=== PATIENT | male | born 1960 | race African-American/Black ===

== ENCOUNTER 2016-11-11 20:26 | Inpatient (IN) | payer BC, MEDICARE, OTHER ==
[~2016-11-11] VITALS: Ht 170.2 cm; Wt 82.2 kg
--- OUTSIDE RECORDS SUMMARY | 2016-11-11 20:32 | XMS REPORT ---
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
[2016-11-11 20:57] LABS: BASOPHILS # (AUTO) 0.1 10^3/uL (0.0-0.1); BASOPHILS % (AUTO) 0 % (0-10); EOSINOPHILS # (AUTO) 0.1 10^3/uL (0.0-0.3); EOSINOPHILS % (AUTO) 0 % (0-10); LYMPHOCYTES % (AUTO) 5 % (12-44); MEAN CORPUSCULAR HEMOGLOBIN 30 PG (25-34); MEAN CORPUSCULAR HGB CONC 32 G/DL (32-36); MEAN CORPUSCULAR VOLUME 93 FL (80-99); MEAN PLATELET VOLUME 11.6 FL (7.4-10.4); MONOCYTES % (AUTO) 10 % (0-12); NEUTROPHILS # (AUTO) 17.1 X 10^3 (1.8-7.8); NEUTROPHILS % (AUTO) 85 % (42-75); PLATELET COUNT 60 10^3/uL (130-400); RED BLOOD COUNT 4.93 10^6/uL (4.35-5.85); RED CELL DISTRIBUTION WIDTH 14.9 % (10.0-14.5); WHITE BLOOD COUNT 20.1 10^3/uL (4.3-11.0)
[2016-11-11 20:59] LABS: BILIRUBIN,URINE NEGATIVE (NEGATIVE); KETONES,URINE NEGATIVE (NEGATIVE); NITRITE,URINE NEGATIVE (NEGATIVE); PH,URINE 7 (5-9); PROTEIN,URINE 4+ (NEGATIVE); UROBILINOGEN,URINE NORMAL (NORMAL)
[2016-11-11 21:06] LABS: INR 1.2 (0.8-1.4)
[2016-11-11 21:08] LABS: ALANINE AMINOTRANSFERASE 6 U/L (0-55); ALBUMIN 3.1 G/DL (3.2-4.5); ANION GAP 13 MMOL/L (5-14); ASPARTATE AMINO TRANSFERASE 16 U/L (5-34); BILIRUBIN,TOTAL 0.6 MG/DL (0.1-1.0); BLOOD UREA NITROGEN 25 MG/DL (7-18); BUN/CREATININE RATIO 11; CARBON DIOXIDE 24 MMOL/L (21-32); CHLORIDE 107 MMOL/L (98-107); GFR ESTIMATED 36; GLUCOSE 119 MG/DL (70-105); POTASSIUM 3.8 MMOL/L (3.6-5.0); SODIUM 144 MMOL/L (135-145); TOTAL PROTEIN 5.8 G/DL (6.4-8.2)
[2016-11-11 21:10] LABS: LEUKOCYTE ESTERASE ,URINE 3+ (NEGATIVE); SQUAMOUS EPITHELIAL CELL,UR RARE /HPF; WBC,URINE TNTC /HPF
[2016-11-11 21:14] LABS: TROPONIN I < 0.30 NG/ML (<0.30)
[2016-11-11 21:27] LABS: BAND NEUTROPHILS 7 %; LYMPHOCYTES % (MANUAL) 1 %; NEUTROPHILS % (MANUAL) 78 %; REACTIVE LYMPHOCYTES 4 %
[2016-11-11] MEDS ORDERED: NS IV 1000 ML 2,500 ML IV PRN (21:30)
[2016-11-11] MEDS ORDERED: PIPERACILLIN SODIUM/TAZOBACTAM 4.5 GM in NORMAL SALINE (BAXTER MINI) 100 ML IV ONE (21:30)
[2016-11-11] MEDS ORDERED: PIPERACILLIN/TAZO 4.5 GM VIAL (ZOSYN) IV ONE (21:40)
[2016-11-11] MEDS ORDERED: SODIUM CHLORIDE (ADD-VANTAGE) 0 ML IV ONE (21:42)
[2016-11-11] MEDS ORDERED: CEFEPIME HCL 2 GM (MAXIPIME) VIAL ONE (21:47)
[2016-11-11] MEDS ORDERED: NORMAL SALINE (BAXTER MINI) 50 ML IV ONE (21:48)
--- NOTE | 2016-11-11 21:49 | Diagnostic Imaging Report ---
INDICATION: Unresponsive. EXAMINATION: Portal semierect AP chest at 9:31 p.m. COMPARISON: There are no prior studies available for comparison. FINDINGS: The heart size is mildly enlarged and the central pulmonary vascularity is prominent. There may be an element of mild pulmonary congestion present. There is no confluent pneumonia identified and there is no significant pleural effusion. The mediastinum is not widened. The osseous structures are intact. There do appear to be bilateral pedicle screws overlying the lower cervical spine. These are only partially visualized. IMPRESSION: 1. The prominence of the heart and the central pulmonary vascularity suggests that there may be an element of mild pulmonary congestion present. Clinical followup is recommended. 2. There is no acute cardiopulmonary abnormality identified otherwise. Dictated by: Dictated on workstation # [id number]
[2016-11-11] MEDS ORDERED: CEFEPIME INJECTION 2,000 MG in NORMAL SALINE (BAXTER MINI) 50 ML IV ONE (22:00)
[2016-11-11] MEDS ORDERED: ROCURONIUM 50 MG/5 ML (ZEMURON) VIAL IV ONE (23:00)
[2016-11-11 23:25] VITALS: BP 89/55
[2016-11-11] MEDS ORDERED: SODIUM CHLORIDE (ADD-VANTAGE) 250 ML ONE (23:46)
[2016-11-11] MEDS ORDERED: VANCOMYCIN 1 GM ADD-VANTAGE VIAL IV ONE (23:46)
[2016-11-12] VITALS (33 sets, daily range): BP systolic 73–195; BP diastolic 45–89
[2016-11-12] MEDS ORDERED: LACTATED RINGERS 1,000 ML IV ONE (00:31)
[2016-11-12 00:58] LABS: ABG BASE EXCESS -2.1 MMOL/L (-2.5-2.5); ABG HCO3 25 MMOL/L (23-27); ABG OXYGEN SATURATION 98 % (94-100); ABG PCO2 52 MMHG (35-45); ABG PO2 112 MMHG (79-93); ABG TCO2 26.7 MMOL/L (21.0-31.0)
[2016-11-12 01:01] LABS: ALLENS TEST YES-POS; PATIENT TEMP 97.7
[2016-11-12] MEDS ORDERED: PROPOFOL DRIP (ICU) 100 ML IV ONE (01:47)
[2016-11-12] MEDS ORDERED: LACTATED RINGERS 1,000 ML IV SCH ×4 (02:00→06:45)
[2016-11-12] MEDS ORDERED: VANCOMYCIN 1 GM/NS 250 ML IVPB IV SCH ×2 (02:00)
[2016-11-12] MEDS: NOREPINEPHRINE 4 MG in D5W 250 ML IV SCH ×2 (02:00→15:20)
[2016-11-12] MEDS: NS IV 1000 ML 1,000 ML IV SCH ×8 (02:00→21:07)
--- NOTE | 2016-11-12 02:21 | Anesthesia-Procedure Note ---
Procedure Start/Stop Time Date of Procedure: Nov 12, 2016 Start Time: 01:50 Stop Time: 02:15 Procedures/Interventions RSI: No 100% pre-Ox, [id number]: Yes Intubation Method: orotracheal Videoscope used: Yes (glidescope 3) Medications: Propofol (80mg), Rocuronium (30mg) Mask Ventilation: positive Positive End Tide CO2: Yes Breath Sounds after Intubation: bilateral-equal ETT Securred @ (cm): 22 Intubated with ease: Yes Intubation Complications: no complications Post Intubation Xray-done: Yes Arterial Line Catheter: 20G ( x 1 attempt) Type: Radial Location: Right Procedure: prepped, draped in sterile fashion, good wave-form was obtained, patient tolerated procedure well, no immediate complications, post procedure area cleaned, post procedure dressing applied (secured with silk tape) LAI SANDERS CRNA Nov 12, 2016 02:21
[2016-11-12 03:09] LABS: BASOPHILS % (AUTO) 0 % (0-10); EOSINOPHILS # (AUTO) 0.1 10^3/uL (0.0-0.3); EOSINOPHILS % (AUTO) 0 % (0-10); LYMPHOCYTES # (AUTO) 1.6 X 10^3 (1.0-4.0); LYMPHOCYTES % (AUTO) 7 % (12-44); MEAN CORPUSCULAR HEMOGLOBIN 30 PG (25-34); MEAN CORPUSCULAR HGB CONC 32 G/DL (32-36); MEAN CORPUSCULAR VOLUME 95 FL (80-99); MEAN PLATELET VOLUME 12.1 FL (7.4-10.4); MONOCYTES # (AUTO) 1.7 X 10^3 (0.0-1.0); MONOCYTES % (AUTO) 8 % (0-12); NEUTROPHILS # (AUTO) 18.5 X 10^3 (1.8-7.8); NEUTROPHILS % (AUTO) 85 % (42-75); PLATELET COUNT 42 10^3/uL (130-400); RED BLOOD COUNT 4.35 10^6/uL (4.35-5.85); RED CELL DISTRIBUTION WIDTH 14.9 % (10.0-14.5); WHITE BLOOD COUNT 21.8 10^3/uL (4.3-11.0)
[2016-11-12 03:23] LABS: INR 1.3 (0.8-1.4); PROTHROMBIN TIME PATIENT 15.7 SEC (12.2-14.7)
[2016-11-12 03:31] LABS: ALBUMIN 2.7 G/DL (3.2-4.5); BILIRUBIN,TOTAL 0.5 MG/DL (0.1-1.0); CALCIUM 8.2 MG/DL (8.5-10.1); CREATININE SERUM 1.6 MG/DL (0.60-1.30); POTASSIUM 4.2 MMOL/L (3.6-5.0)
[2016-11-12 04:29] LABS: ABG BASE EXCESS -1.7 MMOL/L (-2.5-2.5); ABG HCO3 24 MMOL/L (23-27); ABG OXYGEN SATURATION 99 % (94-100); ABG PCO2 40 MMHG (35-45); ABG PH 7.38 (7.37-7.43); ABG PO2 118 MMHG (79-93); ABG TCO2 24.8 MMOL/L (21.0-31.0)
[2016-11-12 04:31] LABS: ALLENS TEST YES-POS
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
[2016-11-12] MEDS ORDERED: NS IV 500 ML 500 ML ONE (06:34)
[2016-11-12] MEDS ORDERED: NS IV 500 ML 500 ML IV SCH (06:45)
[2016-11-12] MEDS: LEVOFLOXACIN 750 MG/150 ML IV 150 ML IV SCH (06:53)
[2016-11-12 07:19] LABS: BASOPHILS % (AUTO) 0 % (0-10); EOSINOPHILS # (AUTO) 0.1 10^3/uL (0.0-0.3); EOSINOPHILS % (AUTO) 1 % (0-10); LYMPHOCYTES # (AUTO) 2.1 X 10^3 (1.0-4.0); LYMPHOCYTES % (AUTO) 10 % (12-44); MEAN CORPUSCULAR HEMOGLOBIN 31 PG (25-34); MEAN CORPUSCULAR HGB CONC 33 G/DL (32-36); MEAN CORPUSCULAR VOLUME 94 FL (80-99); MEAN PLATELET VOLUME 11.9 FL (7.4-10.4); MONOCYTES # (AUTO) 1.5 X 10^3 (0.0-1.0); MONOCYTES % (AUTO) 7 % (0-12); NEUTROPHILS # (AUTO) 16.7 X 10^3 (1.8-7.8); NEUTROPHILS % (AUTO) 82 % (42-75); RED BLOOD COUNT 4.17 10^6/uL (4.35-5.85); RETICULOCYTE % 1.45 % (0.50-2.40); WHITE BLOOD COUNT 20.3 10^3/uL (4.3-11.0)
[2016-11-12 07:27] LABS: PATH WILL NEED TO REVIEW SMEAR PATH TO REVIEW; PLATELET COUNT 31 10^3/uL (130-400)
[2016-11-12 07:34] LABS: INR 1.4 (0.8-1.4); PROTHROMBIN TIME PATIENT 16.9 SEC (12.2-14.7)
--- NOTE | 2016-11-12 07:44 | Diagnostic Imaging Report ---
INDICATION: Respiratory failure. FINDINGS: The ET tube tip projects at the level of the undersurface of the medial clavicular heads, 7 cm above the joel. Patchy infiltrate in the right lower lobe partially obscuring the medial right hemidiaphragm. This could be atelectasis or pneumonia. IMPRESSION: ET tube tip near the thoracic inlet 7 cm above the joel. Right medial basilar infiltrate, atelectasis versus pneumonia. Not mentioned above, a gastric catheter is in the stomach in good position. Dictated by: Dictated on workstation # [id number]
[2016-11-12] MEDS ORDERED: VANCOMYCIN INJECTION 1,500 MG in NS IV 500 ML 500 ML IV SCH (08:00)
[2016-11-12 08:29] LABS: ANISOCYTOSIS SLIGHT; BAND NEUTROPHILS 33 %; BASOPHILS % (MANUAL) 0 %; EOSINOPHILS % (MANUAL) 0 %; LYMPHOCYTES % (MANUAL) 14 %; METAMYELOCYTES % 2 %; MYELOCYTES % 2 %; NEUTROPHILS % (MANUAL) 44 %
[2016-11-12] MEDS ORDERED: RT-ALBUTEROL/IPRATROPIUM 3 ML (DUONEB) VIAL INH SCH (11:00)
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
[2016-11-12] MEDS: CEFEPIME 2 GM/NS 50 ML IVPB IV SCH ×4 (13:29→23:10)
[2016-11-12] MEDS: RT-ALBUTEROL/IPRATROPIUM 3 ML (DUONEB) VIAL INH SCH ×3 (14:30→22:42)
[2016-11-12 14:58] LABS: BASOPHILS % (AUTO) 0 % (0-10); EOSINOPHILS # (AUTO) 0.3 10^3/uL (0.0-0.3); EOSINOPHILS % (AUTO) 2 % (0-10); LYMPHOCYTES % (AUTO) 11 % (12-44); MEAN CORPUSCULAR HEMOGLOBIN 30 PG (25-34); MEAN CORPUSCULAR HGB CONC 32 G/DL (32-36); MEAN CORPUSCULAR VOLUME 94 FL (80-99); MEAN PLATELET VOLUME 10.5 FL (7.4-10.4); MONOCYTES # (AUTO) 0.8 X 10^3 (0.0-1.0); MONOCYTES % (AUTO) 5 % (0-12); NEUTROPHILS # (AUTO) 14.6 X 10^3 (1.8-7.8); NEUTROPHILS % (AUTO) 83 % (42-75); PLATELET COUNT 43 10^3/uL (130-400); RED CELL DISTRIBUTION WIDTH 14.9 % (10.0-14.5); WHITE BLOOD COUNT 17.7 10^3/uL (4.3-11.0)
[2016-11-12] MEDS: fentaNYL INJECTION 100 MCG/2 ML AMP IVP PRN ×3 (14:58→23:50)
[2016-11-12] MEDS ORDERED: RT-ALBUTEROL/IPRATROPIUM 3 ML (DUONEB) VIAL INH PRN (15:00)
[2016-11-12 15:14] LABS: ANION GAP 6 MMOL/L (5-14); BLOOD UREA NITROGEN 20 MG/DL (7-18); BUN/CREATININE RATIO 20; CALCIUM 7.6 MG/DL (8.5-10.1); CARBON DIOXIDE 20 MMOL/L (21-32); CHLORIDE 118 MMOL/L (98-107); CREATININE SERUM 0.99 MG/DL (0.60-1.30); GFR ESTIMATED > 60; GLUCOSE 72 MG/DL (70-105); POTASSIUM 3.1 MMOL/L (3.6-5.0); SODIUM 144 MMOL/L (135-145)
[2016-11-12] MEDS ORDERED: POTASSIUM CL 10MEQ/50ML IVPB 50 ML IV SCH (15:30)
[2016-11-12] MEDS ORDERED: ACETAMINOPHEN 325 MG TABLET/CAPLET (TYLENOL) ONE (15:36)
[2016-11-12] MEDS ORDERED: ACETAMINOPHEN 325 MG TABLET/CAPLET (TYLENOL) PO PRN (15:45)
[2016-11-12] MEDS: POTASSIUM CL 10MEQ/50ML IVPB 50 ML IV SCH ×6 (16:02→22:19)
[2016-11-12] MEDS ORDERED: ACETAMINOPHEN 500 MG TAB (TYLENOL) PO PRN (18:15)
--- NOTE | 2016-11-12 20:01 | Diagnostic Imaging Report ---
INDICATION: Swelling COMPARISON: None FINDINGS: Grayscale as well as duplex Doppler evaluation of the deep venous system of both upper extremities is performed. The left and right internal jugular veins, subclavian veins, axillary veins and brachial veins appear patent. There is normal compressibility. No visible thrombus is demonstrated. The cephalic and basilic veins appear patent as well. IMPRESSION: There is no evidence of deep venous thrombosis within either upper extremity. Dictated by: Dictated on workstation # [id number]
--- NOTE | 2016-11-12 20:11 | Diagnostic Imaging Report ---
INDICATION: Swelling COMPARISON: None FINDINGS: Grayscale and duplex Doppler ultrasound of the deep venous system of both lower extremities was performed utilizing compression and augmentation. There is extensive but nonocclusive thrombus seen within the right common femoral vein extending into the proximal and mid superficial femoral vein. Distal superficial femoral vein and popliteal vein on the right appear patent and compressible. The left common femoral, superficial femoral and popliteal veins appear patent and compressible without visible thrombus on the left. The left superficial femoral vein was not visualized well on the longitudinal view but did show normal compression. IMPRESSION: There is extensive but nonocclusive thrombus in the right common femoral vein and proximal to mid superficial femoral vein. Report given to patient's nurse (Brandi) at 8:11 a.m. 11/12/2016/anil Dictated by: Dictated on workstation # [id number]
[2016-11-12] MEDS ORDERED: FAMOTIDINE 20MG/2ML IV (PEPCID) IVP SCH ×2 (21:00)
[2016-11-12] MEDS ORDERED: LINEZOLID IVPB 300 ML IV SCH (21:00)
[2016-11-12] MEDS ORDERED: FONDAPARINUX 2.5 MG (ARIXTRA) SYR NON-FORMULARY SQ SCH (22:24)
[2016-11-13] VITALS (28 sets, daily range): BP systolic 117–196; BP diastolic 66–101
[2016-11-13] MEDS ORDERED: BIVALIRUDIN IV ONE (00:01)
[2016-11-13] MEDS ORDERED: NS (IVPB) 50 ML ONE (00:17)
[2016-11-13 00:41] LABS: INR 1.3 (0.8-1.4); PROTHROMBIN TIME PATIENT 16.3 SEC (12.2-14.7)
[2016-11-13] MEDS: BIVALIRUDIN IV SCH ×2 (00:50→18:46)
[2016-11-13] MEDS: NS IV SCH ×2 (00:50→18:46)
[2016-11-13] MEDS: RT-ALBUTEROL/IPRATROPIUM 3 ML (DUONEB) VIAL INH SCH ×6 (01:58→23:00)
[2016-11-13] MEDS: fentaNYL INJECTION 100 MCG/2 ML AMP IVP PRN ×2 (03:23→21:22)
[2016-11-13] MEDS: NOREPINEPHRINE 4 MG in D5W 250 ML IV SCH (03:50)
[2016-11-13 04:14] LABS: ABG BASE EXCESS -2.9 MMOL/L (-2.5-2.5); ABG HCO3 22 MMOL/L (23-27); ABG OXYGEN SATURATION 96 % (94-100); ABG PCO2 39 MMHG (35-45); ABG PH 7.37 (7.37-7.43); ABG PO2 87 MMHG (79-93); ABG TCO2 22.8 MMOL/L (21.0-31.0)
[2016-11-13 04:18] LABS: ALLENS TEST ART LINE; BASOPHILS % (AUTO) 0 % (0-10); EOSINOPHILS # (AUTO) 0.3 10^3/uL (0.0-0.3); EOSINOPHILS % (AUTO) 2 % (0-10); LYMPHOCYTES # (AUTO) 1.5 X 10^3 (1.0-4.0); LYMPHOCYTES % (AUTO) 10 % (12-44); MEAN CORPUSCULAR HEMOGLOBIN 30 PG (25-34); MEAN CORPUSCULAR HGB CONC 33 G/DL (32-36); MEAN CORPUSCULAR VOLUME 93 FL (80-99); MEAN PLATELET VOLUME 11.7 FL (7.4-10.4); MONOCYTES # (AUTO) 0.9 X 10^3 (0.0-1.0); MONOCYTES % (AUTO) 6 % (0-12); NEUTROPHILS # (AUTO) 12.4 X 10^3 (1.8-7.8); NEUTROPHILS % (AUTO) 82 % (42-75); PATIENT TEMP 100.5; PLATELET COUNT 45 10^3/uL (130-400); RED BLOOD COUNT 4.11 10^6/uL (4.35-5.85); RED CELL DISTRIBUTION WIDTH 15.3 % (10.0-14.5); WHITE BLOOD COUNT 15.1 10^3/uL (4.3-11.0)
[2016-11-13 04:32] LABS: INR 1.8 (0.8-1.4); PROTHROMBIN TIME PATIENT 20.9 SEC (12.2-14.7)
[2016-11-13 04:42] LABS: ALANINE AMINOTRANSFERASE 6 U/L (0-55); ALBUMIN 2.8 G/DL (3.2-4.5); ANION GAP 10 MMOL/L (5-14); ASPARTATE AMINO TRANSFERASE 14 U/L (5-34); BILIRUBIN,TOTAL 0.6 MG/DL (0.1-1.0); BLOOD UREA NITROGEN 20 MG/DL (7-18); BUN/CREATININE RATIO 21; CALCIUM 8.3 MG/DL (8.5-10.1); CARBON DIOXIDE 19 MMOL/L (21-32); CHLORIDE 115 MMOL/L (98-107); CREATININE SERUM 0.95 MG/DL (0.60-1.30); GFR ESTIMATED > 60; GLUCOSE 87 MG/DL (70-105); SODIUM 144 MMOL/L (135-145); TOTAL PROTEIN 5.3 G/DL (6.4-8.2)
[2016-11-13] MEDS: LEVOFLOXACIN 750 MG/150 ML IV 150 ML IV SCH (05:59)
[2016-11-13] MEDS ORDERED: MAGNESIUM 1 GM/100 ML IVPB 100 ML IV SCH (06:00)
[2016-11-13] MEDS: KCL 20 MEQ TAB (K-DUR) PO SCH (06:00)
[2016-11-13] MEDS: POTASSIUM CL 10MEQ/50ML IVPB 50 ML IV SCH (06:00)
[2016-11-13 06:22] LABS: MAGNESIUM 1.5 MG/DL (1.8-2.4); PHOSPHORUS 2.7 MG/DL (2.3-4.7)
--- NOTE | 2016-11-13 06:52 | Pulmonary Progress Note ---
Subjective Subjective/Events-last exam Pt is doing better off levophed requiring minimal oxygen. Exam Exam Vital Signs Date Time Temp Pulse Resp B/P Pulse Ox O2 Delivery O2 Flow Rate FiO2 11/13/16 06:00 83 18 117/89 97 Mechanical Ventilator 21.00 11/13/16 05:59 139/83 11/13/16 05:00 74 12 139/83 96 Mechanical Ventilator 21.00 11/13/16 04:06 82 22 96 21 11/13/16 04:00 100.5 81 16 137/75 96 Mechanical Ventilator 21.00 11/13/16 03:00 97 11 132/75 96 Mechanical Ventilator 21.00 11/13/16 02:00 80 15 139/92 97 Mechanical Ventilator 21.00 11/13/16 01:59 75 19 97 21 11/13/16 01:10 75 11/13/16 01:00 119 21 143/81 97 Mechanical Ventilator 21.00 11/13/16 00:00 100.5 144 14 127/74 97 Mechanical Ventilator 21.00 11/13/16 00:00 97 Mechanical Ventilator 21.00 11/12/16 23:00 87 16 144/83 96 Mechanical Ventilator 21.00 11/12/16 22:42 86 17 97 21 11/12/16 22:00 81 12 142/89 98 Mechanical Ventilator 21.00 11/12/16 21:07 163/75 11/12/16 21:00 83 11 145/81 98 Mechanical Ventilator 21.00 11/12/16 20:00 97 Mechanical Ventilator 21.00 11/12/16 20:00 101.4 96 12 127/77 97 Mechanical Ventilator 21.00 11/12/16 19:58 94 21 97 21 11/12/16 19:00 81 11/12/16 19:00 84 14 127/80 96 Mechanical Ventilator 21.00 11/12/16 18:55 101.8 11/12/16 18:27 77 19 97 21 11/12/16 18:00 88 16 177/68 97 Mechanical Ventilator 21.00 11/12/16 17:00 79 13 195/87 98 Mechanical Ventilator 21.00 11/12/16 16:18 90 15 96 21 11/12/16 16:00 101.8 11/12/16 16:00 96 Mechanical Ventilator 21 11/12/16 16:00 100 17 172/74 97 Mechanical Ventilator 21.00 11/12/16 15:57 101.1 11/12/16 15:09 101.1 Mechanical Ventilator 21.00 11/12/16 15:00 98 19 149/66 95 Mechanical Ventilator 21.00 11/12/16 14:30 79 15 98 21 11/12/16 14:00 76 15 163/74 98 Mechanical Ventilator 21.00 11/12/16 13:00 76 11/12/16 13:00 77 14 156/72 97 Mechanical Ventilator 21.00 11/12/16 12:45 79 21 97 21 11/12/16 12:00 99.6 11/12/16 12:00 Mechanical Ventilator 21.00 11/12/16 12:00 75 15 154/75 98 Mechanical Ventilator 21.00 11/12/16 12:00 96 Mechanical Ventilator 21 11/12/16 11:07 99.6 75 23 138/70 Mechanical Ventilator 21.00 11/12/16 11:01 98 Mechanical Ventilator 21 11/12/16 11:00 98.9 75 15 131/84 95 Mechanical Ventilator 21 11/12/16 11:00 76 18 153/73 98 Mechanical Ventilator 50.00 11/12/16 10:36 98 11/12/16 10:36 75 17 98 21 11/12/16 10:00 80 22 134/67 97 Mechanical Ventilator 50.00 11/12/16 09:00 86 12 127/67 96 Mechanical Ventilator 50.00 11/12/16 08:55 97.8 80 15 120/62 95 Mechanical Ventilator 21 11/12/16 08:39 97.8 80 16 121/64 94 Mechanical Ventilator 21 11/12/16 08:24 68 15 98 30 11/12/16 08:00 97.8 Mechanical Ventilator 21.00 11/12/16 08:00 75 15 114/60 98 Mechanical Ventilator 50.00 11/12/16 08:00 96 Mechanical Ventilator 21 11/12/16 07:21 68 15 98 40 11/12/16 07:00 70 19 113/62 98 Mechanical Ventilator 50.00 11/12/16 07:00 71 I & O 11/13/16 07:00 Intake Total 2915 ml Output Total 2275 ml Balance 640 ml General Appearance: Moderate Distress HEENT: Other (ET tube in place ) Neck: Normal Inspection Supple Respiratory: Lungs Clear No Accessory Muscle Use No Respiratory Distress Cardiovascular: Regular Rate, Rhythm No Gallop No Murmur Capillary Refill: Less Than 3 Seconds Gastrointestinal: other ((+) indwelling portillo noted draining dark urine) Extremity: Normal Capillary Refill Normal Inspection Non Tender No Calf Tenderness Neurologic/Psychiatric: Other (sedated on vent) Skin: Normal Color Warm/Dry Lymphatic: No Adenopathy Results Lab Laboratory Tests 11/11/16 20:35 11/12/16 03:00 11/12/16 07:05 11/12/16 14:50 11/13/16 04:05 Assessment/Plan Assessment/Plan Acute respiratory failure requiring mechanical ventilation -Continue vent support -D/C sedation -Weaning parameters and probable extubation Severe sepsis with UTI -Continue levaquin cefepime, zyvox -Hold off on central line secondary to thrombocytopenia Hypotension- resolved -Continue IVF Metabolic lactic acidosis -IVF Thrombocytopenia with DVT r/o HIT -Continue Angiomax -Check DIC panal and peripheral smear -Check HIT abx pending -transfuse 6pk of platelets Quadriplegia Clinical Quality Measures DVT/VTE Risk/Contraindication: Risk Factor Score Per Nursin RFS Level Per Nursing on Admit: 3=High JOANNA MASSEY DO Nov 13, 2016 06:52
[2016-11-13] MEDS: MAGNESIUM 1 GM/100 ML IVPB 100 ML IV SCH ×2 (07:16→08:28)
[2016-11-13] MEDS: NS IV 1000 ML 1,000 ML IV SCH ×2 (07:16→20:09)
--- NOTE | 2016-11-13 08:35 | Diagnostic Imaging Report ---
INDICATION: Ventilated patient. COMPARISON: 11/12/2016 FINDINGS: Single frontal radiographic view of the chest was obtained and demonstrate stable cardiac silhouette and pulmonary vasculature. Lungs show asymmetric elevation of right hemidiaphragm. There are patchy opacities in both lower lung tolentino. There is no large effusion or pneumothorax. Indwelling endotracheal tube terminates with tip below the clavicular heads and above the joel. Enteric tube is coiled in the stomach. IMPRESSION: 1. Mild residual bibasilar patchy infiltrate and/or atelectasis. 2. Lines and tubes as above. Dictated by: Dictated on workstation # [id number]
[2016-11-13] MEDS: VANCOMYCIN 1500 MG/NS 500 ML IVPB IV SCH ×4 (10:23→20:10)
[2016-11-13] MEDS: CEFEPIME 2 GM/NS 50 ML IVPB IV SCH ×4 (10:23→22:17)
[2016-11-13] MEDS: PANTOPRAZOLE 40 MG/10 ML (PROTONIX) VIAL IV SCH (10:23)
--- NOTE | 2016-11-13 11:32 | Progress Note (SOAP) ---
Subjective Subjective/Events-last exam Patient Extubated this AM and satting 95% on RA. States that he is very cold. Would like to get a call light that he can use with his head given his paralysis. Good UOP with urine clear. Date seen by provider: Nov 13, 2016 Objective Exam Last Set of Vital Signs Vital Signs Date Time Temp Pulse Resp B/P Pulse Ox O2 Delivery O2 Flow Rate FiO2 11/13/16 10:49 96 Room Air 11/13/16 07:20 2.00 11/13/16 07:00 74 11/13/16 06:42 17 21 11/13/16 06:00 117/89 11/13/16 04:00 100.5 Capillary Refill : Less Than 3 Seconds I&O Intake and Output 11/13/16 00:00 Intake Total 5565 ml Output Total 2475 ml Balance 3090 ml Intake Oral 0 ml IV Total 5565 ml Output Urine Total 2475 ml General: Alert, Cooperative, No Acute Distress Lungs: Clear to Auscultation Heart: Regular Rate, No Murmurs Abdomen: Normal Bowel Sounds, Soft, No Tenderness Extremities: Other (3+ pitting edema in UE and LE equal bilaterally) Skin: No Rashes, No Breakdown Neuro: Normal Speech, Sensation Intact (facial sensation) Results/Procedures Lab Laboratory Tests 11/12/16 14:50: Anion Gap 6, BUN/Creatinine Ratio 20, Basophils # (Auto) 0.0, Basophils (%) ( Auto) 0, Blood Urea Nitrogen 20H, Calcium Level 7.6L, Carbon Dioxide Level 20L, Chloride Level 118H, Creatinine 0.99, Eosinophils # (Auto) 0.3, Eosinophils (%) (Auto) 2, Estimat Glomerular Filtration Rate > 60, Glucose Level 72, Hematocrit 38L, Hemoglobin 12.1L, Lymphocytes # (Auto) 2.0, Lymphocytes (%) (Auto) 11L, Mean Corpuscular Hemoglobin 30, Mean Corpuscular Hemoglobin Concent 32, Mean Corpuscular Volume 94, Mean Platelet Volume 10.5H, Monocytes # (Auto) 0.8, Monocytes (%) (Auto) 5, Neutrophils # (Auto) 14.6H, Neutrophils (%) (Auto) 83H, Platelet Count 43L, Potassium Level 3.1L, Red Blood Count 4.00L, Red Cell Distribution Width 14.9H, Sodium Level 144, White Blood Count 17.7H 11/13/16 00:25: Activated Partial Thromboplast Time 37H, INR Comment 1.3, Prothrombin Time 16.3H 11/13/16 04:05: Anion Gap 10, BUN/Creatinine Ratio 21, Basophils # (Auto) 0.0, Basophils (%) ( Auto) 0, Blood Urea Nitrogen 20H, Calcium Level 8.3L, Carbon Dioxide Level 19L, Chloride Level 115H, Creatinine 0.95, Eosinophils # (Auto) 0.3, Eosinophils (%) (Auto) 2, Estimat Glomerular Filtration Rate > 60, Glucose Level 87, Hematocrit 38L, Hemoglobin 12.5L, Lymphocytes # (Auto) 1.5, Lymphocytes (%) (Auto) 10L, Mean Corpuscular Hemoglobin 30, Mean Corpuscular Hemoglobin Concent 33, Mean Corpuscular Volume 93, Mean Platelet Volume 11.7H, Monocytes # (Auto) 0.9, Monocytes (%) (Auto) 6, Neutrophils # (Auto) 12.4H, Neutrophils (%) (Auto) 82H, Platelet Count 45L, Potassium Level 4.0, Red Blood Count 4.11L, Red Cell Distribution Width 15.3H, Sodium Level 144, White Blood Count 15.1H, Activated Partial Thromboplast Time 80H, INR Comment 1.8H, Prothrombin Time 20.9H, Alanine Aminotransferase (ALT/SGPT) 6, Albumin 2.8L, Alkaline Phosphatase 59, Azam Test ART LINE, Arterial Blood Base Excess -2.9L, Arterial Blood HCO3 22L, Arterial Blood Oxygen Saturation 96, Arterial Blood Partial Pressure CO2 39, Arterial Blood Partial Pressure O2 87, Arterial Blood Total CO2 22.8, Arterial Blood pH 7.37, Aspartate Amino Transf (AST/SGOT) 14, Blood Gas Inspired Oxygen 21%, Blood Gas Patient Temperature 100.5, Blood Gas Puncture Site RIGHT HÉCTOR, Blood Gas Ventilator Setting YES, Lactic Acid Level 1.9, Magnesium Level 1.5L, Phosphorus Level 2.7, Total Bilirubin 0.6, Total Protein 5.3L Microbiology 11/11/16 Blood Culture - Preliminary, Resulted Escherichia Coli 11/12/16 Gram Stain - Final, Resulted 11/12/16 Sputum Culture - Preliminary, Resulted Normal keven 11/11/16 Urine Culture - Preliminary, Resulted Escherichia Coli Enterobacter Aerogenes Enterococcus Faecalis Proteus Species Radiology Date of Exam: 11/11/16 CHEST 1 VIEW, AP/PA ONLY INDICATION: Unresponsive. EXAMINATION: Portal semierect AP chest at 9:31 p.m. COMPARISON: There are no prior studies available for comparison. FINDINGS: The heart size is mildly enlarged and the central pulmonary vascularity is prominent. There may be an element of mild pulmonary congestion present. There is no confluent pneumonia identified and there is no significant pleural effusion. The mediastinum is not widened. The osseous structures are intact. There do appear to be bilateral pedicle screws overlying the lower cervical spine. These are only partially visualized. IMPRESSION: 1. The prominence of the heart and the central pulmonary vascularity suggests that there may be an element of mild pulmonary congestion present. Clinical followup is recommended. 2. There is no acute cardiopulmonary abnormality identified otherwise. Assessment/Plan Assessment/Plan Admission Dx Severe Sepsis due to UTI Acute Respiratory Failure Acute Renal Insufficiency Thrombocytopenia Elevated INR Quadriplegia Chronic Indwelling Catheter Plan 56 yo Quadriplegic M with indwelling catheter that presents to ER for altered mental status in Severe Sepsis from presumed UTI Severe Sepsis due to Ecoli UTI - Rapid fluid replacement completed, blood pressure responded and has stabilized (A line), Elevated Lactate resolved - Decrease IVF 75 cc/hr - Blood and Urine cultures growing Ecoli, susceptibilities pending - Continue Cefepime/Vanc D2 Acute Respiratory Failure: Improving - Extubated this AM Ecoli UTI: See Above Right Common Femoral Thrombus - Started on Anticoagulation last night, given thrombocytopenia monitor closely for any signs of bleeding Acute Renal Insufficiency: Resolved, Adequate UOP Thrombocytopenia s/p 1 bag plts: Concerning for DIC, HIT-Ab pending - Monitor closely for bleeding Elevated INR: See Above Quadriplegia Chronic Indwelling Catheter Dispo: Continue Admit to ICU DVT PPX: PO anticoagulation started last night FEN: NPO Diagnosis/Problems: Clinical Quality Measures DVT/VTE Risk/Contraindication: Risk Factor Score Per Nursin RFS Level Per Nursing on Admit: 3=High LAURIE SAVAGE MD Nov 13, 2016 11:32
[2016-11-13] MEDS ORDERED: DIPH28.33 TP (12:33)
[2016-11-13] MEDS ORDERED: MENT118G TP (12:33)
[2016-11-13] MEDS ORDERED: DIAZ10TA3 PO (12:33)
[2016-11-13] MEDS ORDERED: ASCO-262 PO (12:33)
[2016-11-13] MEDS ORDERED: DEXT15DR21 OU (12:33)
[2016-11-13] MEDS ORDERED: METH1TAB21 PO (12:33)
[2016-11-13] MEDS ORDERED: LIDOCAINE JELLY UR (12:33)
[2016-11-13] MEDS ORDERED: CALC625T8 PO (12:33)
[2016-11-13] MEDS ORDERED: QUET50TA55 PO (12:33)
[2016-11-13] MEDS ORDERED: NPPH15OP OU (12:33)
[2016-11-13] MEDS ORDERED: DANT100C PO (12:33)
[2016-11-13] MEDS ORDERED: BACL20TA PO (12:33)
[2016-11-13] MEDS ORDERED: CHOL10007 PO (12:33)
[2016-11-13] MEDS ORDERED: OMEP20CA12 PO (12:33)
[2016-11-13] MEDS ORDERED: ESCI10TA PO (12:33)
[2016-11-13] MEDS ORDERED: CALC1TAB94 PO (12:33)
[2016-11-13] MEDS ORDERED: FLDR.1T PO (12:33)
[2016-11-13] MEDS ORDERED: DOCU-143 PO (12:33)
[2016-11-13] MEDS ORDERED: MELO-170 PO (12:33)
[2016-11-13] MEDS ORDERED: ACET325T49 PO (12:33)
[2016-11-13] MEDS ORDERED: METH5TAB4 PO (12:33)
[2016-11-13] MEDS ORDERED: GABA-488 PO (12:33)
[2016-11-13] MEDS ORDERED: HYDR28CR2 TP (12:33)
[2016-11-13] MEDS ORDERED: TIZA2TAB3 PO (12:33)
[2016-11-13] MEDS ORDERED: MELA1TAB10 PO (12:33)
[2016-11-13] MEDS ORDERED: MAGN400O7 PO (12:33)
[2016-11-13] MEDS ORDERED: CATHETER FLUSH 10 ML SYR IV PRN (15:15)
[2016-11-13] MEDS ORDERED: hydrALAZINE (APESOLINE) 20 MG/ML VIAL ONE (20:53)
[2016-11-13] MEDS ORDERED: meTOprolol 5 MG/5 ML (LOPRESSOR) VIAL ONE (20:54)
[2016-11-13] MEDS ORDERED: HYDROcodone/APAP 10 MG/325 MG (LORTAB) TAB PO ONE ×2 (20:55→22:00)
[2016-11-13] MEDS ORDERED: CYCLOBENZAPRINE 10 MG (FLEXERIL) TAB ONE (20:59)
[2016-11-13] MEDS: ACETAMINOPHEN 325 MG TABLET/CAPLET (TYLENOL) PO PRN (21:14)
[2016-11-13] MEDS: CYCLOBENZAPRINE 10 MG (FLEXERIL) TAB PO SCH (21:53)
[2016-11-13] MEDS ORDERED: hydrALAZINE (APESOLINE) 20 MG/ML VIAL IV ONE (22:00)
[2016-11-13] MEDS ORDERED: meTOprolol 5 MG/5 ML (LOPRESSOR) VIAL IV ONE (22:00)
[2016-11-14] VITALS (16 sets, daily range): BP systolic 146–174; BP diastolic 69–87
[2016-11-14] MEDS: RT-ALBUTEROL/IPRATROPIUM 3 ML (DUONEB) VIAL INH SCH ×4 (02:30→19:24)
[2016-11-14 04:16] LABS: BASOPHILS % (AUTO) 0 % (0-10); EOSINOPHILS # (AUTO) 0.3 10^3/uL (0.0-0.3); EOSINOPHILS % (AUTO) 3 % (0-10); LYMPHOCYTES # (AUTO) 2.1 X 10^3 (1.0-4.0); LYMPHOCYTES % (AUTO) 16 % (12-44); MEAN CORPUSCULAR HEMOGLOBIN 31 PG (25-34); MEAN CORPUSCULAR HGB CONC 33 G/DL (32-36); MEAN CORPUSCULAR VOLUME 92 FL (80-99); MEAN PLATELET VOLUME 11.6 FL (7.4-10.4); MONOCYTES # (AUTO) 1.1 X 10^3 (0.0-1.0); MONOCYTES % (AUTO) 8 % (0-12); NEUTROPHILS # (AUTO) 9.4 X 10^3 (1.8-7.8); NEUTROPHILS % (AUTO) 73 % (42-75); PLATELET COUNT 59 10^3/uL (130-400); RED CELL DISTRIBUTION WIDTH 14.6 % (10.0-14.5); WHITE BLOOD COUNT 12.8 10^3/uL (4.3-11.0)
[2016-11-14 04:30] LABS: INR 1.3 (0.8-1.4); PROTHROMBIN TIME PATIENT 15.4 SEC (12.2-14.7)
[2016-11-14 04:40] LABS: ALANINE AMINOTRANSFERASE < 6 U/L (0-55); ALBUMIN 2.4 G/DL (3.2-4.5); ANION GAP 10 MMOL/L (5-14); ASPARTATE AMINO TRANSFERASE 15 U/L (5-34); BILIRUBIN,TOTAL 0.9 MG/DL (0.1-1.0); BLOOD UREA NITROGEN 13 MG/DL (7-18); BUN/CREATININE RATIO 18; CALCIUM 7.7 MG/DL (8.5-10.1); CARBON DIOXIDE 17 MMOL/L (21-32); CHLORIDE 115 MMOL/L (98-107); CREATININE SERUM 0.74 MG/DL (0.60-1.30); GFR ESTIMATED > 60; GLUCOSE 66 MG/DL (70-105); SODIUM 142 MMOL/L (135-145); TOTAL PROTEIN 4.9 G/DL (6.4-8.2)
[2016-11-14] MEDS: POTASSIUM CL 10MEQ/50ML IVPB 50 ML IV SCH ×6 (05:15→08:22)
[2016-11-14] MEDS: KCL 20 MEQ TAB (K-DUR) PO SCH (05:16)
[2016-11-14 06:12] LABS: MAGNESIUM 1.3 MG/DL (1.8-2.4); PHOSPHORUS 2.1 MG/DL (2.3-4.7)
[2016-11-14] MEDS ORDERED: RT-ALBUTEROL/IPRATROPIUM 3 ML (DUONEB) VIAL INH PRN (06:15)
--- NOTE | 2016-11-14 07:12 | Pulmonary Progress Note ---
Subjective Subjective/Events-last exam PT is complaining of SOB Exam Exam Vital Signs Date Time Temp Pulse Resp B/P Pulse Ox O2 Delivery O2 Flow Rate FiO2 11/14/16 06:02 95 Room Air 11/14/16 06:02 95 11/14/16 06:00 69 21 159/76 95 Room Air 11/14/16 05:00 98.3 11/14/16 05:00 62 14 155/82 95 Room Air 11/14/16 04:00 98.9 11/14/16 04:00 98 Room Air 11/14/16 04:00 77 16 153/87 95 Room Air 11/14/16 03:00 66 15 149/80 94 Room Air 11/14/16 02:32 94 Room Air 11/14/16 02:00 99.4 11/14/16 02:00 69 15 147/86 95 Room Air 11/14/16 01:00 75 18 148/72 94 Room Air 11/14/16 01:00 100.5 11/14/16 01:00 75 11/14/16 00:00 86 19 146/72 94 Room Air 11/14/16 00:00 101.8 11/14/16 00:00 98 Room Air 11/13/16 23:00 89 21 160/75 94 Room Air 11/13/16 23:00 94 Room Air 11/13/16 22:20 103.9 11/13/16 22:00 93 26 155/94 95 Room Air 11/13/16 22:00 103.8 11/13/16 22:00 103.8 11/13/16 22:00 103.8 11/13/16 21:26 164/66 11/13/16 21:22 103.6 11/13/16 21:14 103.6 11/13/16 21:13 103.6 11/13/16 21:00 102.7 87 18 196/88 95 Room Air 11/13/16 20:00 103.6 78 15 166/101 96 Room Air 11/13/16 20:00 98 Room Air 11/13/16 19:13 96 Room Air 11/13/16 19:00 73 19 180/90 95 Room Air 11/13/16 19:00 73 11/13/16 18:00 73 22 195/94 97 Room Air 11/13/16 17:00 72 23 186/87 95 Room Air 11/13/16 16:00 78 25 186/91 96 Room Air 11/13/16 16:00 98 Nasal Cannula 2.00 11/13/16 16:00 100.5 Room Air 11/13/16 15:00 80 14 182/94 95 Room Air 11/13/16 14:23 96 Room Air 11/13/16 14:00 72 20 175/85 94 Room Air 11/13/16 13:00 78 11/13/16 13:00 79 21 178/99 95 Room Air 11/13/16 12:00 99.9 Room Air 11/13/16 12:00 83 12 168/90 95 Room Air 11/13/16 12:00 98 Nasal Cannula 2.00 11/13/16 11:00 82 24 178/88 95 Room Air 11/13/16 10:49 96 Room Air 11/13/16 10:00 76 10 154/97 96 Room Air 11/13/16 09:45 Room Air 11/13/16 09:00 76 16 150/86 97 Nasal Cannula 2.00 11/13/16 08:00 98.9 Nasal Cannula 2.00 11/13/16 08:00 79 18 150/84 97 Nasal Cannula 2.00 11/13/16 08:00 98 Nasal Cannula 2.00 11/13/16 07:20 Nasal Cannula 2.00 11/13/16 07:20 98 Nasal Cannula 2.00 I & O 11/14/16 07:00 Intake Total 3610 ml Output Total 4775 ml Balance -1165 ml General Appearance: Mild Distress HEENT: Other (ET tube in place ) Neck: Normal Inspection Supple Respiratory: Lungs Clear No Accessory Muscle Use No Respiratory Distress Cardiovascular: Regular Rate, Rhythm No Gallop No Murmur Capillary Refill: Less Than 3 Seconds Gastrointestinal: other ((+) indwelling portillo noted draining dark urine) Extremity: Normal Capillary Refill Normal Inspection Non Tender No Calf Tenderness Neurologic/Psychiatric: Other (sedated on vent) Skin: Normal Color Warm/Dry Lymphatic: No Adenopathy Results Lab Laboratory Tests 11/12/16 14:50 11/13/16 04:05 11/14/16 04:10 Assessment/Plan Assessment/Plan Acute respiratory failure requiring mechanical ventilation -- much improved -pt is doing well off ventilator Severe sepsis with UTI -Continue cefepime, vanco Metabolic lactic acidosis -IVF -give 2 amps [id number] Hypokalemia -Replace and recheck 2 hrs after - EICU gave orders Thrombocytopenia with DVT r/o HIT -Continue Angiomax -Check DIC panal and peripheral smear -Check HIT abx pending Quadriplegia Clinical Quality Measures DVT/VTE Risk/Contraindication: Risk Factor Score Per Nursin RFS Level Per Nursing on Admit: 3=High JOANNA MASSEY DO Nov 14, 2016 07:12
[2016-11-14] MEDS ORDERED: SODIUM BICARB 8.4% 50 MEQ/50 ML (ABBOTT) SYR IV NR (07:24)
[2016-11-14 07:48] LABS: ABG BASE EXCESS -1.2 MMOL/L (-2.5-2.5); ABG HCO3 22 MMOL/L (23-27); ABG OXYGEN SATURATION 97 % (94-100); ABG PCO2 34 MMHG (35-45); ABG PH 7.44 (7.37-7.43); ABG PO2 86 MMHG (79-93); ABG TCO2 23.1 MMOL/L (21.0-31.0)
[2016-11-14 07:49] LABS: ALLENS TEST ART LINE
[2016-11-14] MEDS ORDERED: TROUGH ORDER-PHARMACY XX NR (08:00)
--- NOTE | 2016-11-14 08:15 | Progress Note (SOAP) ---
Subjective Subjective/Events-last exam Patient alert this AM. He is upset about not getting his face washed this AM. Otherwise he states that he is breathing fine. Denies any pain. Tolerating PO diet with assistance. Date seen by provider: Nov 14, 2016 Objective Exam Last Set of Vital Signs Vital Signs Date Time Temp Pulse Resp B/P Pulse Ox O2 Delivery O2 Flow Rate FiO2 11/14/16 07:40 100.0 11/14/16 07:00 82 11/14/16 06:02 95 Room Air 11/14/16 06:00 21 159/76 11/13/16 16:00 2.00 11/13/16 06:42 21 Capillary Refill : Less Than 3 Seconds I&O Intake and Output 11/14/16 00:00 Intake Total 3590 ml Output Total 4375 ml Balance -785 ml Intake Oral 10 ml IV Total 3580 ml Output Urine Total 4375 ml General: Alert, Oriented X3, Cooperative, No Acute Distress Neck: Supple, No JVD, No Thyromegaly Lungs: Clear to Auscultation, Normal Air Movement Heart: Regular Rate, No Murmurs Abdomen: Normal Bowel Sounds, Soft, No Tenderness, No Hepatosplenomegaly Extremities: No Clubbing, No Cyanosis, No Tenderness/Swelling, Other (3+ pitting edema bilateral upper and lower extremities, + spasms seen while in room ) Skin: No Rashes, No Breakdown Neuro: Normal Speech Psych/Mental Status: Mental Status NL, Mood NL Results/Procedures Lab Laboratory Tests 11/14/16 04:10: Alanine Aminotransferase (ALT/SGPT) < 6, Albumin 2.4L, Alkaline Phosphatase 55, Anion Gap 10, Aspartate Amino Transf (AST/SGOT) 15, BUN/Creatinine Ratio 18, Basophils # (Auto) 0.0, Basophils (%) (Auto) 0, Blood Urea Nitrogen 13, Calcium Level 7.7L, Carbon Dioxide Level 17L, Chloride Level 115H, Creatinine 0.74, Eosinophils # (Auto) 0.3, Eosinophils (%) (Auto) 3, Estimat Glomerular Filtration Rate > 60, Glucose Level 66L, Hematocrit 36L, Hemoglobin 11.9L, INR Comment 1.3, Lymphocytes # (Auto) 2.1, Lymphocytes (%) (Auto) 16, Magnesium Level 1.3L, Mean Corpuscular Hemoglobin 31, Mean Corpuscular Hemoglobin Concent 33, Mean Corpuscular Volume 92, Mean Platelet Volume 11.6H, Monocytes # (Auto) 1.1H, Monocytes (%) (Auto) 8, Neutrophils # (Auto) 9.4H, Neutrophils (%) (Auto) 73, Phosphorus Level 2.1L, Platelet Count 59L, Potassium Level 3.0L, Prothrombin Time 15.4H, Red Blood Count 3.90L, Red Cell Distribution Width 14.6H , Sodium Level 142, Total Bilirubin 0.9, Total Protein 4.9L, White Blood Count 12.8H 11/14/16 05:43: Glucometer 70 11/14/16 07:40: Azam Test ART LINE, Arterial Blood Base Excess -1.2, Arterial Blood HCO3 22L, Arterial Blood Oxygen Saturation 97, Arterial Blood Partial Pressure CO2 34L, Arterial Blood Partial Pressure O2 86, Arterial Blood Total CO2 23.1, Arterial Blood pH 7.44H, Blood Gas Inspired Oxygen ROOM AIR, Blood Gas Patient Temperature 100.0, Blood Gas Puncture Site ARTLINE, Blood Gas Ventilator Setting NO Microbiology 11/11/16 Blood Culture - Preliminary, Resulted Escherichia Coli 11/12/16 Gram Stain - Final, Resulted 11/12/16 Sputum Culture - Preliminary, Resulted Normal keven 11/11/16 Urine Culture - Final, Complete Escherichia Coli Enterobacter Aerogenes Enterococcus Faecalis Proteus Mirabilis Radiology Date of Exam: 11/11/16 CHEST 1 VIEW, AP/PA ONLY INDICATION: Unresponsive. EXAMINATION: Portal semierect AP chest at 9:31 p.m. COMPARISON: There are no prior studies available for comparison. FINDINGS: The heart size is mildly enlarged and the central pulmonary vascularity is prominent. There may be an element of mild pulmonary congestion present. There is no confluent pneumonia identified and there is no significant pleural effusion. The mediastinum is not widened. The osseous structures are intact. There do appear to be bilateral pedicle screws overlying the lower cervical spine. These are only partially visualized. IMPRESSION: 1. The prominence of the heart and the central pulmonary vascularity suggests that there may be an element of mild pulmonary congestion present. Clinical followup is recommended. 2. There is no acute cardiopulmonary abnormality identified otherwise. Assessment/Plan Assessment/Plan Admission Dx Severe Sepsis due to UTI Acute Respiratory Failure Acute Renal Insufficiency Thrombocytopenia Elevated INR Quadriplegia Chronic Indwelling Catheter Plan 56 yo Quadriplegic M with indwelling catheter that presents to ER for altered mental status in Severe Sepsis from presumed UTI Severe Sepsis due to Ecoli UTI - Rapid fluid replacement completed, blood pressure responded and has stabilized (A line), Elevated Lactate resolved - IVFs at 75cc/hr, good UOP patient starting to mobilize fluid - Blood and Urine cultures growing Ecoli, susceptibilities pending - Continue Cefepime/Vanc D3, Vanc Trough 19, no dose change Acute Respiratory Failure: Resolved Ecoli UTI: See Above Right Common Femoral Thrombus - Continue PO anticoagulation, given thrombocytopenia monitor closely for any signs of bleeding - Plan to start coumadin when plts are >150, discussed with pharmacy and Dr Harris Acute Renal Insufficiency: Resolved, Adequate UOP Thrombocytopenia s/p 1 bag plts: Concerning for DIC, HIT-Ab pending - Monitor closely for bleeding, Day 3 plts trending up Elevated INR: Resolved, now in normal range Quadriplegia Chronic Indwelling Catheter, draining clear urine Dispo: Transfer patient to Med/Surg DVT PPX: PO anticoagulation FEN: - Hypo Mag: Replaced today, repeat level in AM - Hypo K: Replaced today, repeat level in AM Diagnosis/Problems: Clinical Quality Measures DVT/VTE Risk/Contraindication: Risk Factor Score Per Nursin RFS Level Per Nursing on Admit: 3=High LAURIE SAVAGE MD Nov 14, 2016 08:14
[2016-11-14] MEDS: MAGNESIUM 1 GM/100 ML IVPB 100 ML IV SCH ×6 (08:28→19:33)
[2016-11-14] MEDS: CYCLOBENZAPRINE 10 MG (FLEXERIL) TAB PO SCH ×3 (08:56→21:01)
[2016-11-14] MEDS: PANTOPRAZOLE 40 MG/10 ML (PROTONIX) VIAL IV SCH (08:56)
--- NOTE | 2016-11-14 09:36 | Diagnostic Imaging Report ---
INDICATION: Respiratory failure, lower extremity edema.. TECHNIQUE: Single view chest 5:21 AM. CORRELATION STUDY: 11/13/2016 FINDINGS: Cardiac enlargement along with pulmonary vascular congestion and perihilar edema is present. Severity of vascular congestion appears increased from prior study. Asymmetric elevation of the right hemidiaphragm with some right basilar lung volume loss again demonstrated. Scattered patchy areas of infiltrate of the lung bases particularly along the right lung base persist. Since prior study there has been interval extubation and removal of the gastric tube. Partial visualization of cervical spinal fixation hardware. IMPRESSION: 1. Interval extubation. 2. Severity of vascular congestion appears slightly increased from prior study. 3. Areas of atelectasis or less likely infiltrate lung bases overall stable. Dictated by: Dictated on workstation # [id number]
[2016-11-14] MEDS: VANCOMYCIN INJECTION 1,250 MG in NS (IVPB) 250 ML IV SCH ×2 (10:02→23:17)
[2016-11-14] MEDS: CEFEPIME 2 GM/NS 50 ML IVPB IV SCH ×4 (12:50→22:46)
[2016-11-14] MEDS: NS IV 1000 ML 1,000 ML IV SCH ×2 (14:27→21:51)
[2016-11-14] MEDS ORDERED: POTASSIUM PHOSPHATE INJ 30 MM in NS (IVPB) 250 ML IV ONE (18:15)
[2016-11-14] MEDS ORDERED: VANCOMYCIN 750 MG ADD-VANTAGE VIAL IV ONE (22:43)
[2016-11-14] MEDS ORDERED: SODIUM CHLORIDE (ADD-VANTAGE) 250 ML ONE (22:44)
[2016-11-14] MEDS ORDERED: VANCOMYCIN 500 MG/VIAL IV ONE (22:44)
[2016-11-15] VITALS: BP 160/72
[2016-11-15] MEDS: ACETAMINOPHEN 325 MG TABLET/CAPLET (TYLENOL) PO PRN ×3 (00:17→10:10)
[2016-11-15] MEDS: NS IV SCH (03:10)
[2016-11-15] MEDS: BIVALIRUDIN IV SCH (03:10)
[2016-11-15 04:00] VITALS: BP 155/67
[2016-11-15 06:51] LABS: BASOPHILS % (AUTO) 0 % (0-10); EOSINOPHILS # (AUTO) 0.7 10^3/uL (0.0-0.3); EOSINOPHILS % (AUTO) 6 % (0-10); LYMPHOCYTES # (AUTO) 2.1 X 10^3 (1.0-4.0); LYMPHOCYTES % (AUTO) 17 % (12-44); MEAN CORPUSCULAR HEMOGLOBIN 30 PG (25-34); MEAN CORPUSCULAR HGB CONC 34 G/DL (32-36); MEAN CORPUSCULAR VOLUME 89 FL (80-99); MEAN PLATELET VOLUME 11.7 FL (7.4-10.4); MONOCYTES # (AUTO) 1.7 X 10^3 (0.0-1.0); MONOCYTES % (AUTO) 14 % (0-12); NEUTROPHILS % (AUTO) 64 % (42-75); PLATELET COUNT 66 10^3/uL (130-400); RED BLOOD COUNT 4.34 10^6/uL (4.35-5.85); RED CELL DISTRIBUTION WIDTH 14.1 % (10.0-14.5); WHITE BLOOD COUNT 12.4 10^3/uL (4.3-11.0)
[2016-11-15 07:11] LABS: INR 1.2 (0.8-1.4); PROTHROMBIN TIME PATIENT 15.2 SEC (12.2-14.7)
[2016-11-15 07:15] LABS: MAGNESIUM 1.9 MG/DL (1.8-2.4); PHOSPHORUS 3.1 MG/DL (2.3-4.7)
[2016-11-15] MEDS: RT-ALBUTEROL/IPRATROPIUM 3 ML (DUONEB) VIAL INH SCH ×3 (07:44→20:01)
[2016-11-15] MEDS ORDERED: TROUGH ORDER-PHARMACY XX NR (08:00)
[2016-11-15 08:10] VITALS: BP 187/86
[2016-11-15] MEDS: VANCOMYCIN INJECTION 1,250 MG in NS (IVPB) 250 ML IV SCH ×3 (10:03→22:13)
[2016-11-15] MEDS: PANTOPRAZOLE 40 MG/10 ML (PROTONIX) VIAL IV SCH (10:03)
--- NOTE | 2016-11-15 10:03 | Diagnostic Imaging Report ---
INDICATION: Dyspnea. TECHNIQUE: Single view chest at 4:29 a.m. CORRELATION STUDY: 11/14/2016. FINDINGS: Heart size remains enlarged. Vasculature is overall relatively stable to perhaps minimally improved. Unchanged elevation of the right diaphragm with some atelectasis at the right lung base. Patchy infiltrate at the lung bases, particularly on the right not excluded. IMPRESSION: 1. Stable cardiac enlargement with severity of pulmonary vascular congestion appearing improved. 2. Bibasilar areas of infiltrate versus atelectasis, right greater than left, persisting. Dictated by: Dictated on workstation # [id number]
[2016-11-15] MEDS: CEFEPIME 2 GM/NS 50 ML IVPB IV SCH ×4 (10:04→21:24)
[2016-11-15] MEDS: CYCLOBENZAPRINE 10 MG (FLEXERIL) TAB PO SCH ×2 (10:04→14:58)
[2016-11-15] MEDS: NS IV 1000 ML 1,000 ML IV SCH ×2 (10:27→11:28)
[2016-11-15] MEDS: RIVAROXABAN 15 MG TABLET (XARELTO) PO SCH ×2 (10:32→17:33)
[2016-11-15 12:40] VITALS: BP 176/98
[2016-11-15 16:00] VITALS: BP 195/91
[2016-11-15] MEDS ORDERED: DEXTRAN OU PRN (16:15)
[2016-11-15] MEDS ORDERED: NON-FORMULARY MEDICATION 1 EA EA (Tizanidine HCl 2 MG) PO PRN (16:15)
[2016-11-15] MEDS ORDERED: [UNRECOGNIZED DRUG - OTHER] OU PRN (16:15)
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
[2016-11-15] MEDS ORDERED: ARTIFICAL TEARS 0.4 ML UNIT DOSE (REFRESH PLUS) OU PRN (16:30)
[2016-11-15] MEDS ORDERED: NON-FORMULARY MEDICATION 1 EA EA (Baclofen 20 MG) PO SCH (17:00)
[2016-11-15] MEDS: BACLOFEN 10 MG (LIORESAL) TAB PO SCH ×3 (17:32→21:30)
[2016-11-15] MEDS: HYDROCHLOROTHIAZIDE 12.5 MG (HCTZ) CAP PO SCH (17:32)
[2016-11-15 19:50] VITALS: BP 155/79
[2016-11-15] MEDS ORDERED: NON-FORMULARY MEDICATION 1 EA EA (Diazepam 10 MG) PO SCH (21:00)
[2016-11-15] MEDS: MELATONIN 3 MG TABLET PO SCH ×2 (21:18→21:30)
[2016-11-15] MEDS: DIAZEPAM 5 MG (VALIUM) TABLET PO SCH ×2 (21:18→21:30)
[2016-11-15] MEDS: QUEtiapine 25 MG (SEROquel) TAB IMMEDIATE RELEASE PO SCH ×2 (21:18→21:30)
[2016-11-15] MEDS: DOCUSATE SODIUM 100 MG (COLACE) CAP PO SCH ×2 (21:18→21:30)
[2016-11-15] MEDS: DANTROLENE 100 MG PO SCH ×2 (21:19→21:30)
[2016-11-15] MEDS: GABAPENTIN 300 MG (NEURONTIN) CAP PO SCH ×2 (21:19→21:30)
[2016-11-15] MEDS: CAL. POLYCARBOPHIL 625 MG (FIBERCON) TAB PO SCH ×2 (21:25→21:30)
[2016-11-16] VITALS (7 sets, daily range): BP systolic 128–195; BP diastolic 71–95
[2016-11-16 06:41] LABS: BASOPHILS % (AUTO) 0 % (0-10); EOSINOPHILS # (AUTO) 0.8 10^3/uL (0.0-0.3); EOSINOPHILS % (AUTO) 9 % (0-10); LYMPHOCYTES # (AUTO) 1.7 X 10^3 (1.0-4.0); LYMPHOCYTES % (AUTO) 18 % (12-44); MEAN CORPUSCULAR HEMOGLOBIN 30 PG (25-34); MEAN CORPUSCULAR HGB CONC 33 G/DL (32-36); MEAN CORPUSCULAR VOLUME 89 FL (80-99); MEAN PLATELET VOLUME 11.5 FL (7.4-10.4); MONOCYTES # (AUTO) 1.7 X 10^3 (0.0-1.0); MONOCYTES % (AUTO) 18 % (0-12); NEUTROPHILS # (AUTO) 5.3 X 10^3 (1.8-7.8); NEUTROPHILS % (AUTO) 55 % (42-75); PLATELET COUNT 104 10^3/uL (130-400); RED BLOOD COUNT 4.57 10^6/uL (4.35-5.85); RED CELL DISTRIBUTION WIDTH 13.8 % (10.0-14.5); WHITE BLOOD COUNT 9.5 10^3/uL (4.3-11.0)
[2016-11-16 06:46] LABS: PROTHROMBIN TIME PATIENT 22.8 SEC (12.2-14.7)
[2016-11-16] MEDS: RIVAROXABAN 15 MG TABLET (XARELTO) PO SCH ×2 (06:51→15:10)
[2016-11-16] MEDS: ACETAMINOPHEN 325 MG TABLET/CAPLET (TYLENOL) PO PRN (06:52)
[2016-11-16] MEDS ORDERED: KCL 10 MEQ TAB (MICRO K) PO SCH (07:00)
[2016-11-16] MEDS ORDERED: PANTOPRAZOLE 40 MG (PROTONIX) TAB PO SCH (07:00)
[2016-11-16 07:06] LABS: ANION GAP 12 MMOL/L (5-14); BLOOD UREA NITROGEN 9 MG/DL (7-18); BUN/CREATININE RATIO 12; CALCIUM 9.1 MG/DL (8.5-10.1); CARBON DIOXIDE 23 MMOL/L (21-32); CHLORIDE 102 MMOL/L (98-107); CREATININE SERUM 0.78 MG/DL (0.60-1.30); GFR ESTIMATED > 60; GLUCOSE 83 MG/DL (70-105); POTASSIUM 3.3 MMOL/L (3.6-5.0); SODIUM 137 MMOL/L (135-145)
[2016-11-16] MEDS: RT-ALBUTEROL/IPRATROPIUM 3 ML (DUONEB) VIAL INH SCH ×2 (08:16→14:08)
[2016-11-16] MEDS ORDERED: NON-FORMULARY MEDICATION 1 EA EA (Quetiapine Fumarate 50 MG) PO SCH (09:00)
[2016-11-16] MEDS ORDERED: NON-FORMULARY MEDICATION 1 EA EA (Escitalopram Oxalate (Lexapro) 10 MG) PO SCH (09:00)
[2016-11-16] MEDS ORDERED: OMEPRAZOLE 20 MG (PriLOSEC) CAP NON-FORMULARY PO SCH (09:00)
[2016-11-16] MEDS: DOCUSATE SODIUM 100 MG (COLACE) CAP PO SCH (09:06)
[2016-11-16] MEDS: GABAPENTIN 300 MG (NEURONTIN) CAP PO SCH ×2 (09:06→15:10)
[2016-11-16] MEDS: BACLOFEN 10 MG (LIORESAL) TAB PO SCH ×2 (09:06→15:06)
[2016-11-16] MEDS: HYDROCHLOROTHIAZIDE 12.5 MG (HCTZ) CAP PO SCH (09:06)
[2016-11-16] MEDS: VANCOMYCIN INJECTION 1,250 MG in NS (IVPB) 250 ML IV SCH (09:07)
[2016-11-16] MEDS: DANTROLENE 100 MG PO SCH ×2 (09:12→15:10)
[2016-11-16] MEDS ORDERED: KCL 20 MEQ TAB (K-DUR) PO NR (09:13)
[2016-11-16] MEDS: CAL. POLYCARBOPHIL 625 MG (FIBERCON) TAB PO SCH (09:18)
[2016-11-16] MEDS: CEFEPIME 2 GM/NS 50 ML IVPB IV SCH ×2 (09:21)
[2016-11-16] MEDS ORDERED: HYDR12.5 PO (11:17)
[2016-11-16] MEDS ORDERED: CEFD300C3 PO (11:17)
[2016-11-16] MEDS ORDERED: RIVA15TA PO (11:17)
[2016-11-16] MEDS ORDERED: POTA20TA8 PO (11:17)
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
[2016-11-17] MEDS ORDERED: KCL 10 MEQ TAB (MICRO K) PO SCH (07:00)
[2016-11-17] MEDS ORDERED: HYDROCHLOROTHIAZIDE 12.5 MG (HCTZ) CAP PO SCH (09:00)
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
[2016-11-21] MEDS ORDERED: DIAZ10TA3 PO (11:30)
[2016-11-21] MEDS ORDERED: QUET50TA55 PO (11:30)
[2016-11-21] MEDS ORDERED: BACL20TA PO (11:30)
== END 2016-11-16 16:00 | DRG 698 ==
LOC: ER 20:29 → ICU 22:23 → 4TH 11-14 11:55
PROVIDERS: ADMIT Family Medicine; ATTEND Family Medicine
PROC: 5A1945Z Respiratory Ventilation, 24-96 Consecutive Hours (ICD-10-PCS; principal; 2016-11-12)
DX: T83.518A Infection and inflammatory reaction due to other urinary catheter, initial encounter (principal); A41.51 Sepsis due to Escherichia coli [E. coli]; R65.20 Severe sepsis without septic shock; N39.0 Urinary tract infection, site not specified; J96.00 Acute respiratory failure, unspecified whether with hypoxia or hypercapnia; G82.50 Quadriplegia, unspecified; I82.411 Acute embolism and thrombosis of right femoral vein; D69.6 Thrombocytopenia, unspecified; N28.9 Disorder of kidney and ureter, unspecified; E87.6 Hypokalemia; I10 Essential (primary) hypertension; R79.1 Abnormal coagulation profile; S14.109S Unspecified injury at unspecified level of cervical spinal cord, sequela; Z93.6 Other artificial openings of urinary tract status
CPT/HCPCS: 36415; 71010; 80048; 80053; 80202; 81000; 82805; 82962; 83605; 83735; 84100; 84132; 84484; 85007; 85025; 85027; 85045; 85379; 85384; 85610; 85730; 86022; 86850; 86900; 86901; 87040; 87070; 87077; 87081; 87088; 87186; 87205; 93970; 94002; 94003; 94640; 94664; 94760; 94799; 96361; 96365; 96374

== ENCOUNTER 2016-11-19 10:19 | Inpatient (IN) | payer BC ==
[~2016-11-19] VITALS: Ht 182.9 cm; Wt 85.9 kg
[2016-11-19] VITALS (10 sets, daily range): BP systolic 73–208; BP diastolic 56–96
[~2016-11-19 10:19] MED LIST: ACET325T49 PO; ASCO-262 PO; BACL20TA PO; CALC1TAB94 PO; CALC625T8 PO; CEFD300C3 PO; CHOL10007 PO; DANT100C PO; DEXT15DR21 OU; DIAZ10TA3 PO; DIPH28.33 TP; DOCU-143 PO; ESCI10TA PO; FLDR.1T PO; GABA-488 PO; HYDR12.5 PO; HYDR28CR2 TP; LIDOCAINE JELLY UR; MAGN400O7 PO; MELA1TAB10 PO; MELO-170 PO; MENT118G TP; METH1TAB21 PO; METH5TAB4 PO; NPPH15OP OU; OMEP20CA12 PO; POTA20TA8 PO; QUET50TA55 PO; RIVA15TA PO; TIZA2TAB3 PO
[2016-11-19] MEDS: NS IV 1000 ML 2,500 ML IV PRN ×2 (10:42→11:28)
[2016-11-19] MEDS: NS IV 1000 ML 1,000 ML ONE ×2 (10:42→11:24)
[2016-11-19] MEDS: D5W 250 ML (IVPB) 250 ML IV ONE ×2 (10:56→11:22)
[2016-11-19] MEDS: NOREPINEPHRINE FOR DRIPS 4 MG/4 ML AMP IV ONE ×2 (10:56→11:22)
[2016-11-19] MEDS ORDERED: NOREPINEPHRINE IV SCH (11:00)
[2016-11-19] MEDS ORDERED: D5W IV SCH (11:00)
--- NOTE | 2016-11-19 11:11 | ED General ---
General Chief Complaint: Altered Mental Status Stated Complaint: UNRESPONSIVE Source of Information: Patient Exam Limitations: No Limitations History of Present Illness Time Seen by Provider: 10:45 Initial Comments Here with report of unresponsiveness and the halfway with low heart rate and low blood pressure. Patient apparently was just previously discharged from the hospital with sepsis. He was found to have a heart rate in the 40s and low blood pressure at the halfway. EMS was called and they had same findings. No report of fever currently. Patient is not responding but has good O2 saturations. Timing/Duration: 4-6 Hours Severity: Moderate Associated Systoms: No Shortness of Air Allergies and Home Medications Allergies Coded Allergies: No Known Drug Allergies (Unverified , 11/11/16) Home Medications UR DAILY PRN PRN PRN CATHETER INSERTION (Reported) ALSO USED FOR RECTAL CHECKS Acetaminophen 325 Mg Tablet 650 MG PO Q4H PRN PRN PAIN (Reported) TAKES 2 (325 MG) TABLETS / NOT TO EXCEED 6 DOSES IN 24 HOURS Ascorbate Calcium 500 Mg Tablet 500 MG PO TID (Reported) Baclofen 20 Mg Tablet 20 MG PO QID (Reported) Calcium Carbonate/Vitamin D3 1 Each Tablet 1 TAB PO BID (Reported) Calcium Polycarbophil 625 Mg Tablet 625 MG PO BID (Reported) Cefdinir 300 Mg Capsule #20 300 MG PO BID Prescribed by: LAURIE SAVAGE on 11/16/16 1117 Cholecalciferol (Vitamin D3) 1,000 Unit Capsule 1,000 UNIT PO DAILY (Reported) Dantrolene Sodium 100 Mg Capsule 100 MG PO TID (Reported) Dextran 70/Hypromellose 15 Ml Drops 2 DROPS OU Q4H PRN PRN DRY EYES (Reported) Diazepam 10 Mg Tablet 10 MG PO HS (Reported) Diphenhydramine HCl/Zinc Acet 28.3 Gm Cream..g. TP DAILY PRN PRN PRN RASH ( Reported) APPLIED TO ITCHY LESION TO TOP OF HEAD Docusate Sodium 100 Mg Capsule 100 MG PO BID (Reported) Escitalopram Oxalate 10 Mg Tablet 10 MG PO DAILY (Reported) Fludrocortisone Acetate 0.1 Mg Tab 0.2 MG PO DAILY (Reported) TAKES 2 (0.1 MG) TABLETS Gabapentin 300 Mg Capsule 600 MG PO TID (Reported) TAKES 2 (300 MG) CAPSULES Hydrochlorothiazide 12.5 Mg Capsule #30 25 MG PO DAILY@0900 Prescribed by: LAURIE SAVAGE on 11/16/16 1117 Hydrocortisone 28 Gm Cream..g. TP HOURLY PRN PRN ITCHING (Reported) APPLIES TO ITCHY LESION ON TOP OF HEAD Magnesium Hydroxide 400 Mg/5 Ml Oral.susp 30 ML PO Q8H PRN PRN CONSTIPATION ( Reported) PER BOWEL PROGRAM IF PATIENT HAD LIMITED RESULTS Melatonin/Pyridoxine 1 Each Tablet 3 MG PO HS (Reported) Meloxicam 7.5 Mg Tablet 7.5 MG PO DAILY (Reported) Menthol 118 Ml Gel..ml. TP HOURLY PRN PRN PAIN (Reported) Methylphenidate HCl 5 Mg Tablet 5 MG PO BID (Reported) Naphazoline/Pheniramine 15 Ml Soln 1 DROP OU DAILY PRN PRN PRN ITCHING (Reported ) Omeprazole 20 Mg Capsule.dr 20 MG PO DAILY (Reported) Potassium Chloride 20 Meq Tab.er.prt #30 20 MEQ PO 09 Prescribed by: LAURIE SAVAGE on 11/16/16 1117 Quetiapine Fumarate 50 Mg Tablet 50 MG PO HS (Reported) Rivaroxaban 15 Mg Tablet #60 15 MG PO BID@ Prescribed by: LAURIE SAVAGE on 11/16/16 111 Tizanidine HCl 2 Mg Tablet 2 MG PO TID PRN PRN MUSCLE SPASMS (Reported) Constitutional: see HPINo fever Respiratory: see HPINo short of breath Other Unable to complete review of systems due to altered mental status. Past Ijglhjj-Fvugpd-Ywiebw Hx Patient Social History Smoking Status: Unknown if Ever Smoked Immunizations Up To Date Date of Influenza Vaccine: Aug 13, 2016 Neurological Hx Neurological Disorders: Yes Neurological Disorders: Spinal Cord Injury Genitourinary Hx Genitourinary Disorders: Yes Genitourinary Disorders: Bladder Infection, Neurogenic Bladder Musculoskeletal Hx Musculoskeletal Disorders: Yes Family Medical History Other Unable to complete due to patient's altered mental status. Records review shows very little information other than quadriplegia and chronic indwelling catheter. Physical Exam-Suspected Sepsis Physical Exam Vital Signs Vital Sign - Last 12Hours 11/19/16 10:28 Temp 95.7 Pulse 45 Resp 14 B/P 91/62 Pulse Ox 98 O2 Delivery Room Air Capillary Refill : General Appearance: WD/WN Other (clenching face) HEENT: PERRL/EOMI Pharynx Normal Neck: Non Tender Supple Respiratory: Lungs Clear Normal Breath Sounds Cardiovascular: No Murmur Bradycardia Gastrointestinal: Non Tender Soft Extremity: Swelling (swelling of all 4 extremities) Neurologic/Psychiatric: Motor Weakness (quadriplegia 4 extremities) Other ( unresponsive with clenched face.) Skin: normal color warm/dryNo rash Lumen: triple Central Line Procedure: betadine prep sterile drapes applied Position: internal jugular (R) Anesthesia: Lidocaine Volume Anesthetic (ccs): 3 Complications: none Post Position: sutured, good blood return, position confirmed w/ CXR Progress Placed via ultrasound guidance. [address] Post x-ray shows line good position. No pneumothorax identified. Good flush and return. Date of ETT Placement: Nov 12, 2016 Time of ETT Placement: 0200 Progress/Results/Core Measures Suspected Sepsis SIRS Temperature: Pulse: Respiratory Rate: Laboratory Tests 11/19/16 10:34: White Blood Count 7.5 Blood Pressure / Mean: Laboratory Tests 11/19/16 10:34: Creatinine 1.25, INR Comment 1.4, Platelet Count 179, Total Bilirubin 0.4 Results/Orders Lab Results Laboratory Tests Test 11/19/16 10:34 11/19/16 11:55 Range/Units Activated Partial Thromboplast Time 37 H 24-35 SEC Alanine Aminotransferase (ALT/SGPT) 6 0-55 U/L Albumin 3.4 3.2-4.5 G/DL Alkaline Phosphatase 77 40-136 U/L Anion Gap 9 5-14 MMOL/L Aspartate Amino Transf (AST/SGOT) 19 5-34 U/L BUN/Creatinine Ratio 19 Band Neutrophils 10 % Basophils # (Auto) 0.0 0.0-0.1 10^3/uL Basophils % (Manual) 2 % Basophils (%) (Auto) 1 0-10 % Blood Morphology Comment NORMAL Blood Urea Nitrogen 24 H 7-18 MG/DL Calcium Level 9.1 8.5-10.1 MG/DL Carbon Dioxide Level 29 21-32 MMOL/L Chloride Level 104 98-107 MMOL/L Creatinine 1.25 0.60-1.30 MG/DL Eosinophils # (Auto) 0.5 H 0.0-0.3 10^3/uL Eosinophils % (Manual) 6 % Eosinophils (%) (Auto) 7 0-10 % Estimat Glomerular Filtration Rate > 60 Glucose Level 91 70-105 MG/DL Hematocrit 46 40-54 % Hemoglobin 14.7 13.3-17.7 G/DL INR Comment 1.4 0.8-1.4 Lactic Acid Level 1.3 0.5-2.0 MMOL/L Lymphocytes # (Auto) 2.3 1.0-4.0 X 10^3 Lymphocytes % (Manual) 35 % Lymphocytes (%) (Auto) 31 12-44 % Mean Corpuscular Hemoglobin 30 25-34 PG Mean Corpuscular Hemoglobin Concent 32 32-36 G/DL Mean Corpuscular Volume 93 80-99 FL Mean Platelet Volume 11.3 H 7.4-10.4 FL Monocytes # (Auto) 0.7 0.0-1.0 X 10^3 Monocytes % (Manual) 5 % Monocytes (%) (Auto) 9 0-12 % Myelocytes % 2 % Neutrophils # (Auto) 3.9 1.8-7.8 X 10^3 Neutrophils % (Manual) 40 % Neutrophils (%) (Auto) 53 42-75 % Platelet Count 179 130-400 10^3/uL Potassium Level 3.9 3.6-5.0 MMOL/L Prothrombin Time 16.9 H 12.2-14.7 SEC Red Blood Count 4.92 4.35-5.85 10^6/uL Red Cell Distribution Width 14.6 H 10.0-14.5 % Sodium Level 142 135-145 MMOL/L Total Bilirubin 0.4 0.1-1.0 MG/DL Total Protein 6.7 6.4-8.2 G/DL White Blood Count 7.5 4.3-11.0 10^3/uL Urine Bacteria TRACE /HPF Urine Bilirubin NEGATIVE NEGATIVE Urine Calcium Oxalate Crystals RARE H /LPF Urine Casts PRESENT /LPF Urine Clarity CLEAR Urine Color YELLOW Urine Crystals PRESENT H /LPF Urine Culture Indicated YES Urine Glucose (UA) NEGATIVE NEGATIVE Urine Hyaline Casts 0-2 H /LPF Urine Ketones NEGATIVE NEGATIVE Urine Leukocyte Esterase 1+ H NEGATIVE Urine Mucus SMALL H /LPF Urine Nitrite NEGATIVE NEGATIVE Urine Protein NEGATIVE NEGATIVE Urine RBC 2-5 H /HPF Urine RBC (Auto) 3+ H NEGATIVE Urine Specific [place] 1.010 L 1.016-1.022 Urine Squamous Epithelial Cells 0-2 /HPF Urine Urobilinogen NORMAL NORMAL MG/DL Urine WBC 5-10 H /HPF Urine pH 5 5-9 My Orders Orders-RACHEL SCHUMACHER MD Ns Iv 1000 Ml (Sodium Chloride 0.9%) (11/19/16 10:33) Norepinephrine For Drips (Levophed For D (11/19/16 10:41) D5w 250 Ml (Ivpb) (Dextrose 5% Water Iv (11/19/16 10:41) D5w 250 Ml (Ivpb) (... W/Norepinephrine (11/19/16 11:00) Cbc With Automated Diff (11/19/16 11:00) Comprehensive Metabolic Panel (11/19/16 11:00) Lactic Acid Analyzer (11/19/16 11:00) Blood Culture (11/19/16 11:00) Sputum Culture (11/19/16 11:00) Ua Culture If Indicated (11/19/16 11:00) Protime With Inr (11/19/16 11:00) Partial Thromboplastin Time (11/19/16 11:00) Chest 1 View, Ap/Pa Only (11/19/16 11:00) O2 (11/19/16 11:00) Saline Lock/Iv-Start (11/19/16 11:00) Saline Lock/Iv-Start (11/19/16 11:00) Ekg Tracing (11/19/16 11:00) Ns Iv 1000 Ml (Sodium Chloride 0.9%) (11/19/16 11:00) Vital Signs Adult Sepsis Patie Q1HR (11/19/16 11:00) Manual Differential (11/19/16 10:34) Monitor-Rhythm Ecg Trace Only (11/19/16 11:19) Piperacillin Sodium/Tazobactam (Zosyn Vi (11/19/16 12:00) Vancomycin Iv Add-[place] (Vancomycin Iv (11/19/16 12:00) Ns Iv 500 Ml (Sodium Chloride 0.9%) (11/19/16 11:47) Ct Head Wo (11/19/16 12:16) Urine Culture (11/19/16 11:55) Medications Given in ED Current Medications Medications Dose Ordered Sig/Bryant Route Start Time Stop Time Status Last Admin Dose Admin Sodium Chloride 2,500 ml @ 1,250 mls/hr PRN PRN IV 11/19/16 11:00 11/19/16 11:28 1,250 MLS/HR Vital Signs/I&O Vital Sign - Last 12Hours 11/19/16 11/19/16 10:28 10:30 Temp 95.7 Pulse 45 Resp 14 B/P 91/62 Pulse Ox 98 99 O2 Delivery Room Air Room Air Capillary Refill : Progress Note : Progress Note Seen and evaluated on arrival. IV running. Patient's blood pressure 70/40's. Fluids. Normal saline running in bolus fashion. Patient's heart rate also 140s. Patient will need central line emergently due to seriousness of condition. We will initiate Levophed therapy while initiating central line and high volume fluid therapy due to patient's bradycardia is Levophed may help with heart rate and blood pressure. Normal saline 30 mL/kg IV ordered and continuing. Central line placed by me. Labs, EKG and chest x-ray as well as blood cultures and urine studies ordered. I did discuss the case with Dr. Jim at 1143. She accepts patient for admission, inpatient status, critical condition to the ICU on Zosyn and vancomycin. These antibiotics. Due to previous culture of urine which showed multiple drug-resistant organisms and these antibiotics will cover those organisms. This was discussed with Dr. Jim who agrees. Admit this. CT head ordered due to patient's altered mental status as well. Diagnostic Imaging Diagonstic Imaging: Xray Plain Films/CT/US/NM/MRI: chest Comments [facility]. [place], [place] NAME: NANDINI ROONEY [facility] REC#: [id number] PT STATUS: REG ER : 1960 PHYSICIAN: RACHEL SCHUMACHER MD ADMIT DATE: 11/19/16/ER Draft Date of Exam:11/19/16 CHEST 1 VIEW, AP/PA ONLY CLINICAL INDICATION: Patient is unresponsive. Patient was released from hospital last week. EXAM: Portable chest x-ray, upright view. COMPARISON: Portable chest x-ray, upright view, dated 11/15/2016. FINDINGS: Stable enlarged cardiac silhouette. There is similar mild pulmonary vascular congestion. The lungs are otherwise clear. There is no pleural effusion or pneumothorax. There is interval placement of a right IJ central line with the tip overlying the mid superior vena cava region. The remainder of this exam shows no significant interval change compared to the prior study of comparison. IMPRESSION: 1. Interval placement of a right IJ central line. There is no pneumothorax. 2. Otherwise, stable cardiomegaly and mild pulmonary vascular congestion. Dictated on workstation # [id number] Dict: 11/19/16 1121 Trans: 11/19/16 1125 [id number] Interpreted by: IRENA SALDANA MD Electronically signed by: Diagonstic Imaging: CT Plain Films/CT/US/NM/MRI: head Comments [facility]. [place], [place] NAME: NANDIIN ROONEY [facility] REC#: [id number] PT STATUS: ADM IN : 1960 PHYSICIAN: RACHEL SCHUMACHER MD ADMIT DATE: 11/19/16/ICU Draft Date of Exam:11/19/16 CT HEAD WO PROCEDURE: CT head without contrast. TECHNIQUE: Multiple contiguous axial images were obtained through the brain without the use of intravenous contrast. INDICATION: Unresponsive/altered mental status. FINDINGS: Ventricles and sulci are within normal limits for size. There is mild low density within the deep white matter of both hemispheres. No hemorrhage is identified. There is no geographic low density to indicate a territorial infarct. Atherosclerotic calcifications are present within the distal internal carotid and vertebral arteries, bilaterally. Calvarium is intact. Mural thickening is noted present within posterior left ethmoid air cells and left sphenoid sinus. IMPRESSION: Mild senescent findings in the brain without CT evidence of acute intracranial abnormality. Posterior left sinus disease. Dictated on workstation # [id number] Dict: 11/19/16 1305 Trans: 11/19/16 1309 [id number] Interpreted by: GUS VILLANUEVA MD Electronically signed by: Departure Communication Time/Spoke to Admitting Phy: 11:43 Impression Impression: Primary Impression: Septic shock Additional Impression: Urinary tract infection Qualified Code: N30.00 - Acute cystitis without hematuria Disposition: ADMITTED INPATIENT Condition: Critical Decision to Admit Reason: Admit from ER (General) Decision to Admit/Date: Nov 19, 2016 Time/Decision to Admit Time: 11:43 Departure-Patient Inst. Referrals: ZAHIRA VARGHESE MD (PCP/Family) Primary Care Physician RACHEL SCHUMACHER MD Nov 19, 2016 11:11
[2016-11-19 11:12] LABS: BASOPHILS % (AUTO) 1 % (0-10); EOSINOPHILS # (AUTO) 0.5 10^3/uL (0.0-0.3); EOSINOPHILS % (AUTO) 7 % (0-10); LYMPHOCYTES # (AUTO) 2.3 X 10^3 (1.0-4.0); LYMPHOCYTES % (AUTO) 31 % (12-44); MEAN CORPUSCULAR HEMOGLOBIN 30 PG (25-34); MEAN CORPUSCULAR HGB CONC 32 G/DL (32-36); MEAN CORPUSCULAR VOLUME 93 FL (80-99); MEAN PLATELET VOLUME 11.3 FL (7.4-10.4); MONOCYTES # (AUTO) 0.7 X 10^3 (0.0-1.0); MONOCYTES % (AUTO) 9 % (0-12); NEUTROPHILS # (AUTO) 3.9 X 10^3 (1.8-7.8); NEUTROPHILS % (AUTO) 53 % (42-75); PLATELET COUNT 179 10^3/uL (130-400); RED BLOOD COUNT 4.92 10^6/uL (4.35-5.85); RED CELL DISTRIBUTION WIDTH 14.6 % (10.0-14.5); WHITE BLOOD COUNT 7.5 10^3/uL (4.3-11.0)
[2016-11-19 11:20] LABS: INR 1.4 (0.8-1.4); PROTHROMBIN TIME PATIENT 16.9 SEC (12.2-14.7)
--- NOTE | 2016-11-19 11:26 | Diagnostic Imaging Report ---
CLINICAL INDICATION: Patient is unresponsive. Patient was released from hospital last week. EXAM: Portable chest x-ray, upright view. COMPARISON: Portable chest x-ray, upright view, dated 11/15/2016. FINDINGS: Stable enlarged cardiac silhouette. There is similar mild pulmonary vascular congestion. The lungs are otherwise clear. There is no pleural effusion or pneumothorax. There is interval placement of a right IJ central line with the tip overlying the mid superior vena cava region. The remainder of this exam shows no significant interval change compared to the prior study of comparison. IMPRESSION: 1. Interval placement of a right IJ central line. There is no pneumothorax. 2. Otherwise, stable cardiomegaly and mild pulmonary vascular congestion. Dictated by: Dictated on workstation # [id number]
[2016-11-19 11:29] LABS: ALANINE AMINOTRANSFERASE 6 U/L (0-55); ALBUMIN 3.4 G/DL (3.2-4.5); ANION GAP 9 MMOL/L (5-14); ASPARTATE AMINO TRANSFERASE 19 U/L (5-34); BILIRUBIN,TOTAL 0.4 MG/DL (0.1-1.0); BLOOD UREA NITROGEN 24 MG/DL (7-18); BUN/CREATININE RATIO 19; CALCIUM 9.1 MG/DL (8.5-10.1); CARBON DIOXIDE 29 MMOL/L (21-32); CHLORIDE 104 MMOL/L (98-107); CREATININE SERUM 1.25 MG/DL (0.60-1.30); GFR ESTIMATED > 60; GLUCOSE 91 MG/DL (70-105); POTASSIUM 3.9 MMOL/L (3.6-5.0); SODIUM 142 MMOL/L (135-145); TOTAL PROTEIN 6.7 G/DL (6.4-8.2)
[2016-11-19 11:36] LABS: BAND NEUTROPHILS 10 %; BASOPHILS % (MANUAL) 2 %; EOSINOPHILS % (MANUAL) 6 %; LYMPHOCYTES % (MANUAL) 35 %; MYELOCYTES % 2 %; NEUTROPHILS % (MANUAL) 40 %
[2016-11-19] MEDS ORDERED: NS IV 500 ML 500 ML ONE ×2 (11:47→23:14)
[2016-11-19] MEDS ORDERED: PIPERACILLIN/TAZO 4.5 GM VIAL (ZOSYN) IV ONE (12:00)
[2016-11-19] MEDS ORDERED: VANCOMYCIN IV ADD-VANTAGE 1,000 MG in SODIUM CHLORIDE (ADD-VANTAGE) 250 ML IV ONE (12:00)
[2016-11-19 12:06] LABS: BILIRUBIN,URINE NEGATIVE (NEGATIVE); KETONES,URINE NEGATIVE (NEGATIVE); LEUKOCYTE ESTERASE ,URINE 1+ (NEGATIVE); NITRITE,URINE NEGATIVE (NEGATIVE); PH,URINE 5 (5-9); PROTEIN,URINE NEGATIVE (NEGATIVE); UROBILINOGEN,URINE NORMAL (NORMAL)
[2016-11-19 12:23] LABS: CALCIUM OXALATE CRYSTALS,UR RARE /LPF; HYALINE CASTS, URINE 0-2 /LPF; SQUAMOUS EPITHELIAL CELL,UR 0-2 /HPF
--- NOTE | 2016-11-19 13:09 | Diagnostic Imaging Report ---
PROCEDURE: CT head without contrast. TECHNIQUE: Multiple contiguous axial images were obtained through the brain without the use of intravenous contrast. INDICATION: Unresponsive/altered mental status. FINDINGS: Ventricles and sulci are within normal limits for size. There is mild low density within the deep white matter of both hemispheres. No hemorrhage is identified. There is no geographic low density to indicate a territorial infarct. Atherosclerotic calcifications are present within the distal internal carotid and vertebral arteries, bilaterally. Calvarium is intact. Mural thickening is noted present within posterior left ethmoid air cells and left sphenoid sinus. IMPRESSION: Mild senescent findings in the brain without CT evidence of acute intracranial abnormality. Posterior left sinus disease. Dictated by: Dictated on workstation # [id number]
[2016-11-19] MEDS ORDERED: PIPERACILLIN SODIUM/TAZOBACTAM 4.5 GM in NS (BAXTER MINI) 100 ML IV NR (14:00)
[2016-11-19] MEDS: NOREPINEPHRINE 4 MG in D5W 250 ML IV SCH (14:00)
[2016-11-19] MEDS ORDERED: VANCOMYCIN 750 MG/NS 250 ML IVPB IV NR ×2 (14:19)
[2016-11-19] MEDS ORDERED: NS IV 1000 ML 1,000 ML IV ONE (15:00)
[2016-11-19] MEDS ORDERED: DOCU283E RC (15:23)
[2016-11-19] MEDS ORDERED: HYDR12.5 PO (15:23)
[2016-11-19] MEDS ORDERED: LIDO30JE10 (15:23)
[2016-11-19] MEDS ORDERED: POTA-51 PO (15:23)
[2016-11-19] MEDS ORDERED: CALC625T8 PO (15:23)
[2016-11-19] MEDS ORDERED: CEFD300C3 PO (15:23)
[2016-11-19] MEDS ORDERED: DOCU-143 PO (15:23)
[2016-11-19] MEDS ORDERED: RIVA15TA PO (15:23)
[2016-11-19] MEDS ORDERED: [UNRECOGNIZED DRUG - OTHER] OU (15:23)
[2016-11-19] MEDS ORDERED: RT-ALBUTEROL/IPRATROPIUM 3 ML (DUONEB) VIAL INH PRN (16:15)
[2016-11-19] MEDS: NS IV 1000 ML 1,000 ML IV SCH (17:40)
[2016-11-19] MEDS: RT-ALBUTEROL/IPRATROPIUM 3 ML (DUONEB) VIAL INH SCH (19:15)
[2016-11-19] MEDS: PIPERACILLIN SODIUM/TAZOBACTAM 4.5 GM in NORMAL SALINE (BAXTER MINI) 100 ML IV SCH (20:39)
[2016-11-19 23:39] LABS: ABG BASE EXCESS -0.8 MMOL/L (-2.5-2.5); ABG HCO3 24 MMOL/L (23-27); ABG OXYGEN SATURATION 98 % (94-100); ABG PCO2 39 MMHG (35-45); ABG PH 7.41 (7.37-7.43); ABG PO2 110 MMHG (79-93)
[2016-11-19 23:41] LABS: ALLENS TEST YES-POS
[2016-11-19] MEDS ORDERED: NS IV 500 ML 500 ML IV SCH (23:45)
[2016-11-20] VITALS (24 sets, daily range): BP systolic 105–179; BP diastolic 55–111
[2016-11-20] MEDS: NS IV 1000 ML 1,000 ML IV SCH ×3 (00:26→14:36)
[2016-11-20] MEDS: VANCOMYCIN 1250 MG/NS 250 ML IVPB IV SCH ×4 (02:16→15:19)
[2016-11-20] MEDS: NOREPINEPHRINE 4 MG in D5W 250 ML IV SCH ×2 (03:20→14:40)
[2016-11-20] MEDS: PIPERACILLIN SODIUM/TAZOBACTAM 4.5 GM in NORMAL SALINE (BAXTER MINI) 100 ML IV SCH ×3 (04:20→20:50)
[2016-11-20 04:47] LABS: BASOPHILS # (AUTO) 0.1 10^3/uL (0.0-0.1); BASOPHILS % (AUTO) 1 % (0-10); EOSINOPHILS # (AUTO) 0.3 10^3/uL (0.0-0.3); EOSINOPHILS % (AUTO) 3 % (0-10); LYMPHOCYTES # (AUTO) 1.9 X 10^3 (1.0-4.0); LYMPHOCYTES % (AUTO) 18 % (12-44); MEAN CORPUSCULAR HEMOGLOBIN 30 PG (25-34); MEAN CORPUSCULAR HGB CONC 32 G/DL (32-36); MEAN CORPUSCULAR VOLUME 93 FL (80-99); MEAN PLATELET VOLUME 10.9 FL (7.4-10.4); MONOCYTES # (AUTO) 0.6 X 10^3 (0.0-1.0); MONOCYTES % (AUTO) 5 % (0-12); NEUTROPHILS % (AUTO) 74 % (42-75); PLATELET COUNT 219 10^3/uL (130-400); RED BLOOD COUNT 4.28 10^6/uL (4.35-5.85); RED CELL DISTRIBUTION WIDTH 14.3 % (10.0-14.5); WHITE BLOOD COUNT 10.9 10^3/uL (4.3-11.0)
[2016-11-20 05:02] LABS: ALANINE AMINOTRANSFERASE < 6 U/L (0-55); ALBUMIN 2.8 G/DL (3.2-4.5); ANION GAP 8 MMOL/L (5-14); ASPARTATE AMINO TRANSFERASE 18 U/L (5-34); BILIRUBIN,TOTAL 0.4 MG/DL (0.1-1.0); BLOOD UREA NITROGEN 14 MG/DL (7-18); BUN/CREATININE RATIO 15; CALCIUM 8.1 MG/DL (8.5-10.1); CARBON DIOXIDE 23 MMOL/L (21-32); CHLORIDE 115 MMOL/L (98-107); CREATININE SERUM 0.94 MG/DL (0.60-1.30); GFR ESTIMATED > 60; GLUCOSE 83 MG/DL (70-105); SODIUM 146 MMOL/L (135-145); TOTAL PROTEIN 5.6 G/DL (6.4-8.2)
[2016-11-20] MEDS: POTASSIUM CL 10MEQ/50ML IVPB 50 ML IV SCH (05:49)
[2016-11-20] MEDS: KCL 20 MEQ TAB (K-DUR) PO SCH (05:50)
[2016-11-20 06:00] LABS: MAGNESIUM 1.9 MG/DL (1.8-2.4); PHOSPHORUS 2.9 MG/DL (2.3-4.7)
[2016-11-20] MEDS: MAGNESIUM 1 GM/100 ML IVPB 100 ML IV SCH (06:00)
[2016-11-20] MEDS: RT-ALBUTEROL/IPRATROPIUM 3 ML (DUONEB) VIAL INH SCH ×4 (06:35→18:18)
--- NOTE | 2016-11-20 07:29 | Diagnostic Imaging Report ---
INDICATION: Sepsis and shock. Comparison with 11/19/2016. FINDINGS: The lungs are well-aerated. There are no infiltrates present. Right central line is unchanged. The heart is not enlarged. No evidence of pulmonary edema. No pneumothorax or pleural effusions. IMPRESSION: No evidence of infiltrates or pulmonary venous congestion on today's exam. Dictated by: Dictated on workstation # [id number]
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
[2016-11-20] MEDS ORDERED: DEXTRAN OU PRN (11:00)
[2016-11-20] MEDS ORDERED: [UNRECOGNIZED DRUG - OTHER] OU PRN (11:00)
[2016-11-20] MEDS ORDERED: ARTIFICAL TEARS 0.4 ML UNIT DOSE (REFRESH PLUS) OU PRN (11:30)
[2016-11-20] MEDS ORDERED: NON-FORMULARY MEDICATION 1 EA EA (Baclofen 20 MG) PO SCH (13:00)
[2016-11-20] MEDS ORDERED: TROUGH ORDER-PHARMACY XX NR ×2 (13:00→23:00)
[2016-11-20] MEDS: BACLOFEN 10 MG (LIORESAL) TAB PO SCH ×3 (14:35→21:00)
[2016-11-20] MEDS: CAL. POLYCARBOPHIL 625 MG (FIBERCON) TAB PO SCH (21:00)
[2016-11-21] VITALS (15 sets, daily range): BP systolic 136–182; BP diastolic 69–99
[2016-11-21] MEDS ORDERED: VANCOMYCIN 1250 MG/NS 250 ML IVPB IV SCH ×2
[2016-11-21] MEDS: NS IV 1000 ML 1,000 ML IV SCH ×3 (00:16→07:20)
[2016-11-21] MEDS: PIPERACILLIN SODIUM/TAZOBACTAM 4.5 GM in NORMAL SALINE (BAXTER MINI) 100 ML IV SCH (04:21)
[2016-11-21 04:34] LABS: BASOPHILS % (AUTO) 0 % (0-10); EOSINOPHILS # (AUTO) 0.3 10^3/uL (0.0-0.3); EOSINOPHILS % (AUTO) 2 % (0-10); LYMPHOCYTES # (AUTO) 2.3 X 10^3 (1.0-4.0); LYMPHOCYTES % (AUTO) 22 % (12-44); MEAN CORPUSCULAR HEMOGLOBIN 30 PG (25-34); MEAN CORPUSCULAR HGB CONC 33 G/DL (32-36); MEAN CORPUSCULAR VOLUME 91 FL (80-99); MEAN PLATELET VOLUME 9.8 FL (7.4-10.4); MONOCYTES # (AUTO) 0.7 X 10^3 (0.0-1.0); MONOCYTES % (AUTO) 7 % (0-12); NEUTROPHILS # (AUTO) 7.1 X 10^3 (1.8-7.8); NEUTROPHILS % (AUTO) 68 % (42-75); PLATELET COUNT 242 10^3/uL (130-400); RED BLOOD COUNT 4.12 10^6/uL (4.35-5.85); WHITE BLOOD COUNT 10.4 10^3/uL (4.3-11.0)
[2016-11-21 04:55] LABS: ANION GAP 11 MMOL/L (5-14); BLOOD UREA NITROGEN 9 MG/DL (7-18); BUN/CREATININE RATIO 10; CALCIUM 8.3 MG/DL (8.5-10.1); CARBON DIOXIDE 20 MMOL/L (21-32); CHLORIDE 110 MMOL/L (98-107); CREATININE SERUM 0.86 MG/DL (0.60-1.30); GFR ESTIMATED > 60; GLUCOSE 98 MG/DL (70-105); MAGNESIUM 1.4 MG/DL (1.8-2.4); PHOSPHORUS 2.2 MG/DL (2.3-4.7); POTASSIUM 3.5 MMOL/L (3.6-5.0); SODIUM 141 MMOL/L (135-145)
[2016-11-21] MEDS: KCL 20 MEQ TAB (K-DUR) PO SCH (05:20)
[2016-11-21] MEDS: NOREPINEPHRINE 4 MG in D5W 250 ML IV SCH (05:20)
[2016-11-21] MEDS: MAGNESIUM 1 GM/100 ML IVPB 100 ML IV SCH ×3 (05:21→06:33)
[2016-11-21] MEDS: POTASSIUM CL 10MEQ/50ML IVPB 50 ML IV SCH ×3 (05:21→06:33)
[2016-11-21] MEDS: RT-ALBUTEROL/IPRATROPIUM 3 ML (DUONEB) VIAL INH SCH ×3 (06:33→15:00)
[2016-11-21] MEDS: CAL. POLYCARBOPHIL 625 MG (FIBERCON) TAB PO SCH (08:06)
[2016-11-21] MEDS: BACLOFEN 10 MG (LIORESAL) TAB PO SCH ×2 (08:07→13:00)
--- NOTE | 2016-11-21 08:47 | Diagnostic Imaging Report ---
INDICATION: Septic shock. COMPARISON: November 20. FINDINGS: The right IJ is at the SVC. The heart size is within the upper limits of normal, similar to the prior exam. No stacy pulmonary edema or focal pneumonia. No effusion. No pneumothorax. IMPRESSION: Stable chest. Dictated by: Dictated on workstation # [id number]
[2016-11-21] MEDS ORDERED: VITAMIN D3 1,000 UNITS (CHOLECALCIFEROL) TABLET PO SCH (09:00)
[2016-11-21] MEDS ORDERED: NON-FORMULARY MEDICATION 1 EA EA (Cholecalciferol (Vitamin D3) (Vitamin D3) 2,000 UNIT) PO SCH (09:00)
--- NOTE | 2016-11-21 11:21 | Discharge Summary ---
Diagnosis/Chief Complaint Date of Admission Nov 19, 2016 at 11:50 am Date of Discharge Nov 21, 2015 Admission Diagnosis Admission Diagnosis SEVERE SEPSIS DUE TO URINARY TRACT INFECTION, HALFWAY FIGUEROA CATHETER Discharge Diagnosis SEVERE SEPSIS DUE TO RECURRENT URINARY TRACT INFECTION ADM - Patient was initially thought to have sepsis due to the hypotension and recent UTI. He was placed on appropriate fluid resuscitation. He did eventually respond to the IVF and levophed, and the levophed was weaned off. he is on appropriate antibiotics. At this time, I am less convince this is sepsis as his urine culture is no growth, and he has no white count. However, I will keep him on protocol until I am more certain of the diagnosis. DC - patient improved dramatically affter holding meds. Will DC abx today, doubt this is sepsis. No WBC, neg ur/blood cx. to finish his previous PO course as prescribed during last hospitalization. ADVERSE EFFECTS OF MEDICATION INCLUDING SEDATION, HYPOTENSION, BRADYCARDIA SPASTICITY ADM - At this time, I believe that Colby's medication regimen (which was held last week and then restarted on Saturday) has backed up on him and caused the hypotension and bradycardia. It has been about 24 hours, and we are starting to see the half lives wean off. I will speak with our pharmacist and decide which meds to restart. He is on the max dose of Baclofen. In addition, he is on Dantrolene, valium 10mg, seroquel, and zanaflex prn, and gabapentin. I am going to hold them today. He will likely need a neurology consult after hospitalization as he does have severe spasticity issues. I will look at which meds to add tomorrow morning and see how his mental status does the rest of the day. DC - have made several changes to medication regimen. Patient remains confused to me today. Did not understand he was in hospital. Stated he 'wanted to get out of here" but couldn't tell me why. Did know year is 2016. Will have Nadine or Dr Varghese follow up early next week to see how his spasticity is responding to the regimen in addition to his medication regimen and mental status. Chief Complaint/HPI Chief Complaint/HPI 56yo man presented to ER with reports by nursing staff of hypotension and unresponsive. In ER, found to have a BP of 70/40 with HR of 43. Patient remained unresponsive ni ER. Per Dr Zaidi, patient's HR and BP were unchanged after aggressive IVF administration as well as levophed. Patient was hospitalized last week for urosepsis, and it was thought that there was a recurrence from that. The morning after admission, Colby remained confused. He did recognize Brissa Byrd RN, [facility]'s transition of care nurse. However, he did not know where he was. Nursing notes commented that he was confused throughout the night as he was waking up. Discharge Summary-Simple/Stand Consultations Discharge Physical Examination Allergies: Coded Allergies: No Known Drug Allergies (Unverified , 11/11/16) Vitals & I&Os Vital Sign - Last 12Hours Date Time Temp Pulse Resp B/P Pulse Ox O2 Delivery O2 Flow Rate FiO2 11/21/16 10:13 92 Room Air 11/21/16 08:00 99.0 88 11 163/91 Intake and Output 11/21/16 00:00 Intake Total 1450 ml Output Total 2650 ml Balance -1200 ml General Appearance: Alert, Cooperative, No Acute Distress, Other (confused, oriented to self, year, not location) HEENT: Atraumatic, PERRLA Respiratory: Clear to Auscultation, Normal Air Movement Cardiovascular: Regular Rate, Normal S1, Normal S2, No Murmurs, Gallops, Rubs Abdominal: Normal Bowel Sounds, Soft, No Tenderness Extremities: No Clubbing, No Cyanosis, Other (slight edema of hands, feet) Skin: No Rashes, No Breakdown, No Significant Lesion Hospital Course See final discharge diagnosis. Labs Laboratory Tests Test 11/19/16 10:34 11/19/16 11:55 11/19/16 23:30 11/20/16 04:25 Range/Units Activated Partial Thromboplast Time 37 H 24-35 SEC Alanine Aminotransferase (ALT/SGPT) 6 < 6 0-55 U/L Albumin 3.4 2.8 L 3.2-4.5 G/DL Alkaline Phosphatase 77 57 40-136 U/L Anion Gap 9 8 5-14 MMOL/L Aspartate Amino Transf (AST/SGOT) 19 18 5-34 U/L BUN/Creatinine Ratio 19 15 Band Neutrophils 10 % Basophils # (Auto) 0.0 0.1 0.0-0.1 10^3/uL Basophils % (Manual) 2 % Basophils (%) (Auto) 1 1 0-10 % Blood Morphology Comment NORMAL Blood Urea Nitrogen 24 H 14 7-18 MG/DL Calcium Level 9.1 8.1 L 8.5-10.1 MG/DL Carbon Dioxide Level 29 23 21-32 MMOL/L Chloride Level 104 115 H 98-107 MMOL/L Creatinine 1.25 0.94 0.60-1.30 MG/DL Eosinophils # (Auto) 0.5 H 0.3 0.0-0.3 10^3/uL Eosinophils % (Manual) 6 % Eosinophils (%) (Auto) 7 3 0-10 % Estimat Glomerular Filtration Rate > 60 > 60 Glucose Level 91 83 70-105 MG/DL Hematocrit 46 40 40-54 % Hemoglobin 14.7 12.8 L 13.3-17.7 G/DL INR Comment 1.4 0.8-1.4 Lactic Acid Level 1.3 0.5-2.0 MMOL/L Lymphocytes # (Auto) 2.3 1.9 1.0-4.0 X 10^3 Lymphocytes % (Manual) 35 % Lymphocytes (%) (Auto) 31 18 12-44 % Mean Corpuscular Hemoglobin 30 30 25-34 PG Mean Corpuscular Hemoglobin Concent 32 32 32-36 G/DL Mean Corpuscular Volume 93 93 80-99 FL Mean Platelet Volume 11.3 H 10.9 H 7.4-10.4 FL Monocytes # (Auto) 0.7 0.6 0.0-1.0 X 10^3 Monocytes % (Manual) 5 % Monocytes (%) (Auto) 9 5 0-12 % Myelocytes % 2 % Neutrophils # (Auto) 3.9 8.0 H 1.8-7.8 X 10^3 Neutrophils % (Manual) 40 % Neutrophils (%) (Auto) 53 74 42-75 % Platelet Count 179 219 130-400 10^3/uL Potassium Level 3.9 4.0 3.6-5.0 MMOL/L Prothrombin Time 16.9 H 12.2-14.7 SEC Red Blood Count 4.92 4.28 L 4.35-5.85 10^6/uL Red Cell Distribution Width 14.6 H 14.3 10.0-14.5 % Sodium Level 142 146 H 135-145 MMOL/L Total Bilirubin 0.4 0.4 0.1-1.0 MG/DL Total Protein 6.7 5.6 L 6.4-8.2 G/DL White Blood Count 7.5 10.9 4.3-11.0 10^3/uL Urine Bacteria TRACE /HPF Urine Bilirubin NEGATIVE NEGATIVE Urine Calcium Oxalate Crystals RARE H /LPF Urine Casts PRESENT /LPF Urine Clarity CLEAR Urine Color YELLOW Urine Crystals PRESENT H /LPF Urine Culture Indicated YES Urine Glucose (UA) NEGATIVE NEGATIVE Urine Hyaline Casts 0-2 H /LPF Urine Ketones NEGATIVE NEGATIVE Urine Leukocyte Esterase 1+ H NEGATIVE Urine Mucus SMALL H /LPF Urine Nitrite NEGATIVE NEGATIVE Urine Protein NEGATIVE NEGATIVE Urine RBC 2-5 H /HPF Urine RBC (Auto) 3+ H NEGATIVE Urine Specific [place] 1.010 L 1.016-1.022 Urine Squamous Epithelial Cells 0-2 /HPF Urine Urobilinogen NORMAL NORMAL MG/DL Urine WBC 5-10 H /HPF Urine pH 5 5-9 Azam Test YES-POS Arterial Blood Base Excess -0.8 -2.5-2.5 MMOL/L Arterial Blood HCO3 24 23-27 MMOL/L Arterial Blood Oxygen Saturation 98 94-100 % Arterial Blood Partial Pressure CO2 39 35-45 MMHG Arterial Blood Partial Pressure O2 110 H 79-93 MMHG Arterial Blood Total CO2 25.0 21.0-31.0 MMOL/L Arterial Blood pH 7.41 7.37-7.43 Blood Gas Inspired Oxygen ROOM AIR Blood Gas Patient Temperature 98.0 Blood Gas Puncture Site RT RADIAL Blood Gas Ventilator Setting NO Magnesium Level 1.9 1.8-2.4 MG/DL Phosphorus Level 2.9 2.3-4.7 MG/DL Test 11/20/16 14:30 11/20/16 23:45 11/21/16 04:30 Range/Units Vancomycin Level Trough 24.6 H 17.4 10.0-20.0 UG/ML Anion Gap 11 5-14 MMOL/L BUN/Creatinine Ratio 10 Basophils # (Auto) 0.0 0.0-0.1 10^3/uL Basophils (%) (Auto) 0 0-10 % Blood Urea Nitrogen 9 7-18 MG/DL Calcium Level 8.3 L 8.5-10.1 MG/DL Carbon Dioxide Level 20 L 21-32 MMOL/L Chloride Level 110 H 98-107 MMOL/L Creatinine 0.86 0.60-1.30 MG/DL Eosinophils # (Auto) 0.3 0.0-0.3 10^3/uL Eosinophils (%) (Auto) 2 0-10 % Estimat Glomerular Filtration Rate > 60 Glucose Level 98 70-105 MG/DL Hematocrit 38 L 40-54 % Hemoglobin 12.5 L 13.3-17.7 G/DL Lymphocytes # (Auto) 2.3 1.0-4.0 X 10^3 Lymphocytes (%) (Auto) 22 12-44 % Magnesium Level 1.4 L 1.8-2.4 MG/DL Mean Corpuscular Hemoglobin 30 25-34 PG Mean Corpuscular Hemoglobin Concent 33 32-36 G/DL Mean Corpuscular Volume 91 80-99 FL Mean Platelet Volume 9.8 7.4-10.4 FL Monocytes # (Auto) 0.7 0.0-1.0 X 10^3 Monocytes (%) (Auto) 7 0-12 % Neutrophils # (Auto) 7.1 1.8-7.8 X 10^3 Neutrophils (%) (Auto) 68 42-75 % Phosphorus Level 2.2 L 2.3-4.7 MG/DL Platelet Count 242 130-400 10^3/uL Potassium Level 3.5 L 3.6-5.0 MMOL/L Red Blood Count 4.12 L 4.35-5.85 10^6/uL Red Cell Distribution Width 14.0 10.0-14.5 % Sodium Level 141 135-145 MMOL/L White Blood Count 10.4 4.3-11.0 10^3/uL Radiology Reviewed Date of Exam: 11/19/16 CT HEAD WO PROCEDURE: CT head without contrast. TECHNIQUE: Multiple contiguous axial images were obtained through the brain without the use of intravenous contrast. INDICATION: Unresponsive/altered mental status. FINDINGS: Ventricles and sulci are within normal limits for size. There is mild low density within the deep white matter of both hemispheres. No hemorrhage is identified. There is no geographic low density to indicate a territorial infarct. Atherosclerotic calcifications are present within the distal internal carotid and vertebral arteries, bilaterally. Calvarium is intact. Mural thickening is noted present within posterior left ethmoid air cells and left sphenoid sinus. IMPRESSION: Mild senescent findings in the brain without CT evidence of acute intracranial abnormality. Posterior left sinus disease. Discharge Instructions to patient/family Please see electonic discharge instructions given to patient. Discharge Medications Reviewed and agree with Discharge Medication list on patient's Discharge Instruction sheet Clinical Quality Measures DVT/VTE Risk/Contraindication: VTE Present on Admission: No Risk Factor Score Per Nursin RFS Level Per Nursing on Admit: 4+=Very High Risk Score Comment: SCDs Copy Copies To 1: ZAHIRA VARGHESE MD, JULIE A MD Nov 21, 2016 11:21 am
[2016-11-21] MEDS ORDERED: QUET50TA55 PO (11:30)
[2016-11-21] MEDS ORDERED: BACL20TA PO (11:30)
[2016-11-21] MEDS ORDERED: DIAZ10TA3 PO (11:30)
--- NOTE | 2016-11-21 11:34 | Discharge Inst-Skilled Nursing ---
Discharge Inst-Skilled NF Patient Instructions Patient Problems: ADVERSE EFFECTS FROM MEDICATIONS QUADRIPLEGIC STATUS SPASTICITY Goal: IMPROVED COMFORT DECREASED SPASTICITY NO MEDICATION SIDE EFFECTS Patient Instructions: DR VARGHESE WILL TITRATE MEDICATIONS AT HIS NEXT VISIT TO [facility]. PLEASE NOTE MEDICATION CHANGES AND FOLLOW SPECIFICALLY. Consult/Follow Up/Orders Follow up appt.: DR VARGHESE OR DIEUDONNE WILL SEE PATIENT NEXT WEEK Skilled NF Admit to: [facility] Certifications SNF I certify that SNF services are required to be given on an inpatient basis because of the above named patient's need for nursing home care on a continuing basis for the conditions(s) for which he/she was receiving inpatient hospital services prior to his/her transfer to the SNF. Senior Living Facility Order: Nursing Services, Project Control Officer-Evaluate & Treat, Physical Therapy-Evaluate & Treat Discharge Diet: No Restrictions Daily Activity as Tolerated: Yes Discharge Medications New, Converted or Re-Newed RX: Call to Patients Pharmacy Changed Medications: Baclofen (Baclofen) 20 Mg Tablet 20 MG PO TIDPC Days 30 TAB (Changed from: QID) Diazepam (Diazepam) 10 Mg Tablet 2 MG PO HS Days 30 TAB (Changed from: 10 MG) Quetiapine Fumarate (Quetiapine Fumarate) 50 Mg Tablet 25 MG PO HS Days 30 TAB (Changed from: 50 MG) Continued Medications: Acetaminophen (Acetaminophen) 325 Mg Tablet 650 MG PO Q4H TAKES 2 (325 MG) TABLETS / NOT TO EXCEED 6 DOSES IN 24 HOURS PRN PAIN TAB Ascorbate Calcium (Vitamin C) 500 Mg Tablet 500 MG PO TID TAB Calcium Carbonate/Vitamin D3 (Calcium 600 + Vit D 400 Tablet) 1 Each Tablet 1 TAB PO BID TAB Calcium Polycarbophil (Fiber Lax) 625 Mg Tablet 625 MG PO BID TAB Cefdinir (Cefdinir) 300 Mg Capsule 300 MG PO BID 10 DAY SUPPLY START DATE 1-7-16 Days 10 CAP Cholecalciferol (Vitamin D3) (Vitamin D3) 1,000 Unit Capsule 2000 UNIT PO DAILY TAKES 2 (1000 UNIT) CAPSULES CAP Dantrolene Sodium (Dantrolene Sodium) 100 Mg Capsule 100 MG PO TID CAP Dextran 70/Hypromellose (Artificial Tears Eye Drops) 15 Ml Drops 2 DROPS OU Q4H PRN DRY EYES DROPS Diphenhydramine HCl/Zinc Acet (Benadryl Itch Stopping Crm) 28.3 Gm Cream..g. TP EVERY HOUR APPLIED TO ITCHY LESION TO TOP OF HEAD PRN RASH TUBE Docusate Sodium (Enemeez) 283 Mg/5 Ml Enema RC DAILY EA Docusate Sodium (Colace) 100 Mg Capsule 100 MG PO BID CAP Escitalopram Oxalate (Lexapro) 10 Mg Tablet 10 MG PO DAILY TAB Fludrocortisone Acetate (Fludrocortisone Acetate) 0.1 Mg Tab 0.2 MG PO DAILY TAKES 2 (0.1 MG) TABLETS TAB Gabapentin (Gabapentin) 300 Mg Capsule 600 MG PO TID TAKES 2 (300 MG) CAPSULES CAP Hydrochlorothiazide (Hydrochlorothiazide) 12.5 Mg Capsule 12.5 MG PO DAILY CAP Hydrocortisone (Anti-Itch) 28 Gm Cream..g. TP HOURLY APPLIES TO ITCHY LESION ON TOP OF HEAD PRN ITCHING TUBE Lidocaine HCl (Lidocaine HCl) 30 Ml Jel..ml. Q15M 2% GEL PRN BLADDER CATH TUBE Magnesium Hydroxide (Milk of Magnesia) 400 Mg/5 Ml Oral.susp 30 ML PO Q8H PRN CONSTIPATION ML Meloxicam (Mobic) 7.5 Mg Tablet 7.5 MG PO DAILY TAB Menthol (Biofreeze) 118 Ml Gel..ml. TP HOURLY PRN PAIN TUBE Omeprazole (Omeprazole) 20 Mg Capsule.dr 20 MG PO DAILY CAP Potassium Chloride (Potassium Chloride) 20 Meq Tablet.er 20 MEQ PO DAILY TAB Rivaroxaban (Xarelto) 15 Mg Tablet 15 MG PO 0800,1700 TAB ([Allersol Opth Dulce]) EA 1 DROP OU DAILY PRN ITCHING Discontinued Medications: Melatonin/Pyridoxine (Melatonin 3 mg Tablet) 1 Each Tablet 6 MG PO HS TAKES 2 (3MG) TABLETS TAB Methylphenidate HCl (Ritalin) 5 Mg Tablet 5 MG PO BID TAB Tizanidine HCl (Tizanidine HCl) 2 Mg Tablet 2 MG PO TID PRN MUSCLE SPASMS TAB Altagracia Jim Nov 21, 2016 11:32 Copy Copies To 1: ZAHIRA VARGHESE MD, JULIE A MD Nov 21, 2016 11:34 am
== END 2016-11-21 15:15 | DRG 314 ==
LOC: EDUNIT# 10:19 → ER 10:21 → ICU 11:50
PROVIDERS: ADMIT Pediatrics; ATTEND Pediatrics
PROC: 02HV33Z Insertion of Infusion Device into Superior Vena Cava, Percutaneous Approach (ICD-10-PCS; principal; 2016-11-19)
DX: I95.9 Hypotension, unspecified (principal); T50.995A Adverse effect of other drugs, medicaments and biological substances, initial encounter; R00.1 Bradycardia, unspecified; N39.0 Urinary tract infection, site not specified; G82.50 Quadriplegia, unspecified; S14.109S Unspecified injury at unspecified level of cervical spinal cord, sequela
CPT/HCPCS: 36415; 36556; 70450; 71010; 80048; 80053; 80202; 81000; 82805; 83605; 83735; 84100; 85007; 85025; 85027; 85610; 85730; 87040; 87088; 93005; 93041; 94640; 96361; 96365; 96366; 96367; 96375

== ENCOUNTER 2017-02-03 19:37 | Emergency (ER) | payer BC ==
[~2017-02-03] VITALS: Ht 167.6 cm; Wt 90.7 kg
[~2017-02-03 19:37] MED LIST changes: +DOCU283E RC; +LIDO30JE10; +POTA-51 PO; +[UNRECOGNIZED DRUG - OTHER] OU
--- NOTE | 2017-02-03 19:53 | ED Syncope ---
General Chief Complaint: Neurological Problems Stated Complaint: BRIEF UNRESPONSIVE Nursing Triage Note: per halfway patients eyes rolled in the back of his head several times and he was unresponsive. Source of Information: EMS, [facility] Records Exam Limitations: No Limitations History of Present Illness Time Seen by Provider: 19:51 Initial Comments As above and below. NH apparently concerned about events because the last time he had similar symptoms he was found to be septic. Timing/Prior Episodes: Remote History Symptoms Prior to Episode: Blurred Vision Precipitating Factors: Other (states he was eating when episodes occurred) Loss of Consciousness: Brief (Seconds) Current Symptoms: Back to Normal Allergies and Home Medications Allergies Coded Allergies: No Known Drug Allergies (Unverified , 11/11/16) Home Medications Acetaminophen 325 Mg Tablet, 650 MG PO Q4H PRN for PAIN, (Reported) TAKES 2 (325 MG) TABLETS / NOT TO EXCEED 6 DOSES IN 24 HOURS Ascorbate Calcium 500 Mg Tablet, 500 MG PO TID, (Reported) Baclofen 20 Mg Tablet, 20 MG PO TIDPC for 30 Days Prescribed by: LIZA OLSON on 11/21/16 1130 Calcium Carbonate/Vitamin D3 1 Each Tablet, 1 TAB PO BID, (Reported) Calcium Polycarbophil 625 Mg Tablet, 625 MG PO BID, (Reported) Cholecalciferol (Vitamin D3) 1,000 Unit Capsule, 2,000 UNIT PO DAILY, (Reported) TAKES 2 (1000 UNIT) CAPSULES Dantrolene Sodium 100 Mg Capsule, 100 MG PO TID, (Reported) Dextran 70/Hypromellose 15 Ml Drops, 2 DROPS OU Q4H PRN for DRY EYES, (Reported) Diazepam 10 Mg Tablet, 2 MG PO HS for 30 Days Prescribed by: LIZA OLSON on 11/21/16 1130 Diphenhydramine HCl/Zinc Acet 28.3 Gm Cream..g., TP EVERY HOUR PRN for RASH, ( Reported) APPLIED TO ITCHY LESION TO TOP OF HEAD Docusate Sodium 283 Mg/5 Ml Enema, RC DAILY, (Reported) Docusate Sodium 100 Mg Capsule, 100 MG PO BID, (Reported) Escitalopram Oxalate 10 Mg Tablet, 10 MG PO DAILY, (Reported) Fludrocortisone Acetate 0.1 Mg Tab, 0.2 MG PO DAILY, (Reported) TAKES 2 (0.1 MG) TABLETS Gabapentin 300 Mg Capsule, 600 MG PO TID, (Reported) TAKES 2 (300 MG) CAPSULES Hydrochlorothiazide 12.5 Mg Capsule, 12.5 MG PO DAILY, (Reported) Hydrocortisone 28 Gm Cream..g., TP HOURLY PRN for ITCHING, (Reported) APPLIES TO ITCHY LESION ON TOP OF HEAD Lidocaine HCl 30 Ml Jel..ml., Q15M PRN for BLADDER CATH, (Reported) 2% GEL Magnesium Hydroxide 400 Mg/5 Ml Oral.susp, 30 ML PO Q8H PRN for CONSTIPATION, ( Reported) Meloxicam 7.5 Mg Tablet, 7.5 MG PO DAILY, (Reported) Menthol 118 Ml Gel..ml., TP HOURLY PRN for PAIN, (Reported) Omeprazole 20 Mg Capsule.dr, 20 MG PO DAILY, (Reported) Potassium Chloride 20 Meq Tablet.er, 20 MEQ PO DAILY, (Reported) Quetiapine Fumarate 50 Mg Tablet, 25 MG PO HS for 30 Days Prescribed by: LIZA OLSON on 11/21/16 1130 Rivaroxaban 15 Mg Tablet, 15 MG PO 0800,1700, (Reported) [Allersol Opth Dulce] EA, 1 DROP OU DAILY PRN for ITCHING, (Reported) Constitutional: see HPI Cardiovascular: see HPI, syncope All Other Systems Reviewed Negative Unless Noted: Yes (Negative excepted noted.) Past Vqdarpm-Ccneft-Zeryis Hx Patient Social History Alcohol Use: Denies Use Recreational Drug Use: No Smoking Status: Never a Smoker Recent Foreign Travel: No Contact w/Someone Who Travel: No Recent Infectious Disease Expo: No Recent Hopitalizations: No Immunizations Up To Date Date of Influenza Vaccine: Aug 13, 2016 Seasonal Allergies Seasonal Allergies: No Surgeries HX Surgeries: No Respiratory Hx Respiratory Disorders: No Cardiovascular Hx Cardiac Disorders: Yes Cardiac Disorders: Hypertension Neurological Hx Neurological Disorders: Yes Neurological Disorders: Spinal Cord Injury Genitourinary Hx Genitourinary Disorders: Yes Genitourinary Disorders: Bladder Infection, Neurogenic Bladder Gastrointestinal Hx Gastrointestinal Disorders: Yes Gastrointestinal Disorders: Gastroesophageal Reflux, Chronic Constipation Musculoskeletal Hx Musculoskeletal Disorders: Yes Musculoskeletal Disorders: Back Injury, Spasms Endocrine Hx Endocrine Disorders: No Cancer Hx Cancer: No Psychosocial Behavioral Health Disorders: Anxiety, Depression Physical Exam Vital Signs Vital Sign - Last 12Hours 02/03/17 19:42 Temp 98.8 Pulse 84 Resp 11 B/P (MAP) 217/103 Pulse Ox 95 Capillary Refill : Less Than 3 Seconds General Appearance: No Apparent Distress, WD/WN HEENT: Normal ENT Inspection ((oral mucosa is a little on the dry side)) Cardiovascular: Regular Rate, Rhythm Respiratory: No Respiratory Distress Gastrointestinal: Non Tender Neurologic/Psychiatric: Alert, Oriented x3, Normal Mood/Affect, Other (patient is a quadraplegic) Cranial Nerves: Normal Hearing, Normal Speech, PERRL Skin: Warm/Dry Date of ETT Placement: Nov 12, 2016 Time of ETT Placement: 0200 Progress/Results/Core Measures Results/Orders Lab Results Laboratory Tests Test 02/03/17 19:40 02/03/17 19:55 Range/Units Urine Color RED H Urine Clarity BLOODY H Urine pH 8 5-9 Urine Specific [place] 1.015 L 1.016-1.022 Urine Protein 4+ NEGATIVE Urine Glucose (UA) NEGATIVE NEGATIVE Urine Ketones NEGATIVE NEGATIVE Urine Nitrite POSITIVE H NEGATIVE Urine Bilirubin NEGATIVE NEGATIVE Urine Urobilinogen NORMAL NORMAL MG/DL Urine Leukocyte Esterase 3+ H NEGATIVE Urine RBC (Auto) 5+ H NEGATIVE Urine RBC TNTC H /HPF Urine WBC 25-50 H /HPF Urine Squamous Epithelial Cells 2-5 /HPF Urine Renal Epithelial Cells NONE /HPF Urine Crystals NONE /LPF Urine Bacteria MODERATE H /HPF Urine Casts NONE /LPF Urine Mucus NEGATIVE /LPF Urine Other MOD SPERM H /HPF Urine Culture Indicated YES White Blood Count 11.0 4.3-11.0 10^3/uL Red Blood Count 5.25 4.35-5.85 10^6/uL Hemoglobin 16.3 13.3-17.7 G/DL Hematocrit 49 40-54 % Mean Corpuscular Volume 93 80-99 FL Mean Corpuscular Hemoglobin 31 25-34 PG Mean Corpuscular Hemoglobin Concent 33 32-36 G/DL Red Cell Distribution Width 13.3 10.0-14.5 % Platelet Count 185 130-400 10^3/uL Mean Platelet Volume 10.3 7.4-10.4 FL Neutrophils (%) (Auto) 64 42-75 % Lymphocytes (%) (Auto) 16 12-44 % Monocytes (%) (Auto) 14 H 0-12 % Eosinophils (%) (Auto) 6 0-10 % Basophils (%) (Auto) 1 0-10 % Neutrophils # (Auto) 7.0 1.8-7.8 X 10^3 Lymphocytes # (Auto) 1.8 1.0-4.0 X 10^3 Monocytes # (Auto) 1.5 H 0.0-1.0 X 10^3 Eosinophils # (Auto) 0.6 H 0.0-0.3 10^3/uL Basophils # (Auto) 0.1 0.0-0.1 10^3/uL D-Dimer 0.46 0.00-0.49 UG/ML Sodium Level 143 135-145 MMOL/L Potassium Level 3.6 3.6-5.0 MMOL/L Chloride Level 102 98-107 MMOL/L Carbon Dioxide Level 28 21-32 MMOL/L Anion Gap 13 5-14 MMOL/L Blood Urea Nitrogen 19 H 7-18 MG/DL Creatinine 1.32 H 0.60-1.30 MG/DL Estimat Glomerular Filtration Rate > 60 BUN/Creatinine Ratio 14 Glucose Level 120 H 70-105 MG/DL Calcium Level 9.9 8.5-10.1 MG/DL Magnesium Level 2.0 1.8-2.4 MG/DL Total Bilirubin 0.4 0.1-1.0 MG/DL Aspartate Amino Transf (AST/SGOT) 18 5-34 U/L Alanine Aminotransferase (ALT/SGPT) < 6 0-55 U/L Alkaline Phosphatase 112 40-136 U/L Troponin I < 0.30 <0.30 NG/ML Total Protein 7.5 6.4-8.2 G/DL Albumin 3.9 3.2-4.5 G/DL My Orders Orders - INDRA STRONG DO Ekg Tracing (02/03/17 19:51) Cbc With Automated Diff (02/03/17 19:51) Comprehensive Metabolic Panel (02/03/17 19:51) Fibrin Degradation Products (02/03/17 19:51) Magnesium (02/03/17 19:51) Troponin I (02/03/17 19:51) Ua Culture If Indicated (02/03/17 19:51) Chest 1 View, Ap/Pa Only (02/03/17 19:51) Urine Culture (02/03/17 19:40) Ns Iv 1000 Ml (Sodium Chloride 0.9%) (02/03/17 20:30) Ns Iv 1000 Ml (Sodium Chloride 0.9%) (02/03/17 20:45) Abdomen/Kub 1view (02/03/17 20:38) Ceftriaxone Injection (Rocephin Injectio (02/03/17 20:45) Ceftriaxone Injection (Rocephin Injectio (02/03/17 20:42) Ns (Ivpb) (Sodium Chloride 0.9% Ivpb Bag (02/03/17 20:42) Medications Given in ED Current Medications Medications Dose Ordered Sig/Bryant Route Start Time Stop Time Status Last Admin Dose Admin Ceftriaxone Sodium 1000 mg/ Sodium Chloride 50 ml @ 100 mls/hr ONCE ONCE IV 02/03/17 20:45 02/03/17 21:14 DC 02/03/17 20:45 100 MLS/HR Vital Signs/I&O Vital Sign - Last 12Hours 02/03/17 02/04/17 19:42 00:05 Temp 98.8 98.8 Pulse 84 93 Resp 11 20 B/P (MAP) 217/103 Pulse Ox 95 97 Blood Pressure Mean: 141 Progress Note : Progress Note Briefly discussed the patient c/ Dr. Valenzuela and she really doesn't have any specific recommendations for the patient. Did go ahead and discuss the patient c/ Dr. Marino, who is covering hospital patients of [facility], and she really didn't having anything @ this time to recommend on the patient either. His labs are good c/ the exception of his urine. CXR and KUB were unremarkable @ this time. Have given him a liter of NS and 1g of Rocephin IV for his UTI. He has good vital signs and is afebrile and the only issue is his very labile blood pressure. Like Dr. Marino stated, she wouldn't want to reflexly treat one of his high readings when he has readings of [address] Varghese will be back in the AM, 02/04, and is familiar c/ the patient. Will have the AL contact him in the AM regarding close follow up on the patient's issues here this evening. Dr. Marino felt hospitalization was not necessary @ this time based on his findings tonight. There is a urine culture pending presently on the patient. ECG Initial ECG Impression Date: Feb 03, 2017 Initial ECG Impression Time: 20:05 Initial ECG Rate: 62 Initial ECG Rhythm: Normal Sinus Initial ECG Intervals: Normal Initial ECG Impression: Normal Departure Impression Impression: Primary Impression: Syncope Additional Impressions: Labile blood pressure UTI (urinary tract infection) Quadriplegia, post-traumatic Disposition: (senior care) Condition: Stable Departure-Patient Inst. Decision time for Depature: 22:00 Referrals: ZAHIRA VARGHESE MD (PCP/Family) Primary Care Physician Patient Instructions: Syncope (Fainting) (DC) Add. Discharge Instructions: All discharge instructions reviewed with patient and/or family. Voiced understanding. NEEDS CLOSE FOLLOW UP AND EVAL BY DR. VARGHESE IN THE AM, 02/04, REGARDING THIS EVENINGS EVENTS AND FINDINGS, INCLUDING HIS LABILE BLOOD PRESSURES AND HIS UTI. INDRA STRONG DO Feb 03, 2017 19:53
[2017-02-03 19:57] LABS: BILIRUBIN,URINE NEGATIVE (NEGATIVE); KETONES,URINE NEGATIVE (NEGATIVE); LEUKOCYTE ESTERASE ,URINE 3+ (NEGATIVE); NITRITE,URINE POSITIVE (NEGATIVE); PH,URINE 8 (5-9); PROTEIN,URINE 4+ (NEGATIVE); UROBILINOGEN,URINE NORMAL (NORMAL)
[2017-02-03 20:04] LABS: BASOPHILS # (AUTO) 0.1 10^3/uL (0.0-0.1); BASOPHILS % (AUTO) 1 % (0-10); EOSINOPHILS # (AUTO) 0.6 10^3/uL (0.0-0.3); EOSINOPHILS % (AUTO) 6 % (0-10); LYMPHOCYTES # (AUTO) 1.8 X 10^3 (1.0-4.0); LYMPHOCYTES % (AUTO) 16 % (12-44); MEAN CORPUSCULAR HEMOGLOBIN 31 PG (25-34); MEAN CORPUSCULAR HGB CONC 33 G/DL (32-36); MEAN CORPUSCULAR VOLUME 93 FL (80-99); MEAN PLATELET VOLUME 10.3 FL (7.4-10.4); MONOCYTES # (AUTO) 1.5 X 10^3 (0.0-1.0); MONOCYTES % (AUTO) 14 % (0-12); NEUTROPHILS % (AUTO) 64 % (42-75); PLATELET COUNT 185 10^3/uL (130-400); RED BLOOD COUNT 5.25 10^6/uL (4.35-5.85); RED CELL DISTRIBUTION WIDTH 13.3 % (10.0-14.5)
[2017-02-03 20:19] LABS: WBC,URINE 25-50 /HPF
[2017-02-03 20:22] LABS: ALANINE AMINOTRANSFERASE < 6 U/L (0-55); ALBUMIN 3.9 G/DL (3.2-4.5); ANION GAP 13 MMOL/L (5-14); ASPARTATE AMINO TRANSFERASE 18 U/L (5-34); BILIRUBIN,TOTAL 0.4 MG/DL (0.1-1.0); BLOOD UREA NITROGEN 19 MG/DL (7-18); BUN/CREATININE RATIO 14; CALCIUM 9.9 MG/DL (8.5-10.1); CARBON DIOXIDE 28 MMOL/L (21-32); CHLORIDE 102 MMOL/L (98-107); CREATININE SERUM 1.32 MG/DL (0.60-1.30); GFR ESTIMATED > 60; GLUCOSE 120 MG/DL (70-105); POTASSIUM 3.6 MMOL/L (3.6-5.0); SODIUM 143 MMOL/L (135-145); TOTAL PROTEIN 7.5 G/DL (6.4-8.2)
--- NOTE | 2017-02-03 20:24 | Diagnostic Imaging Report ---
INDICATION: Unresponsive. EXAMINATION: Single view of the chest. COMPARISON: 11/21/2016. FINDINGS: Low lung volumes. Patchy linear opacities in the lung bases are likely due to atelectasis. Please note posterior lower lobes are poorly evaluated by portable radiography. No pleural effusion or pneumothorax. Heart is normal in size. Normal pulmonary vasculature. IMPRESSION: No acute cardiopulmonary process by portable radiography. Dictated by: Dictated on workstation # [id number]
[2017-02-03 20:28] LABS: TROPONIN I < 0.30 NG/ML (<0.30)
[2017-02-03] MEDS ORDERED: NS IV 1000 ML 1,000 ML IV SCH ×2 (20:30→20:45)
[2017-02-03] MEDS ORDERED: cefTRIAXone 1 GM (ROCEPHIN) VIAL ONE (20:42)
[2017-02-03] MEDS ORDERED: NS (IVPB) 50 ML ONE (20:42)
[2017-02-03] MEDS ORDERED: cefTRIAXone INJECTION 1,000 MG in NS (IVPB) 50 ML IV ONE (20:45)
--- NOTE | 2017-02-03 21:21 | Diagnostic Imaging Report ---
INDICATION: Unresponsive, hematuria. COMPARISON: Chest radiograph performed concurrently. FINDINGS: Nonobstructive bowel gas pattern. No evidence of free intraperitoneal air, although evaluation is limited on supine imaging. There is a small to moderate amount of colonic stool present. Age-related degenerative changes in the hips and lower lumbar spine. IMPRESSION: 1. Nonobstructive bowel gas pattern. 2. Small to moderate volume of colonic stool. Dictated by: Dictated on workstation # [id number]
[2017-02-04 00:05] VITALS: BP 166/113
--- OUTSIDE RECORDS SUMMARY | 2017-02-19 13:48 | XMS REPORT ---
Author Author ZAHIRA VARGHESE Organization [employer] Address Unknown Phone Unavailable Care Team Providers Care Road Grader Name Role Phone ZAHIRA VARGHESE CP Unavailable Allergies No Known Allergies Problems No Known Problems Medications No Known Medications Results No Known Results Summary Purpose [employer] Submission
--- OUTSIDE RECORDS SUMMARY | 2017-02-19 13:48 | XMS REPORT ---
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
--- OUTSIDE RECORDS SUMMARY | 2017-02-19 13:48 | XMS REPORT ---
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
--- OUTSIDE RECORDS SUMMARY | 2017-02-19 13:49 | XMS REPORT ---
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 [address]-28 5 mg per tube Twice a day at 0800 and 1200 Oct 08, 2016 1 tablet Results No Known Results Summary Purpose [employer] Submission
--- OUTSIDE RECORDS SUMMARY | 2017-02-19 13:49 | XMS REPORT ---
Author Author ZAHIRA VARGHESE Organization [employer] Address Unknown Phone Unavailable Care Team Providers Care Councilman Name Role Phone ZAHIRA VARGHESE CP Unavailable Allergies No Known Allergies Problems No Known Problems Medications No Known Medications Results No Known Results Summary Purpose [employer] Submission
--- OUTSIDE RECORDS SUMMARY | 2017-02-19 13:49 | XMS REPORT ---
Author Author ZAHIRA VARGHESE Organization [employer] Address Unknown Phone Unavailable Care Team Providers Care Soft Work Wrapper Layer And Examiner Name Role Phone ZAHIRA VARGHESE CP Unavailable Allergies No Known Allergies Problems No Known Problems Medications Medication Code System Code Instructions Start Date End Date Status Dosage Valium [facility] [address]-79 5 mg per tube every 6 hours as needed 1 or 2 [place] [address]-79 5 mg per tube Twice a day at 0800 and 1200 Oct 08, 2016 1 tablet Results No Known Results Summary Purpose [employer] Submission
== END 2017-02-04 00:04 ==
LOC: EDUNIT# 19:37 → ER 19:39
DX: R55 Syncope and collapse (principal); R03.0 Elevated blood-pressure reading, without diagnosis of hypertension; N30.91 Cystitis, unspecified with hematuria; G82.50 Quadriplegia, unspecified; Z79.899 Other long term (current) drug therapy
CPT/HCPCS: 36415; 71010; 74000; 80053; 81000; 83735; 84484; 85025; 85379; 87088; 93005; 96361; 96365

== ENCOUNTER 2017-04-30 03:26 | Inpatient (IN) | payer SELFPAY ==
[2017-04-30] VITALS (22 sets, daily range): BP systolic 70–184; BP diastolic 38–90
[~2017-04-30] VITALS: Ht 177.8 cm; Wt 80.7 kg
[2017-04-30] MEDS ORDERED: LACTATED RINGERS 1,000 ML IV ONE ×2 (03:28→05:21)
[2017-04-30 03:49] LABS: BASOPHILS % (AUTO) 0 % (0-10); EOSINOPHILS # (AUTO) 0.1 10^3/uL (0.0-0.3); EOSINOPHILS % (AUTO) 1 % (0-10); LYMPHOCYTES # (AUTO) 1.3 X 10^3 (1.0-4.0); LYMPHOCYTES % (AUTO) 10 % (12-44); MEAN CORPUSCULAR HEMOGLOBIN 31 PG (25-34); MEAN CORPUSCULAR HGB CONC 33 G/DL (32-36); MEAN CORPUSCULAR VOLUME 93 FL (80-99); MEAN PLATELET VOLUME 10.6 FL (7.4-10.4); MONOCYTES # (AUTO) 1.7 X 10^3 (0.0-1.0); MONOCYTES % (AUTO) 13 % (0-12); NEUTROPHILS # (AUTO) 10.3 X 10^3 (1.8-7.8); NEUTROPHILS % (AUTO) 77 % (42-75); PLATELET COUNT 135 10^3/uL (130-400); RED BLOOD COUNT 5.73 10^6/uL (4.35-5.85); RED CELL DISTRIBUTION WIDTH 13.7 % (10.0-14.5); WHITE BLOOD COUNT 13.5 10^3/uL (4.3-11.0)
[2017-04-30 04:08] LABS: ALANINE AMINOTRANSFERASE < 6 U/L (0-55); ALBUMIN 3.9 GM/DL (3.2-4.5); AMYLASE 191 U/L (25-125); ANION GAP 13 MMOL/L (5-14); ASPARTATE AMINO TRANSFERASE 17 U/L (5-34); BILIRUBIN,TOTAL 1.2 MG/DL (0.1-1.0); BLOOD UREA NITROGEN 26 MG/DL (7-18); BUN/CREATININE RATIO 17 (0-20); CALCIUM 10.5 MG/DL (8.5-10.1); CARBON DIOXIDE 23 MMOL/L (21-32); CHLORIDE 106 MMOL/L (98-107); CREATININE SERUM 1.49 MG/DL (0.60-1.30); GFR ESTIMATED 59; GLUCOSE 142 MG/DL (70-105); HEMOLYSIS 10 (-100-29); ICTERUS 1.1 (-100-1.9); LIPASE 30 U/L (8-78); LIPEMIA 4 (-100-49); POTASSIUM 4.6 MMOL/L (3.6-5.0); SODIUM 142 MMOL/L (135-145); TOTAL PROTEIN 7.9 GM/DL (6.4-8.2)
[2017-04-30] MEDS ORDERED: ACETAMINOPHEN 500 MG TAB (TYLENOL) PO ONE (04:30)
[2017-04-30] MEDS ORDERED: cefTRIAXone INJECTION 1,000 MG in NS (IVPB) 50 ML IV ONE (04:30)
[2017-04-30] MEDS ORDERED: IBUPROFEN 800 MG (MOTRIN) TAB PO ONE (04:30)
[2017-04-30 04:41] LABS: BILIRUBIN,URINE NEGATIVE (NEGATIVE); KETONES,URINE NEGATIVE (NEGATIVE); LEUKOCYTE ESTERASE ,URINE 3+ (NEGATIVE); NITRITE,URINE NEGATIVE (NEGATIVE); PH,URINE 8 (5-9); PROTEIN,URINE 3+ (NEGATIVE); UROBILINOGEN,URINE NORMAL (NORMAL)
[2017-04-30] MEDS ORDERED: NS IV 1000 ML 1,000 ML IV ONE (04:48)
[2017-04-30 04:49] LABS: SQUAMOUS EPITHELIAL CELL,UR RARE /HPF; WBC,URINE 50-100 /HPF
--- NOTE | 2017-04-30 05:12 | ED General ---
General Chief Complaint: Fever-Adult/Adol Stated Complaint: SEPSIS;UTI;POSSIBLE PNEUMONIA;HYPOXIA; Nursing Triage Note: PT TO ED PER EMS AT 0320. [place] STATES PT HAS HAS BEEN LETHARGIC, HAD FEVER AND NO URINE OUTPUT SINCE 2199. STATE THE PT WAS NOT VERBALLY RESPONDING BUT WHEN EMS ARRIVED HE WAS ASKING "WHERE AM I GOING?" AND BECOMING MORE ALERT. Nursing Sepsis Screen: Possible Sepsis Risk Source of Information: EMS, [facility] Records, Old Records (ALL PMH IS FROM OLD RECORDS AND CARE HOME RECORD) Exam Limitations: Other (PT UNABLE TO GIVE ANY INFORMATION AT THIS TIME DUE TO ALTERED LEVEL OF CONSCIOUSNESS) History of Present Illness Time Seen by Provider: 03:25 Initial Comments PT ARRIVES VIA EMS FROM [facility]IA [facility] PT HAS QUADRIPLEGIA WITH AN INDWELLING FIGUEROA CATHETER PT HAS HAD ALTERED MENTAL STATUS, LETHARGY AND FEVER OF 100.9 --BEGAN SOMETIME THIS EVENING PT HAS NOT HAD ANY URINE IN FIGUEROA BAG SINCE 2199 THIS EVENING PT HAD O2 SAT OF 87% ON ROOM AIR AT CARE HOME PT IS NOTED TO HAVE A MILD COUGH WELL--IS UNKNOWN HOW LONG THIS HAS BEEN GOING ON NO OTHER INFORMATION IS OBTAINABLE AT THIS TIME ABOUT CURRENT CONDITION PT HAS BEEN ADMITTED X 2 SINCE 11/11/16 FOR SEPSIS/UTI, AND WAS INTUBATED FOR ACUTE RESPIRATORY FAILURE AND SEPTIC SHOCK ON FIRST ADMIT. PCP:LEO Allergies and Home Medications Allergies Coded Allergies: No Known Drug Allergies (Unverified , 11/11/16) Home Medications Acetaminophen 325 Mg Tablet, 650 MG PO Q4H PRN for PAIN, (Reported) TAKES 2 (325 MG) TABLETS / NOT TO EXCEED 6 DOSES IN 24 HOURS Ascorbate Calcium 500 Mg Tablet, 500 MG PO TID, (Reported) Baclofen 20 Mg Tablet, 20 MG PO TIDPC for 30 Days Prescribed by: LIZA OLSON on 11/21/16 1130 Calcium Carbonate/Vitamin D3 1 Each Tablet, 1 TAB PO BID, (Reported) Calcium Polycarbophil 625 Mg Tablet, 625 MG PO BID, (Reported) Cholecalciferol (Vitamin D3) 1,000 Unit Capsule, 2,000 UNIT PO DAILY, (Reported) TAKES 2 (1000 UNIT) CAPSULES Dantrolene Sodium 100 Mg Capsule, 100 MG PO TID, (Reported) Dextran 70/Hypromellose 15 Ml Drops, 2 DROPS OU Q4H PRN for DRY EYES, (Reported) Diazepam 10 Mg Tablet, 2 MG PO HS for 30 Days Prescribed by: LIZA OLSON on 11/21/16 1130 Diphenhydramine HCl/Zinc Acet 28.3 Gm Cream..g., TP EVERY HOUR PRN for RASH, ( Reported) APPLIED TO ITCHY LESION TO TOP OF HEAD Docusate Sodium 283 Mg/5 Ml Enema, RC DAILY, (Reported) Docusate Sodium 100 Mg Capsule, 100 MG PO BID, (Reported) Escitalopram Oxalate 10 Mg Tablet, 10 MG PO DAILY, (Reported) Fludrocortisone Acetate 0.1 Mg Tab, 0.2 MG PO DAILY, (Reported) TAKES 2 (0.1 MG) TABLETS Gabapentin 300 Mg Capsule, 600 MG PO TID, (Reported) TAKES 2 (300 MG) CAPSULES Hydrochlorothiazide 12.5 Mg Capsule, 12.5 MG PO DAILY, (Reported) Hydrocortisone 28 Gm Cream..g., TP HOURLY PRN for ITCHING, (Reported) APPLIES TO ITCHY LESION ON TOP OF HEAD Lidocaine HCl 30 Ml Jel..ml., Q15M PRN for BLADDER CATH, (Reported) 2% GEL Magnesium Hydroxide 400 Mg/5 Ml Oral.susp, 30 ML PO Q8H PRN for CONSTIPATION, ( Reported) Meloxicam 7.5 Mg Tablet, 7.5 MG PO DAILY, (Reported) Menthol 118 Ml Gel..ml., TP HOURLY PRN for PAIN, (Reported) Omeprazole 20 Mg Capsule.dr, 20 MG PO DAILY, (Reported) Potassium Chloride 20 Meq Tablet.er, 20 MEQ PO DAILY, (Reported) Quetiapine Fumarate 50 Mg Tablet, 25 MG PO HS for 30 Days Prescribed by: LIZA OLSON on 11/21/16 1130 Rivaroxaban 15 Mg Tablet, 15 MG PO 0800,1700, (Reported) [Allersol Opth Dulce] EA, 1 DROP OU DAILY PRN for ITCHING, (Reported) Constitutional: see HPI, fever, malaise, weakness, other (PT UNABLE TO GIVE ANY INFORMATION) Respiratory: cough Psychiatric/Neurological: See HPI Past [id number]-Qexunl Hx Patient Social History Smoking Status: Unknown if Ever Smoked Recent Foreign Travel: No Contact w/Someone Who Travel: No Recent Infectious Disease Expo: No Recent Hopitalizations: No Immunizations Up To Date Date of Influenza Vaccine: Aug 13, 2016 Seasonal Allergies Seasonal Allergies: No Surgeries HX Surgeries: No Respiratory Hx Respiratory Disorders: No Cardiovascular Hx Cardiac Disorders: Yes Cardiac Disorders: Hypertension Neurological Hx Neurological Disorders: Yes (QUADRIPLEGIA) Neurological Disorders: Paralysis, Spinal Cord Injury Genitourinary Hx Genitourinary Disorders: Yes (INDWELLING FIGUEROA CATHETER) Genitourinary Disorders: Bladder Infection, Neurogenic Bladder Gastrointestinal Hx Gastrointestinal Disorders: Yes Gastrointestinal Disorders: Gastroesophageal Reflux, Chronic Constipation Musculoskeletal Hx Musculoskeletal Disorders: Yes Musculoskeletal Disorders: Back Injury, Spasms Endocrine Hx Endocrine Disorders: No HEENT HX ENT Disorders: No Cancer Hx Cancer: No Psychosocial Hx Psychiatric Problems: Yes Behavioral Health Disorders: Anxiety, Depression Integumentary HX Skin/Integumentary Disorder: No Blood Transfusions Hx Blood Disorders: No Physical Exam Vital Signs Vital Sign - Last 12Hours 04/30/17 04/30/17 04/30/17 03:26 04:00 04:30 Temp 101.6 Pulse 112 Resp 16 B/P (MAP) 142/92 Pulse Ox 100 O2 Delivery Room Air O2 Flow Rate 2.00 Capillary Refill : Less Than 3 Seconds General Appearance: Other (PT LETHARGIC, MOANING, OCCASIONAL COUGH, NOT ANSWERING QUESTIONS. PT IS VERY WARM AND FACE IS FLUSHED. EXTREMELY MALODOROUS OF OLD URINE. ) HEENT: Other (ORAL MUCOSA SLIGHTLY DRY) Respiratory: No Accessory Muscle Use, No Respiratory Distress, Decreased Breath Sounds (IN BASES), No Rales, No Rhonci, No Wheezing Cardiovascular: Tachycardia Gastrointestinal: Soft Genital/Rectal: Other (INDWELLING FIGUEROA IN PLACE WITH LESS THAN 5 ML OF BROWN/ BLOODY URINE IN BAG AND NONE IN TUBING. ) Extremity: No Pedal Edema (TRACE TO 1+ IN ALL EXTRMITIES) Neurologic/Psychiatric: Other (LETHARGIC, MOAINING, NOT ANSWERING QUESTIONS. PT WITH QUADRIPLEGIA) Skin: Other (WARM, FLUSHED) Focused Exam Lactic Acid Level Laboratory Tests Test 04/30/17 03:35 Lactic Acid Level 1.43 MMOL/L (0.50-2.00) Date of ETT Placement: Nov 12, 2016 Time of ETT Placement: 0200 Progress/Results/Core Measures Results/Orders Lab Results Laboratory Tests Test 04/30/17 03:35 04/30/17 04:20 Range/Units White Blood Count 13.5 H 4.3-11.0 10^3/uL Red Blood Count 5.73 4.35-5.85 10^6/uL Hemoglobin 17.5 13.3-17.7 G/DL Hematocrit 54 40-54 % Mean Corpuscular Volume 93 80-99 FL Mean Corpuscular Hemoglobin 31 25-34 PG Mean Corpuscular Hemoglobin Concent 33 32-36 G/DL Red Cell Distribution Width 13.7 10.0-14.5 % Platelet Count 135 130-400 10^3/uL Mean Platelet Volume 10.6 H 7.4-10.4 FL Neutrophils (%) (Auto) 77 H 42-75 % Lymphocytes (%) (Auto) 10 L 12-44 % Monocytes (%) (Auto) 13 H 0-12 % Eosinophils (%) (Auto) 1 0-10 % Basophils (%) (Auto) 0 0-10 % Neutrophils # (Auto) 10.3 H 1.8-7.8 X 10^3 Lymphocytes # (Auto) 1.3 1.0-4.0 X 10^3 Monocytes # (Auto) 1.7 H 0.0-1.0 X 10^3 Eosinophils # (Auto) 0.1 0.0-0.3 10^3/uL Basophils # (Auto) 0.0 0.0-0.1 10^3/uL Sodium Level 142 135-145 MMOL/L Potassium Level 4.6 3.6-5.0 MMOL/L Chloride Level 106 98-107 MMOL/L Carbon Dioxide Level 23 21-32 MMOL/L Anion Gap 13 5-14 MMOL/L Blood Urea Nitrogen 26 H 7-18 MG/DL Creatinine 1.49 H 0.60-1.30 MG/DL Estimat Glomerular Filtration Rate 59 BUN/Creatinine Ratio 17 0-20 Glucose Level 142 H 70-105 MG/DL Lactic Acid Level 1.43 0.50-2.00 MMOL/L Calcium Level 10.5 H 8.5-10.1 MG/DL Magnesium Level 2.0 1.8-2.4 MG/DL Total Bilirubin 1.2 H 0.1-1.0 MG/DL Aspartate Amino Transf (AST/SGOT) 17 5-34 U/L Alanine Aminotransferase (ALT/SGPT) < 6 0-55 U/L Alkaline Phosphatase 92 40-136 U/L Total Protein 7.9 6.4-8.2 GM/DL Albumin 3.9 3.2-4.5 GM/DL Amylase Level 191 H 25-125 U/L Lipase 30 8-78 U/L Urine Color DAVID H Urine Clarity VERY CLOUDY H Urine pH 8 5-9 Urine Specific Merkel 1.010 L 1.016-1.022 Urine Protein 3+ H NEGATIVE Urine Glucose (UA) NEGATIVE NEGATIVE Urine Ketones NEGATIVE NEGATIVE Urine Nitrite NEGATIVE NEGATIVE Urine Bilirubin NEGATIVE NEGATIVE Urine Urobilinogen NORMAL NORMAL MG/DL Urine Leukocyte Esterase 3+ H NEGATIVE Urine RBC (Auto) 5+ H NEGATIVE Urine RBC >100 H /HPF Urine WBC 50-100 H /HPF Urine Squamous Epithelial Cells RARE /HPF Urine Crystals NONE /LPF Urine Bacteria LARGE H /HPF Urine Casts NONE /LPF Urine Mucus NEGATIVE /LPF Urine Culture Indicated YES My Orders Orders - ANNA FITCH DO Saline Lock/Iv-Start (04/30/17 03:28) Monitor-Rhythm Ecg Trace Only (04/30/17 03:28) Amylase (04/30/17 03:28) Cbc With Automated Diff (04/30/17 03:28) Comprehensive Metabolic Panel (04/30/17 03:28) Lactic Acid Analyzer (04/30/17 03:28) Lipase (04/30/17 03:28) Magnesium (04/30/17 03:28) Ua Culture If Indicated (04/30/17 03:28) Blood Culture (04/30/17 03:28) Chest 1 View, Ap/Pa Only (04/30/17 03:28) Saline Lock/Iv-Start (04/30/17 03:28) Lactated Ringers (Lr 1000 Ml Iv Solution (04/30/17 03:28) Ceftriaxone Injection (Rocephin Injectio (04/30/17 04:30) Acetaminophen Tablet (Tylenol Tablet) (04/30/17 04:30) Ibuprofen Tablet (Motrin Tablet) (04/30/17 04:30) Saline Lock/Iv-Start (04/30/17 04:48) Saline Lock/Iv-Start (04/30/17 04:48) Ns Iv 1000 Ml (Sodium Chloride 0.9%) (04/30/17 04:48) Urine Culture (04/30/17 04:20) Saline Lock/Iv-Start (04/30/17 05:21) Lactated Ringers (Lr 1000 Ml Iv Solution (04/30/17 05:21) D5 1/2 Ns W/Kcl 20 Meq/L (Dextrose 5%/0. (04/30/17 05:44) Medications Given in ED Current Medications Medications Dose Ordered Sig/Bryant Route Start Time Stop Time Status Last Admin Dose Admin Lactated Ringer's 1,000 ml @ 0 mls/hr Q0M ONCE IV 04/30/17 03:28 04/30/17 03:30 DC 04/30/17 03:41 999 MLS/HR Vital Signs/I&O Vital Sign - Last 12Hours 04/30/17 04/30/17 04/30/17 04/30/17 03:26 04:00 04:30 04:53 Temp 101.6 101.6 100.8 101.6 Pulse 112 100 101 Resp 16 B/P (MAP) 142/92 165/95 179/106 Pulse Ox 100 O2 Delivery Room Air Nasal Cannula O2 Flow Rate 2.00 04/30/17 04/30/17 04/30/17 04/30/17 04:53 05:00 05:30 05:30 Temp 101.6 99.8 99.6 99.6 Pulse 86 76 76 Resp 16 16 16 B/P (MAP) 88/60 105/66 Pulse Ox 100 98 98 O2 Delivery Nasal Cannula Nasal Cannula O2 Flow Rate 2.00 2.00 2.00 04/30/17 05:38 Temp 99.4 Blood Pressure Mean: 109 Progress Note : Progress Note ATTEMPTED TO IRRIGATE FIGUEROA, LESS THAN 5 ML DARK BROWN/BLOODY URINE IN FIGUEROA BAG. NO SUCCESS--UNABLE TO IRRIGATE, AND LARGE AMOUNT OF SEDIMENT NOTED AT TIP OF IRRIGATION SYRINGE FIGUEROA REMOVED AND IMMEDIATELY A LARGE AMOUNT OF EXTREMELY FOUL-SMELLING URINE RETURNED, BEFORE A NEW CATHETER COULD BE REPLACED. PT THEN HAD AN IMMEDIATE RETURN OF AN ADDITIONAL 900 ML OF EXTREMELY BLOODY URINE INTO FIGUEROA BAG PT HAD BEEN HYPERTENSIVE SINCE ARRIVAL--170'S/100'S, THEN IMMEDIATELY ON FIGUEROA PLACEMENT, PT HAD A SUDDEN/DRAMATIC DROP IN BP INTO 80'S /50'S PT DID ALSO HAVE A DECREASE IN HEART RATE INTO 80'S -90'S WELL ADDITIONAL IV SITE AND FLUIDS GIVEN--BP UP TO 106/66, HR 74 AND O2 SAT 100% AFTER 1ST LITER OF FLUIDS GIVEN. Diagnostic Imaging Comments CXR--BIBASILAR INFILTRATES/ATELECTASIS, PENDING RADIOLOGIST REVIEW Departure Communication Progress Notes 0415--SPOKE WITH DR. SAVAGE, ACCEPTS PT FOR ADMIT. Impression Impression: Primary Impression: Sepsis Additional Impressions: UTI (urinary tract infection) POSSIBLE PNEUMONIA AUTONOMIC DYSREFLEXIA VS SEPTIC SHOCK Quadriplegia Dehydration Altered mental status Hypoxia Disposition: ADMITTED INPATIENT Condition: Stable Decision to Admit Reason: Admit from ER (General) Decision to Admit/Date: Apr 30, 2017 Time/Decision to Admit Time: 04:15 Departure-Patient Inst. Referrals: ZAHIRA VARGHESE MD (PCP/Family) Primary Care Physician ANNA FITCH DO Apr 30, 2017 5:12 am
[2017-04-30] MEDS ORDERED: D5 1/2 NS W/KCL 20 MEQ/L 1,000 ML IV ONE (05:44)
[2017-04-30] MEDS: NS IV 1000 ML 1,000 ML IV SCH ×4 (05:45→23:36)
[2017-04-30] MEDS ORDERED: D5 1/2 NS W/KCL 20 MEQ/L 1,000 ML IV SCH (06:15)
[2017-04-30] MEDS ORDERED: ACETAMINOPHEN 500 MG TAB (TYLENOL) PO PRN (06:15)
[2017-04-30] MEDS ORDERED: CATHETER FLUSH 10 ML SYR IV PRN (06:15)
--- NOTE | 2017-04-30 07:13 | Diagnostic Imaging Report ---
EXAM: CHEST 1 VIEW, AP/PA ONLY INDICATION: Fever. COMPARISON: Chest radiograph 02/03/2017. FINDINGS: Low lung volumes with increased atelectasis and/or infiltrate in the lung bases. Normal heart size and pulmonary vascularity. No pleural effusion or pneumothorax. Osseous structures are unremarkable. IMPRESSION: Low lung volumes with increasing bibasilar atelectasis and/or infiltrate. Dictated by: Dictated on workstation # [id number]
[2017-04-30 09:16] LABS: BASOPHILS % (AUTO) 0 % (0-10); EOSINOPHILS # (AUTO) 0.1 10^3/uL (0.0-0.3); EOSINOPHILS % (AUTO) 1 % (0-10); LYMPHOCYTES # (AUTO) 1.9 X 10^3 (1.0-4.0); LYMPHOCYTES % (AUTO) 16 % (12-44); MEAN CORPUSCULAR HEMOGLOBIN 31 PG (25-34); MEAN CORPUSCULAR HGB CONC 32 G/DL (32-36); MEAN CORPUSCULAR VOLUME 96 FL (80-99); MEAN PLATELET VOLUME 10.7 FL (7.4-10.4); MONOCYTES # (AUTO) 1.4 X 10^3 (0.0-1.0); MONOCYTES % (AUTO) 11 % (0-12); NEUTROPHILS # (AUTO) 8.4 X 10^3 (1.8-7.8); NEUTROPHILS % (AUTO) 71 % (42-75); PLATELET COUNT 114 10^3/uL (130-400); RED BLOOD COUNT 4.55 10^6/uL (4.35-5.85); RED CELL DISTRIBUTION WIDTH 13.6 % (10.0-14.5); WHITE BLOOD COUNT 11.8 10^3/uL (4.3-11.0)
[2017-04-30] MEDS: DOXYCYCLINE 100 MG/NS 100 ML IVPB IV SCH ×4 (09:30→20:38)
[2017-04-30 09:33] LABS: ALANINE AMINOTRANSFERASE < 6 U/L (0-55); ALBUMIN 2.9 GM/DL (3.2-4.5); ANION GAP 9 MMOL/L (5-14); ASPARTATE AMINO TRANSFERASE 16 U/L (5-34); BILIRUBIN,TOTAL 0.9 MG/DL (0.1-1.0); BLOOD UREA NITROGEN 24 MG/DL (7-18); BUN/CREATININE RATIO 18 (0-20); CALCIUM 8.6 MG/DL (8.5-10.1); CARBON DIOXIDE 24 MMOL/L (21-32); CHLORIDE 110 MMOL/L (98-107); CREATININE SERUM 1.36 MG/DL (0.60-1.30); GFR ESTIMATED > 60; GLUCOSE 166 MG/DL (70-105); HEMOLYSIS 12 (-100-29); ICTERUS 0.6 (-100-1.9); LIPEMIA -3 (-100-49); POTASSIUM 4.5 MMOL/L (3.6-5.0); SODIUM 143 MMOL/L (135-145); TOTAL PROTEIN 5.7 GM/DL (6.4-8.2)
[2017-04-30] MEDS ORDERED: NS IV 1000 ML 1,000 ML IV SCH (10:30)
[2017-04-30] MEDS: CATHETER FLUSH 10 ML SYR IV SCH ×2 (14:30→22:48)
--- NOTE | 2017-04-30 16:19 | Wound Care Progress Note ---
Subjective Subjective Subjective/Events-last exam 57 year old male with quadriplegia and unstageable pressure ulcer of sacrum. Improved on Hydrofera blue dressings, Objective Exam Last Set of Vital Signs Vital Signs Date Time Temp Pulse Resp B/P (MAP) Pulse Ox O2 Delivery O2 Flow Rate FiO2 04/30/17 15:00 63 119/68 100 Nasal Cannula 2.00 04/30/17 06:30 30 04/30/17 05:38 99.4 Capillary Refill : Less Than 3 Seconds Results Lab Laboratory Tests 04/30/17 03:35: White Blood Count 13.5H, Red Blood Count 5.73, Hemoglobin 17.5, Hematocrit 54, Mean Corpuscular Volume 93, Mean Corpuscular Hemoglobin 31, Mean Corpuscular Hemoglobin Concent 33, Red Cell Distribution Width 13.7, Platelet Count 135, Mean Platelet Volume 10.6H, Neutrophils (%) (Auto) 77H, Lymphocytes (%) (Auto) 10L, Monocytes (%) (Auto) 13H, Eosinophils (%) (Auto) 1, Basophils (%) (Auto) 0 , Neutrophils # (Auto) 10.3H, Lymphocytes # (Auto) 1.3, Monocytes # (Auto) 1.7H , Eosinophils # (Auto) 0.1, Basophils # (Auto) 0.0, Sodium Level 142, Potassium Level 4.6, Chloride Level 106, Carbon Dioxide Level 23, Anion Gap 13, Blood Urea Nitrogen 26H, Creatinine 1.49H, Estimat Glomerular Filtration Rate 59, BUN/ Creatinine Ratio 17, Glucose Level 142H, Lactic Acid Level 1.43, Calcium Level 10.5H, Magnesium Level 2.0, Total Bilirubin 1.2H, Aspartate Amino Transf (AST/ SGOT) 17, Alanine Aminotransferase (ALT/SGPT) < 6, Alkaline Phosphatase 92, Total Protein 7.9, Albumin 3.9, Amylase Level 191H, Lipase 30 04/30/17 04:20: Urine Color AMBERH, Urine Clarity VERY CLOUDYH, Urine pH 8, Urine Specific Hardin 1.010L, Urine Protein 3+H, Urine Glucose (UA) NEGATIVE, Urine Ketones NEGATIVE, Urine Nitrite NEGATIVE, Urine Bilirubin NEGATIVE, Urine Urobilinogen NORMAL, Urine Leukocyte Esterase 3+H, Urine RBC (Auto) 5+H, Urine RBC >100H, Urine WBC 50-100H, Urine Squamous Epithelial Cells RARE, Urine Crystals NONE, Urine Bacteria LARGEH, Urine Casts NONE, Urine Mucus NEGATIVE, Urine Culture Indicated YES 04/30/17 09:00: White Blood Count 11.8H, Red Blood Count 4.55, Hemoglobin 14.0, Hematocrit 44, Mean Corpuscular Volume 96, Mean Corpuscular Hemoglobin 31, Mean Corpuscular Hemoglobin Concent 32, Red Cell Distribution Width 13.6, Platelet Count 114L, Mean Platelet Volume 10.7H, Neutrophils (%) (Auto) 71, Lymphocytes (%) (Auto) 16 , Monocytes (%) (Auto) 11, Eosinophils (%) (Auto) 1, Basophils (%) (Auto) 0, Neutrophils # (Auto) 8.4H, Lymphocytes # (Auto) 1.9, Monocytes # (Auto) 1.4H, Eosinophils # (Auto) 0.1, Basophils # (Auto) 0.0, Sodium Level 143, Potassium Level 4.5, Chloride Level 110H, Carbon Dioxide Level 24, Anion Gap 9, Blood Urea Nitrogen 24H, Creatinine 1.36H, Estimat Glomerular Filtration Rate > 60, BUN/Creatinine Ratio 18, Glucose Level 166H, Calcium Level 8.6, Total Bilirubin 0.9, Aspartate Amino Transf (AST/SGOT) 16, Alanine Aminotransferase (ALT/SGPT) < 6, Alkaline Phosphatase 64, Total Protein 5.7L, Albumin 2.9L Microbiology 04/30/17 Blood Culture - Preliminary, Resulted Gram Negative Marcello See Comments 04/30/17 Urine Culture - Preliminary, Resulted Gram Negative Marcello VERONA GARCIA MD Apr 30, 2017 16:19
[2017-04-30] MEDS ORDERED: BACL10TA PO (16:39)
[2017-04-30] MEDS ORDERED: MAG355OR16 PO (16:39)
[2017-04-30] MEDS ORDERED: PROT1PAC2 PO (16:39)
[2017-04-30] MEDS ORDERED: GABA600T2 PO (16:39)
[2017-04-30] MEDS ORDERED: QUET25TA73 PO (16:39)
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
[2017-05-01] VITALS (15 sets, daily range): BP systolic 137–186; BP diastolic 76–119
[2017-05-01 04:34] LABS: BASOPHILS % (AUTO) 0 % (0-10); EOSINOPHILS # (AUTO) 0.9 10^3/uL (0.0-0.3); EOSINOPHILS % (AUTO) 9 % (0-10); LYMPHOCYTES # (AUTO) 2.3 X 10^3 (1.0-4.0); LYMPHOCYTES % (AUTO) 23 % (12-44); MEAN CORPUSCULAR HEMOGLOBIN 30 PG (25-34); MEAN CORPUSCULAR HGB CONC 32 G/DL (32-36); MEAN CORPUSCULAR VOLUME 94 FL (80-99); MEAN PLATELET VOLUME 11.1 FL (7.4-10.4); MONOCYTES # (AUTO) 0.8 X 10^3 (0.0-1.0); MONOCYTES % (AUTO) 8 % (0-12); NEUTROPHILS # (AUTO) 5.8 X 10^3 (1.8-7.8); NEUTROPHILS % (AUTO) 60 % (42-75); PLATELET COUNT 109 10^3/uL (130-400); RED BLOOD COUNT 4.56 10^6/uL (4.35-5.85); RED CELL DISTRIBUTION WIDTH 13.4 % (10.0-14.5); WHITE BLOOD COUNT 9.8 10^3/uL (4.3-11.0)
[2017-05-01 04:49] LABS: ANION GAP 11 MMOL/L (5-14); BLOOD UREA NITROGEN 14 MG/DL (7-18); BUN/CREATININE RATIO 16 (0-20); CALCIUM 9.4 MG/DL (8.5-10.1); CARBON DIOXIDE 21 MMOL/L (21-32); CHLORIDE 112 MMOL/L (98-107); CREATININE SERUM 0.86 MG/DL (0.60-1.30); GFR ESTIMATED > 60; GLUCOSE 93 MG/DL (70-105); HEMOLYSIS 24 (-100-29); ICTERUS 0.8 (-100-1.9); LIPEMIA 1 (-100-49); MAGNESIUM 1.4 MG/DL (1.8-2.4); PHOSPHORUS 2.2 MG/DL (2.3-4.7); POTASSIUM 3.3 MMOL/L (3.6-5.0); SODIUM 144 MMOL/L (135-145)
[2017-05-01] MEDS ORDERED: POTASSIUM CL 10MEQ/50ML IVPB 50 ML IV SCH (06:00)
[2017-05-01] MEDS ORDERED: KCL 20 MEQ TAB (K-DUR) PO SCH (06:00)
[2017-05-01] MEDS ORDERED: MAGNESIUM 1 GM/100 ML IVPB 100 ML IV SCH (06:00)
[2017-05-01] MEDS: POTASSIUM CL 10MEQ/50ML IVPB 50 ML IV SCH ×4 (06:07→09:00)
[2017-05-01] MEDS: CATHETER FLUSH 10 ML SYR IV SCH (06:07)
[2017-05-01] MEDS: MAGNESIUM 1 GM/100 ML IVPB 100 ML IV SCH ×2 (06:07→06:57)
[2017-05-01] MEDS ORDERED: ARTIFICAL TEARS 0.4 ML UNIT DOSE (REFRESH PLUS) OU PRN (06:45)
[2017-05-01] MEDS ORDERED: PANTOPRAZOLE 20 MG TABLET (PROTONIX) PO SCH (07:00)
--- NOTE | 2017-05-01 07:33 | Diagnostic Imaging Report ---
INDICATION: Dehydration with septic shock. COMPARISON: 04/30/2017. FINDINGS: There continues to be mild basilar atelectasis bilaterally. There are no infiltrates. Heart is not enlarged. No pulmonary edema. No pneumothorax or pleural effusion. IMPRESSION: 1. Mild basilar atelectasis with no acute changes since previous exam. Dictated by: Dictated on workstation # [id number]
[2017-05-01] MEDS ORDERED: RIVAROXABAN 15 MG TABLET (XARELTO) PO SCH (08:00)
[2017-05-01] MEDS: NS IV 1000 ML 1,000 ML IV SCH (08:41)
[2017-05-01] MEDS: DOXYCYCLINE 100 MG/NS 100 ML IVPB IV SCH ×2 (08:58)
[2017-05-01] MEDS ORDERED: FLUDROCORTISONE 0.1 MG (FLORINEF) TAB PO SCH (09:00)
[2017-05-01] MEDS ORDERED: BACLOFEN 10 MG (LIORESAL) TAB PO SCH (09:00)
[2017-05-01] MEDS ORDERED: DANTROLENE 25 MG PO SCH (09:00)
[2017-05-01] MEDS ORDERED: AMOX-358 PO (10:59)
[2017-05-01] MEDS ORDERED: DOXY100T2 PO (10:59)
--- NOTE | 2017-05-01 11:11 | Discharge Inst-Skilled Nursing ---
Discharge Inst-Skilled NF Patient Instructions Patient Problems: Severe Sepsis Entercoccous UTI Quadreplegia Consult/Follow Up/Orders Follow up appt.: Dr Soliman will see you on saturday Skilled NF Admit to: [facility] Certifications SNF I certify that SNF services are required to be given on an inpatient basis because of the above named patient's need for longterm care on a continuing basis for the conditions(s) for which he/she was receiving inpatient hospital services prior to his/her transfer to the SNF. [facility] Facility Order: Nursing Services, Environmental Health Technician-Evaluate & Treat, Physical Therapy-Evaluate & Treat Discharge Diet: Regular Diet Daily Activity as Tolerated: Yes New & Resume Previous Orders New & Resume Previous Orders Resume previous residential orders Discharge Medications New, Converted or Re-Newed RX: Other New Medications: Amoxicillin/Potassium Clav (Augmentin 875-125 Tablet) 1 Each Tablet 1 EACH PO BID, #14 TAB Doxycycline Hyclate (Doxycycline Hyclate) 100 Mg Tablet 100 MG PO BID, #14 TAB Continued Medications: Acetaminophen (Acetaminophen) 325 Mg Tablet 650 MG PO Q4H PRN for PAIN, TAB TAKES 2 (325 MG) TABLETS / NOT TO EXCEED 6 DOSES IN 24 HOURS Ascorbate Calcium (Vitamin C) 500 Mg Tablet 500 MG PO TID, TAB Baclofen (Baclofen) 10 Mg Tablet 20 MG PO TID, TAB Calcium Carbonate/Vitamin D3 (Calcium 600 + Vit D 400 Tablet) 1 Each Tablet 1 TAB PO BID, TAB Calcium Polycarbophil (Fiber Lax) 625 Mg Tablet 625 MG PO BID, TAB Cholecalciferol (Vitamin D3) (Vitamin D3) 1,000 Unit Capsule 2000 UNIT PO DAILY, CAP TAKES 2 (1000 UNIT) CAPSULES Dantrolene Sodium (Dantrolene Sodium) 100 Mg Capsule 100 MG PO TID, CAP Dextran 70/Hypromellose (Artificial Tears Eye Drops) 15 Ml Drops 2 DROPS OU Q4H PRN for DRY EYES, DROPS Diphenhydramine HCl/Zinc Acet (Benadryl Itch Stopping Crm) 28.3 Gm Cream..g. TP EVERY HOUR PRN for RASH, TUBE APPLIED TO ITCHY LESION TO TOP OF HEAD Docusate Sodium (Enemeez) 283 Mg/5 Ml Enema RC DAILY, EA Docusate Sodium (Colace) 100 Mg Capsule 200 MG PO DAILY, CAP TAKES 2 (100 MG) CAPSULES Escitalopram Oxalate (Lexapro) 10 Mg Tablet 10 MG PO DAILY, TAB Fludrocortisone Acetate (Fludrocortisone Acetate) 0.1 Mg Tab 0.2 MG PO DAILY, TAB TAKES 2 (0.1 MG) TABLETS Gabapentin (Gabapentin) 600 Mg Tablet 600 MG PO TID, TAB Hydrocortisone (Anti-Itch) 28 Gm Cream..g. TP HOURLY PRN for ITCHING, TUBE APPLIES TO ITCHY LESION ON TOP OF HEAD Lidocaine HCl (Lidocaine HCl) 30 Ml Jel..ml. Q15M PRN for BLADDER CATH, TUBE 2% GEL Mag Hydrox/Aluminum Hyd/Simeth (Maalox Advanced Suspension) 355 Ml Oral.susp 30 ML PO Q4H PRN for INDIGESTION, ML Magnesium Hydroxide (Milk of Magnesia) 400 Mg/5 Ml Oral.susp 30 ML PO Q8H PRN for CONSTIPATION, ML Meloxicam (Mobic) 7.5 Mg Tablet 7.5 MG PO DAILY, TAB Menthol (Biofreeze) 118 Ml Gel..ml. TP HOURLY PRN for PAIN, TUBE Omeprazole (Omeprazole) 20 Mg Capsule.dr 20 MG PO DAILY, CAP Potassium Chloride (Potassium Chloride) 20 Meq Tablet.er 20 MEQ PO DAILY, TAB Quetiapine Fumarate (Quetiapine Fumarate) 25 Mg Tablet 25 MG PO HS, TAB Rivaroxaban (Xarelto) 15 Mg Tablet 15 MG PO 0800,1700, TAB Whey Protein Isolate (Beneprotein) 1 Each Powd.pack 1 PACKET PO BID, EACH [Allersol Opth Dulce] () EA 1 DROP OU DAILY PRN for ITCHING Laurie Medeiros May 01, 2017 11:01 LAURIE MEDEIROS MD May 01, 2017 11:11
--- NOTE | 2017-05-01 11:12 | Discharge Summary ---
Diagnosis/Chief Complaint Date of Admission Apr 30, 2017 at 04:15 Date of Discharge 05/01/17 Admission Diagnosis Admission Diagnosis Severe Sepsis from UTI Ecoli and Enterococcus UTI Acute kidney failure from obstruction Septicemia Sacral wound Quadriplegia Discharge Diagnosis See Above Chief Complaint/HPI Chief Complaint/HPI 57 yo Quadriplegic that was sent from [facility] for altered mental status and decreased UOP. Per ER report patient was less responsive then his normal and did not have any output in catheter until it was flushed and they got 1.5 L immediately returned. He was started on IVF replacement and broad spectrum antibiotics. This AM Mr Armenta is at his baseline. Talking appropriately and wanting to eat breakfast. His blood pressure continues to be labile. Fever trending down. Discharge Summary-Simple/Stand Consultations None Discharge Physical Examination Allergies: Coded Allergies: No Known Drug Allergies (Unverified , 11/11/16) Vitals & I&Os Vital Sign - Last 12Hours Date Time Temp Pulse Resp B/P (MAP) Pulse Ox O2 Delivery O2 Flow Rate FiO2 05/01/17 08:50 Room Air 05/01/17 07:00 65 05/01/17 06:00 181/97 100 05/01/17 04:00 97.1 04/30/17 15:00 2.00 04/30/17 06:30 30 Intake and Output 05/01/17 00:00 Intake Total 1500 ml Output Total 2700 ml Balance -1200 ml General Appearance: Alert, Cooperative, No Acute Distress HEENT: Atraumatic, PERRLA, EOMI Respiratory: Clear to Auscultation, Normal Air Movement Cardiovascular: Regular Rate, No Murmurs Abdominal: Normal Bowel Sounds, Soft Extremities: Other (Mild edema bilaterally) Skin: Other (Chronic Sacral Wound) Neuro: Normal Speech, Cranial Nerves 3-12 NL Psych/Mental Status: Mood NL Hospital Course See final discharge diagnosis. Pending Labs None Radiology Reviewed of Exam: 04/30/17 CHEST 1 VIEW, AP/PA ONLY EXAM: CHEST 1 VIEW, AP/PA ONLY INDICATION: Fever. COMPARISON: Chest radiograph 02/03/2017. FINDINGS: Low lung volumes with increased atelectasis and/or infiltrate in the lung bases. Normal heart size and pulmonary vascularity. No pleural effusion or pneumothorax. Osseous structures are unremarkable. IMPRESSION: Low lung volumes with increasing bibasilar atelectasis and/or infiltrate. Discussion & Recommendations 57 yo M with quadriplegia that presented with Severe Sepsis due to UTI Severe Sepsis from UTI: Patient was started on IVFs and broad spectrum antibiotics after cultures were done. Blood pressures were running low but he did not require pressors. Patient has chronic indwelling catheter that seemed to be obstructed in the ER. They replaced catheter and got 2L immediate return. labs responded to antibiotics and patients mental status improved. Acute kidney failure: Likely combined prerenal and postrenal given catheter obstruction. Revolved with IVFs and catheter replacement. Sacral wound: Dr Garcia was consulted as he sees the patient on a chronic basis. Patient was transferred back to [facility] and [facility] Discharge Condition at discharge Stable Instructions to patient/family Please see electonic discharge instructions given to patient. Discharge Medications Reviewed and agree with Discharge Medication list on patient's Discharge Instruction sheet Clinical Quality Measures DVT/VTE Risk/Contraindication: Risk Factor Score Per Nursin RFS Level Per Nursing on Admit: 4+=Very High Copy Copies To 1: Nadine YUEN HOLLY R MD May 01, 2017 11:12
[2017-05-01] MEDS ORDERED: GABAPENTIN 600 MG (NEURONTIN) TAB PO SCH (13:00)
== END 2017-05-01 13:25 | DRG 871 ==
LOC: EDUNIT# 03:26 → ER 03:27 → ICU 04:15
PROVIDERS: ADMIT Family Medicine; ATTEND Family Medicine
DX: A41.9 Sepsis, unspecified organism (principal); N39.0 Urinary tract infection, site not specified; N17.9 Acute kidney failure, unspecified; G82.50 Quadriplegia, unspecified; T83.518A Infection and inflammatory reaction due to other urinary catheter, initial encounter; Z87.891 Personal history of nicotine dependence; E86.0 Dehydration; R09.02 Hypoxemia; R41.82 Altered mental status, unspecified; L89.159 Pressure ulcer of sacral region, unspecified stage
CPT/HCPCS: 36415; 51702; 71010; 80048; 80053; 81000; 82150; 83605; 83690; 83735; 84100; 85025; 87040; 87077; 87081; 87088; 87186; 93041

== ENCOUNTER → 2017-06-19 | Outpatient (CLI) | payer SELFPAY ==
[~2017-06-19] MED LIST changes: +AMOX-358 PO; +BACL10TA PO; +DOXY100T2 PO; +GABA600T2 PO; +MAG355OR16 PO; +PROT1PAC2 PO; +QUET25TA73 PO
--- NOTE | 2017-06-19 19:11 | Diagnostic Imaging Report ---
EXAMINATION: AP and lateral views of the pelvis. INDICATION: Pressure ulcer. FINDINGS: There is limitation to the lateral view due to overlying artifacts. There is suggestion of a lucency along the distal aspect of the sacrum which may relate to osteomyelitis. There is a drain or catheter projecting over the pelvis. AP view demonstrates degenerative changes of SI joints with no obvious erosion seen on the AP projection. IMPRESSION: There is suggestion of abnormal lucency suggestive of erosion in the distal aspect of the sacrum concerning for osteomyelitis. Unfortunately, the lateral view is limited however. Correlate clinically and with followup exams. Dictated by: Dictated on workstation # [id number]
== END ==
LOC: RAD 10:21
PROVIDERS: ATTEND Surgery
DX: L89.154 Pressure ulcer of sacral region, stage 4 (principal)
CPT/HCPCS: 72170

== ENCOUNTER 2017-06-28 05:37 | Outpatient (CLI) | payer MEDICAID, MEDICARE ==
[~2017-06-28] VITALS: Ht 165.1 cm; Wt 81.0 kg
[2017-06-28] MEDS ORDERED: ARGI1POW4 PO (13:11)
[2017-06-28] MEDS ORDERED: MULT-166 PO (13:11)
[2017-06-28] MEDS ORDERED: RIVA20TA PO (13:11)
[2017-06-28] MEDS ORDERED: DOXY100T2 PO (13:11)
== END 2017-06-28 11:30 ==
LOC: PREOP 05:37
PROVIDERS: ATTEND Surgery
DX: Z01.818 Encounter for other preprocedural examination (principal); L89.159 Pressure ulcer of sacral region, unspecified stage
CPT/HCPCS: 87081

== ENCOUNTER 2017-07-03 10:45 | Day surgery (SDC) | payer SELFPAY ==
[~2017-07-03] VITALS: Ht 165.1 cm; Wt 81.0 kg
--- NOTE | 2017-07-03 08:05 | History & Physicial ---
History of Present Illness History of Present Illness Reason for visit/HPI to undergo debridement of sacral decubitus ulcer Date of Admission Date Seen by Provider: Jul 01, 2017 Time Seen by Provider: 20:20 I consulted on this patient on 07/03/17 08:01 Attending Physician Isaac Dykes MD Admitting Physician Stanley Soliman MD Consult Allergies and Home Medications Allergies Coded Allergies: No Known Drug Allergies (Unverified , 11/11/16) Home Medications Acetaminophen 325 Mg Tablet, 650 MG PO Q4H PRN for PAIN, (Reported) TAKES 2 (325 MG) TABLETS / NOT TO EXCEED 6 DOSES IN 24 HOURS Arginine/Glutamine/Calcium Hmb 1 Each Powd.pack, 1 EACH PO BID, (Reported) Ascorbate Calcium 500 Mg Tablet, 500 MG PO TID, (Reported) Baclofen 10 Mg Tablet, 20 MG PO QID, (Reported) Calcium Carbonate/Vitamin D3 1 Each Tablet, 1 TAB PO BID, (Reported) Calcium Polycarbophil 625 Mg Tablet, 625 MG PO BID, (Reported) Cholecalciferol (Vitamin D3) 1,000 Unit Capsule, 2,000 UNIT PO DAILY, (Reported) TAKES 2 (1000 UNIT) CAPSULES Dantrolene Sodium 100 Mg Capsule, 100 MG PO TID, (Reported) Dextran 70/Hypromellose 15 Ml Drops, 2 DROPS OU Q4H PRN for DRY EYES, (Reported) Diphenhydramine HCl/Zinc Acet 28.3 Gm Cream..g., TP EVERY HOUR PRN for RASH, ( Reported) APPLIED TO ITCHY LESION TO TOP OF HEAD Docusate Sodium 283 Mg/5 Ml Enema, RC DAILY, (Reported) Docusate Sodium 100 Mg Capsule, 200 MG PO DAILY, (Reported) TAKES 2 (100 MG) CAPSULES Doxycycline Hyclate 100 Mg Tablet, 100 MG PO BID, #14 Prescribed by: LAURIE SAVAGE on 05/01/17 1059 Doxycycline Hyclate 100 Mg Tablet, 100 MG PO BID, (Reported) Escitalopram Oxalate 10 Mg Tablet, 10 MG PO DAILY, (Reported) Fludrocortisone Acetate 0.1 Mg Tab, 0.2 MG PO DAILY, (Reported) TAKES 2 (0.1 MG) TABLETS Gabapentin 600 Mg Tablet, 600 MG PO TID, (Reported) Hydrocortisone 28 Gm Cream..g., TP HOURLY PRN for ITCHING, (Reported) APPLIES TO ITCHY LESION ON TOP OF HEAD Lidocaine HCl 30 Ml Jel..ml., Q15M PRN for BLADDER CATH, (Reported) 2% GEL Mag Hydrox/Aluminum Hyd/Simeth 355 Ml Oral.susp, 30 ML PO Q4H PRN for INDIGESTION, (Reported) Magnesium Hydroxide 400 Mg/5 Ml Oral.susp, 30 ML PO Q8H PRN for CONSTIPATION, ( Reported) Meloxicam 7.5 Mg Tablet, 7.5 MG PO DAILY, (Reported) Menthol 118 Ml Gel..ml., TP HOURLY PRN for PAIN, (Reported) Multivitamin with Minerals 1 Each Tablet, 1 EACH PO DAILY, (Reported) Omeprazole 20 Mg Capsule.dr, 20 MG PO DAILY, (Reported) Potassium Chloride 20 Meq Tablet.er, 20 MEQ PO DAILY, (Reported) Quetiapine Fumarate 25 Mg Tablet, 25 MG PO HS, (Reported) Rivaroxaban 20 Mg Tablet, 20 MG PO DAILY, (Reported) Whey Protein Isolate 1 Each Powd.pack, 1 PACKET PO BID, (Reported) [Allersol Opth Dulce] EA, 1 DROP OU DAILY PRN for ITCHING, (Reported) Past Nkjabcq-Yunipx-Aozdfb Hx Patient Social History Marrital Status: Employed/Student: unemployed Alcohol Beverage of Choice: Beer Former Smoker, Quit: May 12, 2016 Recent Hopitalizations: No Immunizations Up To Date Date of Influenza Vaccine: Aug 13, 2016 Seasonal Allergies Seasonal Allergies: No Surgeries No Respiratory No Currently Using CPAP: No Cardiovascular No Hypertension Neurological Yes (QUADRIPLEGIA) Paralysis, Spinal Cord Injury Reproductive System Hx Reproductive Disorders: No Genitourinary Bladder Infection, Neurogenic Bladder Gastrointestinal Yes Gastroesophageal Reflux, Chronic Constipation Musculoskeletal Yes Back Injury, Spasms Endocrine History of Endocrine Disorders: No HEENT History of HEENT Disorders: No Cancer No Psychosocial History of Psychiatric Problem: Yes Behavioral Health Disorders: Anxiety, Depression Integumentary History of Skin or Integumenta: Yes (PRESSURE ULCERS) Blood Transfusions History of Blood Disorders: No Family Medical History Family Hx: Patient reports no known family medical history. Constitutional: no symptoms reported EENTM: no symptoms reported Respiratory: no symptoms reported Cardiovascular: other Gastrointestinal: no symptoms reported Genitourinary: incontinence Musculoskeletal: other Skin: see HPI Psychiatric/Neurological: No Symptoms Reported Physical Exam Vital Signs Capillary Refill : General Appearance: No Apparent Distress HEENT: Normal ENT Inspection Neck: Normal Inspection Respiratory: Lungs Clear Cardiovascular: Regular Rate, Rhythm Gastrointestinal: Soft Rectal: Deferred Extremity: Other Neurologic/Psychiatric: Motor Weakness, Sensory Deficit, Other Skin: Warm/Dry Comments quadriplegic. 3 cm sacral decubitus ulcer. Excoriation of the surrounding skin. Assessment/Plan Assessment and Plan quadriplegic patient with a sacral decubitus ulcer. Nonoperative wound care measures so far. Operative debridement recommended by the wound care physician. Discussed in detail Problems: ISAAC DYKES MD Jul 03, 2017 8:05 am
--- NOTE | 2017-07-03 08:17 | Progress Note-Pre Operative ---
Pre-Operative Progress Note H&P Reviewed The H&P was reviewed, patient examined and no changes noted. Date Seen by Provider: Jul 01, 2017 Time Seen by Provider: 20:20 Date H&P Reviewed: Jul 03, 2017 Time H&P Reviewed: 08:17 Pre-Operative Diagnosis: sacral decubitus ulcer COLE DYKES MD Jul 03, 2017 8:17 am
[2017-07-03 10:45] VITALS: BP 99/60
[~2017-07-03 10:45] MED LIST changes: +ARGI1POW4 PO; +MULT-166 PO; +RIVA20TA PO
--- OUTSIDE RECORDS SUMMARY | 2017-07-03 10:51 | XMS REPORT ---
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
--- OUTSIDE RECORDS SUMMARY | 2017-07-03 10:51 | XMS REPORT ---
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
--- OUTSIDE RECORDS SUMMARY | 2017-07-03 10:51 | XMS REPORT ---
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 [id number] ALLERGIES Unknown Allergies SOCIAL HISTORY No smoking Hx information available PLAN OF CARE VITAL SIGNS MEDICATIONS Medication Instructions Dosage Frequency Start Date End Date Duration Status Dantrium 50 mg Orally 3 times a day 100mg capsule 8h Active Vitamin D3 1000 UNIT Orally Once a day 2 capsules 24h Active Gabapentin 300 MG Orally Three times a day 2 tablets 8h Active Calcium Carbonate-Vitamin D 600-400 MG-UNIT Orally twice a day 1 tablet with food 12h Active Valium 10 MG Orally Once a day at bedtime 1 tablet 28 days Active Vitamin C 500 MG Orally 3 times a day 1 tablet 8h Active Melatonin 3 MG Orally Once a day at HS 2 tablets Active Fiber Laxative 0.52 GM Orally 2 times a day 1 capsule 12h Active Tizanidine HCl 2 MG Orally every 6 hours as needed 1 tablet as needed Active Meloxicam 7.5 MG Orally Once a day 1 tablet 24h Active Seroquel 50 MG Orally Once a day 1 tablet 24h Active Baclofen 20 mg Orally 3 times a day 1 tablet at 0800 and 1400, and then 30mg at bedtime 8h Active ProAmatine 5 1 tablet 8h Active Colace 100 MG Orally twice a day 1 capsule as needed 12h Active Milk of Magnesia 400 MG/5ML Orally PRN 30ml as needed Active Hiprex 1 GM Orally Twice a day 1 tablet 12h Active Lexapro 10 MG Orally Once a day 1 tablet 24h Active Valium 5 MG Orally Twice a day 1 tablet as needed 12h Active Methylphenidate HCl 5 mg Orally Twice a day at 0800 and 1200 1 tablet Nov, 28 days Active Omeprazole 20 MG Orally Once a day 2 capsules 24h Active Tylenol 325 MG Orally every 6 hrs 2 tablets as needed 6h Active RESULTS No Results PROCEDURES No Known procedures IMMUNIZATIONS No Known Immunizations
[2017-07-03] MEDS ORDERED: ceFAZolin 1 GM/NS 50 ML IVPB IV ONE ×2 (12:15)
[2017-07-03] MEDS ORDERED: LACTATED RINGERS 1,000 ML IV PRN (12:42)
[2017-07-03] MEDS ORDERED: fentaNYL INJECTION 100 MCG/2 ML AMP ONE (12:46)
[2017-07-03] MEDS ORDERED: LIDOCAINE PF 2% 5 ML (XYLOCAINE) VIAL ONE (12:46)
[2017-07-03] MEDS ORDERED: DEXAMETHASONE 10 MG/ML (DECADRON) 1 ML VIAL ONE (12:46)
[2017-07-03] MEDS ORDERED: LACTATED RINGERS 1,000 ML IV ONE (12:46)
[2017-07-03] MEDS ORDERED: SEVOFLURANE (ULTANE) 15 ML INHAL SOLN ONE ×3 (12:46→13:49)
[2017-07-03] MEDS ORDERED: MIDAZOLAM 2 MG/2 ML (VERSED) VIAL ONE (12:46)
[2017-07-03] MEDS ORDERED: proPOfol 200 MG/20 ML (DIPRIVAN) VIAL IV ONE ×2 (12:46→13:06)
[2017-07-03] MEDS ORDERED: ONDANSETRON 4 MG/2 ML (SDV) Z0FRAN ONE (12:46)
[2017-07-03] MEDS ORDERED: BUP/EPI 0.5% 1:200,000 (MARCAINE) 10ML VIAL IJ ONE (13:00)
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
--- NOTE | 2017-07-03 14:08 | Discharge Inst-Simple/Standard ---
Discharge Inst-Standard Discharge Medications New, Converted or Re-Newed RX: Other Patient Instructions/Follow Up Plan of Care/Instructions/FU: continue previous diet and medications. Further wound care instructions from Dr. Garcia Activity as Tolerated: Yes Discharge Diet: No Restrictions COLE DYKES MD Jul 03, 2017 2:08 pm
[2017-07-03] MEDS ORDERED: ONDANSETRON 4 MG/2 ML (SDV) Z0FRAN IVP PRN (14:15)
[2017-07-03] MEDS ORDERED: morphine INJ 10 MG/ML 1ML (SYR OR VIAL) IVP PRN (14:15)
[2017-07-03] MEDS ORDERED: MEPERIDINE (DEMEROL) INJ 50 MG/ML IVP PRN (14:15)
[2017-07-03 14:40] VITALS: BP 118/82
[2017-07-03 15:10] VITALS: BP 108/64
[2017-07-03 15:40] VITALS: BP 112/67
--- NOTE | 2017-07-22 18:27 | History & Physicial ---
History of Present Illness History of Present Illness Reason for visit/HPI to undergo laparoscopic-assisted sigmoid end colostomy, to facilitate healing of his sacral decubitus ulcer. Date of Admission 07/24/17 Date Seen by Provider: Jul 22, 2017 Time Seen by Provider: 17:50 I consulted on this patient on 07/22/17 18:24 Attending Physician Cole Dykes MD Admitting Physician Stanley Soliman MD Consult Allergies and Home Medications Allergies Coded Allergies: No Known Drug Allergies (Unverified , 11/11/16) Home Medications Acetaminophen 325 Mg Tablet, 650 MG PO Q4H PRN for PAIN, (Reported) TAKES 2 (325 MG) TABLETS / NOT TO EXCEED 6 DOSES IN 24 HOURS Arginine/Glutamine/Calcium Hmb 1 Each Powd.pack, 1 EACH PO BID, (Reported) Ascorbate Calcium 500 Mg Tablet, 500 MG PO TID, (Reported) Baclofen 10 Mg Tablet, 20 MG PO QID, (Reported) Calcium Carbonate/Vitamin D3 1 Each Tablet, 1 TAB PO BID, (Reported) Calcium Polycarbophil 625 Mg Tablet, 625 MG PO BID, (Reported) Cholecalciferol (Vitamin D3) 1,000 Unit Capsule, 2,000 UNIT PO DAILY, (Reported) TAKES 2 (1000 UNIT) CAPSULES Dantrolene Sodium 100 Mg Capsule, 100 MG PO TID, (Reported) Dextran 70/Hypromellose 15 Ml Drops, 2 DROPS OU Q4H PRN for DRY EYES, (Reported) Diphenhydramine HCl/Zinc Acet 28.3 Gm Cream..g., TP EVERY HOUR PRN for RASH, ( Reported) APPLIED TO ITCHY LESION TO TOP OF HEAD Docusate Sodium 283 Mg/5 Ml Enema, RC DAILY, (Reported) Docusate Sodium 100 Mg Capsule, 200 MG PO DAILY, (Reported) TAKES 2 (100 MG) CAPSULES Doxycycline Hyclate 100 Mg Tablet, 100 MG PO BID, (Reported) Escitalopram Oxalate 10 Mg Tablet, 10 MG PO DAILY, (Reported) Fludrocortisone Acetate 0.1 Mg Tab, 0.2 MG PO DAILY, (Reported) TAKES 2 (0.1 MG) TABLETS Gabapentin 600 Mg Tablet, 600 MG PO TID, (Reported) Hydrocortisone 28 Gm Cream..g., TP HOURLY PRN for ITCHING, (Reported) APPLIES TO ITCHY LESION ON TOP OF HEAD Lidocaine HCl 30 Ml Jel..ml., Q15M PRN for BLADDER CATH, (Reported) 2% GEL Mag Hydrox/Aluminum Hyd/Simeth 355 Ml Oral.susp, 30 ML PO Q4H PRN for INDIGESTION, (Reported) Magnesium Hydroxide 400 Mg/5 Ml Oral.susp, 30 ML PO Q8H PRN for CONSTIPATION, ( Reported) Meloxicam 7.5 Mg Tablet, 7.5 MG PO DAILY, (Reported) Menthol 118 Ml Gel..ml., TP HOURLY PRN for PAIN, (Reported) Multivitamin with Minerals 1 Each Tablet, 1 EACH PO DAILY, (Reported) Omeprazole 20 Mg Capsule.dr, 20 MG PO DAILY, (Reported) Potassium Chloride 20 Meq Tablet.er, 20 MEQ PO DAILY, (Reported) Quetiapine Fumarate 25 Mg Tablet, 25 MG PO HS, (Reported) Rivaroxaban 20 Mg Tablet, 20 MG PO DAILY, (Reported) Whey Protein Isolate 1 Each Powd.pack, 1 PACKET PO BID, (Reported) [Allersol Opth Dulce] EA, 1 DROP OU DAILY PRN for ITCHING, (Reported) Past [id number] Hx Patient Social History Marrital Status: Employed/Student: unemployed Alcohol Use: Regular Use Number of Drinks Today: 0 Alcohol Beverage of Choice: Beer Recreational Drug Use: No Smoking Status: Former Smoker Former Smoker, Quit: May 12, 2016 Recent Foreign Travel: No Contact w/other who traveled: No Recent Hopitalizations: No Recent Infectious Disease Expo: No Immunizations Up To Date Date of Influenza Vaccine: Aug 13, 2016 Seasonal Allergies Seasonal Allergies: No Surgeries No Respiratory No Currently Using CPAP: No Cardiovascular No Hypertension Neurological Yes (QUADRIPLEGIA) Paralysis, Spinal Cord Injury Reproductive System Hx Reproductive Disorders: No Genitourinary Bladder Infection, Neurogenic Bladder Gastrointestinal Yes Gastroesophageal Reflux, Chronic Constipation Musculoskeletal Yes Back Injury, Spasms Endocrine History of Endocrine Disorders: No HEENT History of HEENT Disorders: No Cancer No Psychosocial History of Psychiatric Problem: Yes Behavioral Health Disorders: Anxiety, Depression Integumentary History of Skin or Integumenta: Yes (PRESSURE ULCERS) Blood Transfusions History of Blood Disorders: No Family Medical History Family Hx: Patient reports no known family medical history. Constitutional: no symptoms reported Respiratory: no symptoms reported Cardiovascular: no symptoms reported Musculoskeletal: other Skin: no symptoms reported Physical Exam Vital Signs Capillary Refill : General Appearance: No Apparent Distress Neck: Normal Inspection Respiratory: Lungs Clear Cardiovascular: Regular Rate, Rhythm Gastrointestinal: Non Tender, Soft Rectal: Deferred Extremity: Other Comments features of quadriplegia. Assessment/Plan Assessment and Plan quadriplegic patient with a sacral decubitus ulcer. diverting colostomy reasonable. Laparoscopic assisted sigmoid end colostomy discussed thoroughly and he is willing to undergo the procedure. Problems: Admission Diagnosis quadriplegic patient with a sacral decubitus ulcer. 4 diverting sigmoid end colostomy Clinical Quality Measures DVT/VTE Risk/Contraindication: Risk Factor Score Per Nursin RFS Level Per Nursing on Admit: 4+=Very High COLE DYKES MD Jul 22, 2017 6:27 pm
== END 2017-07-03 15:40 ==
LOC: SDC 10:45
PROVIDERS: ATTEND Surgery
DX: L89.154 Pressure ulcer of sacral region, stage 4 (principal); G82.50 Quadriplegia, unspecified; S14.109S Unspecified injury at unspecified level of cervical spinal cord, sequela; K21.9 Gastro-esophageal reflux disease without esophagitis; K59.09 Other constipation; N31.9 Neuromuscular dysfunction of bladder, unspecified; F41.9 Anxiety disorder, unspecified; F32.9 Major depressive disorder, single episode, unspecified; I10 Essential (primary) hypertension; Z87.891 Personal history of nicotine dependence; Z79.899 Other long term (current) drug therapy
CPT/HCPCS: 87070; 87075; 87077; 87186; 87205

== ENCOUNTER → 2017-07-10 | Outpatient (CLI) | payer SELFPAY ==
[~2017-07-10] VITALS: Ht 165.1 cm; Wt 81.0 kg
[2017-07-10 10:25] VITALS: BP 116/75
== END ==
LOC: SDC 10:21
PROVIDERS: ATTEND Surgery
DX: Z45.2 Encounter for adjustment and management of vascular access device (principal)
CPT/HCPCS: 36569; 76937

== ENCOUNTER 2017-07-24 11:27 | Day surgery (SDC) | payer SELFPAY ==
[~2017-07-24] VITALS: Ht 165.1 cm; Wt 81.0 kg
--- OUTSIDE RECORDS SUMMARY | 2017-07-24 11:31 | XMS REPORT ---
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
--- OUTSIDE RECORDS SUMMARY | 2017-07-24 11:31 | XMS REPORT ---
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
--- OUTSIDE RECORDS SUMMARY | 2017-07-24 11:32 | XMS REPORT ---
Author Author LIZA OLSON Organization [facility] Address [address] 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 [id number] ALLERGIES Unknown Allergies SOCIAL HISTORY No smoking Hx information available PLAN OF CARE VITAL SIGNS MEDICATIONS Medication Instructions Dosage Frequency Start Date End Date Duration Status Xarelto 15 MG Orally 2 times a day at 0800 and 1700 1 tablet with food Active Hydrochlorothiazide 12.5 MG Orally Once a day 1 capsule 24h Active Lexapro 10 MG Orally Once a day 1 tablet 24h Active Fiber Laxative 625 MG Orally 2 times a day 1 capsule 12h Active Benadryl 1-0.1 % Active Omeprazole 20 mg Orally Once a day 1 capsule 24h Active Dantrium 100 MG Orally 3 times a day 1 capsule 8h Active Lidocaine HCl 2 % Externally to bladder cath tube PRN 15ml Active Gabapentin 300 MG Orally Three times a day 2 tablets 8h Active Artificial Tear Solution - Active Tylenol 325 MG Orally every 6 hrs 2 tablets as needed 6h Active Vitamin C 500 MG Orally 3 times a day 1 tablet 8h Active Seroquel 25 MG Orally Once a day at HS 1 tablet Active Calcium Carbonate-Vitamin D 600-400 MG-UNIT Orally twice a day 1 tablet with food 12h Active Klor-Con M20 20 MEQ Orally Once a day 1 tablet with food 24h Active Meloxicam 7.5 MG Orally Once a day 1 tablet 24h Active Vitamin D3 1000 UNIT Orally Once a day 2 capsules 24h Active Colace 100 MG Orally twice a day 1 capsule as needed 12h Active Baclofen 20 mg Orally 3 times a day after meals 1 tablet Active Fludrocortisone Acetate 0.1 MG Orally Once a day 2 tablets 24h Active Enemeez Mini 283 MG Rectal Once a day 1 enema 24h Active Valium 2 MG Orally Once a day at bedtime 1 tablet Active Milk of Magnesia 400 MG/5ML Orally PRN 30ml as needed Active RESULTS No Results PROCEDURES No Known procedures IMMUNIZATIONS No Known Immunizations
--- OUTSIDE RECORDS SUMMARY | 2017-07-24 11:33 | XMS REPORT ---
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
--- OUTSIDE RECORDS SUMMARY | 2017-07-24 11:33 | XMS REPORT ---
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
--- OUTSIDE RECORDS SUMMARY | 2017-07-24 11:34 | XMS REPORT ---
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
--- OUTSIDE RECORDS SUMMARY | 2017-07-24 11:34 | XMS REPORT ---
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
--- OUTSIDE RECORDS SUMMARY | 2017-07-24 11:34 | XMS REPORT ---
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
--- OUTSIDE RECORDS SUMMARY | 2017-07-24 11:34 | XMS REPORT ---
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
[2017-07-24] MEDS ORDERED: BUP/EPI 0.5% 1:200,000 (MARCAINE) 10ML VIAL IJ ONE (11:44)
[2017-07-24 12:00] VITALS: BP 133/72
[2017-07-24] MEDS ORDERED: ceFAZolin 1 GM/NS 50 ML IVPB IV ONE ×2 (12:30)
[2017-07-24] MEDS ORDERED: metroNIDAZOLE 500 MG/100 ML IVPB (PRE-MIX) IV ONE (12:30)
[2017-07-24 12:39] LABS: BASOPHILS # (AUTO) 0.1 10^3/uL (0.0-0.1); BASOPHILS % (AUTO) 1 % (0-10); EOSINOPHILS # (AUTO) 1.1 10^3/uL (0.0-0.3); EOSINOPHILS % (AUTO) 13 % (0-10); LYMPHOCYTES # (AUTO) 1.8 X 10^3 (1.0-4.0); LYMPHOCYTES % (AUTO) 22 % (12-44); MEAN CORPUSCULAR HEMOGLOBIN 31 PG (25-34); MEAN CORPUSCULAR HGB CONC 32 G/DL (32-36); MEAN CORPUSCULAR VOLUME 96 FL (80-99); MONOCYTES # (AUTO) 0.7 X 10^3 (0.0-1.0); MONOCYTES % (AUTO) 8 % (0-12); NEUTROPHILS # (AUTO) 4.8 X 10^3 (1.8-7.8); NEUTROPHILS % (AUTO) 57 % (42-75); PLATELET COUNT 140 10^3/uL (130-400); RED BLOOD COUNT 4.21 10^6/uL (4.35-5.85); RED CELL DISTRIBUTION WIDTH 14.5 % (10.0-14.5); WHITE BLOOD COUNT 8.5 10^3/uL (4.3-11.0)
[2017-07-24 12:54] LABS: ALANINE AMINOTRANSFERASE 7 U/L (0-55); ALBUMIN 3.3 GM/DL (3.2-4.5); ANION GAP 5 MMOL/L (5-14); ASPARTATE AMINO TRANSFERASE 19 U/L (5-34); BILIRUBIN,TOTAL 0.5 MG/DL (0.1-1.0); BLOOD UREA NITROGEN 18 MG/DL (7-18); BUN/CREATININE RATIO 24; CALCIUM 8.9 MG/DL (8.5-10.1); CARBON DIOXIDE 32 MMOL/L (21-32); CHLORIDE 109 MMOL/L (98-107); CREATININE SERUM 0.74 MG/DL (0.60-1.30); GFR ESTIMATED > 60; GLUCOSE 76 MG/DL (70-105); POTASSIUM 3.2 MMOL/L (3.6-5.0); SODIUM 146 MMOL/L (135-145); TOTAL PROTEIN 6.4 GM/DL (6.4-8.2)
[2017-07-24] MEDS: LACTATED RINGERS 1,000 ML IV PRN ×2 (13:07→14:40)
[2017-07-24] MEDS ORDERED: SEVOFLURANE (ULTANE) 15 ML INHAL SOLN ONE ×8 (13:11→14:53)
[2017-07-24] MEDS ORDERED: proPOfol 200 MG/20 ML (DIPRIVAN) VIAL IV ONE (13:11)
[2017-07-24] MEDS ORDERED: ROCURONIUM 50 MG/5 ML (ZEMURON) VIAL IV ONE (13:11)
[2017-07-24] MEDS ORDERED: LIDOCAINE PF 2% 5 ML (XYLOCAINE) VIAL ONE (13:11)
[2017-07-24] MEDS ORDERED: MIDAZOLAM 2 MG/2 ML (VERSED) VIAL ONE (13:12)
[2017-07-24] MEDS ORDERED: fentaNYL INJECTION 100 MCG/2 ML AMP ONE (13:12)
[2017-07-24 13:23] LABS: BAND NEUTROPHILS 1 %; BASOPHILS % (MANUAL) 1 %; EOSINOPHILS % (MANUAL) 11 %; LYMPHOCYTES % (MANUAL) 21 %; NEUTROPHILS % (MANUAL) 61 %
--- NOTE | 2017-07-24 13:24 | Progress Note-Pre Operative ---
Pre-Operative Progress Note H&P Reviewed The H&P was reviewed, patient examined and no changes noted. Date Seen by Provider: Jul 22, 2017 Time Seen by Provider: 17:25 Date H&P Reviewed: Jul 24, 2017 Time H&P Reviewed: 13:24 Pre-Operative Diagnosis: Quadriplegia with decubitus ulcer COLE DYKES MD Jul 24, 2017 1:24 pm
[2017-07-24] MEDS ORDERED: SODI473S7 TOP (13:36)
[2017-07-24] MEDS ORDERED: HEPA1DIS12 IV (13:36)
[2017-07-24] MEDS ORDERED: PIPE4.5V IV (13:36)
[2017-07-24] MEDS ORDERED: NORM2DIS3 IV (13:36)
[2017-07-24] MEDS ORDERED: DEXAMETHASONE 10 MG/ML (DECADRON) 1 ML VIAL ONE (13:59)
[2017-07-24] MEDS ORDERED: LACTATED RINGERS 1,000 ML IV ONE ×2 (14:00→14:34)
[2017-07-24] MEDS ORDERED: NEOSTIGMINE (BLOXIVERZ ) 1 MG/1ML 10 ML VIAL ONE (14:38)
[2017-07-24] MEDS ORDERED: GLYCOPYRROLATE 0.2 MG/ML (ROBINUL) 2 ML VIAL ONE (14:38)
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
[2017-07-24] MEDS ORDERED: ONDANSETRON 4 MG/2 ML (SDV) Z0FRAN IVP PRN ×2 (15:15→15:30)
[2017-07-24] MEDS ORDERED: PATIENT MAY USE OWN MEDS, ALL PO SCH (15:15)
[2017-07-24] MEDS ORDERED: MEPERIDINE (DEMEROL) INJ 50 MG/ML IVP PRN (15:30)
[2017-07-24] MEDS ORDERED: morphine INJ 10 MG/ML 1ML (SYR OR VIAL) IVP PRN (15:30)
[2017-07-24] MEDS: LACTATED RINGERS 1,000 ML IV SCH (15:37)
[2017-07-24 16:00] VITALS: BP 138/74
[2017-07-24] MEDS ORDERED: ACETAMINOPHEN 325 MG TABLET/CAPLET (TYLENOL) PO PRN (19:00)
[2017-07-24] MEDS ORDERED: HYDROCORTISONE 1% CREAM 30 GM TUBE TP PRN (19:00)
[2017-07-24] MEDS ORDERED: NON-FORMULARY MEDICATION 1 EA EA (Mag Hydrox/Aluminum Hyd/Simeth (Maalox Advanced Suspensi PO PRN (19:00)
[2017-07-24] MEDS ORDERED: DEXTRAN OU PRN (19:00)
[2017-07-24] MEDS ORDERED: [UNRECOGNIZED DRUG - OTHER] OU PRN (19:00)
[2017-07-24] MEDS ORDERED: [UNRECOGNIZED DRUG - OTHER] OU PRN (19:00)
[2017-07-24] MEDS ORDERED: MILK OF MAGNESIA 400 MG/5 ML 30 ML UDC PO PRN (19:00)
[2017-07-24] MEDS ORDERED: ARTIFICAL TEARS 0.4 ML UNIT DOSE (REFRESH PLUS) OU PRN (19:30)
[2017-07-24 20:00] VITALS: BP 165/83
[2017-07-24] MEDS: ceFAZolin 2 GM/50 ML NS 50 ML IV SCH (20:52)
[2017-07-24] MEDS ORDERED: GLUTAMINE PO SCH (21:00)
[2017-07-24] MEDS ORDERED: NON-FORMULARY MEDICATION 1 EA EA (Ascorbate Calcium (Vitamin C) 500 MG) PO SCH (21:00)
[2017-07-24] MEDS ORDERED: QUEtiapine 25 MG (SEROquel) TAB IMMEDIATE RELEASE PO SCH (21:00)
[2017-07-24] MEDS ORDERED: DANTROLENE SODIUM 100 MG PO SCH (21:00)
[2017-07-24] MEDS ORDERED: WHEY PROTEIN ISOLATE PO SCH (21:00)
[2017-07-24] MEDS ORDERED: ARGININE PO SCH (21:00)
[2017-07-24] MEDS ORDERED: CALCIUM HMB PO SCH (21:00)
[2017-07-24] MEDS: metroNIDAZOLE 500MG/100ML IVPB 100 ML IV SCH (21:41)
[2017-07-24] MEDS: CAL. POLYCARBOPHIL 625 MG (FIBERCON) TAB PO SCH (21:45)
[2017-07-24] MEDS: GABAPENTIN 600 MG (NEURONTIN) TAB PO SCH (21:45)
[2017-07-24] MEDS: BACLOFEN 10 MG (LIORESAL) TAB PO SCH (21:45)
[2017-07-24] MEDS ORDERED: DOXYCYCLINE 100 MG (VIBRAMYCIN) TABLET PO SCH (22:00)
[2017-07-24] MEDS ORDERED: ENOXAPARIN 40 MG/0.4 ML (LOVENOX) SYR SC SCH (22:15)
[2017-07-25 00:39] VITALS: BP 159/73
[2017-07-25] MEDS: LACTATED RINGERS 1,000 ML IV SCH ×2 (00:51→06:29)
[2017-07-25] MEDS: ceFAZolin 2 GM/50 ML NS 50 ML IV SCH (04:19)
[2017-07-25 04:30] VITALS: BP 145/66
[2017-07-25] MEDS: metroNIDAZOLE 500MG/100ML IVPB 100 ML IV SCH (04:55)
[2017-07-25] MEDS ORDERED: ASCORBIC ACID (VIT C) 500 MG TABLET PO SCH (07:00)
[2017-07-25] MEDS ORDERED: KCL 20 MEQ TAB (K-DUR) PO SCH (07:00)
[2017-07-25] MEDS ORDERED: CALCIUM CARB + VIT D 600 MG (CALCARB + D) TAB PO SCH (07:00)
[2017-07-25] MEDS ORDERED: PANTOPRAZOLE 20 MG TABLET (PROTONIX) PO SCH (07:00)
--- NOTE | 2017-07-25 07:36 | Anesthesia-General Post-Op ---
General Patient Condition Mental Status/LOC: Same as Preop Cardiovascular: Satisfactory Nausea/Vomiting: Absent Respiratory: Satisfactory Pain: Controlled Complications: Absent Post Op Complications Complications None Follow Up Care/Instructions Patient Instructions None needed. Anesthesia/Patient Condition Patient Condition Patient is doing well, no complaints, stable vital signs, no apparent adverse anesthesia problems. No complications reported per nursing. ADRIA DOE CRNA Jul 25, 2017 07:36
[2017-07-25 08:00] VITALS: BP 154/73
[2017-07-25] MEDS ORDERED: MULTIVIT W/MINERALS TAB (THERAGRAN M) PO SCH (08:00)
[2017-07-25] MEDS: CAL. POLYCARBOPHIL 625 MG (FIBERCON) TAB PO SCH (08:27)
[2017-07-25] MEDS: BACLOFEN 10 MG (LIORESAL) TAB PO SCH (08:27)
[2017-07-25] MEDS: GABAPENTIN 600 MG (NEURONTIN) TAB PO SCH (08:28)
[2017-07-25] MEDS ORDERED: NON-FORMULARY MEDICATION 1 EA EA (Cholecalciferol (Vitamin D3) (Vitamin D3) 2,000 UNIT) PO SCH (09:00)
[2017-07-25] MEDS ORDERED: VITAMIN D3 1,000 UNITS (CHOLECALCIFEROL) TABLET PO SCH (09:00)
[2017-07-25] MEDS ORDERED: MELOXICAM 7.5 MG (MOBIC) TABLET PO SCH (09:00)
[2017-07-25] MEDS ORDERED: OMEPRAZOLE 20 MG (PriLOSEC) CAP NON-FORMULARY PO SCH (09:00)
[2017-07-25] MEDS ORDERED: RIVAROXABAN 20 MG TABLET (XARELTO) PO SCH (09:00)
[2017-07-25] MEDS ORDERED: NON-FORMULARY MEDICATION 1 EA EA (Escitalopram Oxalate (Lexapro) 10 MG) PO SCH (09:00)
[2017-07-25] MEDS ORDERED: DOCUSATE SODIUM 100 MG (COLACE) CAP PO SCH (09:00)
[2017-07-25] MEDS ORDERED: FLUDROCORTISONE 0.1 MG (FLORINEF) TAB PO SCH (09:00)
[2017-07-25] MEDS ORDERED: NON-FORMULARY MEDICATION 1 EA EA (Potassium Chloride 20 MEQ) PO SCH (09:00)
[2017-07-25] MEDS ORDERED: NORM2DIS3 IV (10:33)
[2017-07-25 12:00] VITALS: BP 148/88
[2017-07-25 15:00] VITALS: BP 148/88
== END 2017-07-25 15:00 | disposition home or self-care (01) ==
LOC: SDC 11:27 → EDSTATUS 12:45 → 4TH 16:10 → SDC 16:10
PROVIDERS: ATTEND Surgery
DX: L89.159 Pressure ulcer of sacral region, unspecified stage (principal); G82.50 Quadriplegia, unspecified; I10 Essential (primary) hypertension; K21.9 Gastro-esophageal reflux disease without esophagitis; Z87.891 Personal history of nicotine dependence; Z79.899 Other long term (current) drug therapy
CPT/HCPCS: 36415; 80053; 85007; 85027; 87081; 94664

== ENCOUNTER 2017-10-04 23:24 | Inpatient (IN) | payer SELFPAY ==
[~2017-10-04] VITALS: Ht 162.6 cm; Wt 78.6 kg
[~2017-10-04 23:24] MED LIST changes: +HEPA1DIS12 IV; +NORM2DIS3 IV; +PIPE4.5V IV; +SODI473S7 TOP
[2017-10-04] MEDS ORDERED: NS IV 1000 ML 1,000 ML ONE (23:47)
[2017-10-04 23:51] LABS: BASOPHILS % (AUTO) 0 % (0-10); EOSINOPHILS # (AUTO) 0.5 10^3/uL (0.0-0.3); EOSINOPHILS % (AUTO) 5 % (0-10); LYMPHOCYTES # (AUTO) 2.8 X 10^3 (1.0-4.0); LYMPHOCYTES % (AUTO) 28 % (12-44); MEAN CORPUSCULAR HEMOGLOBIN 32 PG (25-34); MEAN CORPUSCULAR HGB CONC 33 G/DL (32-36); MEAN CORPUSCULAR VOLUME 95 FL (80-99); MEAN PLATELET VOLUME 11.1 FL (7.4-10.4); MONOCYTES % (AUTO) 10 % (0-12); NEUTROPHILS # (AUTO) 5.8 X 10^3 (1.8-7.8); NEUTROPHILS % (AUTO) 57 % (42-75); PLATELET COUNT 144 10^3/uL (130-400); RED BLOOD COUNT 4.67 10^6/uL (4.35-5.85); RED CELL DISTRIBUTION WIDTH 15.8 % (10.0-14.5); WHITE BLOOD COUNT 10.1 10^3/uL (4.3-11.0)
[2017-10-04 23:55] LABS: INR 1.6 (0.8-1.4); PROTHROMBIN TIME PATIENT 19.3 SEC (12.2-14.7)
[2017-10-04 23:58] LABS: KETONES,URINE 1+ (NEGATIVE); LEUKOCYTE ESTERASE ,URINE 3+ (NEGATIVE); NITRITE,URINE POSITIVE (NEGATIVE); PH,URINE 5 (5-9); PROTEIN,URINE 2+ (NEGATIVE); UROBILINOGEN,URINE 1 MG/DL (NORMAL)
[2017-10-05] VITALS (17 sets, daily range): BP systolic 68–191; BP diastolic 45–88
[2017-10-05 00:03] LABS: ALBUMIN 2.9 GM/DL (3.2-4.5); BILIRUBIN,TOTAL 0.3 MG/DL (0.1-1.0); CALCIUM 9.5 MG/DL (8.5-10.1); CREATININE SERUM 1.81 MG/DL (0.60-1.30); POTASSIUM 5.3 MMOL/L (3.6-5.0); TOTAL PROTEIN 6.4 GM/DL (6.4-8.2)
[2017-10-05 00:16] LABS: BILIRUBIN,URINE 1+ (NEGATIVE); WBC,URINE TNTC /HPF
[2017-10-05 00:17] LABS: YEAST,URINE MODERATE /HPF
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
[2017-10-05] MEDS ORDERED: cefTRIAXone INJECTION 1,000 MG in NS (IVPB) 50 ML IV ONE (01:00)
--- OUTSIDE RECORDS SUMMARY | 2017-10-05 01:46 | XMS REPORT ---
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
--- OUTSIDE RECORDS SUMMARY | 2017-10-05 01:46 | XMS REPORT ---
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 [id number] ALLERGIES No Information SOCIAL HISTORY Never Assessed PLAN OF CARE VITAL SIGNS MEDICATIONS Medication Instructions Dosage Frequency Start Date End Date Duration Status Enemeez Mini 283 MG Rectal Once a day 1 enema 24h 30 days Active RESULTS No Results PROCEDURES No Known procedures IMMUNIZATIONS No Known Immunizations MEDICAL (GENERAL) HISTORY Type Description Date Hospitalization History Urosepsis-[facility] 11/11/16 Hospitalization History Septic Shock, oversedation from medications-[facility] Hospitalization History severe sepsis r/t UTI, quadraplegia-[facility] 05/01/17
--- OUTSIDE RECORDS SUMMARY | 2017-10-05 01:47 | XMS REPORT ---
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 [id number] ALLERGIES No Information SOCIAL HISTORY Never Assessed PLAN OF CARE VITAL SIGNS MEDICATIONS Medication Instructions Dosage Frequency Start Date End Date Duration Status Fludrocortisone Acetate 0.1 MG Orally Once a day 2 tablets 24h 30 days Active RESULTS No Results PROCEDURES No Known procedures IMMUNIZATIONS No Known Immunizations MEDICAL (GENERAL) HISTORY Type Description Date Hospitalization History Urosepsis-[facility] 11/11/16 Hospitalization History Septic Shock, oversedation from medications-[facility] Hospitalization History severe sepsis r/t UTI, quadraplegia-[facility] 05/01/17
--- OUTSIDE RECORDS SUMMARY | 2017-10-05 01:48 | XMS REPORT ---
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 [id number] ALLERGIES No Information SOCIAL HISTORY Never Assessed PLAN OF CARE VITAL SIGNS MEDICATIONS Medication Instructions Dosage Frequency Start Date End Date Duration Status Valium 2 MG Orally Once a day at bedtime 1 tablet 28 days Active RESULTS No Results PROCEDURES No Known procedures IMMUNIZATIONS No Known Immunizations MEDICAL (GENERAL) HISTORY Type Description Date Hospitalization History Urosepsis-[facility] 11/11/16 Hospitalization History Septic Shock, oversedation from medications-[facility] Hospitalization History severe sepsis r/t UTI, quadraplegia-[facility] 05/01/17
--- OUTSIDE RECORDS SUMMARY | 2017-10-05 01:48 | XMS REPORT ---
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
[2017-10-05] MEDS ORDERED: VANCOMYCIN 1 GM/NS 250 ML IVPB IV SCH ×2 (02:15)
[2017-10-05] MEDS ORDERED: CATHETER FLUSH 10 ML SYR IV PRN (02:15)
[2017-10-05] MEDS ORDERED: NOREPINEPHRINE 4 MG in D5W IV SOLUTION (EXCEL) 250 ML IV SCH (02:15)
[2017-10-05] MEDS ORDERED: VASOPRESSIN INJECTION 20 UNIT in NS (IVPB) 50 ML IV SCH (02:15)
[2017-10-05] MEDS ORDERED: NS IV 1000 ML 1,000 ML ONE ×2 (02:35→06:21)
[2017-10-05] MEDS: CATHETER FLUSH 10 ML SYR IV SCH ×3 (03:41→20:45)
[2017-10-05] MEDS ORDERED: VANCOMYCIN 1000 MG/VIAL ONE (03:43)
[2017-10-05] MEDS ORDERED: NS (IVPB) 250 ML ONE (03:43)
[2017-10-05] MEDS ORDERED: RT-ALBUTEROL SULF 2.5 MG/3 ML PRE-MIX VIAL IH PRN (03:45)
[2017-10-05] MEDS: NS IV 1000 ML 1,000 ML IV SCH ×4 (03:45→18:45)
[2017-10-05] MEDS: VANCOMYCIN INJECTION 1,000 MG in NS (IVPB) 250 ML IV SCH ×2 (04:30→16:17)
[2017-10-05 04:37] LABS: BASOPHILS % (AUTO) 0 % (0-10); EOSINOPHILS # (AUTO) 0.5 10^3/uL (0.0-0.3); EOSINOPHILS % (AUTO) 6 % (0-10); LYMPHOCYTES # (AUTO) 2.7 X 10^3 (1.0-4.0); LYMPHOCYTES % (AUTO) 31 % (12-44); MEAN CORPUSCULAR HEMOGLOBIN 31 PG (25-34); MEAN CORPUSCULAR HGB CONC 33 G/DL (32-36); MEAN CORPUSCULAR VOLUME 95 FL (80-99); MEAN PLATELET VOLUME 11.4 FL (7.4-10.4); MONOCYTES # (AUTO) 1.1 X 10^3 (0.0-1.0); MONOCYTES % (AUTO) 12 % (0-12); NEUTROPHILS # (AUTO) 4.4 X 10^3 (1.8-7.8); NEUTROPHILS % (AUTO) 51 % (42-75); PLATELET COUNT 125 10^3/uL (130-400); RED BLOOD COUNT 4.33 10^6/uL (4.35-5.85); RED CELL DISTRIBUTION WIDTH 15.8 % (10.0-14.5); WHITE BLOOD COUNT 8.6 10^3/uL (4.3-11.0)
[2017-10-05 05:04] LABS: ALANINE AMINOTRANSFERASE 9 U/L (0-55); ALBUMIN 2.5 GM/DL (3.2-4.5); ANION GAP 9 MMOL/L (5-14); ASPARTATE AMINO TRANSFERASE 27 U/L (5-34); BILIRUBIN,TOTAL 0.3 MG/DL (0.1-1.0); BLOOD UREA NITROGEN 28 MG/DL (7-18); BUN/CREATININE RATIO 23; CALCIUM 8.9 MG/DL (8.5-10.1); CARBON DIOXIDE 21 MMOL/L (21-32); CHLORIDE 110 MMOL/L (98-107); CREATININE SERUM 1.24 MG/DL (0.60-1.30); GFR ESTIMATED > 60; GLUCOSE 122 MG/DL (70-105); MAGNESIUM 1.8 MG/DL (1.8-2.4); PHOSPHORUS 3.3 MG/DL (2.3-4.7); SODIUM 140 MMOL/L (135-145); TOTAL PROTEIN 5.8 GM/DL (6.4-8.2)
[2017-10-05 05:11] LABS: TROPONIN I < 0.30 NG/ML (<0.30)
[2017-10-05] MEDS ORDERED: POTASSIUM CL 10MEQ/50ML IVPB 50 ML IV SCH (06:00)
[2017-10-05] MEDS ORDERED: KCL 20 MEQ TAB (K-DUR) PO SCH (06:00)
[2017-10-05] MEDS ORDERED: MAGNESIUM 1 GM/100 ML IVPB 100 ML IV SCH (06:00)
[2017-10-05] MEDS ORDERED: INFLUENZA TRIvalent 2017-2018 0.5 ML/45 MCG SYR IM ONE (08:00)
[2017-10-05] MEDS: RT-ALBUTEROL SULF 2.5 MG/3 ML PRE-MIX VIAL IH SCH ×3 (08:09→20:23)
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
--- NOTE | 2017-10-05 09:09 | Diagnostic Imaging Report ---
INDICATION: Sepsis. History of altered mental status. COMPARISON: 05/01/2017. FINDINGS: There is limited inspiratory volume crowding the lung markings. No convincing evidence for focal consolidation, effusion, pneumothorax or stacy failure pattern. IMPRESSION: No acute pathology identified. Dictated by: Dictated on workstation # [id number]
[2017-10-05] MEDS ORDERED: HEPARIN SODIUM IV SCH (13:45)
[2017-10-05] MEDS ORDERED: DEXTRAN OU PRN (13:45)
[2017-10-05] MEDS ORDERED: [UNRECOGNIZED DRUG - OTHER] IV SCH (13:45)
[2017-10-05] MEDS ORDERED: DAKIN'S 1/4 STRENGTH (0.125%) 473 ML BTL TOP SCH (13:45)
[2017-10-05] MEDS ORDERED: NON-FORMULARY MEDICATION 1 EA EA (Mag Hydrox/Aluminum Hyd/Simeth (Maalox Advanced Suspensi PO PRN (13:45)
[2017-10-05] MEDS ORDERED: [UNRECOGNIZED DRUG - OTHER] OU PRN (13:45)
[2017-10-05] MEDS ORDERED: ANTACID SUSP 30 ML UDC (MYLANTA) PO PRN (14:00)
[2017-10-05] MEDS ORDERED: ARTIFICAL TEARS 0.4 ML UNIT DOSE (REFRESH PLUS) OU PRN (14:00)
[2017-10-05] MEDS: ASCORBIC ACID (VIT C) 500 MG TABLET PO SCH (18:46)
[2017-10-05] MEDS: BACLOFEN 10 MG (LIORESAL) TAB PO SCH ×2 (18:46→20:45)
[2017-10-05] MEDS: CALCIUM CARB + VIT D 600 MG (CALCARB + D) TAB PO SCH (18:46)
[2017-10-05] MEDS: QUEtiapine 25 MG (SEROquel) TAB IMMEDIATE RELEASE PO SCH (20:44)
[2017-10-05] MEDS: DANTROLENE 25 MG PO SCH (20:44)
[2017-10-05] MEDS: GABAPENTIN 600 MG (NEURONTIN) TAB PO SCH (20:44)
[2017-10-05] MEDS: CAL. POLYCARBOPHIL 625 MG (FIBERCON) TAB PO SCH (20:44)
[2017-10-05] MEDS ORDERED: NON-FORMULARY MEDICATION 1 EA EA (Ascorbate Calcium (Vitamin C) 500 MG) PO SCH (21:00)
[2017-10-05] MEDS ORDERED: cefTRIAXone 1 GM/NS 50 ML IVPB IV SCH ×2 (21:00)
[2017-10-05] MEDS ORDERED: CALCIUM HMB PO SCH (21:00)
[2017-10-05] MEDS ORDERED: [UNRECOGNIZED DRUG - OTHER] PO SCH (21:00)
[2017-10-05] MEDS ORDERED: DANTROLENE SODIUM 100 MG PO SCH (21:00)
[2017-10-05] MEDS ORDERED: GLUTAMINE PO SCH (21:00)
[2017-10-05] MEDS ORDERED: ARGININE PO SCH (21:00)
[2017-10-06] MEDS: NS IV 1000 ML 1,000 ML IV SCH ×2 (01:17→09:47)
[2017-10-06] MEDS: cefTRIAXone INJECTION 1,000 MG in NS (IVPB) 50 ML IV SCH ×2 (02:26→20:27)
[2017-10-06] MEDS: RT-ALBUTEROL SULF 2.5 MG/3 ML PRE-MIX VIAL IH SCH ×4 (02:37→20:30)
[2017-10-06] MEDS: VANCOMYCIN INJECTION 1,000 MG in NS (IVPB) 250 ML IV SCH (03:10)
[2017-10-06 05:20] VITALS: BP 191/100
[2017-10-06] MEDS: CATHETER FLUSH 10 ML SYR IV SCH ×3 (06:07→21:05)
[2017-10-06] MEDS: ASCORBIC ACID (VIT C) 500 MG TABLET PO SCH ×3 (06:08→17:26)
[2017-10-06] MEDS: MULTIVIT W/MINERALS TAB (THERAGRAN M) PO SCH (06:08)
[2017-10-06] MEDS: PANTOPRAZOLE 20 MG TABLET (PROTONIX) PO SCH (06:08)
[2017-10-06] MEDS: CALCIUM CARB + VIT D 600 MG (CALCARB + D) TAB PO SCH ×2 (06:08→17:26)
[2017-10-06 06:12] LABS: BASOPHILS % (AUTO) 0 % (0-10); EOSINOPHILS # (AUTO) 0.6 10^3/uL (0.0-0.3); EOSINOPHILS % (AUTO) 6 % (0-10); LYMPHOCYTES # (AUTO) 1.6 X 10^3 (1.0-4.0); LYMPHOCYTES % (AUTO) 17 % (12-44); MEAN CORPUSCULAR HEMOGLOBIN 32 PG (25-34); MEAN CORPUSCULAR HGB CONC 34 G/DL (32-36); MEAN CORPUSCULAR VOLUME 93 FL (80-99); MEAN PLATELET VOLUME 10.9 FL (7.4-10.4); MONOCYTES # (AUTO) 1.1 X 10^3 (0.0-1.0); MONOCYTES % (AUTO) 12 % (0-12); NEUTROPHILS # (AUTO) 6.3 X 10^3 (1.8-7.8); NEUTROPHILS % (AUTO) 65 % (42-75); PLATELET COUNT 123 10^3/uL (130-400); RED BLOOD COUNT 4.57 10^6/uL (4.35-5.85); WHITE BLOOD COUNT 9.6 10^3/uL (4.3-11.0)
[2017-10-06 06:23] LABS: ANION GAP 7 MMOL/L (5-14); BLOOD UREA NITROGEN 9 MG/DL (7-18); BUN/CREATININE RATIO 14; CALCIUM 9.5 MG/DL (8.5-10.1); CARBON DIOXIDE 25 MMOL/L (21-32); CHLORIDE 106 MMOL/L (98-107); CREATININE SERUM 0.63 MG/DL (0.60-1.30); GFR ESTIMATED > 60; GLUCOSE 90 MG/DL (70-105); POTASSIUM 4.3 MMOL/L (3.6-5.0); SODIUM 138 MMOL/L (135-145)
[2017-10-06 08:00] VITALS: BP 205/94
[2017-10-06] MEDS ORDERED: NON-FORMULARY MEDICATION 1 EA EA (Escitalopram Oxalate (Lexapro) 10 MG) PO SCH (09:00)
[2017-10-06] MEDS ORDERED: OMEPRAZOLE 20 MG (PriLOSEC) CAP NON-FORMULARY PO SCH (09:00)
[2017-10-06] MEDS ORDERED: NON-FORMULARY MEDICATION 1 EA EA (Cholecalciferol (Vitamin D3) (Vitamin D3) 2,000 UNIT) PO SCH (09:00)
[2017-10-06] MEDS: MELOXICAM 7.5 MG (MOBIC) TABLET PO SCH (09:40)
[2017-10-06] MEDS: FLUDROCORTISONE 0.1 MG (FLORINEF) TAB PO SCH (09:41)
[2017-10-06] MEDS: GABAPENTIN 600 MG (NEURONTIN) TAB PO SCH ×3 (09:41→20:27)
[2017-10-06] MEDS: VITAMIN D3 1,000 UNITS (CHOLECALCIFEROL) TABLET PO SCH (09:41)
[2017-10-06] MEDS: DOCUSATE SODIUM 100 MG (COLACE) CAP PO SCH (09:41)
[2017-10-06] MEDS: BACLOFEN 10 MG (LIORESAL) TAB PO SCH ×4 (09:41→20:27)
[2017-10-06] MEDS: CAL. POLYCARBOPHIL 625 MG (FIBERCON) TAB PO SCH ×2 (09:42→20:27)
[2017-10-06] MEDS: DANTROLENE 25 MG PO SCH ×3 (09:42→20:27)
[2017-10-06] MEDS: DAKIN'S 1/4 STRENGTH (0.125%) 473 ML BTL TOP SCH ×2 (09:43→21:04)
--- NOTE | 2017-10-06 11:25 | Progress Note (SOAP) ---
Subjective Subjective/Events-last exam Colby is feeling much better this morning. Very adamant that he wants to go back to [facility]. Review of Systems Date Seen by Provider: Oct 06, 2017 Time Seen by Provider: 10:30 Gastrointestinal: No: Nausea Genitourinary: No Hematuria Objective Exam Last Set of Vital Signs Vital Signs Date Time Temp Pulse Resp B/P (MAP) Pulse Ox O2 Delivery O2 Flow Rate FiO2 10/06/17 08:00 96.7 58 22 205/94 99 Room Air Capillary Refill : Less Than 3 Seconds I&O Intake and Output 10/07/17 00:00 Intake Total 2150 ml Output Total 2550 ml Balance -400 ml IV Total 2150 ml Output Urine Total 2300 ml Stool Total 250 ml General: Alert, Oriented X3, Cooperative, No Acute Distress Lungs: Clear to Auscultation, Normal Air Movement Heart: Regular Rate, Normal S1, Normal S2, No Murmurs, Gallops, Rubs Abdomen: Normal Bowel Sounds, Soft, No Tenderness Psych/Mental Status: Mental Status NL, Mood NL Results/Procedures Lab Laboratory Tests 10/06/17 05:55: White Blood Count 9.6, Red Blood Count 4.57, Hemoglobin 14.4, Hematocrit 43, Mean Corpuscular Volume 93, Mean Corpuscular Hemoglobin 32, Mean Corpuscular Hemoglobin Concent 34, Red Cell Distribution Width 15.0H, Platelet Count 123L, Mean Platelet Volume 10.9H, Neutrophils (%) (Auto) 65, Lymphocytes (%) (Auto) 17 , Monocytes (%) (Auto) 12, Eosinophils (%) (Auto) 6, Basophils (%) (Auto) 0, Neutrophils # (Auto) 6.3, Lymphocytes # (Auto) 1.6, Monocytes # (Auto) 1.1H, Eosinophils # (Auto) 0.6H, Basophils # (Auto) 0.0, Sodium Level 138, Potassium Level 4.3, Chloride Level 106, Carbon Dioxide Level 25, Anion Gap 7, Blood Urea Nitrogen 9, Creatinine 0.63, Estimat Glomerular Filtration Rate > 60, BUN/ Creatinine Ratio 14, Glucose Level 90, Calcium Level 9.5 Microbiology 10/04/17 Blood Culture - Preliminary, Resulted No growth 10/05/17 MRSA Screen - Final, Complete MRSA not isolated 10/04/17 Urine Culture - Preliminary, Resulted Probable Pseudomonas Enterococcus Species Yeast Species Radiology Date of Exam: 10/04/17 CHEST 1 VIEW, AP/PA ONLY INDICATION: Sepsis. History of altered mental status. COMPARISON: 05/01/2017. FINDINGS: There is limited inspiratory volume crowding the lung markings. No convincing evidence for focal consolidation, effusion, pneumothorax or stacy failure pattern. IMPRESSION: No acute pathology identified. Assessment/Plan Assessment/Plan Plan ACUTE CYSTITIS, RECURRENT INDWELLING FIGUEROA CATHETER OBSTRUCTED FIGUEROA CATHETER ADM: Pt is not septic today. Will treat with Rocephin and Vanc due to history of Enterococcus faecalis. Also has a history of E coli. Urine cx pending today. Gentle hydration as well. Figueroa has been changed and urine is starting to clear. 10/06 - Pt much improved. DC IVF today. Tolerating PO well. Ur cx shows Enterococcus, Pseudomonas, Donna. Believe pt was more obstructed than actually infected. Pt refusing blood draw for vanc trough as he has been stuck multiple times. Will DC vanc at this point. Discuss need to treat the Donna w pharmacy tomorrow. PLan for home tomorrow. MENTAL STATUS CHANGES ADM: Improved, pt arousable this am. Will restart home regimen. 10/06 - Resolved. Pt now at baseline QUADRIPLEGIA SACRAL ULCER ADM: present on admission, follows with Dr Sharma in wound center. Frequent turns and air mattress. Resetart home vitamins/proteins indicated for wound healing. 10/06 - no changes DVT PROPH: Home antiplatelet. Clinical Quality Measures DVT/VTE Risk/Contraindication: Risk Factor Score Per Nursin RFS Level Per Nursing on Admit: 4+=Very High LIZA OLSON MD Oct 06, 2017 11:25 am
[2017-10-06 12:00] VITALS: BP 177/96
[2017-10-06] MEDS ORDERED: ACID1TAB PO (14:12)
[2017-10-06] MEDS ORDERED: RIVA20TA PO (14:12)
[2017-10-06] MEDS ORDERED: SULF1TAB35 PO (14:12)
[2017-10-06] MEDS ORDERED: TIZA6CAP9 PO (14:12)
[2017-10-06] MEDS ORDERED: AMIN887L16 PO (14:12)
[2017-10-06] MEDS ORDERED: DOXY100C2 PO (14:12)
[2017-10-06] MEDS ORDERED: TROUGH ORDER-PHARMACY XX NR (15:00)
[2017-10-06 15:43] VITALS: BP 114/65
[2017-10-06] MEDS ORDERED: RIVAROXABAN 20 MG TABLET (XARELTO) PO SCH (18:00)
[2017-10-06 19:49] VITALS: BP 133/80
[2017-10-06] MEDS: QUEtiapine 25 MG (SEROquel) TAB IMMEDIATE RELEASE PO SCH (20:27)
[2017-10-07 00:34] VITALS: BP 126/75
[2017-10-07] MEDS: RT-ALBUTEROL SULF 2.5 MG/3 ML PRE-MIX VIAL IH SCH ×2 (01:53→09:00)
[2017-10-07 04:30] VITALS: BP 136/76
[2017-10-07] MEDS: PANTOPRAZOLE 20 MG TABLET (PROTONIX) PO SCH (06:04)
[2017-10-07] MEDS: MULTIVIT W/MINERALS TAB (THERAGRAN M) PO SCH (06:04)
[2017-10-07] MEDS: CATHETER FLUSH 10 ML SYR IV SCH (06:04)
[2017-10-07] MEDS: CALCIUM CARB + VIT D 600 MG (CALCARB + D) TAB PO SCH (06:04)
[2017-10-07] MEDS: ASCORBIC ACID (VIT C) 500 MG TABLET PO SCH ×2 (06:04→12:10)
[2017-10-07 06:26] LABS: BASOPHILS % (AUTO) 0 % (0-10); EOSINOPHILS # (AUTO) 0.4 10^3/uL (0.0-0.3); EOSINOPHILS % (AUTO) 6 % (0-10); LYMPHOCYTES # (AUTO) 2.2 X 10^3 (1.0-4.0); LYMPHOCYTES % (AUTO) 31 % (12-44); MEAN CORPUSCULAR HEMOGLOBIN 32 PG (25-34); MEAN CORPUSCULAR HGB CONC 35 G/DL (32-36); MEAN CORPUSCULAR VOLUME 93 FL (80-99); MEAN PLATELET VOLUME 11.2 FL (7.4-10.4); MONOCYTES # (AUTO) 0.7 X 10^3 (0.0-1.0); MONOCYTES % (AUTO) 10 % (0-12); NEUTROPHILS # (AUTO) 3.6 X 10^3 (1.8-7.8); NEUTROPHILS % (AUTO) 52 % (42-75); PLATELET COUNT 125 10^3/uL (130-400); RED CELL DISTRIBUTION WIDTH 14.7 % (10.0-14.5); WHITE BLOOD COUNT 6.9 10^3/uL (4.3-11.0)
[2017-10-07 06:40] LABS: ANION GAP 11 MMOL/L (5-14); BLOOD UREA NITROGEN 10 MG/DL (7-18); BUN/CREATININE RATIO 15; CALCIUM 9.8 MG/DL (8.5-10.1); CARBON DIOXIDE 26 MMOL/L (21-32); CHLORIDE 102 MMOL/L (98-107); CREATININE SERUM 0.68 MG/DL (0.60-1.30); GFR ESTIMATED > 60; GLUCOSE 126 MG/DL (70-105); POTASSIUM 4.1 MMOL/L (3.6-5.0); SODIUM 139 MMOL/L (135-145)
[2017-10-07 08:00] VITALS: BP 176/78
[2017-10-07] MEDS: DOCUSATE SODIUM 100 MG (COLACE) CAP PO SCH (09:43)
[2017-10-07] MEDS: GABAPENTIN 600 MG (NEURONTIN) TAB PO SCH (09:43)
[2017-10-07] MEDS: VITAMIN D3 1,000 UNITS (CHOLECALCIFEROL) TABLET PO SCH (09:44)
[2017-10-07] MEDS: BACLOFEN 10 MG (LIORESAL) TAB PO SCH ×2 (09:44→12:10)
[2017-10-07] MEDS: FLUDROCORTISONE 0.1 MG (FLORINEF) TAB PO SCH (09:44)
[2017-10-07] MEDS: MELOXICAM 7.5 MG (MOBIC) TABLET PO SCH (09:44)
[2017-10-07] MEDS: CAL. POLYCARBOPHIL 625 MG (FIBERCON) TAB PO SCH (09:44)
[2017-10-07] MEDS: DANTROLENE 25 MG PO SCH (09:45)
[2017-10-07] MEDS: DAKIN'S 1/4 STRENGTH (0.125%) 473 ML BTL TOP SCH (09:55)
--- NOTE | 2017-10-07 10:54 | Discharge Inst-Skilled Nursing ---
Discharge Inst-Skilled NF Patient Instructions Patient Problems: OBSTRUCTIVE UROPATHY STERILE PYURIA QUADRIPLEGIA Goal: MAINTAIN FIGUEROA CATHETER FROM OBSTRUCTION GOOD HYDRATION Patient Instructions: TAKE ALL MEDICATIONS PRESCRIBED Consult/Follow Up/Orders Follow up appt.: DR VARGHESE OR DIEUDONNE WILL BE BY TO SEE YOU THIS WEEK. Skilled NF Admit to: [facility] Certifications [facility] I certify that SNF services are required to be given on an inpatient basis because of the above named patient's need for longterm care on a continuing basis for the conditions(s) for which he/she was receiving inpatient hospital services prior to his/her transfer to the SNF. [facility] Facility Order: Nursing Services, Switchboard Operator Receptionist-Evaluate & Treat, Physical Therapy-Evaluate & Treat Discharge Diet: No Restrictions Daily Activity as Tolerated: Yes Discharge Medications New, Converted or Re-Newed RX: Transmitted to Pharmacy Continued Medications: Acetaminophen (Acetaminophen) 325 Mg Tablet 650 MG PO Q4H PRN for PAIN-MILD, TAB TAKES 2 (325 MG) TABLETS / NOT TO EXCEED 6 DOSES IN 24 HOURS Amino Acids/Protein Hydrolys (Pro-Stat Sugar Free Liquid) 887 Ml Liquid 30 ML PO BID, EA Ascorbate Calcium (Vitamin C) 500 Mg Tablet 500 MG PO TID, TAB Baclofen (Baclofen) 10 Mg Tablet 20 MG PO QID, TAB Calcium Carbonate/Vitamin D3 (Calcium 600 + Vit D 400 Tablet) 1 Each Tablet 1 TAB PO BID, TAB Calcium Polycarbophil (Fiber Lax) 625 Mg Tablet 625 MG PO BID, TAB Cholecalciferol (Vitamin D3) (Vitamin D3) 1,000 Unit Capsule 2000 UNIT PO DAILY, CAP TAKES 2 (1000 UNIT) CAPSULES Dantrolene Sodium (Dantrolene Sodium) 100 Mg Capsule 100 MG PO TID, CAP Dextran 70/Hypromellose (Artificial Tears Eye Drops) 15 Ml Drops 2 DROPS OU Q4H PRN for DRY EYES, DROPS Doxycycline Hyclate (Doxycycline Hyclate) 100 Mg Capsule 100 MG PO Q12H, CAP STARTED 10/01/17 / STOP DATE 11/13/17 Escitalopram Oxalate (Lexapro) 10 Mg Tablet 10 MG PO DAILY, TAB Fludrocortisone Acetate (Fludrocortisone Acetate) 0.1 Mg Tab 0.2 MG PO DAILY, TAB TAKES 2 (0.1 MG) TABLETS Gabapentin (Gabapentin) 600 Mg Tablet 600 MG PO TID, TAB Hydrocortisone (Anti-Itch) 28 Gm Cream..g. TP HOURLY PRN for ITCHING, TUBE APPLIES TO ITCHY LESION ON TOP OF HEAD L. Acidophilus/Bulgaricus (Floranex Tablet) 1 Each Tablet 1 TAB PO TID, TAB STARTED 10/01/17 / STOP DATE 11/13/17 Mag Hydrox/Aluminum Hyd/Simeth (Maalox Advanced Suspension) 355 Ml Oral.susp 30 ML PO Q4H PRN for INDIGESTION, ML Magnesium Hydroxide (Milk of Magnesia) 400 Mg/5 Ml Oral.susp 30 ML PO Q8H PRN for CONSTIPATION-7TH LINE, ML Meloxicam (Mobic) 7.5 Mg Tablet 7.5 MG PO DAILY, TAB Menthol (Biofreeze) 118 Ml Gel..ml. TP PRN PRN for NECK MUSCLE PAIN, TUBE Multivitamin with Minerals (Multivitamins with Minerals) 1 Each Tablet 1 TAB PO DAILY, TAB Omeprazole (Omeprazole) 20 Mg Capsule.dr 20 MG PO DAILY, CAP Potassium Chloride (Potassium Chloride) 20 Meq Tablet.er 20 MEQ PO DAILY, TAB Quetiapine Fumarate (Quetiapine Fumarate) 25 Mg Tablet 25 MG PO HS, TAB Rivaroxaban (Xarelto) 20 Mg Tablet 20 MG PO 1800, TAB Sulfamethoxazole/Trimethoprim (Bactrim Ds Tablet) 1 Each Tablet 1 TAB PO Q12H, TAB STARTED 10/01/17 / STOP DATE 11/13/17 Tizanidine HCl (Tizanidine HCl) 6 Mg Capsule 6 MG PO Q6H PRN for MUSCLE SPASMS, CAP Whey Protein Isolate (Beneprotein) 1 Each Powd.pack 1 PACKET PO BID, EACH [Allersol Opth Dulce] () EA 1 DROP OU DAILY PRN for ITCHING Altagracia Jim Oct 06, 2017 16:08 Copy Copies To 1: ZAHIRA VARGHESE MD, JULIE A MD Oct 06, 2017 4:11 pm
--- NOTE | 2017-10-07 10:54 | Discharge Summary ---
Diagnosis/Chief Complaint Date of Admission Oct 05, 2017 at 1:05 am Date of Discharge October 07, 2017 Admission Diagnosis Admission Diagnosis SEE BELOW Discharge Diagnosis INDWELLING FIGUEROA CATHETER OBSTRUCTED FIGUEROA CATHETER ADM: Pt is not septic today. Will treat with Rocephin and Vanc due to history of Enterococcus faecalis. Also has a history of E coli. Urine cx pending today. Gentle hydration as well. Figueroa has been changed and urine is starting to clear. 10/06 - Pt much improved. DC IVF today. Tolerating PO well. Ur cx shows Enterococcus, Pseudomonas, Donna. Believe pt was more obstructed than actually infected. Pt refusing blood draw for vanc trough as he has been stuck multiple times. Will DC vanc at this point. Discuss need to treat the Donna w pharmacy tomorrow. PLan for home tomorrow. 10/07 - In looking at Colby's clinical situation, believe that this is all colonization. He did not have elevated WBC or fever. Sx resolved after figueroa cath was changed and he received fluids to flush the catheter through. Will DC without abx today. NOTE: Pt now has VRE. MENTAL STATUS CHANGES ADM: Improved, pt arousable this am. Will restart home regimen. 10/06 - Resolved. Pt now at baseline QUADRIPLEGIA SACRAL ULCER ADM: present on admission, follows with Dr Sharma in wound center. Frequent turns and air mattress. Resetart home vitamins/proteins indicated for wound healing. 10/06 - no changes Chief Complaint/HPI Chief Complaint/HPI 57yo gentleman with history of quadriplegia well known to me presented to hospital last night after being found unresponsive and with cloudy brown urine from his catheter. Per [place] report called to me, patient has not had fever or shown signs of infection prior to yesterday when he became progressively less responsive. In ER, patient was found to have turbid urine and an obstructed catheter. Per chart review, patient has previously presented unresponsive due to the amoutn of sedatives he was on (Nov 2016). He was also admitted in April with severe sepsis due to recurrent UTI, which looks to be the case today. Discharge Summary-Simple/Stand Consultations Discharge Physical Examination Allergies: Coded Allergies: No Known Drug Allergies (Unverified , 11/11/16) Vitals & I&Os Vital Sign - Last 12Hours Date Time Temp Pulse Resp B/P (MAP) Pulse Ox O2 Delivery O2 Flow Rate FiO2 10/07/17 08:00 95.9 58 20 176/78 97 Room Air General Appearance: Alert, Oriented X3, Cooperative, No Acute Distress Respiratory: Clear to Auscultation, Normal Air Movement Cardiovascular: Regular Rate, Normal S1, Normal S2, No Murmurs, Gallops, Rubs Abdominal: Normal Bowel Sounds, Soft, No Tenderness, No Hepatosplenomegaly, No Masses Hospital Course See final discharge diagnosis. Labs Laboratory Tests Test 10/04/17 23:30 10/04/17 23:35 10/05/17 04:08 10/06/17 05:55 Range/Units White Blood Count 10.1 8.6 9.6 4.3-11.0 10^3/uL Red Blood Count 4.67 4.33 L 4.57 4.35-5.85 10^6/uL Hemoglobin 14.7 13.6 14.4 13.3-17.7 G/DL Hematocrit 44 41 43 40-54 % Mean Corpuscular Volume 95 95 93 80-99 FL Mean Corpuscular Hemoglobin 32 31 32 25-34 PG Mean Corpuscular Hemoglobin Concent 33 33 34 32-36 G/DL Red Cell Distribution Width 15.8 H 15.8 H 15.0 H 10.0-14.5 % Platelet Count 144 125 L 123 L 130-400 10^3/uL Mean Platelet Volume 11.1 H 11.4 H 10.9 H 7.4-10.4 FL Neutrophils (%) (Auto) 57 51 65 42-75 % Lymphocytes (%) (Auto) 28 31 17 12-44 % Monocytes (%) (Auto) 10 12 12 0-12 % Eosinophils (%) (Auto) 5 6 6 0-10 % Basophils (%) (Auto) 0 0 0 0-10 % Neutrophils # (Auto) 5.8 4.4 6.3 1.8-7.8 X 10^3 Lymphocytes # (Auto) 2.8 2.7 1.6 1.0-4.0 X 10^3 Monocytes # (Auto) 1.0 1.1 H 1.1 H 0.0-1.0 X 10^3 Eosinophils # (Auto) 0.5 H 0.5 H 0.6 H 0.0-0.3 10^3/uL Basophils # (Auto) 0.0 0.0 0.0 0.0-0.1 10^3/uL Prothrombin Time 19.3 H 12.2-14.7 SEC INR Comment 1.6 H 0.8-1.4 Activated Partial Thromboplast Time 41 H 24-35 SEC Sodium Level 138 140 138 135-145 MMOL/L Potassium Level 5.3 H 5.0 4.3 3.6-5.0 MMOL/L Chloride Level 105 110 H 106 98-107 MMOL/L Carbon Dioxide Level 24 21 25 21-32 MMOL/L Anion Gap 9 9 7 5-14 MMOL/L Blood Urea Nitrogen 33 H 28 H 9 7-18 MG/DL Creatinine 1.81 H 1.24 0.63 0.60-1.30 MG/DL Estimat Glomerular Filtration Rate 47 > 60 > 60 BUN/Creatinine Ratio 18 23 14 Glucose Level 186 H 122 H 90 70-105 MG/DL Lactic Acid Level 1.97 0.50-2.00 MMOL/L Calcium Level 9.5 8.9 9.5 8.5-10.1 MG/DL Total Bilirubin 0.3 0.3 0.1-1.0 MG/DL Aspartate Amino Transf (AST/SGOT) 29 27 5-34 U/L Alanine Aminotransferase (ALT/SGPT) 9 9 0-55 U/L Alkaline Phosphatase 135 123 40-136 U/L Troponin I < 0.30 < 0.30 <0.30 NG/ML Total Protein 6.4 5.8 L 6.4-8.2 GM/DL Albumin 2.9 L 2.5 L 3.2-4.5 GM/DL Urine Color GREEN H Urine Clarity VERY CLOUDY H Urine pH 5 5-9 Urine Specific Vance 1.020 1.016-1.022 Urine Protein 2+ H NEGATIVE Urine Glucose (UA) NEGATIVE NEGATIVE Urine Ketones 1+ H NEGATIVE Urine Nitrite POSITIVE H NEGATIVE Urine Bilirubin 1+ H NEGATIVE Urine Urobilinogen 1 NORMAL MG/DL Urine Leukocyte Esterase 3+ H NEGATIVE Urine RBC (Auto) 5+ H NEGATIVE Urine RBC TNTC H /HPF Urine WBC TNTC H /HPF Urine Crystals PRESENT H /LPF Urine Amorphous Sediment MOD BRIE URATES H /LPF Urine Bacteria MODERATE H /HPF Urine Casts NONE /LPF Urine Mucus NEGATIVE /LPF Urine Yeast MODERATE H /HPF Urine Culture Indicated YES Phosphorus Level 3.3 2.3-4.7 MG/DL Magnesium Level 1.8 1.8-2.4 MG/DL Test 10/07/17 06:15 Range/Units White Blood Count 6.9 4.3-11.0 10^3/uL Red Blood Count 4.40 4.35-5.85 10^6/uL Hemoglobin 14.1 13.3-17.7 G/DL Hematocrit 41 40-54 % Mean Corpuscular Volume 93 80-99 FL Mean Corpuscular Hemoglobin 32 25-34 PG Mean Corpuscular Hemoglobin Concent 35 32-36 G/DL Red Cell Distribution Width 14.7 H 10.0-14.5 % Platelet Count 125 L 130-400 10^3/uL Mean Platelet Volume 11.2 H 7.4-10.4 FL Neutrophils (%) (Auto) 52 42-75 % Lymphocytes (%) (Auto) 31 12-44 % Monocytes (%) (Auto) 10 0-12 % Eosinophils (%) (Auto) 6 0-10 % Basophils (%) (Auto) 0 0-10 % Neutrophils # (Auto) 3.6 1.8-7.8 X 10^3 Lymphocytes # (Auto) 2.2 1.0-4.0 X 10^3 Monocytes # (Auto) 0.7 0.0-1.0 X 10^3 Eosinophils # (Auto) 0.4 H 0.0-0.3 10^3/uL Basophils # (Auto) 0.0 0.0-0.1 10^3/uL Sodium Level 139 135-145 MMOL/L Potassium Level 4.1 3.6-5.0 MMOL/L Chloride Level 102 98-107 MMOL/L Carbon Dioxide Level 26 21-32 MMOL/L Anion Gap 11 5-14 MMOL/L Blood Urea Nitrogen 10 7-18 MG/DL Creatinine 0.68 0.60-1.30 MG/DL Estimat Glomerular Filtration Rate > 60 BUN/Creatinine Ratio 15 Glucose Level 126 H 70-105 MG/DL Calcium Level 9.8 8.5-10.1 MG/DL Radiology Reviewed Date of Exam: 10/04/17 CHEST 1 VIEW, AP/PA ONLY INDICATION: Sepsis. History of altered mental status. COMPARISON: 05/01/2017. FINDINGS: There is limited inspiratory volume crowding the lung markings. No convincing evidence for focal consolidation, effusion, pneumothorax or stacy failure pattern. IMPRESSION: No acute pathology identified. Discharge Instructions to patient/family Please see electronic discharge instructions given to patient. Discharge Medications Reviewed and agree with Discharge Medication list on patient's Discharge Instruction sheet Clinical Quality Measures DVT/VTE Risk/Contraindication: Risk Factor Score Per Nursin RFS Level Per Nursing on Admit: 4+=Very High Copy Copies To 1: LIZA PIERRE APRN, MD Oct 07, 2017 10:54 am
[2017-10-07 12:00] VITALS: BP 154/84
== END 2017-10-07 13:28 | DRG 698 ==
LOC: EDUNIT# 23:24 → ER 23:25 → ICU 10-05 01:05 → 4TH 10-05 15:45
PROVIDERS: ADMIT Pediatrics; ATTEND Pediatrics
DX: T83.098A Other mechanical complication of other urinary catheter, initial encounter (principal); N30.00 Acute cystitis without hematuria; G82.50 Quadriplegia, unspecified; T83.518A Infection and inflammatory reaction due to other urinary catheter, initial encounter; Z87.891 Personal history of nicotine dependence; R41.82 Altered mental status, unspecified; L89.159 Pressure ulcer of sacral region, unspecified stage; B95.2 Enterococcus as the cause of diseases classified elsewhere; B37.49 Other urogenital candidiasis; B96.5 Pseudomonas (aeruginosa) (mallei) (pseudomallei) as the cause of diseases classified elsewhere
CPT/HCPCS: 36415; 71010; 80048; 80053; 81000; 83605; 83735; 84100; 84484; 85025; 85610; 85730; 87040; 87077; 87081; 87088; 87186; 93005; 94640; 94760; 99285

== ENCOUNTER 2017-11-28 08:44 | Inpatient (IN) | payer SELFPAY ==
[~2017-11-28] VITALS: Ht 162.6 cm; Wt 76.3 kg
[2017-11-28] VITALS (7 sets, daily range): BP systolic 126–174; BP diastolic 65–85
[~2017-11-28 08:44] MED LIST changes: +ACID1TAB PO; +AMIN887L16 PO; +DOXY100C2 PO; +SULF1TAB35 PO; +TIZA6CAP9 PO
[2017-11-28] MEDS ORDERED: IBUPROFEN 800 MG (MOTRIN) TAB PO ONE (09:00)
[2017-11-28] MEDS ORDERED: ACETAMINOPHEN 500 MG TAB (TYLENOL) PO ONE (09:00)
[2017-11-28 09:14] LABS: BASOPHILS % (AUTO) 0 % (0-10); EOSINOPHILS # (AUTO) 0.1 10^3/uL (0.0-0.3); EOSINOPHILS % (AUTO) 1 % (0-10); HEMATOCRIT 46 % (40-54); HEMOGLOBIN 15.4 G/DL (13.3-17.7); LYMPHOCYTES # (AUTO) 1.8 X 10^3 (1.0-4.0); LYMPHOCYTES % (AUTO) 10 % (12-44); MEAN CORPUSCULAR HEMOGLOBIN 33 PG (25-34); MEAN CORPUSCULAR HGB CONC 34 G/DL (32-36); MEAN CORPUSCULAR VOLUME 98 FL (80-99); MEAN PLATELET VOLUME 11.3 FL (7.4-10.4); MONOCYTES # (AUTO) 1.7 X 10^3 (0.0-1.0); MONOCYTES % (AUTO) 10 % (0-12); NEUTROPHILS # (AUTO) 13.5 X 10^3 (1.8-7.8); NEUTROPHILS % (AUTO) 79 % (42-75); PLATELET COUNT 170 10^3/uL (130-400); RED BLOOD COUNT 4.68 10^6/uL (4.35-5.85); RED CELL DISTRIBUTION WIDTH 15.1 % (10.0-14.5); WHITE BLOOD COUNT 17.2 10^3/uL (4.3-11.0)
[2017-11-28 09:34] LABS: INR 1.6 (0.8-1.4); PROTHROMBIN TIME PATIENT 19.3 SEC (12.2-14.7)
[2017-11-28 09:40] LABS: ALANINE AMINOTRANSFERASE 12 U/L (0-55); ALBUMIN 3.5 GM/DL (3.2-4.5); ALKALINE PHOSPHATASE 130 U/L (40-136); BUN/CREATININE RATIO 20; CALCIUM 9.5 MG/DL (8.5-10.1); CARBON DIOXIDE 23 MMOL/L (21-32); CHLORIDE 105 MMOL/L (98-107); CREATININE SERUM 0.64 MG/DL (0.60-1.30); GFR ESTIMATED > 60; GLUCOSE 114 MG/DL (70-105); MAGNESIUM 1.5 MG/DL (1.8-2.4); POTASSIUM 3.5 MMOL/L (3.6-5.0); SODIUM 142 MMOL/L (135-145); TOTAL PROTEIN 7.7 GM/DL (6.4-8.2)
[2017-11-28 09:51] LABS: EOSINOPHILS % (MANUAL) 2 %; LYMPHOCYTES % (MANUAL) 19 %; MONOCYTES % (MANUAL) 5 %; NEUTROPHILS % (MANUAL) 74 %; RBC MORPH NORMAL
--- NOTE | 2017-11-28 09:53 | Diagnostic Imaging Report ---
INDICATION: Fever. TECHNIQUE: Single view chest 9:33 AM. CORRELATION STUDY: 10/05/2017 FINDINGS: The heart size, mediastinal configuration and pulmonary vascularity are within normal limits. The lungs are clear with no consolidating infiltrate. There is no significant effusion or pneumothorax. Partial visualization of spinal fixation hardware. IMPRESSION: 1. Negative for acute abnormality on portable chest. Dictated by: Dictated on workstation # [id number]
[2017-11-28] MEDS ORDERED: NS IV 1000 ML 1,000 ML IV ONE ×2 (10:09→11:34)
[2017-11-28] MEDS ORDERED: MAGNESIUM 1 GM/100 ML IVPB 100 ML IV SCH (10:15)
[2017-11-28] MEDS ORDERED: KETOROLAC 30 MG/ML VIAL ONE (10:42)
[2017-11-28] MEDS ORDERED: KETOROLAC 30 MG/ML VIAL IVP ONE (10:45)
[2017-11-28 11:14] LABS: BILIRUBIN,URINE NEGATIVE (NEGATIVE); CLARITY,URINE SLIGHTLY CLOUDY; COLOR,URINE YELLOW; GLUCOSE, URINE (UA) NEGATIVE (NEGATIVE); KETONES,URINE NEGATIVE (NEGATIVE); LEUKOCYTE ESTERASE ,URINE 3+ (NEGATIVE); NITRITE,URINE NEGATIVE (NEGATIVE); PH,URINE 8 (5-9); PROTEIN,URINE 2+ (NEGATIVE); UROBILINOGEN,URINE NORMAL (NORMAL)
[2017-11-28 11:27] LABS: BACTERIA,URINE LARGE /HPF; RBC,URINE 25-50 /HPF; WBC,URINE TNTC /HPF
[2017-11-28] MEDS ORDERED: NS IV PRN ×2 (11:45→15:00)
[2017-11-28] MEDS ORDERED: HYDROCORTISONE 250 MG (Solu-CORTEF) VIAL IV ONE (11:45)
[2017-11-28] MEDS ORDERED: cefTRIAXone INJECTION 2,000 MG in NS (IVPB) 50 ML IV ONE (11:45)
[2017-11-28] MEDS ORDERED: NOREPINEPHRINE 4 MG in NS (IVPB) 250 ML IV SCH ×2 (11:45→14:48)
--- NOTE | 2017-11-28 12:30 | Diagnostic Imaging Report ---
INDICATION: Central line placement. TIME OF EXAM: 12:17 PM COMPARISON is made with a prior study of earlier the same day. FINDINGS: A right IJ central line has been placed and has the tip overlying the SVC. No pneumothorax is identified. The lungs are clear. The heart size is stable. There are postop changes of lower cervical fusion. IMPRESSION: Right IJ central line placement. No complicating features are detected. Dictated by: Dictated on workstation # [id number]
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
[2017-11-28] MEDS ORDERED: CATHETER FLUSH 10 ML SYR IV PRN (15:00)
[2017-11-28] MEDS ORDERED: VANCOMYCIN 1500 MG/NS 500 ML IVPB IV SCH ×2 (15:00)
[2017-11-28] MEDS: PHENYLEPHRINE INJECTION 10 MG in NS (IVPB) 250 ML IV SCH ×2 (15:52→19:41)
[2017-11-28] MEDS ORDERED: CALC625T8 PO (15:56)
[2017-11-28] MEDS ORDERED: BACL20TA PO (15:56)
[2017-11-28] MEDS: NS IV 1000 ML 1,000 ML IV SCH ×3 (16:10→23:55)
[2017-11-28] MEDS: CLINDAMYCIN 600 MG/NS 50 ML IVPB IV SCH ×4 (16:11→22:55)
[2017-11-28] MEDS ORDERED: DAKIN'S 1/4 STRENGTH (0.125%) 473 ML BTL TOP SCH (16:15)
--- NOTE | 2017-11-28 16:20 | Wound Care Progress Note ---
Subjective Subjective Subjective/Events-last exam 57 year old male with Stage 4 sacral pressure ulcer, present on admission, in a setting of quadriplegia. Objective Exam Last Set of Vital Signs Vital Signs Date Time Temp Pulse Resp B/P (MAP) Pulse Ox O2 Delivery O2 Flow Rate FiO2 11/28/17 14:13 67 16 96 Capillary Refill : Skin: Other (Sacral wound -- 3.5 x 2.4 x 3.6 cm, base 75% slough, 25% granulation, odor present.) Results Lab Laboratory Tests 11/28/17 09:05: White Blood Count 17.2H, Red Blood Count 4.68, Hemoglobin 15.4, Hematocrit 46, Mean Corpuscular Volume 98, Mean Corpuscular Hemoglobin 33, Mean Corpuscular Hemoglobin Concent 34, Red Cell Distribution Width 15.1H, Platelet Count 170, Mean Platelet Volume 11.3H, Neutrophils (%) (Auto) 79H, Lymphocytes (%) (Auto) 10L, Monocytes (%) (Auto) 10, Eosinophils (%) (Auto) 1, Basophils (%) (Auto) 0, Neutrophils # (Auto) 13.5H, Lymphocytes # (Auto) 1.8, Monocytes # (Auto) 1.7H, Eosinophils # (Auto) 0.1, Basophils # (Auto) 0.0, Neutrophils % (Manual) 74, Lymphocytes % (Manual) 19, Monocytes % (Manual) 5, Eosinophils % (Manual) 2, Blood Morphology Comment NORMAL, Prothrombin Time 19.3H, INR Comment 1.6H, Activated Partial Thromboplast Time 36H, Sodium Level 142, Potassium Level 3.5L , Chloride Level 105, Carbon Dioxide Level 23, Anion Gap 14, Blood Urea Nitrogen 13, Creatinine 0.64, Estimat Glomerular Filtration Rate > 60, BUN/ Creatinine Ratio 20, Glucose Level 114H, Lactic Acid Level 1.81, Calcium Level 9.5, Magnesium Level 1.5L, Total Bilirubin 1.0, Aspartate Amino Transf (AST/SGOT ) 32, Alanine Aminotransferase (ALT/SGPT) 12, Alkaline Phosphatase 130, Total Protein 7.7, Albumin 3.5 11/28/17 11:00: Urine Color YELLOW, Urine Clarity SLIGHTLY CLOUDY, Urine pH 8, Urine Specific [place] 1.015L, Urine Protein 2+H, Urine Glucose (UA) NEGATIVE, Urine Ketones NEGATIVE, Urine Nitrite NEGATIVE, Urine Bilirubin NEGATIVE, Urine Urobilinogen NORMAL, Urine Leukocyte Esterase 3+H, Urine RBC (Auto) 5+H, Urine RBC 25-50H, Urine WBC TNTCH, Urine Squamous Epithelial Cells 2-5, Urine Crystals NONE, Urine Bacteria LARGEH, Urine Casts NONE, Urine Mucus NEGATIVE, Urine Culture Indicated YES Microbiology 11/28/17 Influenza Types A,B Antigen (LAURA) - Final, Complete VERONA GARCIA MD Nov 28, 2017 16:20
[2017-11-28] MEDS ORDERED: RIVAROXABAN 20 MG TABLET (XARELTO) PO SCH (18:00)
[2017-11-28] MEDS ORDERED: NON-FORMULARY MEDICATION 1 EA EA (Tizanidine HCl 6 MG) PO PRN (18:00)
[2017-11-28] MEDS: BACLOFEN 10 MG (LIORESAL) TAB PO SCH (20:41)
[2017-11-28] MEDS: GABAPENTIN 600 MG (NEURONTIN) TAB PO SCH (20:42)
[2017-11-28] MEDS: DANTROLENE 25 MG PO SCH (20:42)
[2017-11-28] MEDS ORDERED: NON-FORMULARY MEDICATION 1 EA EA (Baclofen 20 MG) PO SCH (21:00)
[2017-11-28] MEDS ORDERED: DANTROLENE SODIUM 100 MG PO SCH (21:00)
[2017-11-29] MEDS: NS IV 1000 ML 1,000 ML IV SCH ×3 (02:46→12:09)
[2017-11-29] MEDS ORDERED: VANCOMYCIN 1 GM/NS 250 ML IVPB IV SCH ×2 (03:00)
[2017-11-29 04:40] VITALS: BP 167/77
[2017-11-29 05:43] LABS: BASOPHILS % (AUTO) 0 % (0-10); EOSINOPHILS % (AUTO) 0 % (0-10); HEMATOCRIT 34 % (40-54); HEMOGLOBIN 11.6 G/DL (13.3-17.7); LYMPHOCYTES # (AUTO) 2.2 X 10^3 (1.0-4.0); LYMPHOCYTES % (AUTO) 19 % (12-44); MEAN CORPUSCULAR HEMOGLOBIN 33 PG (25-34); MEAN CORPUSCULAR HGB CONC 34 G/DL (32-36); MEAN CORPUSCULAR VOLUME 98 FL (80-99); MEAN PLATELET VOLUME 11.1 FL (7.4-10.4); MONOCYTES # (AUTO) 1.2 X 10^3 (0.0-1.0); MONOCYTES % (AUTO) 10 % (0-12); NEUTROPHILS # (AUTO) 8.3 X 10^3 (1.8-7.8); NEUTROPHILS % (AUTO) 71 % (42-75); PLATELET COUNT 122 10^3/uL (130-400); WHITE BLOOD COUNT 11.7 10^3/uL (4.3-11.0)
[2017-11-29 06:07] LABS: ALANINE AMINOTRANSFERASE 8 U/L (0-55); ALBUMIN 2.6 GM/DL (3.2-4.5); ALKALINE PHOSPHATASE 81 U/L (40-136); BILIRUBIN,TOTAL 0.6 MG/DL (0.1-1.0); BUN/CREATININE RATIO 23; CALCIUM 8.3 MG/DL (8.5-10.1); CARBON DIOXIDE 24 MMOL/L (21-32); CHLORIDE 110 MMOL/L (98-107); CREATININE SERUM 0.57 MG/DL (0.60-1.30); GFR ESTIMATED > 60; GLUCOSE 99 MG/DL (70-105); POTASSIUM 3.1 MMOL/L (3.6-5.0); SODIUM 142 MMOL/L (135-145); TOTAL PROTEIN 5.5 GM/DL (6.4-8.2)
[2017-11-29] MEDS ORDERED: NS (IVPB) 50 ML ONE (06:22)
[2017-11-29] MEDS ORDERED: CLINDAMYCIN 600 MG/4ML (CLEOCIN) VIAL ONE (06:22)
[2017-11-29] MEDS: CLINDAMYCIN 600 MG/NS 50 ML IVPB IV SCH ×2 (06:31)
[2017-11-29] MEDS ORDERED: PANTOPRAZOLE 20 MG TABLET (PROTONIX) PO SCH (07:00)
[2017-11-29 08:00] VITALS: BP 145/73
[2017-11-29] MEDS: DANTROLENE 25 MG PO SCH ×2 (08:47→13:21)
[2017-11-29] MEDS: BACLOFEN 10 MG (LIORESAL) TAB PO SCH ×2 (08:47→13:22)
[2017-11-29] MEDS: GABAPENTIN 600 MG (NEURONTIN) TAB PO SCH ×2 (08:47→13:21)
[2017-11-29] MEDS ORDERED: NON-FORMULARY MEDICATION 1 EA EA (Escitalopram Oxalate (Lexapro) 10 MG) PO SCH (09:00)
[2017-11-29] MEDS ORDERED: OMEPRAZOLE 20 MG (PriLOSEC) CAP NON-FORMULARY PO SCH (09:00)
[2017-11-29] MEDS ORDERED: FLUDROCORTISONE 0.1 MG (FLORINEF) TAB PO SCH (09:00)
[2017-11-29] MEDS ORDERED: KCL 20 MEQ TAB (K-DUR) PO NR (09:15)
--- NOTE | 2017-11-29 10:40 | Physician Query Clarification ---
PQ-Link Infection to Dev/Proc Admission/Discharge Admission Date: Nov 28, 2017 at 11:25 Discharge Date: The medical record reflects the following clinical scenario: History/Risk Factors: fever, indwelling portillo catheter Clinical Findings: UTI Treatment: antibiotics Question: Can you specify if the UTI is due to/associated with INDWELLING PORTILLO CATHETER? Please document a response below. PHYSICIAN RESPONSE Specify if infection: Yes,due to/associated with device In responding to this query, please exercise your independent professional judgment. The purpose of this communication is to more accurately reflect the complexity of your patients condition. The fact that a question is asked does not imply that any particular answer is desired or expected. Thank you for your timely response to this clarification. Requestors name: [ ] Phone # [ ] THIS PHYSICIAN QUERY FORM IS A PERMANENT PART OF THE MEDICAL RECORD CRISTINA GUTIERREZ Nov 29, 2017 10:40 LAURIE SAVAGE MD Nov 29, 2017 15:22
[2017-11-29 12:00] VITALS: BP 126/71
--- NOTE | 2017-11-29 13:38 | Discharge Summary ---
Diagnosis/Chief Complaint Date of Admission Nov 28, 2017 at 11:25 Date of Discharge Chief Complaint/HPI Chief Complaint/HPI Patient at baseline when seen in ICU. States that he had been having some lower abdominal pressure for several days. Denies any fevers or chills. Discharge Summary-Simple/Stand Consultations Discharge Physical Examination Allergies: Coded Allergies: No Known Drug Allergies (Unverified , 11/11/16) Vitals & I&Os Vital Sign - Last 12Hours Date Time Temp Pulse Resp B/P (MAP) Pulse Ox O2 Delivery O2 Flow Rate FiO2 11/29/17 12:00 96.5 59 20 126/71 (89) 100 Room Air Intake and Output 11/29/17 00:00 Intake Total 3881.24 ml Output Total 1600 ml Balance 2281.24 ml Hospital Course See final discharge diagnosis. Radiology Reviewed Date of Exam: 11/28/17 CHEST 1 VIEW, AP/PA ONLY INDICATION: Fever. TECHNIQUE: Single view chest 9:33 AM. CORRELATION STUDY: 10/05/2017 FINDINGS: The heart size, mediastinal configuration and pulmonary vascularity are within normal limits. The lungs are clear with no consolidating infiltrate. There is no significant effusion or pneumothorax. Partial visualization of spinal fixation hardware. IMPRESSION: 1. Negative for acute abnormality on portable chest. Date of Exam:11/28/17 CHEST 1 VIEW, AP/PA ONLY INDICATION: Central line placement. TIME OF EXAM: 12:17 PM COMPARISON is made with a prior study of earlier the same day. FINDINGS: A right IJ central line has been placed and has the tip overlying the SVC. No pneumothorax is identified. The lungs are clear. The heart size is stable. There are postop changes of lower cervical fusion. IMPRESSION: Right IJ central line placement. No complicating features are detected. Discharge Instructions to patient/family Please see electronic discharge instructions given to patient. Discharge Medications Reviewed and agree with Discharge Medication list on patient's Discharge Instruction sheet Clinical Quality Measures DVT/VTE Risk/Contraindication: Risk Factor Score Per Nursin RFS Level Per Nursing on Admit: 4+=Very High LAURIE SAVAGE MD Nov 29, 2017 13:38
[2017-11-29] MEDS ORDERED: CLIN300C11 PO (13:42)
--- NOTE | 2017-11-29 13:46 | Discharge Inst-Skilled Nursing ---
Discharge Inst-Skilled NF Patient Instructions Patient Problems: Sepsis Sacral Decubitus Ulcer with Cellulitis Chronic Indwelling catheter Quadreplegia Labile blood pressures Goal: - Improvement on wound healing Patient Instructions: - Make sure to complete antibitoitics Consult/Follow Up/Orders Follow up appt.: Nadine Ramirez APRN will see you in the [place] Skilled NF Admit to: [facility] Certifications SNF I certify that SNF services are required to be given on an inpatient basis because of the above named patient's need for [place] [facility] care on a continuing basis for the conditions(s) for which he/she was receiving inpatient hospital services prior to his/her transfer to the SNF. Senior Care Facility Order: Nursing Services, Drilling Superintendent-Evaluate & Treat, Physical Therapy-Evaluate & Treat, Wound Care-Eval/Treat Discharge Diet: No Restrictions Daily Activity as Tolerated: Yes New & Resume Previous Orders New & Resume Previous Orders - Flush Portillo Catheter Every 5 days - If patient has fever be sure portillo catheter is draining and if not please flush catheter - Continue previous care plan Pneu Vac Indicated: Yes Discharge Medications New, Converted or Re-Newed RX: Other New Medications: Clindamycin HCl (Clindamycin HCl) 300 Mg Capsule 300 MG PO TID for 10 Days, #30 CAP Continued Medications: Acetaminophen (Acetaminophen) 325 Mg Tablet 650 MG PO Q4H PRN for PAIN-MILD, TAB TAKES 2 (325 MG) TABLETS / NOT TO EXCEED 6 DOSES IN 24 HOURS Amino Acids/Protein Hydrolys (Pro-Stat Sugar Free Liquid) 887 Ml Liquid 30 ML PO BID, EA Ascorbate Calcium (Vitamin C) 500 Mg Tablet 500 MG PO TID, TAB Baclofen (Baclofen) 20 Mg Tablet 20 MG PO QID, TAB Calcium Carbonate/Vitamin D3 (Calcium 600 + Vit D 400 Tablet) 1 Each Tablet 1 TAB PO BID, TAB Calcium Polycarbophil (Fiber Lax) 625 Mg Tablet 625 MG PO BID, TAB Cholecalciferol (Vitamin D3) (Vitamin D3) 1,000 Unit Capsule 2000 UNIT PO DAILY, CAP TAKES 2 (1000 UNIT) CAPSULES Dantrolene Sodium (Dantrolene Sodium) 100 Mg Capsule 100 MG PO TID, CAP Dextran 70/Hypromellose (Artificial Tears Eye Drops) 15 Ml Drops 2 DROPS OU Q4H PRN for ITCHING/REDNESS, DROPS Escitalopram Oxalate (Lexapro) 10 Mg Tablet 10 MG PO DAILY, TAB Fludrocortisone Acetate (Fludrocortisone Acetate) 0.1 Mg Tab 0.2 MG PO DAILY, TAB TAKES 2 (0.1 MG) TABLETS Gabapentin (Gabapentin) 600 Mg Tablet 600 MG PO TID, TAB Hydrocortisone (Anti-Itch) 28 Gm Cream..g. TP Q1H PRN for ITCHING, TUBE APPLIES TO ITCHY LESION ON TOP OF HEAD Mag Hydrox/Aluminum Hyd/Simeth (Maalox Advanced Suspension) 355 Ml Oral.susp 30 ML PO Q4H PRN for INDIGESTION, ML Magnesium Hydroxide (Milk of Magnesia) 400 Mg/5 Ml Oral.susp 30 ML PO Q8H PRN for CONSTIPATION-7TH LINE, ML Meloxicam (Mobic) 7.5 Mg Tablet 7.5 MG PO DAILY, TAB Menthol (Biofreeze) 118 Ml Gel..ml. TP UD PRN for NECK MUSCLE PAIN, TUBE Multivitamin with Minerals (Multivitamins with Minerals) 1 Each Tablet 1 TAB PO DAILY, TAB Omeprazole (Omeprazole) 20 Mg Capsule.dr 20 MG PO DAILY, CAP Potassium Chloride (Potassium Chloride) 20 Meq Tablet.er 20 MEQ PO DAILY, TAB Rivaroxaban (Xarelto) 20 Mg Tablet 20 MG PO 1800, TAB Tizanidine HCl (Tizanidine HCl) 6 Mg Capsule 6 MG PO Q6H PRN for MUSCLE SPASMS, CAP Whey Protein Isolate (Beneprotein) 1 Each Powd.pack 1 PACKET PO BID, EACH [Allersol Opth Dulce] () EA 1 DROP OU DAILY PRN for ITCHING/REDNESS, EA Laurie Savage Nov 29, 2017 13:43 LAURIE SAVAGE MD Nov 29, 2017 13:46
[2017-11-29] MEDS ORDERED: CLINDAMYCIN IV SCH ×2 (14:00)
[2017-11-29] MEDS ORDERED: D5W IV SCH ×2 (14:00)
[2017-11-29] MEDS ORDERED: TROUGH ORDER-PHARMACY XX NR (14:00)
[2017-11-29 16:03] VITALS: BP 126/71
[2017-11-30] MEDS ORDERED: D5W IV SCH ×2 (09:00)
[2017-11-30] MEDS ORDERED: CEFTRIAXONE IV SCH ×2 (09:00)
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
== END 2017-11-29 16:09 | DRG 871 ==
LOC: EDUNIT# 08:44 → ER 08:45 → ICU 11:25 → 4TH 22:45
PROVIDERS: ADMIT Family Medicine; ATTEND Family Medicine
DX: A41.9 Sepsis, unspecified organism (principal); G82.50 Quadriplegia, unspecified; N39.0 Urinary tract infection, site not specified; T83.518A Infection and inflammatory reaction due to other urinary catheter, initial encounter; L89.154 Pressure ulcer of sacral region, stage 4; E87.6 Hypokalemia; E83.42 Hypomagnesemia; R33.9 Retention of urine, unspecified
CPT/HCPCS: 36415; 51702; 71045; 80053; 81000; 83605; 83735; 85007; 85025; 85027; 85610; 85730; 87040; 87070; 87077; 87088; 87186; 87205; 87804; 93005; 93041; 96374; 96375

== ENCOUNTER → 2017-12-20 | Outpatient (CLI) | payer SELFPAY ==
[~2017-12-20] MED LIST changes: +CLIN300C11 PO
== END ==
LOC: SDC 11:59
PROVIDERS: ATTEND Surgery
DX: Z45.2 Encounter for adjustment and management of vascular access device (principal)
CPT/HCPCS: 76937

== ENCOUNTER 2018-01-14 05:35 | Inpatient (IN) | payer SELFPAY ==
[~2018-01-14] VITALS: Ht 165.1 cm; Wt 79.8 kg
[2018-01-14] VITALS (10 sets, daily range): BP systolic 69–172; BP diastolic 41–96
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
[2018-01-14 08:45] LABS: BILIRUBIN,URINE NEGATIVE (NEGATIVE); CLARITY,URINE BLOODY; COLOR,URINE RED; GLUCOSE, URINE (UA) NEGATIVE (NEGATIVE); KETONES,URINE NEGATIVE (NEGATIVE); LEUKOCYTE ESTERASE ,URINE NEGATIVE (NEGATIVE); NITRITE,URINE NEGATIVE (NEGATIVE); PH,URINE 8 (5-9); PROTEIN,URINE 4+ (NEGATIVE); UROBILINOGEN,URINE NORMAL (NORMAL)
[2018-01-14 08:52] LABS: BACTERIA,URINE NEGATIVE /HPF; RBC,URINE TNTC /HPF
[2018-01-14] MEDS ORDERED: [UNRECOGNIZED DRUG - OTHER] PO (10:59)
[2018-01-14] MEDS ORDERED: CRAN400T3 PO (10:59)
[2018-01-14] MEDS ORDERED: NITR-68 PO (10:59)
[2018-01-14] MEDS ORDERED: NITR-65 PO (10:59)
[2018-01-14] MEDS ORDERED: BACL10TA PO (10:59)
[2018-01-14] MEDS ORDERED: DOXY100C2 PO (10:59)
[2018-01-14] MEDS ORDERED: NS IV 1000 ML 1,000 ML IV NR (11:00)
[2018-01-14] MEDS ORDERED: PIPERACILLIN SODIUM/TAZOBACTAM 4.5 GM in NS (IVPB) 100 ML IV NR (11:00)
[2018-01-14] MEDS ORDERED: ONDANSETRON 4 MG/2 ML (SDV) Z0FRAN IV PRN (11:00)
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
[2018-01-14] MEDS: NS IV 1000 ML 1,000 ML IV SCH ×2 (13:52→22:37)
[2018-01-14 14:45] LABS: BASOPHILS % (AUTO) 1 % (0-10); EOSINOPHILS # (AUTO) 0.1 10^3/uL (0.0-0.3); EOSINOPHILS % (AUTO) 2 % (0-10); HEMATOCRIT 28 % (40-54); HEMOGLOBIN 8.8 G/DL (13.3-17.7); LYMPHOCYTES # (AUTO) 1.4 X 10^3 (1.0-4.0); LYMPHOCYTES % (AUTO) 20 % (12-44); MEAN CORPUSCULAR HEMOGLOBIN 34 PG (25-34); MEAN CORPUSCULAR HGB CONC 32 G/DL (32-36); MEAN CORPUSCULAR VOLUME 105 FL (80-99); MONOCYTES % (AUTO) 14 % (0-12); NEUTROPHILS # (AUTO) 4.3 X 10^3 (1.8-7.8); NEUTROPHILS % (AUTO) 64 % (42-75); PLATELET COUNT 54 10^3/uL (130-400); RED BLOOD COUNT 2.61 10^6/uL (4.35-5.85); RED CELL DISTRIBUTION WIDTH 16.2 % (10.0-14.5); WHITE BLOOD COUNT 6.8 10^3/uL (4.3-11.0)
[2018-01-14] MEDS ORDERED: MILK OF MAGNESIA 400 MG/5 ML 30 ML UDC PO PRN (14:45)
[2018-01-14] MEDS ORDERED: ARTIFICAL TEARS 0.4 ML UNIT DOSE (REFRESH PLUS) OU PRN (15:15)
[2018-01-14 15:20] LABS: ALANINE AMINOTRANSFERASE 8 U/L (0-55); ALKALINE PHOSPHATASE 86 U/L (40-136); BILIRUBIN,TOTAL 0.7 MG/DL (0.1-1.0); BUN/CREATININE RATIO 21; CALCIUM 7.9 MG/DL (8.5-10.1); CARBON DIOXIDE 26 MMOL/L (21-32); CHLORIDE 110 MMOL/L (98-107); CREATININE SERUM 0.84 MG/DL (0.60-1.30); GFR ESTIMATED > 60; GLUCOSE 128 MG/DL (70-105); POTASSIUM 3.3 MMOL/L (3.6-5.0); SODIUM 144 MMOL/L (135-145); TOTAL PROTEIN 4.5 GM/DL (6.4-8.2)
[2018-01-14] MEDS: PIPERACILLIN SODIUM/TAZOBACTAM 4.5 GM in NS (IVPB) 100 ML IV SCH (17:38)
[2018-01-14] MEDS: CAL. POLYCARBOPHIL 625 MG (FIBERCON) TAB PO SCH (17:38)
[2018-01-14] MEDS: ASCORBIC ACID (VIT C) 500 MG TABLET PO SCH (17:38)
[2018-01-14] MEDS: CALCIUM CARB + VIT D 600 MG (CALCARB + D) TAB PO SCH (17:38)
[2018-01-14] MEDS: NITROFURANTOIN 100 MG (MACROBID) CAPSULE PO SCH (17:38)
[2018-01-14] MEDS: BACLOFEN 10 MG (LIORESAL) TAB PO SCH ×2 (17:39)
[2018-01-14] MEDS ORDERED: NON-FORMULARY MEDICATION 1 EA EA (Amino Acids/Protein Hydrolys (Pro-Stat Sugar Free Liquid PO SCH (21:00)
[2018-01-14] MEDS ORDERED: WHEY PROTEIN ISOLATE PO SCH (21:00)
[2018-01-14] MEDS: DANTROLENE 25 MG PO SCH (21:41)
[2018-01-14] MEDS: DOXYCYCLINE 100 MG (VIBRAMYCIN) TABLET PO SCH (21:41)
[2018-01-14] MEDS: GABAPENTIN 600 MG (NEURONTIN) TAB PO SCH (21:42)
[2018-01-14 22:17] LABS: HEMOGLOBIN 9.1 G/DL (13.3-17.7)
[2018-01-15 00:08] VITALS: BP 111/71
[2018-01-15] MEDS: BACLOFEN 10 MG (LIORESAL) TAB PO SCH ×4 (00:24→13:30)
[2018-01-15] MEDS: PIPERACILLIN SODIUM/TAZOBACTAM 4.5 GM in NS (IVPB) 100 ML IV SCH ×2 (01:27→08:53)
[2018-01-15 04:10] VITALS: BP 118/70
[2018-01-15] MEDS: NS IV 1000 ML 1,000 ML IV SCH ×2 (06:18→13:30)
[2018-01-15] MEDS: ASCORBIC ACID (VIT C) 500 MG TABLET PO SCH ×2 (06:18→13:30)
[2018-01-15 06:19] LABS: HEMOGLOBIN 8.7 G/DL (13.3-17.7); RED BLOOD COUNT 2.59 10^6/uL (4.35-5.85); RED CELL DISTRIBUTION WIDTH 16.4 % (10.0-14.5); WHITE BLOOD COUNT 5.9 10^3/uL (4.3-11.0)
[2018-01-15] MEDS: NITROFURANTOIN 100 MG (MACROBID) CAPSULE PO SCH (06:19)
[2018-01-15] MEDS: CALCIUM CARB + VIT D 600 MG (CALCARB + D) TAB PO SCH (06:19)
[2018-01-15] MEDS: CAL. POLYCARBOPHIL 625 MG (FIBERCON) TAB PO SCH (06:19)
[2018-01-15 06:39] LABS: BUN/CREATININE RATIO 26; CALCIUM 8.2 MG/DL (8.5-10.1); CARBON DIOXIDE 26 MMOL/L (21-32); CHLORIDE 111 MMOL/L (98-107); CREATININE SERUM 0.65 MG/DL (0.60-1.30); GFR ESTIMATED > 60; GLUCOSE 89 MG/DL (70-105); SODIUM 143 MMOL/L (135-145)
[2018-01-15] MEDS ORDERED: MULTIVIT W/MINERALS TAB (THERAGRAN M) PO SCH (07:00)
[2018-01-15] MEDS ORDERED: PANTOPRAZOLE 20 MG TABLET (PROTONIX) PO SCH (07:00)
[2018-01-15] MEDS ORDERED: VITAMIN D3 1,000 UNITS (CHOLECALCIFEROL) TABLET PO SCH (07:00)
[2018-01-15 08:00] VITALS: BP 129/62
--- NOTE | 2018-01-15 08:47 | Discharge Inst-Skilled Nursing ---
Discharge Inst-Skilled NF Patient Instructions Patient Problems: HEMATURIA QUADRIPLEGIA Goal: MAINTAIN FIGUEROA CATHETER UNTIL SUPRAPUBIC CATHETER PLACEMENT Patient Instructions: FOLLOW UP RECOMMENDED Consult/Follow Up/Orders Follow up appt.: DIEUDONNE WILL SEE YOU ON HER NEXT RETIREMENT ROUNDS. Skilled NF Admit to: [facility] Discharge Diet: No Restrictions Daily Activity as Tolerated: Yes New & Resume Previous Orders Pneu Vac Indicated: Yes Discharge Medications Continued Medications: Acetaminophen (Acetaminophen) 325 Mg Tablet 650 MG PO Q4H PRN for PAIN-MILD, TAB TAKES 2 (325 MG) TABLETS / NOT TO EXCEED 6 DOSES IN 24 HOURS Amino Acids/Protein Hydrolys (Pro-Stat Sugar Free Liquid) 887 Ml Liquid 30 ML PO BID, EA Ascorbate Calcium (Vitamin C) 500 Mg Tablet 500 MG PO TID, TAB Baclofen (Baclofen) 20 Mg Tablet 20 MG PO Q6H, TAB Baclofen (Baclofen) 10 Mg Tablet 10 MG PO 0600,1800, TAB GIVE ALONG WITH 20MG TABLET TO MAKE 30MG DOSE AT 0600 AND 1800 Calcium Carbonate/Vitamin D3 (Calcium 600 + Vit D 400 Tablet) 1 Each Tablet 1 TAB PO BID, TAB Calcium Polycarbophil (Fiber Lax) 625 Mg Tablet 625 MG PO BID, TAB Cholecalciferol (Vitamin D3) (Vitamin D3) 1,000 Unit Capsule 2000 UNIT PO DAILY, CAP TAKES 2 (1000 UNIT) CAPSULES Cranberry Fruit (Cranberry) 400 Mg Tablet 400 MG PO BID, TAB Dantrolene Sodium (Dantrolene Sodium) 100 Mg Capsule 100 MG PO TID, CAP Dextran 70/Hypromellose (Artificial Tears Eye Drops) 15 Ml Drops 2 DROPS OU Q4H PRN for ITCHING/REDNESS, DROPS Doxycycline Hyclate (Doxycycline Hyclate) 100 Mg Capsule 100 MG PO BID for 18 Days, CAP [address] GARCIA START DATE 01-13-18 Escitalopram Oxalate (Lexapro) 10 Mg Tablet 10 MG PO DAILY, TAB Fludrocortisone Acetate (Fludrocortisone Acetate) 0.1 Mg Tab 0.2 MG PO DAILY, TAB TAKES 2 (0.1 MG) TABLETS Gabapentin (Gabapentin) 600 Mg Tablet 600 MG PO TID, TAB Hydrocortisone (Anti-Itch) 28 Gm Cream..g. TP Q1H PRN for ITCHING, TUBE APPLIES TO ITCHY LESION ON TOP OF HEAD Mag Hydrox/Aluminum Hyd/Simeth (Maalox Advanced Suspension) 355 Ml Oral.susp 30 ML PO Q4H PRN for INDIGESTION, ML Magnesium Hydroxide (Milk of Magnesia) 400 Mg/5 Ml Oral.susp 30 ML PO Q8H PRN for CONSTIPATION-7TH LINE, ML Meloxicam (Mobic) 7.5 Mg Tablet 7.5 MG PO DAILY, TAB Menthol (Biofreeze) 118 Ml Gel..ml. TP UD PRN for NECK MUSCLE PAIN, TUBE Multivitamin with Minerals (Multivitamins with Minerals) 1 Each Tablet 1 TAB PO DAILY, TAB Nitrofurantoin Macrocrystal (Macrodantin) 100 Mg Capsule 100 MG PO DAILY, CAP START DATE 01-17-18 Nitrofurantoin Monohyd/M-Cryst (Macrobid 100 mg Capsule) 100 Mg Capsule 100 MG PO BID for 28 Days, CAP 28 DAY SUPPLY START DATE 12-20-17 Omeprazole (Omeprazole) 20 Mg Capsule.dr 20 MG PO DAILY, CAP Potassium Chloride (Potassium Chloride) 20 Meq Tablet.er 20 MEQ PO DAILY, TAB Tizanidine HCl (Tizanidine HCl) 6 Mg Capsule 6 MG PO Q6H PRN for MUSCLE SPASMS, CAP Whey Protein Isolate (Beneprotein) 1 Each Powd.pack 1 PACKET PO BID, EACH [Allersol Opth Dulce] () EA 1 DROP OU DAILY PRN for ITCHING/REDNESS, EA Discontinued Medications: Rivaroxaban (Xarelto) 20 Mg Tablet 20 MG PO 1800, TAB iLza Jim Jan 15, 2018 08:44 Copy Copies To 1: LIZA PIERRE APRN, MD Jan 15, 2018 8:47 am
[2018-01-15] MEDS: DANTROLENE 25 MG PO SCH ×2 (08:54→13:30)
[2018-01-15] MEDS: GABAPENTIN 600 MG (NEURONTIN) TAB PO SCH ×2 (08:55→13:30)
[2018-01-15] MEDS: DOXYCYCLINE 100 MG (VIBRAMYCIN) TABLET PO SCH (08:55)
[2018-01-15] MEDS ORDERED: FLUDROCORTISONE 0.1 MG (FLORINEF) TAB PO SCH (09:00)
[2018-01-15] MEDS ORDERED: MELOXICAM 7.5 MG (MOBIC) TABLET PO SCH (09:00)
[2018-01-15] MEDS ORDERED: FERR-65 PO (10:34)
[2018-01-15] MEDS ORDERED: KCL 20 MEQ TAB (K-DUR) PO NR (10:45)
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
[2018-01-15 12:00] VITALS: BP 132/58
[2018-01-15] MEDS ORDERED: NORM2DIS3 IJ (14:55)
== END 2018-01-15 16:40 | DRG 698 ==
LOC: EDUNIT# 05:35 → ER 05:37 → 4TH 08:22
PROVIDERS: ADMIT Pediatrics; ATTEND Pediatrics
DX: T83.018A Breakdown (mechanical) of other urinary catheter, initial encounter (principal); N39.0 Urinary tract infection, site not specified; R31.0 Gross hematuria; G82.50 Quadriplegia, unspecified; N31.9 Neuromuscular dysfunction of bladder, unspecified; I87.2 Venous insufficiency (chronic) (peripheral); D64.9 Anemia, unspecified; Z79.899 Other long term (current) drug therapy; K21.9 Gastro-esophageal reflux disease without esophagitis; K59.09 Other constipation; Z87.891 Personal history of nicotine dependence
CPT/HCPCS: 36415; 51702; 76937; 80048; 80053; 81000; 85014; 85018; 85025; 85027; 86850; 86900; 86901

== ENCOUNTER → 2018-01-24 | Outpatient (CLI) | payer SELFPAY ==
[~2018-01-24] MED LIST changes: +ACHD5005 PO; +CEPH-507 PO; +CRAN400T3 PO; +FERR-65 PO; +FERR325T5 PO; +NITR-65 PO; +NITR-68 PO; +NORM2DIS3 IJ; +POLY119P5 PO; +[UNRECOGNIZED DRUG - OTHER] PO
--- NOTE | 2018-01-24 12:41 | Diagnostic Imaging Report ---
INDICATION: Abnormal liver enzymes TECHNIQUE: Multiple real-time smith scale sonographic images of the abdomen. CORRELATION STUDY: None FINDINGS: LIVER: Left lobe is somewhat obscured by overlying bowel gas. Given this, the echogenic appearance of the liver is unremarkable. Liver length is 15 cm. There is normal, hepatopedal direction of flow within the main portal vein. GALLBLADDER: There is presence of shadowing gallstones near the gallbladder neck. However, these were reportedly nonmobile upon positioning the patient. Echogenic foci along the margins are present and could reflect nonspecific adenomyomatosis. Borderline gallbladder wall thickening at 3 mm. COMMON BILE DUCT: Nondilated at 4 mm. PANCREAS: Limited in visualization. The visualized portions appearing unremarkable. SPLEEN: Unremarkable. ABDOMINAL AORTA: Unremarkable. INFERIOR VENA CAVA: Limited in visualization. RIGHT KIDNEY: 10.6 cm. Unremarkable. LEFT KIDNEY: 11.6 cm. Unremarkable. OTHER: Small right pleural effusion is present. IMPRESSION: 1. Left lobe is somewhat obscured. Visualized portion of the liver appearing unremarkable. 2. Cholelithiasis with what appears be nonmobile stones near the gallbladder neck. Borderline gallbladder wall thickening. May be changes of underlying adenomyomatosis. No bile duct dilatation. 3. There is a note made of a slight right pleural effusion. Dictated by: Dictated on workstation # [id number]
== END ==
LOC: RAD 08:02
PROVIDERS: ATTEND Nurse Practitioner Community Health
DX: R74.8 Abnormal levels of other serum enzymes (principal); K80.20 Calculus of gallbladder without cholecystitis without obstruction
CPT/HCPCS: 76700

== ENCOUNTER 2018-01-27 05:30 | Outpatient (CLI) | payer SELFPAY ==
[~2018-01-27] VITALS: Ht 165.1 cm; Wt 79.8 kg
[~2018-01-27 05:30] MED LIST changes: -ACHD5005 PO; -CEPH-507 PO; -FERR325T5 PO; -POLY119P5 PO
[2018-01-27] MEDS ORDERED: FERR325T5 PO (10:29)
[2018-01-27] MEDS ORDERED: POLY119P5 PO (10:29)
[2018-01-28] MEDS ORDERED: ACHD5005 PO (09:16)
[2018-01-28] MEDS ORDERED: CEPH-507 PO (09:16)
== END 2018-01-27 16:18 ==
LOC: PREOP 05:30
PROVIDERS: ATTEND Surgery
DX: Z01.818 Encounter for other preprocedural examination (principal); N31.9 Neuromuscular dysfunction of bladder, unspecified; R33.9 Retention of urine, unspecified

== ENCOUNTER 2018-01-28 06:09 | Day surgery (SDC) | payer SELFPAY ==
[~2018-01-28] VITALS: Ht 165.1 cm; Wt 79.8 kg
[~2018-01-28 06:09] MED LIST changes: +FERR325T5 PO; +POLY119P5 PO
[2018-01-28] MEDS ORDERED: LACTATED RINGERS 1,000 ML IV PRN (06:38)
[2018-01-28] MEDS ORDERED: FAMOTIDINE 20MG/2ML IV (PEPCID) IV ONE (06:45)
[2018-01-28] MEDS ORDERED: MIDAZOLAM 2 MG/2 ML (VERSED) VIAL ONE (06:58)
[2018-01-28] MEDS ORDERED: proPOfol 200 MG/20 ML (DIPRIVAN) VIAL IV ONE (06:58)
[2018-01-28] MEDS ORDERED: SEVOFLURANE (ULTANE) 15 ML INHAL SOLN ONE ×6 (06:58→08:59)
[2018-01-28] MEDS ORDERED: LIDOCAINE PF 2% 5 ML (XYLOCAINE) VIAL ONE (06:58)
[2018-01-28] MEDS ORDERED: fentaNYL INJECTION 100 MCG/2 ML AMP ONE (06:58)
[2018-01-28] MEDS ORDERED: ONDANSETRON 4 MG/2 ML (SDV) Z0FRAN ONE (06:58)
[2018-01-28] MEDS ORDERED: CATHETER FLUSH 10 ML SYR IV PRN (07:00)
[2018-01-28] MEDS ORDERED: cefTRIAXone 1 GM/NS 100 ML IVPB IV ONE ×2 (07:00)
--- NOTE | 2018-01-28 07:06 | Progress Note-Pre Operative ---
Pre-Operative Progress Note H&P Reviewed The H&P was reviewed, patient examined and no changes noted. Date Seen by Provider: Jan 28, 2018 Time Seen by Provider: 07:06 Date H&P Reviewed: Jan 28, 2018 Time H&P Reviewed: 07:06 Pre-Operative Diagnosis: NEUROGENIC BLADDER WITH ATONIC BLADDER AND RETENTION DEMARCUS MARK MD Jan 28, 2018 7:06 am
[2018-01-28] MEDS ORDERED: HEParin (CENTRAL IV FLUSH) 500 UNIT/5 ML SYR ONE (07:10)
[2018-01-28] MEDS ORDERED: 0.9% SODIUM CHLORIDE PF INJ 20 ML VIAL ONE (07:10)
[2018-01-28] MEDS ORDERED: BUPIVACAINE 0.5% 30 ML (SENSORCAINE) VIAL ONE (07:10)
[2018-01-28] MEDS ORDERED: GENTAMICIN 40 MG/ML 2 ML INJ SDV ONE (07:10)
[2018-01-28] MEDS ORDERED: LIDOCAINE 1% INJ 20 ML (XYLOCAINE) VIAL ONE (07:11)
--- NOTE | 2018-01-28 07:43 | Progress Note-Pre Operative ---
Pre-Operative Progress Note H&P Reviewed The H&P was reviewed, patient examined and no changes noted. Date Seen by Provider: Jan 28, 2018 Time Seen by Provider: 07:30 Date H&P Reviewed: Jan 28, 2018 Time H&P Reviewed: 07:30 Pre-Operative Diagnosis: poor venous access ROSALIO TOMAS DO Jan 28, 2018 07:43
[2018-01-28 08:11] VITALS: BP 77/54
--- NOTE | 2018-01-28 08:54 | Progress Note-Post Operative ---
Post-Operative Progess Note Surgeon (s)/Horticulture/Floriculture Teacher (s) Surgeon ROSALIO TOMAS DO Horticulture/Floriculture Teacher: NA Pre-Operative Diagnosis poor venous access, neurogenic bladder with retention Post-Operative Diagnosis SAME Procedure & Operative Findings Date of Procedure 01/28/18 Procedure Performed/Findings POWER PORT PLACEMENT RIGHT IJ U/S GUIDED ASSIST SUPRAPUBIC CATHETER PLACEMENT Anesthesia Type GEN Estimated Blood Loss Estimated blood loss (mL): MIN Specimens/Packing Specimens Removed NA ROSALIO TOMAS DO Jan 28, 2018 08:54
--- NOTE | 2018-01-28 09:00 | Discharge Inst-Simple/Standard ---
Discharge Inst-Standard Patient Instructions/Follow Up Plan of Care/Instructions/FU: 2 WEEKS ISAURO ROBERTSON STAPPLES AND SILK SUTURE OUT THAT IS AROUND CATHETER IN 2 WEEKS. 6 WEEKS START CHANGING CATHETER WITH [address] Activity as Tolerated: No Discharge Diet: Regular Diet Other Inst to Patient Follow up Appt: Make appointment for 2 weeks Isauro Instructions: No lifting greater than 10 pounds. No strenuous activity. May shower in 24 hours, no tub bath or soaking. Use incentive spirometer at home as directed. No Smoking Skin/Wound Care: May remove bandages in 24 hours.. You need to leave the white strips over incision on they will fall off on their own. Can DC sun and silk suture around catheter in 2 weeks. Then in 6 weeks start changing catheter with [address] catheter every 6 weeks. Symptoms to Report: Appetite Changes, Extremity Discoloration, Numbness/Tingling, Swelling Increased , Bleeding Excessive, Eyesight Changes, Pain Increased, Urine Color Change, Constipation(Persistent), Fever over 101 degree F, Pain/Pressure in chest, Urinating Difficulty, Cough Up/Vomit Blood, Heart Beat Irreg/Pounding, Pain/ Pressure in jaw, Vaginal Bleeding Increase, Cramps in feet or legs, Lightheadedness, Pain/Pressure in shoulder, Diarrhea(Persistent), Memory Changes Suddenly, Questions/Concerns, Weight gain consecutive days, Dizziness/ Fainting, Nausea/Vomiting, Shortness of Breath, Weight gain over 2 pounds If questions or concerns contact your physician Or seek help at emergency department. ROSALIO TOMAS DO Jan 28, 2018 09:00
[2018-01-28] MEDS ORDERED: CEPH-507 PO (09:16)
[2018-01-28] MEDS ORDERED: ACHD5005 PO (09:16)
--- NOTE | 2018-01-28 09:19 | Progress Note-Post Operative ---
Post-Operative Progess Note Surgeon (s)/Electronic Systems Technician (s) Surgeon DEMARCUS MARK MD Electronic Systems Technician: JAYLEN Pre-Operative Diagnosis NEUROGENIC BLADDER WITH RETENTION Post-Operative Diagnosis SAME Procedure & Operative Findings Date of Procedure 01/28/18 Procedure Performed/Findings SUPRAPUBIC CYSTOSTOMY TUBE PLACEMENT Anesthesia Type GENERAL Estimated Blood Loss Estimated blood loss (mL): NEGLIGIBLE Specimens/Packing Specimens Removed N/A Packing: N/A DEMARCUS MARK MD Jan 28, 2018 9:19 am
--- NOTE | 2018-01-28 09:20 | Diagnostic Imaging Report ---
EXAMINATION: Fluoroscopy. INDICATION: Right-sided PowerPort placement. FINDINGS: Fluoroscopic assistance was provided for Dr. Box during his PowerPort placement procedure. 19 seconds of fluoroscopy time was utilized. Two spot films of the thorax were received from the OR. There is a right-sided Port-A-Cath in place with the tip of the catheter overlying the distal superior vena cava. IMPRESSION: Fluoroscopic assistance was provided for Dr. Box during his PowerPort insertion procedure. Dictated by: Dictated on workstation # [id number]
--- NOTE | 2018-01-28 09:31 | Diagnostic Imaging Report ---
INDICATION: Central venous catheter evaluation Portable upright AP view of the chest is obtained with comparison made to the study of 11/28/2017. Heart size and pulmonary vascularity are at the upper limits of normal. There is mild increased perihilar density on the right. There has been placement of right anterior chest wall port with catheter tip projecting over the mid superior vena cava. No pneumothorax is seen. IMPRESSION: Right parahilar edema and/or pneumonitis has increased when compared to previous study. There is no evidence of complication related to right anterior chest wall port. Dictated by: Dictated on workstation # [id number]
--- NOTE | 2018-01-28 09:39 | Anesthesia-General Post-Op ---
General Patient Condition Mental Status/LOC: Same as Preop Cardiovascular: Satisfactory Nausea/Vomiting: Absent Respiratory: Satisfactory Pain: Controlled Complications: Absent Post Op Complications Complications None Follow Up Care/Instructions Patient Instructions None needed. Anesthesia/Patient Condition Patient Condition Patient is doing well, no complaints, stable vital signs, no apparent adverse anesthesia problems. No complications reported per nursing. ADRIA DOE CRNA Jan 28, 2018 09:39
[2018-01-28 09:55] VITALS: BP 157/92
[2018-01-28 10:25] VITALS: BP 150/95
[2018-01-28 10:55] VITALS: BP 147/77
[2018-01-28 11:30] VITALS: BP 147/77
--- NOTE | 2018-01-28 12:05 | OPERATIVE REPORT ---
DATE OF SERVICE: 01/28/2018 PREOPERATIVE DIAGNOSIS: Neurogenic bladder with retention. POSTOPERATIVE DIAGNOSIS: Neurogenic bladder with retention. OPERATION PERFORMED: Suprapubic cystostomy tube placement. SURGEON: Omi Mark MD AUDIT CONSULTANT: Bari Box DO. ANESTHESIA: General. COMPLICATIONS: None. PROCEDURE: Under satisfactory general anesthesia, the patient in supine position and after Dr. Box put a port in the abdomen, genitalia and thigh were prepped and draped in the usual sterile fashion. After filling of the bladder with the present urethral catheter was 400 mL of fluid with antibiotic solution and through the catheter clamped to help identify the bladder easily. An incision was made from the symphysis pubis for a few centimeters toward the umbilicus, carried through the skin, subcutaneous tissue and fascia. The midline was identified. Recti retracted laterally. The bladder was identified and confirmed by a needle syringe suctioning urine from it. A stab wound was made in the anterior wall of the bladder toward the bladder neck area and a 22-Argentine two-way 30 mL balloon catheter was inserted. The balloon inflated to 15 mL and made watertight by one stitch of 3-0 chromic catgut. There was a little bit of oozing from the right rectus muscle. It was secured with a [id number] 3-0 chromic catgut suture. There was no reason for a drain. Closure was performed in layers. The recti approximated with interrupted 3-0 chromic catgut, subcutaneous tissue with interrupted 3-0 plain and the skin with sun. The suprapubic tube was secured in position with a 0 silk suture. Needle, sponge, instrument counts were correct x2. Estimated blood loss was negligible, none of which was replaced. The patient tolerated the procedure and anesthesia well, and was sent to recovery room in stable condition. Job ID: [id number] DocumentID: [id number] Dictated Date: 01/28/2018 09:22:52 [employer] Architect Date: 01/28/2018 11:57:36 Dictated By: OMI MARK MD
--- NOTE | 2018-01-28 18:39 | OPERATIVE REPORT ---
DATE OF SERVICE: 01/28/2018 PREOPERATIVE DIAGNOSIS: Poor venous access and neurogenic bladder. POSTOPERATIVE DIAGNOSIS: Poor venous access and neurogenic bladder. PROCEDURE: Right internal jugular ultrasound-guided port placement and I assisted suprapubic catheter placement. SURGEON: Rosalio Box DO ANESTHESIA: General. ESTIMATED BLOOD LOSS: Minimal. COMPLICATIONS: None. DESCRIPTION OF PROCEDURE: The patient was prepped and draped in sterile fashion. Surgical pause was performed. Right internal jugular vein was located using ultrasound. The micro access needle was then inserted into the vein and dark nonpulsatile blood was withdrawn. The micro access wire was then inserted into the vein and the needle was removed. Fluoroscopy assured proper placement. An 11 blade scalpel was used to make a small stab incision. The dilator sheath was then advanced over the wire and the wire and dilator were removed. The regular guidewire was inserted through the sheath and the sheath was then removed. Fluoroscopy assured proper placement. The wire was then secured. The local anesthetic was then infiltrated into the area of the right chest. A 15 blade scalpel was used to make an incision and cautery used to dissect down to the subcutaneous plane and create a pocket for the ports to be placed. A dilator sheath was advanced over the guidewire under fluoroscopy and the dilator and wire were removed. The Groshong catheter was inserted through the sheath and the sheath was then removed. The catheter was then tunneled from the insertion site to the pocket that was created. Using fluoroscopy to cut it to length and the port was then attached to it and placed within the pocket. The port was then accessed without difficulty. Blood was withdrawn without any difficulty and then it was flushed with saline and then heparin. The subcutaneous tissues were then reapproximated using 3-0 Vicryl. The skin was then closed using 4-0 Vicryl in a running subcuticular fashion. The areas were then washed and dried and Dermabond was placed over the incisions. The patient tolerated the procedure well without any complications. Chest x-ray pending at the completion of the case. See note for the suprapubic catheter placed, which I assisted him on. Job ID: [id number] DocumentID: [id number] Dictated Date: 01/28/2018 12:51:41 Hose Builder Date: 01/28/2018 18:38:35 Dictated By: ROSALIO BOX DO
== END 2018-01-28 11:30 ==
LOC: SDC 06:09
PROVIDERS: ATTEND Surgery
DX: N31.9 Neuromuscular dysfunction of bladder, unspecified (principal); R33.9 Retention of urine, unspecified; I87.2 Venous insufficiency (chronic) (peripheral); G82.50 Quadriplegia, unspecified; K21.9 Gastro-esophageal reflux disease without esophagitis; F32.9 Major depressive disorder, single episode, unspecified; F41.9 Anxiety disorder, unspecified; Z79.01 Long term (current) use of anticoagulants; Z79.899 Other long term (current) drug therapy
CPT/HCPCS: 71045; 87081

== ENCOUNTER 2018-01-31 23:50 | Inpatient (IN) | payer SELFPAY ==
[~2018-01-31] VITALS: Ht 165.1 cm; Wt 85.4 kg
[~2018-01-31 23:50] MED LIST changes: +ACHD5005 PO; +CEPH-507 PO
[2018-02-01] VITALS (12 sets, daily range): BP systolic 94–130; BP diastolic 58–81
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
[2018-02-01 03:53] LABS: BASOPHILS % (AUTO) 0 % (0-10); EOSINOPHILS # (AUTO) 0.2 10^3/uL (0.0-0.3); EOSINOPHILS % (AUTO) 3 % (0-10); HEMATOCRIT 28 % (40-54); HEMOGLOBIN 8.9 G/DL (13.3-17.7); LYMPHOCYTES # (AUTO) 1.5 X 10^3 (1.0-4.0); LYMPHOCYTES % (AUTO) 22 % (12-44); MEAN CORPUSCULAR HEMOGLOBIN 34 PG (25-34); MEAN CORPUSCULAR HGB CONC 32 G/DL (32-36); MEAN CORPUSCULAR VOLUME 107 FL (80-99); MONOCYTES # (AUTO) 0.7 X 10^3 (0.0-1.0); MONOCYTES % (AUTO) 10 % (0-12); NEUTROPHILS # (AUTO) 4.2 X 10^3 (1.8-7.8); NEUTROPHILS % (AUTO) 64 % (42-75); RED BLOOD COUNT 2.59 10^6/uL (4.35-5.85); RED CELL DISTRIBUTION WIDTH 19.4 % (10.0-14.5); WHITE BLOOD COUNT 6.6 10^3/uL (4.3-11.0)
[2018-02-01 03:56] LABS: PLATELET COUNT 16 10^3/uL (130-400)
[2018-02-01 03:57] LABS: INR 1.3 (0.8-1.4); PROTHROMBIN TIME PATIENT 16.7 SEC (12.2-14.7)
[2018-02-01 04:06] LABS: ALANINE AMINOTRANSFERASE 18 U/L (0-55); ALBUMIN 2.1 GM/DL (3.2-4.5); ALKALINE PHOSPHATASE 121 U/L (40-136); BILIRUBIN,TOTAL 0.5 MG/DL (0.1-1.0); BUN/CREATININE RATIO 27; CALCIUM 8.6 MG/DL (8.5-10.1); CARBON DIOXIDE 26 MMOL/L (21-32); CHLORIDE 116 MMOL/L (98-107); GFR ESTIMATED > 60; GLUCOSE 64 MG/DL (70-105); POTASSIUM 3.5 MMOL/L (3.6-5.0); SODIUM 148 MMOL/L (135-145)
[2018-02-01] MEDS: POTASSIUM CL 10MEQ/50ML IVPB 50 ML IV SCH ×2 (05:16→06:05)
[2018-02-01] MEDS ORDERED: MAGNESIUM 1 GM/100 ML IVPB 100 ML IV SCH (06:00)
[2018-02-01] MEDS ORDERED: KCL 20 MEQ TAB (K-DUR) PO SCH (06:00)
[2018-02-01] MEDS ORDERED: POTASSIUM CL 10MEQ/50ML IVPB 50 ML IV SCH (06:00)
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
--- NOTE | 2018-02-01 11:02 | Discharge Inst-Skilled Nursing ---
Discharge Inst-Skilled NF Patient Instructions Patient Problems: Thrombocytopenia Altered mental status Quadriplegia Suprapubic catheter Consult/Follow Up/Orders Follow up appt.: Nadine will see patient in [place] Skilled NF Admit to: Via [facility], [place] Certifications SNF I certify that SNF services are required to be given on an inpatient basis because of the above named patient's need for halfway care on a continuing basis for the conditions(s) for which he/she was receiving inpatient hospital services prior to his/her transfer to the SNF. [facility] Order: Nursing Services, Physical Therapy-Evaluate & Treat, Wound Care-Eval/Treat Discharge Diet: Cardiac Diet New & Resume Previous Orders New & Resume Previous Orders Resume Previous orders - Repeat CBC in 1 week Discharge Medications New, Converted or Re-Newed RX: Other (No new scripts) Continued Medications: Acetaminophen (Acetaminophen) 325 Mg Tablet 650 MG PO Q4H PRN for PAIN-MILD, TAB TAKES 2 (325 MG) TABLETS / NOT TO EXCEED 6 DOSES IN 24 HOURS Amino Acids/Protein Hydrolys (Pro-Stat Sugar Free Liquid) 887 Ml Liquid 30 ML PO BID, EA Ascorbate Calcium (Vitamin C) 500 Mg Tablet 500 MG PO TID, TAB Baclofen (Baclofen) 20 Mg Tablet 20 MG PO Q6H, TAB Baclofen (Baclofen) 10 Mg Tablet 10 MG PO 0600,1800, TAB GIVE ALONG WITH 20MG TABLET TO MAKE 30MG DOSE AT 0600 AND 1800 Calcium Carbonate/Vitamin D3 (Calcium 600 + Vit D 400 Tablet) 1 Each Tablet 1 TAB PO BID, TAB Calcium Polycarbophil (Fiber Lax) 625 Mg Tablet 625 MG PO BID, TAB Cholecalciferol (Vitamin D3) (Vitamin D3) 1,000 Unit Capsule 2000 UNIT PO DAILY, CAP TAKES 2 (1000 UNIT) CAPSULES Cranberry Fruit (Cranberry) 400 Mg Tablet 400 MG PO BID, TAB Dantrolene Sodium (Dantrolene Sodium) 100 Mg Capsule 100 MG PO TID, CAP Dextran 70/Hypromellose (Artificial Tears Eye Drops) 15 Ml Drops 2 DROPS OU Q4H PRN for ITCHING/REDNESS, DROPS Escitalopram Oxalate (Lexapro) 10 Mg Tablet 10 MG PO DAILY, TAB Ferrous Sulfate (Ferrous Sulfate) 325 Mg Tablet.dr 325 MG PO TIDWM, TAB Fludrocortisone Acetate (Fludrocortisone Acetate) 0.1 Mg Tab 0.2 MG PO DAILY, TAB TAKES 2 (0.1 MG) TABLETS Gabapentin (Gabapentin) 600 Mg Tablet 600 MG PO TID, TAB Hydrocodone Bit/Acetaminophen (Hydrocodone/Acetaminophen 5/325mg Tablet) 1 Tab Tab 1 TAB PO Q4H PRN, #20 TAB 0 Refills Hydrocortisone (Anti-Itch) 28 Gm Cream..g. TP Q1H PRN for ITCHING, TUBE APPLIES TO ITCHY LESION ON TOP OF HEAD Mag Hydrox/Aluminum Hyd/Simeth (Maalox Advanced Suspension) 355 Ml Oral.susp 30 ML PO Q4H PRN for INDIGESTION, ML Magnesium Hydroxide (Milk of Magnesia) 400 Mg/5 Ml Oral.susp 30 ML PO Q8H PRN for CONSTIPATION-7TH LINE, ML Meloxicam (Mobic) 7.5 Mg Tablet 7.5 MG PO DAILY, TAB Menthol (Biofreeze) 118 Ml Gel..ml. TP UD PRN for NECK MUSCLE PAIN, TUBE Multivitamin with Minerals (Multivitamins with Minerals) 1 Each Tablet 1 TAB PO DAILY, TAB Omeprazole (Omeprazole) 20 Mg Capsule.dr 20 MG PO DAILY, CAP Polyethylene Glycol 3350 (Miralax) 119 Gm Powder 7 GM PO DAILY, EA Potassium Chloride (Potassium Chloride) 20 Meq Tablet.er 20 MEQ PO DAILY, TAB Tizanidine HCl (Tizanidine HCl) 6 Mg Capsule 6 MG PO Q6H PRN for MUSCLE SPASMS, CAP Whey Protein Isolate (Beneprotein) 1 Each Powd.pack 1 PACKET PO BID, EACH [Allersol Opth Dulce] () EA 1 DROP OU DAILY PRN for ITCHING/REDNESS, EA Discontinued Medications: 0.9 % Sodium Chloride (Normal Saline Flush) 2 Ml Syringe 10 ML IJ BID for 14 Days, SYRINGE Cephalexin (Keflex) 500 Mg Capsule 500 MG PO TID, #20 CAP Doxycycline Hyclate (Doxycycline Hyclate) 100 Mg Capsule 100 MG PO BID for 18 Days, CAP [address] GARCIA START DATE 01-13-18 Nitrofurantoin Macrocrystal (Macrodantin) 100 Mg Capsule 100 MG PO DAILY, CAP Laurie Medeiros Feb 01, 2018 11:00 LAURIE MEDEIROS MD Feb 01, 2018 11:02
== END 2018-02-01 11:35 | DRG 813 ==
LOC: ICU 23:50
PROVIDERS: ADMIT Family Medicine; ATTEND Family Medicine
DX: D69.6 Thrombocytopenia, unspecified (principal); G82.50 Quadriplegia, unspecified; R41.82 Altered mental status, unspecified; Z87.891 Personal history of nicotine dependence; I10 Essential (primary) hypertension; K21.9 Gastro-esophageal reflux disease without esophagitis; K59.09 Other constipation; Z93.3 Colostomy status
CPT/HCPCS: 36415; 80053; 82962; 85025; 85610; 87081

== ENCOUNTER 2018-02-06 02:01 | Inpatient (IN) | payer OTHER ==
[~2018-02-06] VITALS: Ht 167.6 cm; Wt 85.5 kg
[2018-02-06] VITALS (19 sets, daily range): BP systolic 70–123; BP diastolic 43–91
[2018-02-06] MEDS ORDERED: NS IV 500 ML 500 ML IV ONE ×2 (02:08→04:05)
[2018-02-06] MEDS ORDERED: RT-ALBUTEROL/IPRATROPIUM 3 ML (DUONEB) VIAL INH ONE (02:15)
[2018-02-06] MEDS ORDERED: DEXTROSE 50% 50 ML (IMS) SYR IV ONE ×2 (02:15→04:15)
[2018-02-06 02:23] LABS: BASOPHILS % (AUTO) 0 % (0-10); EOSINOPHILS # (AUTO) 0.2 10^3/uL (0.0-0.3); EOSINOPHILS % (AUTO) 2 % (0-10); HEMATOCRIT 29 % (40-54); HEMOGLOBIN 9.4 G/DL (13.3-17.7); LYMPHOCYTES # (AUTO) 1.5 X 10^3 (1.0-4.0); LYMPHOCYTES % (AUTO) 15 % (12-44); MEAN CORPUSCULAR HEMOGLOBIN 35 PG (25-34); MEAN CORPUSCULAR HGB CONC 33 G/DL (32-36); MEAN CORPUSCULAR VOLUME 107 FL (80-99); MONOCYTES # (AUTO) 0.5 X 10^3 (0.0-1.0); MONOCYTES % (AUTO) 5 % (0-12); NEUTROPHILS # (AUTO) 7.5 X 10^3 (1.8-7.8); NEUTROPHILS % (AUTO) 77 % (42-75); RED CELL DISTRIBUTION WIDTH 19.2 % (10.0-14.5); WHITE BLOOD COUNT 9.7 10^3/uL (4.3-11.0)
[2018-02-06 02:26] LABS: PLATELET COUNT 10 10^3/uL (130-400)
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
[2018-02-06 02:33] LABS: INR 1.2 (0.8-1.4)
[2018-02-06 02:41] LABS: BILIRUBIN,URINE NEGATIVE (NEGATIVE); CLARITY,URINE BLOODY; COLOR,URINE RED; GLUCOSE, URINE (UA) NEGATIVE (NEGATIVE); KETONES,URINE 1+ (NEGATIVE); LEUKOCYTE ESTERASE ,URINE 3+ (NEGATIVE); NITRITE,URINE NEGATIVE (NEGATIVE); PH,URINE 5 (5-9); PROTEIN,URINE 3+ (NEGATIVE); UROBILINOGEN,URINE NORMAL (NORMAL)
[2018-02-06 02:48] LABS: BACTERIA,URINE FEW /HPF; RBC,URINE >100 /HPF; SQUAMOUS EPITHELIAL CELL,UR RARE /HPF; WBC,URINE >100 /HPF
[2018-02-06 02:49] LABS: CALCIUM OXALATE CRYSTALS,UR RARE /LPF; YEAST,URINE MODERATE /HPF
[2018-02-06 02:51] LABS: ALANINE AMINOTRANSFERASE 21 U/L (0-55); ALBUMIN 2.1 GM/DL (3.2-4.5); ALKALINE PHOSPHATASE 119 U/L (40-136); BILIRUBIN,TOTAL 0.5 MG/DL (0.1-1.0); BUN/CREATININE RATIO 28; CALCIUM 8.9 MG/DL (8.5-10.1); CARBON DIOXIDE 20 MMOL/L (21-32); CHLORIDE 116 MMOL/L (98-107); CREATININE SERUM 0.82 MG/DL (0.60-1.30); GFR ESTIMATED > 60; GLUCOSE 71 MG/DL (70-105); MAGNESIUM 1.6 MG/DL (1.8-2.4); PHOSPHORUS 4.3 MG/DL (2.3-4.7); POTASSIUM 3.7 MMOL/L (3.6-5.0); SODIUM 142 MMOL/L (135-145); TOTAL PROTEIN 5.1 GM/DL (6.4-8.2)
[2018-02-06] MEDS ORDERED: cefTRIAXone INJECTION 1,000 MG in NS (IVPB) 100 ML IV ONE (03:15)
[2018-02-06] MEDS ORDERED: MAGNESIUM 1 GM/100 ML IVPB 100 ML IV ONE ×3 (03:45→07:31)
[2018-02-06] MEDS ORDERED: LACTATED RINGERS 1,000 ML IV ONE ×2 (04:05→07:30)
--- NOTE | 2018-02-06 05:45 | Diagnostic Imaging Report ---
INDICATION: Altered mental status COMPARISON: 01/28/2018 FINDINGS: Single frontal view of the chest demonstrates normal heart size and pulmonary vascularity. The lungs are well aerated and clear. No large pleural effusion or pneumothorax is seen. The visualized osseous structures show no acute abnormalities. IMPRESSION: 1. No acute cardiopulmonary process. Dictated by: Dictated on workstation # [id number]
[2018-02-06] MEDS ORDERED: ONDANSETRON 4 MG/2 ML (SDV) Z0FRAN IVP PRN (06:00)
[2018-02-06] MEDS ORDERED: ACETAMINOPHEN 500 MG TAB (TYLENOL) PO PRN (06:00)
[2018-02-06] MEDS ORDERED: NS (IVPB) 250 ML ONE (06:16)
[2018-02-06] MEDS ORDERED: NOREPINEPHRINE 4 MG/4 ML (LEVOPHED) AMP IV ONE (06:17)
[2018-02-06] MEDS: NOREPINEPHRINE 4 MG in NS (IVPB) 250 ML IV SCH ×2 (06:34→19:24)
[2018-02-06] MEDS ORDERED: PIPERACILLIN SODIUM/TAZOBACTAM 4.5 GM in NS (IVPB) 100 ML IV NR (06:45)
[2018-02-06] MEDS ORDERED: RT-ALBUTEROL SULF 2.5 MG/3 ML PRE-MIX VIAL INH PRN (06:45)
[2018-02-06] MEDS: inSUlin ASPART (NovoLOG) 1 UNIT/0.01 ML (CHARGE PER UNIT) SC SCH ×4 (06:50→22:52)
[2018-02-06 06:53] LABS: ABG BASE EXCESS -6.9 MMOL/L (-2.5-2.5); ABG OXYGEN SATURATION 98 % (94-100); ABG PCO2 41 MMHG (35-45); ABG PO2 78 MMHG (79-93); ABG TCO2 20.3 MMOL/L (21.0-31.0); ALLENS TEST YES-POS
[2018-02-06 06:54] LABS: INSPIRED O2 RA; PATIENT TEMP 96.1; VENTILATOR NO
[2018-02-06 06:55] LABS: ABG PH 7.28 (7.37-7.43)
[2018-02-06] MEDS ORDERED: NOREPINEPHRINE 4 MG in NS (IVPB) 250 ML IV SCH (06:58)
[2018-02-06] MEDS ORDERED: VANCOMYCIN 2000 MG/NS 500 ML IVPB IV SCH ×2 (07:00)
[2018-02-06] MEDS ORDERED: 1/2 NS W/KCL 20 MEQ/L 1,000 ML IV SCH (07:00)
[2018-02-06] MEDS: RT-ALBUTEROL SULF 2.5 MG/3 ML PRE-MIX VIAL INH SCH ×3 (07:00→23:39)
--- NOTE | 2018-02-06 07:04 | Diagnostic Imaging Report ---
PROCEDURE: CT head without contrast. TECHNIQUE: Multiple contiguous axial images were obtained through the brain without the use of intravenous contrast. INDICATION: Altered mental status. Compared 11/19/2016 FINDINGS: There is no intracranial hemorrhage. Mild cortical atrophy unchanged from prior. No focal or generalized edema. No mass or mass effect. The basilar cisterns patent. There is no evidence for an elevation of the intracranial pressures. Orbits, sinuses, and calvarium nonacute. There has been no change from prior. IMPRESSION: Stable premature atrophy with no edema, hemorrhage or acute appearing pathology. No change from prior. Dictated by: Dictated on workstation # [id number]
--- NOTE | 2018-02-06 07:14 | Diagnostic Imaging Report ---
PROCEDURE: CT abdomen and pelvis without contrast. TECHNIQUE: Multiple contiguous axial images were obtained through the abdomen and pelvis without the use of intravenous contrast. INDICATION: Altered mental status. No priors. There are bilateral nephrolithiasis with prominent stones within the bilateral renal pelves. On the right a stone or aggregate of calculi measure 8.3 mm. On the left stone or inseparable aggregate of calculi measured 9 mm. This did not result in upstream hydronephrosis. No calyceal dilatation and no perinephric edema. There is a proximal left ureteral calculus at or just below the level of the ureteral pelvic junction measuring 2 mm. No opaque distal ureteral stone. There is a retention balloon is inflated within the urinary bladder lumen via the suprapubic catheter. The bladder is decompressed and thickwalled limiting its evaluation. Small volume of abdominal pelvic free fluid. There are stones within the gallbladder lumen. The gallbladder was not pathologically dilated. No bile duct dilatation. Spleen, adrenals and pancreas are unremarkable. There is left lower quadrant diverting ostomy. There is no evidence for bowel obstruction. There is a fatty left inguinal hernia. There does appear to be some edematous thickening of the valenzuela of the ascending colon and distal ileum which could be infectious or reflect a nonspecific inflammatory disease. No abscess. Remaining small bowel unremarkable. IMPRESSION: 1. Bilateral nephrolithiasis, bilateral renal pelvic calculi and the proximal left ureteral stone calculus dimensions above. There was however no hydronephrosis and no perinephric edema. 2. Suprapubic catheter and retention balloon inflated within the lumen of the decompressed urinary bladder with bladder wall thickening which may be chronic or reflect cystitis. 3. Edematous thickening of the valenzuela of the distal small bowel, cecum and a sending colon through the hepatic flexure consistent with nonspecific enterocolitis. 4. Cholelithiasis without bile duct dilatation. Given the abdominal pelvic free fluid volume extending into the pericholecystic space. The gallbladder wall cannot be adequately evaluated. If cholecystitis is clinically suspected, gallbladder ultrasound may be of further utility. Dictated by: Dictated on workstation # [id number]
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
[2018-02-06] MEDS ORDERED: CATHETER FLUSH 10 ML SYR IV PRN (07:30)
[2018-02-06] MEDS: VASOPRESSIN INJECTION 20 UNIT in NS (IVPB) 100 ML IV SCH ×8 (07:40→23:06)
[2018-02-06] MEDS: HYDROCORTISONE 100 MG/2 ML (Solu-CORTEF) VIAL IV SCH ×3 (07:51→22:58)
[2018-02-06 08:06] LABS: BASOPHILS % (AUTO) 0 % (0-10); EOSINOPHILS # (AUTO) 0.2 10^3/uL (0.0-0.3); EOSINOPHILS % (AUTO) 1 % (0-10); HEMATOCRIT 29 % (40-54); HEMOGLOBIN 9.2 G/DL (13.3-17.7); LYMPHOCYTES # (AUTO) 1.5 X 10^3 (1.0-4.0); LYMPHOCYTES % (AUTO) 12 % (12-44); MEAN CORPUSCULAR HEMOGLOBIN 35 PG (25-34); MEAN CORPUSCULAR HGB CONC 32 G/DL (32-36); MEAN CORPUSCULAR VOLUME 107 FL (80-99); MONOCYTES # (AUTO) 0.9 X 10^3 (0.0-1.0); MONOCYTES % (AUTO) 7 % (0-12); NEUTROPHILS # (AUTO) 9.9 X 10^3 (1.8-7.8); NEUTROPHILS % (AUTO) 79 % (42-75); RED BLOOD COUNT 2.67 10^6/uL (4.35-5.85); RED CELL DISTRIBUTION WIDTH 19.1 % (10.0-14.5); WHITE BLOOD COUNT 12.5 10^3/uL (4.3-11.0)
[2018-02-06 08:19] LABS: PLATELET COUNT 19 10^3/uL (130-400)
[2018-02-06 08:27] LABS: ALANINE AMINOTRANSFERASE 22 U/L (0-55); ALBUMIN 2.3 GM/DL (3.2-4.5); ALKALINE PHOSPHATASE 112 U/L (40-136); BILIRUBIN,TOTAL 0.5 MG/DL (0.1-1.0); BUN/CREATININE RATIO 27; CALCIUM 8.8 MG/DL (8.5-10.1); CARBON DIOXIDE 18 MMOL/L (21-32); CHLORIDE 116 MMOL/L (98-107); CREATININE SERUM 0.83 MG/DL (0.60-1.30); GFR ESTIMATED > 60; GLUCOSE 90 MG/DL (70-105); MAGNESIUM 1.8 MG/DL (1.8-2.4); PHOSPHORUS 3.9 MG/DL (2.3-4.7); POTASSIUM 3.7 MMOL/L (3.6-5.0); SODIUM 143 MMOL/L (135-145); TOTAL PROTEIN 5.4 GM/DL (6.4-8.2)
[2018-02-06] MEDS: LACTATED RINGERS 1,000 ML IV SCH ×5 (08:27→22:13)
[2018-02-06] MEDS: PANTOPRAZOLE 40 MG/10 ML (PROTONIX) VIAL IV SCH (08:28)
[2018-02-06 08:55] LABS: INR 1.4 (0.8-1.4); PROTHROMBIN TIME PATIENT 16.8 SEC (12.2-14.7)
[2018-02-06 09:45] LABS: FIBRIN DEGRADATION PRODUCTS 1.66 UG/ML (0.00-0.49)
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
[2018-02-06] MEDS ORDERED: ESCI20TA45 PO (13:35)
[2018-02-06] MEDS ORDERED: ACHD5005 PO (13:35)
--- NOTE | 2018-02-06 14:17 | Diagnostic Imaging Report ---
INDICATION: Shortness of breath EXAM: PA chest obtained at 2:01 hours p.m. COMPARISON: 3:24 hours a.m. the same day. FINDINGS: Port-A-Cath is unchanged. There is cardiomegaly with central vascular congestion. There is elevation of the right hemidiaphragm. There is new infiltrate or atelectasis in the right medial base. Lungs are otherwise clear. IMPRESSION: Cardiomegaly with central vascular congestion with unchanged elevation of the right hemidiaphragm. There appears to be new infiltrate and/or atelectasis in the right medial base. Dictated by: Dictated on workstation # [id number]
[2018-02-06] MEDS: PIPERACILLIN SODIUM/TAZOBACTAM 4.5 GM in NS (IVPB) 100 ML IV SCH ×2 (14:27→21:17)
[2018-02-06] MEDS: VANCOMYCIN INJECTION 1,250 MG in NS (IVPB) 250 ML IV SCH (18:09)
[2018-02-07] VITALS (15 sets, daily range): BP systolic 94–128; BP diastolic 57–81
[2018-02-07 03:34] LABS: BASOPHILS % (AUTO) 0 % (0-10); EOSINOPHILS % (AUTO) 0 % (0-10); HEMATOCRIT 26 % (40-54); HEMOGLOBIN 8.5 G/DL (13.3-17.7); LYMPHOCYTES # (AUTO) 0.8 X 10^3 (1.0-4.0); LYMPHOCYTES % (AUTO) 9 % (12-44); MEAN CORPUSCULAR HEMOGLOBIN 34 PG (25-34); MEAN CORPUSCULAR HGB CONC 33 G/DL (32-36); MEAN CORPUSCULAR VOLUME 106 FL (80-99); MONOCYTES # (AUTO) 0.3 X 10^3 (0.0-1.0); MONOCYTES % (AUTO) 3 % (0-12); NEUTROPHILS # (AUTO) 8.7 X 10^3 (1.8-7.8); NEUTROPHILS % (AUTO) 88 % (42-75); RED BLOOD COUNT 2.47 10^6/uL (4.35-5.85); RED CELL DISTRIBUTION WIDTH 19.3 % (10.0-14.5); WHITE BLOOD COUNT 9.8 10^3/uL (4.3-11.0)
[2018-02-07 03:47] LABS: PLATELET COUNT 26 10^3/uL (130-400)
[2018-02-07 04:06] LABS: BUN/CREATININE RATIO 23; CARBON DIOXIDE 21 MMOL/L (21-32); CHLORIDE 118 MMOL/L (98-107); CREATININE SERUM 0.79 MG/DL (0.60-1.30); POTASSIUM 3.8 MMOL/L (3.6-5.0); SODIUM 147 MMOL/L (135-145)
[2018-02-07 04:07] LABS: ALANINE AMINOTRANSFERASE 23 U/L (0-55); ALBUMIN 2.1 GM/DL (3.2-4.5); ALKALINE PHOSPHATASE 103 U/L (40-136); BILIRUBIN,TOTAL 0.5 MG/DL (0.1-1.0); CALCIUM 8.5 MG/DL (8.5-10.1); GFR ESTIMATED > 60; GLUCOSE 79 MG/DL (70-105); MAGNESIUM 1.5 MG/DL (1.8-2.4); PHOSPHORUS 3.4 MG/DL (2.3-4.7); TOTAL PROTEIN 5.1 GM/DL (6.4-8.2)
[2018-02-07] MEDS: PIPERACILLIN SODIUM/TAZOBACTAM 4.5 GM in NS (IVPB) 100 ML IV SCH ×3 (04:46→22:22)
[2018-02-07] MEDS: MAGNESIUM 1 GM/100 ML IVPB 100 ML IV SCH (04:46)
[2018-02-07] MEDS: LACTATED RINGERS 1,000 ML IV SCH (04:50)
[2018-02-07] MEDS: inSUlin ASPART (NovoLOG) 1 UNIT/0.01 ML (CHARGE PER UNIT) SC SCH ×4 (05:18→22:11)
[2018-02-07] MEDS ORDERED: KCL 20 MEQ TAB (K-DUR) PO SCH (06:00)
[2018-02-07] MEDS ORDERED: MAGNESIUM 1 GM/100 ML IVPB 100 ML IV SCH (06:00)
[2018-02-07] MEDS ORDERED: POTASSIUM CL 10MEQ/50ML IVPB 50 ML IV SCH (06:00)
[2018-02-07] MEDS: HYDROCORTISONE 100 MG/2 ML (Solu-CORTEF) VIAL IV SCH (06:02)
--- NOTE | 2018-02-07 06:08 | Pulmonary Progress Note ---
Subjective Time Seen by Provider: 06:07 Subjective/Events-last exam pt is doing much better. Focused Exam Evaluation Lactate Level Laboratory Tests 02/06/18 02:11: Lactic Acid Level 1.13 Exam Exam Vital Signs Date Time Temp Pulse Resp B/P (MAP) Pulse Ox O2 Delivery O2 Flow Rate FiO2 02/07/18 05:00 87 32 122/64 (83) 99 Room Air 02/07/18 04:00 84 28 125/67 (86) 99 Room Air 02/07/18 04:00 100 Room Air 02/07/18 03:00 84 30 125/73 (90) 99 Room Air 02/07/18 02:00 81 20 125/73 (90) 99 Room Air 02/07/18 01:00 81 13 125/71 (89) 99 Room Air 02/07/18 01:00 81 02/07/18 00:00 100 Room Air 02/07/18 00:00 80 17 108/81 (90) 100 Room Air 02/06/18 23:00 82 37 120/70 (87) 100 Room Air 02/06/18 22:00 79 25 123/72 (89) 100 Room Air 02/06/18 21:00 78 18 100/77 (85) 100 Room Air 02/06/18 20:00 100 Room Air 02/06/18 20:00 96.0 74 13 111/63 (79) 100 Room Air 02/06/18 19:00 75 02/06/18 19:00 75 15 104/56 (72) 99 Room Air 02/06/18 18:02 71 18 110/62 (78) 99 Room Air 02/06/18 16:56 96.8 02/06/18 16:47 68 18 99/56 (70) 96 Room Air 02/06/18 16:30 70 18 90/61 (71) 99 Room Air 02/06/18 16:17 74 16 110/61 (77) 99 Room Air 02/06/18 16:00 95.2 02/06/18 16:00 71 18 106/55 (72) 98 Room Air 02/06/18 16:00 100 Room Air 02/06/18 15:48 68 18 95/52 (66) 98 Room Air 02/06/18 15:31 73 16 108/48 (68) 98 Room Air 02/06/18 15:16 71 20 111/71 (84) 99 Room Air 02/06/18 15:04 74 22 116/91 (99) 97 Room Air 02/06/18 14:50 74 20 99/58 (72) 97 Room Air 02/06/18 13:00 66 02/06/18 12:55 100 Room Air 02/06/18 12:00 100 Room Air 02/06/18 12:00 96.9 02/06/18 08:00 100 Room Air 02/06/18 07:00 73 02/06/18 07:00 100 Room Air 02/06/18 07:00 96.8 70 8 111/72 (85) 100 Room Air 02/06/18 06:39 56 100 21 I & O 02/07/18 07:00 Intake Total 3320 ml Output Total 2550 ml Balance 770 ml General Appearance: Mild Distress HEENT: PERRL/EOMI, Normal ENT Inspection, Pharynx Normal Neck: Normal Inspection, Non Tender, Supple Respiratory: No Accessory Muscle Use, No Respiratory Distress, Decreased Breath Sounds Cardiovascular: Regular Rate, Rhythm, No Edema, No Gallop, No JVD, No Murmur, Normal Peripheral Pulses Capillary Refill: Less Than 3 Seconds Peripheral Pulses: 1+ Dorsalis Pedis (R), 1+ Left Dors-Pedis (L), 2+ Radial Pulses (R), 2+ Radial Pulses (L) Gastrointestinal: normal bowel sounds, distended (mildly), No tenderness, other (colostomy left lower quadrant with soft brown stool; suprapubic catheter with cloudy urine) Extremity: Normal Capillary Refill, Normal Inspection Neurologic/Psychiatric: Depressed Affect Skin: Normal Color, Warm/Dry Lymphatic: No Adenopathy Results Lab Laboratory Tests 02/06/18 02:11 02/06/18 07:55 02/07/18 03:10 Assessment/Plan Assessment/Plan UTI with severe sepsis -Continue toby soto await cultures -D/C solucortef Severe thrombocytopenia acute on chronic -Check DIC panel -s/p platlet transfusion x 1 -repeat CBC Metabolic acidosis -IVF and monitor Quadriplegia hx Will sign off when pt transfers to 4th floor. 233 JOANNA MASSEY DO Feb 07, 2018 06:08
--- NOTE | 2018-02-07 07:52 | Diagnostic Imaging Report ---
PATIENT HISTORY: Followup, septic shock. TECHNIQUE: Single frontal view of the chest COMPARISON: 02/06/2018 FINDINGS: There is elevation of right hemidiaphragm resulting in low lung volume. This is stable since the prior study. The tip of the right Port-A-Cath is in stable position overlying the cavoatrial junction. There are bibasilar airspace opacities which appear stable, likely atelectasis. No new consolidation is seen. There is mild stable cardiomegaly. Cervical fusion hardware is noted. IMPRESSION: Mild bibasilar opacities, most likely atelectasis, stable since the prior study. No new consolidation seen. Dictated by: Dictated on workstation # [id number]
[2018-02-07] MEDS: RT-ALBUTEROL SULF 2.5 MG/3 ML PRE-MIX VIAL INH SCH ×3 (08:24→19:35)
[2018-02-07] MEDS: VANCOMYCIN INJECTION 1,250 MG in NS (IVPB) 250 ML IV SCH ×2 (08:44→22:21)
[2018-02-07] MEDS: PANTOPRAZOLE 40 MG/10 ML (PROTONIX) VIAL IV SCH (08:44)
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
--- NOTE | 2018-02-07 11:03 | Progress Note (SOAP) ---
Subjective Subjective/Events-last exam Much improved, interacting and answering questions meaningfully. Weaned off of norepinephrine, hydrocortisone discontinued. Review of Systems Date Seen by Provider: Feb 07, 2018 Time Seen by Provider: 10:15 Focused Exam Evaluation Lactate Level Laboratory Tests 02/06/18 02:11: Lactic Acid Level 1.13 Objective Exam Last Set of Vital Signs Vital Signs Date Time Temp Pulse Resp B/P (MAP) Pulse Ox O2 Delivery O2 Flow Rate FiO2 02/07/18 09:00 83 26 103/60 (74) 99 Room Air 02/07/18 08:30 97.7 02/06/18 06:39 21 Capillary Refill : Less Than 3 Seconds I&O Intake and Output 02/07/18 00:00 Intake Total 3920 ml Output Total 2450 ml Balance 1470 ml Intake Oral 0 ml IV Total 3920 ml Output Urine Total 2200 ml Stool Total 250 ml General: Alert, No Acute Distress Lungs: Clear to Auscultation, Normal Air Movement Heart: Regular Rate, No Murmurs Abdomen: Normal Bowel Sounds Extremities: Other (feet in heel protectors, 3+ pitting edema on dorsum of feet ) Neuro: Normal Speech, Other (oriented to self, unclear if remainder of questions are unable to answer due to language barrier or continued confusion) Psych/Mental Status: Mood NL Results/Procedures Lab Laboratory Tests 02/06/18 11:15: Glucometer 89 02/06/18 12:07: Lab Scanned Report Transfusion Reaction Form 02/06/18 15:18: Glucometer 97 02/07/18 03:10: White Blood Count 9.8, Red Blood Count 2.47L, Hemoglobin 8.5L, Hematocrit 26L, Mean Corpuscular Volume 106H, Mean Corpuscular Hemoglobin 34, Mean Corpuscular Hemoglobin Concent 33, Red Cell Distribution Width 19.3H, Platelet Count 26*L, Mean Platelet Volume , Neutrophils (%) (Auto) 88H, Lymphocytes (%) (Auto) 9L, Monocytes (%) (Auto) 3, Eosinophils (%) (Auto) 0, Basophils (%) (Auto) 0, Neutrophils # (Auto) 8.7H, Lymphocytes # (Auto) 0.8L, Monocytes # (Auto) 0.3, Eosinophils # (Auto) 0.0, Basophils # (Auto) 0.0, Sodium Level 147H, Potassium Level 3.8, Chloride Level 118H, Carbon Dioxide Level 21, Anion Gap 8, Blood Urea Nitrogen 18, Creatinine 0.79, Estimat Glomerular Filtration Rate > 60, BUN/ Creatinine Ratio 23, Glucose Level 79, Calcium Level 8.5, Phosphorus Level 3.4, Magnesium Level 1.5L, Total Bilirubin 0.5, Aspartate Amino Transf (AST/SGOT) 56H , Alanine Aminotransferase (ALT/SGPT) 23, Alkaline Phosphatase 103, Total Protein 5.1L, Albumin 2.1L Microbiology 02/06/18 Urine Culture - Preliminary, Resulted Presumptive Donna Albicans Enterococcus species Yeast species Radiology CXR 02/06: IMPRESSION: 1. No acute cardiopulmonary process. CTAP 02/06 IMPRESSION: 1. Bilateral nephrolithiasis, bilateral renal pelvic calculi and the proximal left ureteral stone calculus dimensions above. There was however no hydronephrosis and no perinephric edema. 2. Suprapubic catheter and retention balloon inflated within the lumen of the decompressed urinary bladder with bladder wall thickening which may be chronic or reflect cystitis. 3. Edematous thickening of the valenzuela of the distal small bowel, cecum and a sending colon through the hepatic flexure consistent with nonspecific enterocolitis. 4. Cholelithiasis without bile duct dilatation. Given the abdominal pelvic free fluid volume extending into the pericholecystic space. The gallbladder wall cannot be adequately evaluated. If cholecystitis is clinically suspected, gallbladder ultrasound may be of further utility. CT head 02/06: IMPRESSION: Stable premature atrophy with no edema, hemorrhage or acute appearing pathology. No change from prior. Assessment/Plan Assessment/Plan (1) Septic shock Status: Resolved Assessment & Plan: Hypothermic, hypotensive on admission, blood pressure did not improve enough with fluid bolus, requiring Levophed. Dr. Harris consulted, appreciate recommendations. Hydrocortisone started. Suspect septic shock secondary to UTI versus entercolitis, see below. 02/07- resolved, off pressors and steroids (2) Metabolic acidosis Status: Resolved Assessment & Plan: Nonanion gap. IVF and monitor. Possibly secondary to loose stools with colitis, poor oral intake. (3) Delirium Status: Acute Assessment & Plan: Secondary to sepsis, minimize lines, reorient as needed. CT head with no acute changes. 02/07 improved, unclear baseline, continue to monitor closely (4) Colitis, enteritis, and gastroenteritis of presumed infectiousorigin Status: Acute Assessment & Plan: CT abdomen with thickening of distal small bowel to hepatic flexure. Zosyn started in ER, continue. (5) Thrombocytopenia Status: Acute Assessment & Plan: Acute, but has had in past as well. Check for DIC, consider ITP given recurrence. No current active bleeding, monitor closely. 02/07 improving, still quite low, monitor closely (6) Adrenal insufficiency Status: Resolved Assessment & Plan: Relative to septic shock, started hydrocortisone. (7) NEUROGENIC BLADDER WITH RETENTION Status: Chronic Assessment & Plan: s/p suprapubic catheter placement last week, monitor UOP. (8) UTI (urinary tract infection) Status: Acute Assessment & Plan: Zosyn and vancomycin, cultures pending. 02/07 prelim with donna, enterococcus. Donna likely colonization given marked improvement with no anti-fungal treatment. Qualifiers: Qualified Codes: N30.01 - Acute cystitis with hematuria (9) Ureteral calculi Status: Acute Assessment & Plan: No hydronephrosis. Dr. Tinsley consulted, appreciate recommendations. (10) Bilateral nephrolithiasis Status: Acute (11) Cholelithiases Status: Acute Assessment & Plan: No clear evidence of cholecystitis or bile duct blockage, monitor labs. Qualifiers: Qualified Codes: K80.20 - Calculus of gallbladder without cholecystitis without obstruction (12) Quadriplegia, post-traumatic Status: Chronic Assessment & Plan: Turn and reposition frequently, heel protectors in place, make sure call button is useable without arms (13) Sacral decubitus ulcer Status: Chronic Assessment & Plan: Sees wound care outpatient, consulted. Wet to dry dressings ordered. (14) Hypernatremia Status: Acute Assessment & Plan: Suspect inadequate free water intake given his poor intake recently, improved status today, expect improvement with improved oral intake (15) Hypomagnesemia Status: Acute Assessment & Plan: Replace and recheck (16) Language barrier Status: Chronic Assessment & Plan: Difficult to determine his wishes for aggressive treatment given delirium and language barrier. Nursing will try to contact daughter first and proceed from there. 02/07 clinical status improved, will need to continue discussion with patient and family for future (17) DVT prophylaxis Status: Acute Assessment & Plan: SCDs, no enoxaparin due to severe thrombocytopenia Clinical Quality Measures DVT/VTE Risk/Contraindication: Risk Factor Score Per Nursin RFS Level Per Nursing on Admit: 1=Low/No VTE PPX Stroke: Symptoms onset unknown: Yes IRMA MENDOZA MD Feb 07, 2018 11:02 am
--- NOTE | 2018-02-07 15:45 | Diagnostic Imaging Report ---
INDICATION: Bilateral renal and left proximal ureteral calculi. TIME OF EXAM: 3:41 p.m. COMPARISON: Correlation is made with CT study from one day earlier. FINDINGS: Bilateral renal pelvic calculi are again noted. The tiny calculus in the proximal left ureter is not well seen on this exam. No definite calculi along the course of the ureters is identified. Patient does have a left lower quadrant ostomy. Bowel gas pattern is unremarkable. Midline sun are identified overlying the pelvis. IMPRESSION: Bilateral renal pelvic calculi, similar to examination one day earlier. Dictated by: Dictated on workstation # [id number]
[2018-02-07] MEDS ORDERED: TROUGH ORDER-PHARMACY XX SCH (18:00)
[2018-02-07] MEDS ORDERED: VANCOMYCIN 500 MG/VIAL IV ONE (22:02)
[2018-02-07] MEDS ORDERED: VANCOMYCIN 750 MG/VIAL IV ONE (22:02)
[2018-02-07] MEDS ORDERED: NS (IVPB) 250 ML ONE (22:05)
[2018-02-08] VITALS (7 sets, daily range): BP systolic 114–164; BP diastolic 58–74
[2018-02-08] MEDS: inSUlin ASPART (NovoLOG) 1 UNIT/0.01 ML (CHARGE PER UNIT) SC SCH ×4 (06:02→20:58)
[2018-02-08] MEDS: PIPERACILLIN SODIUM/TAZOBACTAM 4.5 GM in NS (IVPB) 100 ML IV SCH ×3 (06:14→20:59)
[2018-02-08] MEDS: D5 NS 1000 ML IV SOLUTION 1,000 ML IV SCH ×2 (06:15→16:32)
[2018-02-08] MEDS ORDERED: TROUGH ORDER-PHARMACY XX SCH (07:30)
[2018-02-08 07:50] LABS: BASOPHILS % (AUTO) 0 % (0-10); EOSINOPHILS # (AUTO) 0.1 10^3/uL (0.0-0.3); EOSINOPHILS % (AUTO) 2 % (0-10); HEMATOCRIT 25 % (40-54); HEMOGLOBIN 7.9 G/DL (13.3-17.7); LYMPHOCYTES # (AUTO) 1.2 X 10^3 (1.0-4.0); LYMPHOCYTES % (AUTO) 20 % (12-44); MEAN CORPUSCULAR HEMOGLOBIN 34 PG (25-34); MEAN CORPUSCULAR HGB CONC 32 G/DL (32-36); MEAN CORPUSCULAR VOLUME 108 FL (80-99); MONOCYTES # (AUTO) 0.5 X 10^3 (0.0-1.0); MONOCYTES % (AUTO) 9 % (0-12); NEUTROPHILS % (AUTO) 69 % (42-75); RED CELL DISTRIBUTION WIDTH 21.2 % (10.0-14.5); WHITE BLOOD COUNT 5.8 10^3/uL (4.3-11.0)
[2018-02-08] MEDS: RT-ALBUTEROL SULF 2.5 MG/3 ML PRE-MIX VIAL INH SCH ×3 (07:50→19:34)
[2018-02-08 07:58] LABS: PLATELET COUNT 38 10^3/uL (130-400)
--- NOTE | 2018-02-08 08:05 | Progress Note (SOAP) ---
Subjective Subjective/Events-last exam Patient lying in bed with eyes open and is interacting. Review of Systems Date Seen by Provider: Feb 08, 2018 Time Seen by Provider: 07:35 Focused Exam Evaluation Lactate Level Laboratory Tests 02/06/18 02:11: Lactic Acid Level 1.13 Objective Exam Last Set of Vital Signs Vital Signs Date Time Temp Pulse Resp B/P (MAP) Pulse Ox O2 Delivery O2 Flow Rate FiO2 02/08/18 07:50 93 Room Air 02/08/18 04:39 97.7 02/08/18 04:00 77 16 114/65 (81) 02/06/18 06:39 21 Capillary Refill : Less Than 3 Seconds I&O Intake and Output 02/08/18 00:00 Intake Total 320 ml Output Total 1675 ml Balance -1355 ml Intake Oral 70 ml IV Total 250 ml Output Urine Total 825 ml Stool Total 850 ml General: No Acute Distress Neck: Supple Lungs: Clear to Auscultation Heart: Regular Rate Abdomen: Soft Skin: No Rashes Results/Procedures Lab Laboratory Tests 02/07/18 11:17: Glucometer 74 02/07/18 12:25: Glucometer 77 02/07/18 16:32: Glucometer 70 02/07/18 18:32: Vancomycin Level Trough 23.3H 02/07/18 21:57: Glucometer 78 02/08/18 05:39: Glucometer 60*L 02/08/18 06:41: Glucometer 67L 02/08/18 07:03: Glucometer 84 02/08/18 07:30: 02/08/18 07:40: White Blood Count 5.8, Red Blood Count 2.30L, Hemoglobin 7.9L, Hematocrit 25L, Mean Corpuscular Volume 108H, Mean Corpuscular Hemoglobin 34, Mean Corpuscular Hemoglobin Concent 32, Red Cell Distribution Width 21.2H, Platelet Count 38*L, Mean Platelet Volume , Neutrophils (%) (Auto) 69, Lymphocytes (%) (Auto) 20, Monocytes (%) (Auto) 9, Eosinophils (%) (Auto) 2, Basophils (%) (Auto) 0, Neutrophils # (Auto) 4.0, Lymphocytes # (Auto) 1.2, Monocytes # (Auto) 0.5, Eosinophils # (Auto) 0.1, Basophils # (Auto) 0.0 Microbiology 02/06/18 Blood Culture - Preliminary, Resulted No growth 02/06/18 MRSA Screen - Final, Complete MRSA not isolated 02/06/18 Urine Culture - Preliminary, Resulted Presumptive Donna Albicans Enterococcus species Yeast species Radiology CXR 02/06: IMPRESSION: 1. No acute cardiopulmonary process. CTAP 02/06 IMPRESSION: 1. Bilateral nephrolithiasis, bilateral renal pelvic calculi and the proximal left ureteral stone calculus dimensions above. There was however no hydronephrosis and no perinephric edema. 2. Suprapubic catheter and retention balloon inflated within the lumen of the decompressed urinary bladder with bladder wall thickening which may be chronic or reflect cystitis. 3. Edematous thickening of the valenzuela of the distal small bowel, cecum and a sending colon through the hepatic flexure consistent with nonspecific enterocolitis. 4. Cholelithiasis without bile duct dilatation. Given the abdominal pelvic free fluid volume extending into the pericholecystic space. The gallbladder wall cannot be adequately evaluated. If cholecystitis is clinically suspected, gallbladder ultrasound may be of further utility. CT head 02/06: IMPRESSION: Stable premature atrophy with no edema, hemorrhage or acute appearing pathology. No change from prior. Assessment/Plan Assessment/Plan Admission Status: Inpatient Order (span 2 midnights) Assessment & Plan (1) Septic shock Status: Resolved Assessment & Plan: Hypothermic, hypotensive on admission, blood pressure did not improve enough with fluid bolus, requiring Levophed. Dr. Harris consulted, appreciate recommendations. Hydrocortisone started. Suspect septic shock secondary to UTI versus entercolitis, see below. 02/07- resolved, off pressors and steroids 02/08 -he fluids continue at 100 mL per hour of D5 normal saline (2) Metabolic acidosis Status: Resolved Assessment & Plan: Nonanion gap. IVF and monitor. Possibly secondary to loose stools with colitis, poor oral intake. (3) Delirium Status: Acute Assessment & Plan: Secondary to sepsis, minimize lines, reorient as needed. CT head with no acute changes. 02/07 improved, unclear baseline, continue to monitor closely (4) Colitis, enteritis, and gastroenteritis of presumed infectiousorigin Status: Acute Assessment & Plan: CT abdomen with thickening of distal small bowel to hepatic flexure. Zosyn started in ER, continue. (5) Thrombocytopenia Status: Acute Assessment & Plan: Acute, but has had in past as well. Check for DIC, consider ITP given recurrence. No current active bleeding, monitor closely. 02/07 improving, still quite low, monitor closely 02/08 -the count has improved to 38K (6) Adrenal insufficiency Status: Resolved Assessment & Plan: Relative to septic shock, started hydrocortisone. (7) NEUROGENIC BLADDER WITH RETENTION Status: Chronic Assessment & Plan: s/p suprapubic catheter placement last week, monitor UOP. (8) UTI (urinary tract infection) Status: Acute Assessment & Plan: Zosyn and vancomycin, cultures pending. 02/07 prelim with donna, enterococcus. Donna likely colonization given marked improvement with no anti-fungal treatment. Qualifiers: Qualified Codes: N30.01 - Acute cystitis with hematuria 02/08 urine culture is pending -Continue with Zosyn and vancomycin (9) Ureteral calculi Status: Acute Assessment & Plan: No hydronephrosis. Dr. Tinsley consulted, appreciate recommendations. (10) Bilateral nephrolithiasis Status: Acute (11) Cholelithiases Status: Acute Assessment & Plan: No clear evidence of cholecystitis or bile duct blockage, monitor labs. Qualifiers: Qualified Codes: K80.20 - Calculus of gallbladder without cholecystitis without obstruction (12) Quadriplegia, post-traumatic Status: Chronic Assessment & Plan: Turn and reposition frequently, heel protectors in place, make sure call button is useable without arms (13) Sacral decubitus ulcer Status: Chronic Assessment & Plan: Sees wound care outpatient, consulted. Wet to dry dressings ordered. (14) Hypernatremia Status: Acute Assessment & Plan: Suspect inadequate free water intake given his poor intake recently, improved status today, expect improvement with improved oral intake (15) Hypomagnesemia Status: Acute Assessment & Plan: Replace and recheck (16) Language barrier Status: Chronic Assessment & Plan: Difficult to determine his wishes for aggressive treatment given delirium and language barrier. Nursing will try to contact daughter first and proceed from there. 02/07 clinical status improved, will need to continue discussion with patient and family for future (17) DVT prophylaxis Status: Acute Assessment & Plan: SCDs, no enoxaparin due to severe thrombocytopenia Clinical Quality Measures DVT/VTE Risk/Contraindication: Risk Factor Score Per Nursin RFS Level Per Nursing on Admit: 1=Low/No VTE PPX Stroke: Symptoms onset unknown: Yes ABHIJIT BOBO MD 31, 2018 08:05
[2018-02-08] MEDS: PANTOPRAZOLE 40 MG/10 ML (PROTONIX) VIAL IV SCH (09:26)
[2018-02-08 09:50] LABS: ALANINE AMINOTRANSFERASE 25 U/L (0-55); ALBUMIN 2.1 GM/DL (3.2-4.5); ALKALINE PHOSPHATASE 116 U/L (40-136); BILIRUBIN,TOTAL 0.6 MG/DL (0.1-1.0); BUN/CREATININE RATIO 23; CALCIUM 8.1 MG/DL (8.5-10.1); CARBON DIOXIDE 25 MMOL/L (21-32); CHLORIDE 119 MMOL/L (98-107); CREATININE SERUM 0.77 MG/DL (0.60-1.30); GFR ESTIMATED > 60; GLUCOSE 74 MG/DL (70-105); MAGNESIUM 1.5 MG/DL (1.8-2.4); SODIUM 148 MMOL/L (135-145); TOTAL PROTEIN 4.5 GM/DL (6.4-8.2)
--- NOTE | 2018-02-08 11:40 | Progress Note-Urology ---
Progress Note-Urology Progress Notes/Assess & Plan Progress/Assessment & Plan KUB STABLE. CREATININE NORMAL DEMARCUS MARK MD Feb 08, 2018 11:40 am
[2018-02-08] MEDS ORDERED: FUROSEMIDE 40 MG/4 ML INJ (LASIX) IVP ONE (15:00)
[2018-02-08] MEDS ORDERED: VANCOMYCIN 1 GM/NS 250 ML IVPB IV SCH ×2 (22:00)
[2018-02-08] MEDS ORDERED: TROUGH ORDER-PHARMACY XX NR (22:00)
[2018-02-09] MEDS: VANCOMYCIN 1 GM/NS 250 ML IVPB IV SCH ×4 (00:24→12:38)
[2018-02-09] MEDS: D5 NS 1000 ML IV SOLUTION 1,000 ML IV SCH (02:43)
[2018-02-09 04:00] VITALS: BP 161/72
[2018-02-09] MEDS: inSUlin ASPART (NovoLOG) 1 UNIT/0.01 ML (CHARGE PER UNIT) SC SCH ×4 (05:33→20:44)
[2018-02-09] MEDS: PIPERACILLIN SODIUM/TAZOBACTAM 4.5 GM in NS (IVPB) 100 ML IV SCH ×3 (05:45→21:00)
[2018-02-09 05:59] LABS: BASOPHILS % (AUTO) 0 % (0-10); EOSINOPHILS # (AUTO) 0.1 10^3/uL (0.0-0.3); EOSINOPHILS % (AUTO) 2 % (0-10); HEMATOCRIT 26 % (40-54); HEMOGLOBIN 8.3 G/DL (13.3-17.7); LYMPHOCYTES # (AUTO) 1.3 X 10^3 (1.0-4.0); LYMPHOCYTES % (AUTO) 22 % (12-44); MEAN CORPUSCULAR HEMOGLOBIN 35 PG (25-34); MEAN CORPUSCULAR HGB CONC 33 G/DL (32-36); MEAN CORPUSCULAR VOLUME 106 FL (80-99); MONOCYTES # (AUTO) 0.7 X 10^3 (0.0-1.0); MONOCYTES % (AUTO) 12 % (0-12); NEUTROPHILS # (AUTO) 3.9 X 10^3 (1.8-7.8); NEUTROPHILS % (AUTO) 64 % (42-75); RED CELL DISTRIBUTION WIDTH 19.6 % (10.0-14.5); WHITE BLOOD COUNT 6.1 10^3/uL (4.3-11.0)
[2018-02-09 06:05] LABS: PLATELET COUNT 35 10^3/uL (130-400)
[2018-02-09 06:24] LABS: ALANINE AMINOTRANSFERASE 22 U/L (0-55); ALBUMIN 2.2 GM/DL (3.2-4.5); ALKALINE PHOSPHATASE 122 U/L (40-136); BILIRUBIN,TOTAL 0.6 MG/DL (0.1-1.0); BUN/CREATININE RATIO 16; CALCIUM 8.1 MG/DL (8.5-10.1); CARBON DIOXIDE 26 MMOL/L (21-32); CHLORIDE 117 MMOL/L (98-107); CREATININE SERUM 0.83 MG/DL (0.60-1.30); GFR ESTIMATED > 60; GLUCOSE 97 MG/DL (70-105); MAGNESIUM 1.2 MG/DL (1.8-2.4); PHOSPHORUS 2.3 MG/DL (2.3-4.7); POTASSIUM 2.7 MMOL/L (3.6-5.0); SODIUM 152 MMOL/L (135-145); TOTAL PROTEIN 5.2 GM/DL (6.4-8.2)
[2018-02-09] MEDS: RT-ALBUTEROL SULF 2.5 MG/3 ML PRE-MIX VIAL INH SCH ×3 (06:48→21:53)
[2018-02-09 07:33] VITALS: BP 116/57
[2018-02-09] MEDS: PANTOPRAZOLE 40 MG/10 ML (PROTONIX) VIAL IV SCH (08:26)
--- NOTE | 2018-02-09 09:10 | Progress Note (SOAP) ---
Subjective Subjective/Events-last exam Patient had fairly significant diuretic effect yesterday with 40 mg of Lasix. He is doing a little bit better but still has swelling of the hands. He does smile and does not appear to be in any distress this morning. Review of Systems Date Seen by Provider: Feb 09, 2018 Time Seen by Provider: 07:20 Objective Exam Last Set of Vital Signs Vital Signs Date Time Temp Pulse Resp B/P (MAP) Pulse Ox O2 Delivery O2 Flow Rate FiO2 02/09/18 07:33 97.6 94 16 116/57 (76) 98 Room Air 02/06/18 06:39 21 Capillary Refill : Less Than 3 Seconds I&O Intake and Output 02/09/18 00:00 Intake Total 2010 ml Output Total 5445 ml Balance -3435 ml Intake Oral 210 ml IV Total 1800 ml Output Urine Total 5120 ml Stool Total 325 ml General: No Acute Distress Lungs: Clear to Auscultation Heart: Regular Rate Abdomen: Soft Skin: Other (Edema of the hands noted) Results/Procedures Lab Laboratory Tests 02/08/18 09:20: Sodium Level 148H, Potassium Level 3.0L, Chloride Level 119H, Carbon Dioxide Level 25, Anion Gap 4L, Blood Urea Nitrogen 18, Creatinine 0.77, Estimat Glomerular Filtration Rate > 60, BUN/Creatinine Ratio 23, Glucose Level 74, Calcium Level 8.1L, Phosphorus Level 2.0L, Magnesium Level 1.5L, Total Bilirubin 0.6, Aspartate Amino Transf (AST/SGOT) 54H, Alanine Aminotransferase ( ALT/SGPT) 25, Alkaline Phosphatase 116, Total Protein 4.5L, Albumin 2.1L, Vancomycin Level Trough 26.7*H 02/08/18 11:22: Glucometer 82 02/08/18 16:26: Glucometer 91 02/08/18 20:09: Glucometer 90 02/08/18 22:15: Vancomycin Level Trough 19.3 02/09/18 05:24: Glucometer 112H 02/09/18 05:50: White Blood Count 6.1, Red Blood Count 2.40L, Hemoglobin 8.3L, Hematocrit 26L, Mean Corpuscular Volume 106H, Mean Corpuscular Hemoglobin 35H, Mean Corpuscular Hemoglobin Concent 33, Red Cell Distribution Width 19.6H, Platelet Count 35*L, Mean Platelet Volume 12.0H, Neutrophils (%) (Auto) 64, Lymphocytes (%) (Auto) 22 , Monocytes (%) (Auto) 12, Eosinophils (%) (Auto) 2, Basophils (%) (Auto) 0, Neutrophils # (Auto) 3.9, Lymphocytes # (Auto) 1.3, Monocytes # (Auto) 0.7, Eosinophils # (Auto) 0.1, Basophils # (Auto) 0.0, Sodium Level 152H, Potassium Level 2.7L, Chloride Level 117H, Carbon Dioxide Level 26, Anion Gap 9, Blood Urea Nitrogen 13, Creatinine 0.83, Estimat Glomerular Filtration Rate > 60, BUN/ Creatinine Ratio 16, Glucose Level 97, Calcium Level 8.1L, Phosphorus Level 2.3 , Magnesium Level 1.2L, Total Bilirubin 0.6, Aspartate Amino Transf (AST/SGOT) 51H, Alanine Aminotransferase (ALT/SGPT) 22, Alkaline Phosphatase 122, Total Protein 5.2L, Albumin 2.2L Microbiology 02/06/18 Blood Culture - Preliminary, Resulted No growth 02/06/18 MRSA Screen - Final, Complete MRSA not isolated 02/06/18 Urine Culture - Final, Complete Presumptive Donna Albicans Enterococcus faecium Yeast species Radiology CXR 02/06: IMPRESSION: 1. No acute cardiopulmonary process. CTAP 02/06 IMPRESSION: 1. Bilateral nephrolithiasis, bilateral renal pelvic calculi and the proximal left ureteral stone calculus dimensions above. There was however no hydronephrosis and no perinephric edema. 2. Suprapubic catheter and retention balloon inflated within the lumen of the decompressed urinary bladder with bladder wall thickening which may be chronic or reflect cystitis. 3. Edematous thickening of the valenzuela of the distal small bowel, cecum and a sending colon through the hepatic flexure consistent with nonspecific enterocolitis. 4. Cholelithiasis without bile duct dilatation. Given the abdominal pelvic free fluid volume extending into the pericholecystic space. The gallbladder wall cannot be adequately evaluated. If cholecystitis is clinically suspected, gallbladder ultrasound may be of further utility. CT head 02/06: IMPRESSION: Stable premature atrophy with no edema, hemorrhage or acute appearing pathology. No change from prior. Assessment/Plan Assessment/Plan Assessment & Plan (1) Septic shock Status: Resolved Assessment & Plan: Hypothermic, hypotensive on admission, blood pressure did not improve enough with fluid bolus, requiring Levophed. Dr. Harris consulted, appreciate recommendations. Hydrocortisone started. Suspect septic shock secondary to UTI versus entercolitis, see below. 02/07- resolved, off pressors and steroids 02/08 -he fluids continue at 100 mL per hour of D5 normal saline 02/09 -change fluids to D5 normal saline with 20 mEq of KCl -Recheck potassium in the a.m. (2) Metabolic acidosis Status: Resolved Assessment & Plan: Nonanion gap. IVF and monitor. Possibly secondary to loose stools with colitis, poor oral intake. (3) Delirium Status: Acute Assessment & Plan: Secondary to sepsis, minimize lines, reorient as needed. CT head with no acute changes. 02/07 improved, unclear baseline, continue to monitor closely (4) Colitis, enteritis, and gastroenteritis of presumed infectiousorigin Status: Acute Assessment & Plan: CT abdomen with thickening of distal small bowel to hepatic flexure. Zosyn started in ER, continue. (5) Thrombocytopenia Status: Acute Assessment & Plan: Acute, but has had in past as well. Check for DIC, consider ITP given recurrence. No current active bleeding, monitor closely. 02/07 improving, still quite low, monitor closely 02/08 -the count has improved to 38K 02/09 -count is at 35K (6) Adrenal insufficiency Status: Resolved Assessment & Plan: Relative to septic shock, started hydrocortisone. (7) NEUROGENIC BLADDER WITH RETENTION Status: Chronic Assessment & Plan: s/p suprapubic catheter placement last week, monitor UOP. (8) UTI (urinary tract infection) Status: Acute Assessment & Plan: Zosyn and vancomycin, cultures pending. 02/07 prelim with donna, enterococcus. Donna likely colonization given marked improvement with no anti-fungal treatment. Qualifiers: Qualified Codes: N30.01 - Acute cystitis with hematuria 02/08 urine culture is pending -Continue with Zosyn and vancomycin 02/09 urine culture reveals enterococcus and candidiasis -Candidiasis may be contamination and there was no antifungals added on (9) Ureteral calculi Status: Acute Assessment & Plan: No hydronephrosis. Dr. Tinsley consulted, appreciate recommendations. (10) Bilateral nephrolithiasis Status: Acute (11) Cholelithiases Status: Acute Assessment & Plan: No clear evidence of cholecystitis or bile duct blockage, monitor labs. Qualifiers: Qualified Codes: K80.20 - Calculus of gallbladder without cholecystitis without obstruction (12) Quadriplegia, post-traumatic Status: Chronic Assessment & Plan: Turn and reposition frequently, heel protectors in place, make sure call button is useable without arms (13) Sacral decubitus ulcer Status: Chronic Assessment & Plan: Sees wound care outpatient, consulted. Wet to dry dressings ordered. (14) Hypernatremia Status: Acute Assessment & Plan: Suspect inadequate free water intake given his poor intake recently, improved status today, expect improvement with improved oral intake (15) Hypomagnesemia Status: Acute Assessment & Plan: Replace and recheck (16) Language barrier Status: Chronic Assessment & Plan: Difficult to determine his wishes for aggressive treatment given delirium and language barrier. Nursing will try to contact daughter first and proceed from there. 02/07 clinical status improved, will need to continue discussion with patient and family for future (17) DVT prophylaxis Status: Acute Assessment & Plan: SCDs, no enoxaparin due to severe thrombocytopenia Clinical Quality Measures DVT/VTE Risk/Contraindication: Risk Factor Score Per Nursin RFS Level Per Nursing on Admit: 1=Low/No VTE PPX Stroke: Symptoms onset unknown: Yes ABHIJIT BOBO MD Feb 09, 2018 09:10
[2018-02-09] MEDS ORDERED: FUROSEMIDE 40 MG/4 ML INJ (LASIX) IVP ONE (09:15)
[2018-02-09] MEDS ORDERED: POTASSIUM CHLORIDE INJ 20 MEQ in D5 NS 1000 ML IV SOLUTION 1,000 ML IV SCH (09:15)
[2018-02-09] MEDS: D5 NS W/KCL 20 MEQ/L 1,000 ML IV SCH ×2 (10:15→21:52)
[2018-02-09 12:00] VITALS: BP 140/66
[2018-02-09 16:00] VITALS: BP 144/67
[2018-02-09 20:18] VITALS: BP 156/72
[2018-02-10 00:12] VITALS: BP_SYST 149; BP_DIAS 67; BP_DIAS 97
[2018-02-10] MEDS: VANCOMYCIN 1 GM/NS 250 ML IVPB IV SCH ×2 (00:19)
[2018-02-10 04:13] VITALS: BP 153/70
[2018-02-10 05:22] LABS: BASOPHILS % (AUTO) 0 % (0-10); EOSINOPHILS # (AUTO) 0.2 10^3/uL (0.0-0.3); EOSINOPHILS % (AUTO) 2 % (0-10); HEMATOCRIT 25 % (40-54); HEMOGLOBIN 8.1 G/DL (13.3-17.7); LYMPHOCYTES # (AUTO) 1.8 X 10^3 (1.0-4.0); LYMPHOCYTES % (AUTO) 24 % (12-44); MEAN CORPUSCULAR HEMOGLOBIN 35 PG (25-34); MEAN CORPUSCULAR HGB CONC 33 G/DL (32-36); MEAN CORPUSCULAR VOLUME 107 FL (80-99); MEAN PLATELET VOLUME 12.8 FL (7.4-10.4); MONOCYTES # (AUTO) 0.9 X 10^3 (0.0-1.0); MONOCYTES % (AUTO) 13 % (0-12); NEUTROPHILS # (AUTO) 4.6 X 10^3 (1.8-7.8); NEUTROPHILS % (AUTO) 61 % (42-75); PLATELET COUNT 40 10^3/uL (130-400); RED BLOOD COUNT 2.32 10^6/uL (4.35-5.85); RED CELL DISTRIBUTION WIDTH 19.5 % (10.0-14.5); WHITE BLOOD COUNT 7.5 10^3/uL (4.3-11.0)
[2018-02-10] MEDS: PIPERACILLIN SODIUM/TAZOBACTAM 4.5 GM in NS (IVPB) 100 ML IV SCH ×3 (06:03→23:26)
[2018-02-10] MEDS: inSUlin ASPART (NovoLOG) 1 UNIT/0.01 ML (CHARGE PER UNIT) SC SCH ×4 (06:03→23:26)
[2018-02-10 06:18] LABS: ALANINE AMINOTRANSFERASE 21 U/L (0-55); ALBUMIN 2.2 GM/DL (3.2-4.5); ALKALINE PHOSPHATASE 108 U/L (40-136); BILIRUBIN,TOTAL 0.7 MG/DL (0.1-1.0); BUN/CREATININE RATIO 10; CALCIUM 7.9 MG/DL (8.5-10.1); CARBON DIOXIDE 29 MMOL/L (21-32); CHLORIDE 117 MMOL/L (98-107); CREATININE SERUM 0.84 MG/DL (0.60-1.30); GFR ESTIMATED > 60; GLUCOSE 117 MG/DL (70-105); MAGNESIUM 1.2 MG/DL (1.8-2.4); SODIUM 153 MMOL/L (135-145); TOTAL PROTEIN 5.1 GM/DL (6.4-8.2)
[2018-02-10 06:23] LABS: POTASSIUM 2.5 MMOL/L (3.6-5.0)
[2018-02-10] MEDS: RT-ALBUTEROL SULF 2.5 MG/3 ML PRE-MIX VIAL INH SCH ×3 (07:22→18:35)
[2018-02-10] MEDS: D5 NS W/KCL 20 MEQ/L 1,000 ML IV SCH (07:44)
[2018-02-10 08:30] VITALS: BP 144/65
--- NOTE | 2018-02-10 09:06 | Progress Note (SOAP) ---
Subjective Subjective/Events-last exam Pt awake and smiling, asking for water this morning. Review of Systems Date Seen by Provider: Feb 10, 2018 Time Seen by Provider: 08:30 Cardiovascular: No: Chest Pain Gastrointestinal: No: Nausea Objective Exam Last Set of Vital Signs Vital Signs Date Time Temp Pulse Resp B/P (MAP) Pulse Ox O2 Delivery O2 Flow Rate FiO2 02/10/18 07:23 95 Room Air 02/10/18 04:13 100.7 76 18 153/70 (97) 02/06/18 06:39 21 Capillary Refill : Less Than 3 Seconds I&O Intake and Output 02/10/18 00:00 Intake Total 3180 ml Output Total 4550 ml Balance -1370 ml Intake Oral 480 ml IV Total 2700 ml Output Urine Total 4300 ml Stool Total 250 ml General: Alert, Oriented X3, Cooperative, No Acute Distress Lungs: Clear to Auscultation, Normal Air Movement Heart: Regular Rate, Normal S1, Normal S2, No Murmurs, Gallops, Rubs Abdomen: Normal Bowel Sounds, Soft, No Tenderness, No Hepatosplenomegaly, No Masses Neuro: Other (flaccid paralysis) Results/Procedures Lab Laboratory Tests 02/09/18 11:23: Glucometer 125H 02/09/18 16:09: Glucometer 122H 02/09/18 20:22: Glucometer 117H 02/10/18 05:15: White Blood Count 7.5, Red Blood Count 2.32L, Hemoglobin 8.1L, Hematocrit 25L, Mean Corpuscular Volume 107H, Mean Corpuscular Hemoglobin 35H, Mean Corpuscular Hemoglobin Concent 33, Red Cell Distribution Width 19.5H, Platelet Count 40L, Mean Platelet Volume 12.8H, Neutrophils (%) (Auto) 61, Lymphocytes (%) (Auto) 24 , Monocytes (%) (Auto) 13H, Eosinophils (%) (Auto) 2, Basophils (%) (Auto) 0, Neutrophils # (Auto) 4.6, Lymphocytes # (Auto) 1.8, Monocytes # (Auto) 0.9, Eosinophils # (Auto) 0.2, Basophils # (Auto) 0.0, Sodium Level 153H, Potassium Level 2.5*L, Chloride Level 117H, Carbon Dioxide Level 29, Anion Gap 7, Blood Urea Nitrogen 8, Creatinine 0.84, Estimat Glomerular Filtration Rate > 60, BUN/ Creatinine Ratio 10, Glucose Level 117H, Calcium Level 7.9L, Phosphorus Level 2.0L, Magnesium Level 1.2L, Total Bilirubin 0.7, Aspartate Amino Transf (AST/ SGOT) 49H, Alanine Aminotransferase (ALT/SGPT) 21, Alkaline Phosphatase 108, Total Protein 5.1L, Albumin 2.2L 02/10/18 05:47: Glucometer 134H Microbiology 02/06/18 Blood Culture - Preliminary, Resulted No growth 02/06/18 MRSA Screen - Final, Complete MRSA not isolated 02/06/18 Urine Culture - Final, Complete Presumptive Donna Albicans Enterococcus faecium Yeast species Radiology CXR 02/06: IMPRESSION: 1. No acute cardiopulmonary process. CTAP 02/06 IMPRESSION: 1. Bilateral nephrolithiasis, bilateral renal pelvic calculi and the proximal left ureteral stone calculus dimensions above. There was however no hydronephrosis and no perinephric edema. 2. Suprapubic catheter and retention balloon inflated within the lumen of the decompressed urinary bladder with bladder wall thickening which may be chronic or reflect cystitis. 3. Edematous thickening of the valenzuela of the distal small bowel, cecum and a sending colon through the hepatic flexure consistent with nonspecific enterocolitis. 4. Cholelithiasis without bile duct dilatation. Given the abdominal pelvic free fluid volume extending into the pericholecystic space. The gallbladder wall cannot be adequately evaluated. If cholecystitis is clinically suspected, gallbladder ultrasound may be of further utility. CT head 02/06: IMPRESSION: Stable premature atrophy with no edema, hemorrhage or acute appearing pathology. No change from prior. Assessment/Plan Assessment/Plan Assessment & Plan (1) Septic shock Status: Resolved Assessment & Plan: Hypothermic, hypotensive on admission, blood pressure did not improve enough with fluid bolus, requiring Levophed. Dr. Harris consulted, appreciate recommendations. Hydrocortisone started. Suspect septic shock secondary to UTI versus entercolitis, see below. 02/07- resolved, off pressors and steroids 02/08 -he fluids continue at 100 mL per hour of D5 normal saline 02/09 -change fluids to D5 normal saline with 20 mEq of KCl -Recheck potassium in the a.m. --> 02/10 - RESOLVED (2) Metabolic acidosis Status: Resolved Assessment & Plan: Nonanion gap. IVF and monitor. Possibly secondary to loose stools with colitis, poor oral intake. --> 4/2 - RESOLVED (3) Delirium Status: Acute Assessment & Plan: Secondary to sepsis, minimize lines, reorient as needed. CT head with no acute changes. 02/07 improved, unclear baseline, continue to monitor closely --> - RESOLVED (4) Colitis, enteritis, and gastroenteritis of presumed infectiousorigin Status: Acute Assessment & Plan: CT abdomen with thickening of distal small bowel to hepatic flexure. Zosyn started in ER, continue. --> 4 - plan for 7 day course total (5) Thrombocytopenia Status: Acute Assessment & Plan: Acute, but has had in past as well. Check for DIC, consider ITP given recurrence. No current active bleeding, monitor closely. 02/07 improving, still quite low, monitor closely 02/08 -the count has improved to 38K 02/09 -count is at 35K 02/10 - slight improvement, no platelet transfusions unless <30K or we see spontaneous bleeding, reassuring that no gross hematuria at present (6) Adrenal insufficiency Status: Resolved Assessment & Plan: Relative to septic shock, started hydrocortisone. --> 02/10 - RESOLVED (7) NEUROGENIC BLADDER WITH RETENTION Status: Chronic Assessment & Plan: s/p suprapubic catheter placement last week, monitor UOP. 02/10 - tends to be the source of a lot of Colby's problems; we had hoped that the suprapubic placement would slow some of the infectious processes (8) UTI (urinary tract infection) Status: Acute Assessment & Plan: Zosyn and vancomycin, cultures pending. 02/07 prelim with donna, enterococcus. Donna likely colonization given marked improvement with no anti-fungal treatment. Qualifiers: Qualified Codes: N30.01 - Acute cystitis with hematuria 02/08 urine culture is pending -Continue with Zosyn and vancomycin 02/09 urine culture reveals enterococcus and candidiasis -Candidiasis may be contamination and there was no antifungals added on 02/10 - continue the zosyn and vanc as he has improved with those; suspect candidal colonization (9) Ureteral calculi Status: Acute Assessment & Plan: No hydronephrosis. Dr. Tinsley consulted, appreciate recommendations. 02/10 - likely chronic (10) Bilateral nephrolithiasis Status: Acute (11) Cholelithiases Status: Acute Assessment & Plan: No clear evidence of cholecystitis or bile duct blockage, monitor labs. Qualifiers: Qualified Codes: K80.20 - Calculus of gallbladder without cholecystitis without obstruction 4/2 - monitor, no acute issues at present (12) Quadriplegia, post-traumatic Status: Chronic Assessment & Plan: Turn and reposition frequently, heel protectors in place, make sure call button is useable without arms 4/2 - no new ulcers (13) Sacral decubitus ulcer Status: Chronic Assessment & Plan: Sees wound care outpatient, consulted. Wet to dry dressings ordered. 4/2 - continue current regimen (14) Hypernatremia Status: Acute Assessment & Plan: Suspect inadequate free water intake given his poor intake recently, improved status today, expect improvement with improved oral intake 02/10 - our biggest issue today as sodium is up to 153, K at 2.5; will switch to D51/2NS +40KCl, recheck BMP at 3pm (after 5h of new fluids); will also replace KCl PO with 20meq q4h x 4. (15) Hypomagnesemia Status: Acute Assessment & Plan: Replace and recheck 02/10 - improved (16) Language barrier Status: Chronic Assessment & Plan: Difficult to determine his wishes for aggressive treatment given delirium and language barrier. Nursing will try to contact daughter first and proceed from there. 02/07 clinical status improved, will need to continue discussion with patient and family for future 02/10 - agree. family must be made aware of the repetitive hospitalizations and discuss code status with Colby and family as well as quality of life. He is certainly a very upbeat and appreciative patient, and it would appear that he does not mind these aggressive measures. however, we have not yet been able to have more in-depth discussions with Colby as to his wishes. (17) DVT prophylaxis Status: Acute Assessment & Plan: SCDs, no enoxaparin due to severe thrombocytopenia 42 - no changes as yet. (1) Septic shock Status: Resolved (2) Metabolic acidosis Status: Resolved (3) Delirium Status: Acute (4) Colitis, enteritis, and gastroenteritis of presumed infectiousorigin Status: Acute (5) Thrombocytopenia Status: Acute (6) Adrenal insufficiency Status: Resolved (7) NEUROGENIC BLADDER WITH RETENTION Status: Chronic (8) UTI (urinary tract infection) Status: Acute Qualifiers: Qualified Codes: N30.01 - Acute cystitis with hematuria (9) Ureteral calculi Status: Acute (10) Bilateral nephrolithiasis Status: Acute (11) Cholelithiases Status: Acute Qualifiers: Qualified Codes: K80.20 - Calculus of gallbladder without cholecystitis without obstruction (12) Quadriplegia, post-traumatic Status: Chronic (13) Sacral decubitus ulcer Status: Chronic (14) Hypernatremia Status: Acute (15) Hypomagnesemia Status: Acute (16) Language barrier Status: Chronic (17) DVT prophylaxis Status: Acute Clinical Quality Measures DVT/VTE Risk/Contraindication: Risk Factor Score Per Nursin RFS Level Per Nursing on Admit: 1=Low/No VTE PPX Stroke: Symptoms onset unknown: Yes LIZA OLSON MD Feb 10, 2018 9:06 am
[2018-02-10] MEDS ORDERED: NON-FORMULARY MEDICATION 1 EA EA (Tizanidine HCl 6 MG) PO PRN (09:30)
[2018-02-10] MEDS ORDERED: HYDROCORTISONE 1% CREAM 30 GM TUBE TP PRN (09:30)
[2018-02-10] MEDS ORDERED: [UNRECOGNIZED DRUG - OTHER] OU PRN (09:30)
[2018-02-10] MEDS ORDERED: NON-FORMULARY MEDICATION 1 EA EA (Baclofen 20 MG) PO SCH (09:30)
[2018-02-10] MEDS ORDERED: HYDROcodone/APAP 5 MG/325 MG (LORTAB) TAB PO PRN (09:30)
[2018-02-10] MEDS ORDERED: DEXTRAN OU PRN (09:30)
[2018-02-10] MEDS ORDERED: ARTIFICAL TEARS 0.4 ML UNIT DOSE (REFRESH PLUS) OU PRN (09:45)
--- NOTE | 2018-02-10 09:45 | Progress Note-Urology ---
Progress Note-Urology Progress Notes/Assess & Plan Progress/Assessment & Plan WE WILL DC LYUDMILA AND SILK SUTURE AROUND SP TUBE Final Diagnosis NEUROGENIC BLADDER WITH RETENTION, SEPSIS, AND UROLITHIASES DEMARCUS MARK MD Feb 10, 2018 9:45 am
[2018-02-10] MEDS: PANTOPRAZOLE 40 MG/10 ML (PROTONIX) VIAL IV SCH (10:06)
[2018-02-10] MEDS ORDERED: TROUGH ORDER-PHARMACY XX NR (11:45)
[2018-02-10] MEDS: D5 1/2 NS W/KCL 40 MEQ/L 1,000 ML IV SCH ×3 (11:49→22:30)
[2018-02-10 12:30] VITALS: BP 148/67
[2018-02-10] MEDS ORDERED: NON-FORMULARY MEDICATION 1 EA EA (Ascorbate Calcium (Vitamin C) 500 MG) PO SCH (13:00)
[2018-02-10] MEDS ORDERED: NON-FORMULARY MEDICATION 1 EA EA (Ferrous Sulfate 325 MG) PO SCH (13:00)
[2018-02-10] MEDS ORDERED: DANTROLENE SODIUM 100 MG PO SCH (13:00)
[2018-02-10 13:46] LABS: BUN/CREATININE RATIO 7; CALCIUM 7.6 MG/DL (8.5-10.1); CARBON DIOXIDE 29 MMOL/L (21-32); CHLORIDE 118 MMOL/L (98-107); CREATININE SERUM 0.82 MG/DL (0.60-1.30); GFR ESTIMATED > 60; GLUCOSE 201 MG/DL (70-105); POTASSIUM 3.4 MMOL/L (3.6-5.0); SODIUM 152 MMOL/L (135-145)
[2018-02-10] MEDS: KCL 20 MEQ TAB (K-DUR) PO SCH ×4 (14:46→23:33)
[2018-02-10] MEDS: FERROUS SULF 325 MG (IRON) TAB PO SCH ×2 (14:47→17:48)
[2018-02-10] MEDS: ASCORBIC ACID (VIT C) 500 MG TABLET PO SCH ×2 (14:47→17:47)
[2018-02-10] MEDS: DANTROLENE 25 MG PO SCH ×2 (14:47→23:26)
[2018-02-10] MEDS: BACLOFEN 10 MG (LIORESAL) TAB PO SCH ×4 (14:47→23:33)
[2018-02-10] MEDS: GABAPENTIN 600 MG (NEURONTIN) TAB PO SCH ×2 (14:47→23:25)
[2018-02-10] MEDS: VANCOMYCIN 750 MG/NS 250 ML IVPB IV SCH ×2 (15:50)
[2018-02-10 16:00] VITALS: BP 141/58
[2018-02-10] MEDS: CALCIUM CARB + VIT D 600 MG (CALCARB + D) TAB PO SCH (17:48)
[2018-02-10] MEDS: MAGNESIUM OXIDE (MAG-OX)400 MG TAB PO SCH (17:48)
[2018-02-10 20:50] VITALS: BP 93/49
[2018-02-10] MEDS ORDERED: WHEY PROTEIN ISOLATE PO SCH (21:00)
[2018-02-10] MEDS ORDERED: NON-FORMULARY MEDICATION 1 EA EA (Amino Acids/Protein Hydrolys (Pro-Stat Sugar Free Liquid PO SCH (21:00)
[2018-02-10] MEDS: CAL. POLYCARBOPHIL 625 MG (FIBERCON) TAB PO SCH (23:25)
[2018-02-11 00:54] VITALS: BP 114/63
[2018-02-11] MEDS: VANCOMYCIN 750 MG/NS 250 ML IVPB IV SCH ×4 (03:27→15:20)
[2018-02-11 04:50] VITALS: BP 120/68
[2018-02-11] MEDS: PIPERACILLIN SODIUM/TAZOBACTAM 4.5 GM in NS (IVPB) 100 ML IV SCH (05:17)
[2018-02-11] MEDS: D5 1/2 NS W/KCL 40 MEQ/L 1,000 ML IV SCH ×4 (05:36→20:52)
[2018-02-11] MEDS: BACLOFEN 10 MG (LIORESAL) TAB PO SCH ×6 (06:47→23:43)
[2018-02-11] MEDS: ASCORBIC ACID (VIT C) 500 MG TABLET PO SCH ×4 (06:47→23:44)
[2018-02-11] MEDS: FERROUS SULF 325 MG (IRON) TAB PO SCH ×3 (06:47→18:12)
[2018-02-11] MEDS: PANTOPRAZOLE 40 MG (PROTONIX) TAB PO SCH (06:47)
[2018-02-11] MEDS: CALCIUM CARB + VIT D 600 MG (CALCARB + D) TAB PO SCH ×3 (06:47→23:44)
[2018-02-11] MEDS: inSUlin ASPART (NovoLOG) 1 UNIT/0.01 ML (CHARGE PER UNIT) SC SCH ×4 (06:48→20:41)
[2018-02-11] MEDS: MULTIVIT W/MINERALS TAB (THERAGRAN M) PO SCH ×2 (06:48→23:44)
[2018-02-11] MEDS: RT-ALBUTEROL SULF 2.5 MG/3 ML PRE-MIX VIAL INH SCH ×3 (07:15→21:00)
[2018-02-11 08:00] VITALS: BP 97/58
[2018-02-11] MEDS ORDERED: NON-FORMULARY MEDICATION 1 EA EA (Cholecalciferol (Vitamin D3) (Vitamin D3) 2,000 UNIT) PO SCH (09:00)
[2018-02-11] MEDS ORDERED: NON-FORMULARY MEDICATION 1 EA EA (Escitalopram Oxalate 20 MG) PO SCH (09:00)
[2018-02-11] MEDS ORDERED: NON-FORMULARY MEDICATION 1 EA EA (Polyethylene Glycol 3350 (Miralax) 17 GM) PO SCH (09:00)
[2018-02-11] MEDS: GABAPENTIN 600 MG (NEURONTIN) TAB PO SCH ×3 (09:32→20:55)
[2018-02-11] MEDS: POLYETHYLENE GLYCOL 17 GM (MIRALAX) PACK PO SCH (09:32)
[2018-02-11] MEDS: FLUDROCORTISONE 0.1 MG (FLORINEF) TAB PO SCH (09:32)
[2018-02-11] MEDS: DANTROLENE 25 MG PO SCH ×3 (09:33→20:56)
[2018-02-11] MEDS: VITAMIN D3 1,000 UNITS (CHOLECALCIFEROL) TABLET PO SCH (09:33)
[2018-02-11] MEDS: MAGNESIUM OXIDE (MAG-OX)400 MG TAB PO SCH ×2 (09:33→18:12)
[2018-02-11] MEDS: CAL. POLYCARBOPHIL 625 MG (FIBERCON) TAB PO SCH ×2 (09:33→20:56)
[2018-02-11 10:28] LABS: BASOPHILS % (AUTO) 0 % (0-10); EOSINOPHILS # (AUTO) 0.7 10^3/uL (0.0-0.3); EOSINOPHILS % (AUTO) 9 % (0-10); HEMATOCRIT 25 % (40-54); HEMOGLOBIN 7.8 G/DL (13.3-17.7); LYMPHOCYTES # (AUTO) 1.8 X 10^3 (1.0-4.0); LYMPHOCYTES % (AUTO) 22 % (12-44); MEAN CORPUSCULAR HEMOGLOBIN 35 PG (25-34); MEAN CORPUSCULAR HGB CONC 32 G/DL (32-36); MEAN CORPUSCULAR VOLUME 110 FL (80-99); MONOCYTES # (AUTO) 0.6 X 10^3 (0.0-1.0); MONOCYTES % (AUTO) 8 % (0-12); NEUTROPHILS # (AUTO) 4.8 X 10^3 (1.8-7.8); NEUTROPHILS % (AUTO) 61 % (42-75); RED BLOOD COUNT 2.26 10^6/uL (4.35-5.85); RED CELL DISTRIBUTION WIDTH 19.8 % (10.0-14.5); WHITE BLOOD COUNT 7.9 10^3/uL (4.3-11.0)
[2018-02-11 10:37] LABS: MEAN PLATELET VOLUME 13.6 FL (7.4-10.4); PLATELET COUNT 33 10^3/uL (130-400)
[2018-02-11 11:01] LABS: ALANINE AMINOTRANSFERASE 16 U/L (0-55); ALBUMIN 2.1 GM/DL (3.2-4.5); ALKALINE PHOSPHATASE 99 U/L (40-136); BILIRUBIN,TOTAL 0.7 MG/DL (0.1-1.0); BUN/CREATININE RATIO 8; CALCIUM 7.7 MG/DL (8.5-10.1); CARBON DIOXIDE 23 MMOL/L (21-32); CHLORIDE 118 MMOL/L (98-107); CREATININE SERUM 0.76 MG/DL (0.60-1.30); GFR ESTIMATED > 60; GLUCOSE 129 MG/DL (70-105); POTASSIUM 3.5 MMOL/L (3.6-5.0); SODIUM 148 MMOL/L (135-145); TOTAL PROTEIN 4.8 GM/DL (6.4-8.2)
[2018-02-11 12:00] VITALS: BP 107/63
[2018-02-11 16:00] VITALS: BP 108/58
--- NOTE | 2018-02-11 18:41 | Progress Note (SOAP) ---
Subjective Subjective/Events-last exam Patient unhappy and wanting to go back home to [facility]. Review of Systems Date Seen by Provider: Feb 11, 2018 Time Seen by Provider: 13:45 Objective Exam Last Set of Vital Signs Vital Signs Date Time Temp Pulse Resp B/P (MAP) Pulse Ox O2 Delivery O2 Flow Rate FiO2 02/11/18 16:00 96.0 72 18 108/58 (75) 98 Room Air 02/06/18 06:39 21 Capillary Refill : Less Than 3 Seconds I&O Intake and Output 02/11/18 00:00 Intake Total 1930 ml Output Total 1850 ml Balance 80 ml Intake Oral 860 ml IV Total 1070 ml Output Urine Total 825 ml Stool Total 1025 ml General: Alert, No Acute Distress Lungs: Clear to Auscultation Heart: Regular Rate Results/Procedures Lab Laboratory Tests 02/10/18 20:35: Glucometer 164H 02/11/18 05:38: Glucometer 117H 02/11/18 10:20: White Blood Count 7.9, Red Blood Count 2.26L, Hemoglobin 7.8L, Hematocrit 25L, Mean Corpuscular Volume 110H, Mean Corpuscular Hemoglobin 35H, Mean Corpuscular Hemoglobin Concent 32, Red Cell Distribution Width 19.8H, Platelet Count 33*L, Mean Platelet Volume 13.6H, Neutrophils (%) (Auto) 61, Lymphocytes (%) (Auto) 22 , Monocytes (%) (Auto) 8, Eosinophils (%) (Auto) 9, Basophils (%) (Auto) 0, Neutrophils # (Auto) 4.8, Lymphocytes # (Auto) 1.8, Monocytes # (Auto) 0.6, Eosinophils # (Auto) 0.7H, Basophils # (Auto) 0.0, Sodium Level 148H, Potassium Level 3.5L, Chloride Level 118H, Carbon Dioxide Level 23, Anion Gap 7, Blood Urea Nitrogen 6L, Creatinine 0.76, Estimat Glomerular Filtration Rate > 60, BUN/ Creatinine Ratio 8, Glucose Level 129H, Calcium Level 7.7L, Total Bilirubin 0.7 , Aspartate Amino Transf (AST/SGOT) 39H, Alanine Aminotransferase (ALT/SGPT) 16 , Alkaline Phosphatase 99, Total Protein 4.8L, Albumin 2.1L 02/11/18 11:26: Glucometer 127H 02/11/18 16:08: Glucometer 120H Microbiology 02/06/18 Blood Culture - Final, Complete No growth 02/06/18 MRSA Screen - Final, Complete MRSA not isolated 02/06/18 Urine Culture - Final, Complete Presumptive Donna Albicans Enterococcus faecium Yeast species Radiology CXR 02/06: IMPRESSION: 1. No acute cardiopulmonary process. CTAP 02/06 IMPRESSION: 1. Bilateral nephrolithiasis, bilateral renal pelvic calculi and the proximal left ureteral stone calculus dimensions above. There was however no hydronephrosis and no perinephric edema. 2. Suprapubic catheter and retention balloon inflated within the lumen of the decompressed urinary bladder with bladder wall thickening which may be chronic or reflect cystitis. 3. Edematous thickening of the valenzuela of the distal small bowel, cecum and a sending colon through the hepatic flexure consistent with nonspecific enterocolitis. 4. Cholelithiasis without bile duct dilatation. Given the abdominal pelvic free fluid volume extending into the pericholecystic space. The gallbladder wall cannot be adequately evaluated. If cholecystitis is clinically suspected, gallbladder ultrasound may be of further utility. CT head 02/06: IMPRESSION: Stable premature atrophy with no edema, hemorrhage or acute appearing pathology. No change from prior. Assessment/Plan Assessment/Plan Assessment & Plan (1) Septic shock Status: Resolved Assessment & Plan: Hypothermic, hypotensive on admission, blood pressure did not improve enough with fluid bolus, requiring Levophed. Dr. Harris consulted, appreciate recommendations. Hydrocortisone started. Suspect septic shock secondary to UTI versus entercolitis, see below. 02/07- resolved, off pressors and steroids 02/08 -he fluids continue at 100 mL per hour of D5 normal saline 02/09 -change fluids to D5 normal saline with 20 mEq of KCl -Recheck potassium in the a.m. --> 4/2 - RESOLVED (2) Metabolic acidosis Status: Resolved Assessment & Plan: Nonanion gap. IVF and monitor. Possibly secondary to loose stools with colitis, poor oral intake. --> 4/2 - RESOLVED (3) Delirium Status: Acute Assessment & Plan: Secondary to sepsis, minimize lines, reorient as needed. CT head with no acute changes. 02/07 improved, unclear baseline, continue to monitor closely --> - RESOLVED (4) Colitis, enteritis, and gastroenteritis of presumed infectious origin Status: Acute Assessment & Plan: CT abdomen with thickening of distal small bowel to hepatic flexure. Zosyn started in ER, continue. --> 02/10 - plan for 7 day course total (5) Thrombocytopenia Status: Acute Assessment & Plan: Acute, but has had in past as well. Check for DIC, consider ITP given recurrence. No current active bleeding, monitor closely. 02/07 improving, still quite low, monitor closely 02/08 -the count has improved to 38K 02/09 -count is at 35K 02/10 - slight improvement, no platelet transfusions unless <30K or we see spontaneous bleeding, reassuring that no gross hematuria at present 02/11 - plt 33; cont to monitor (6) Adrenal insufficiency Status: Resolved Assessment & Plan: Relative to septic shock, started hydrocortisone. --> 02/10 - RESOLVED (7) NEUROGENIC BLADDER WITH RETENTION Status: Chronic Assessment & Plan: s/p suprapubic catheter placement last week, monitor UOP. 02/10 - tends to be the source of a lot of Colby's problems; we had hoped that the suprapubic placement would slow some of the infectious processes (8) UTI (urinary tract infection) Status: Acute Assessment & Plan: Zosyn and vancomycin, cultures pending. 02/07 prelim with donna, enterococcus. Donna likely colonization given marked improvement with no anti-fungal treatment. Qualifiers: Qualified Codes: N30.01 - Acute cystitis with hematuria 02/08 urine culture is pending -Continue with Zosyn and vancomycin 02/09 urine culture reveals enterococcus and candidiasis -Candidiasis may be contamination and there was no antifungals added on 02/10 - continue the zosyn and vanc as he has improved with those; suspect candidal colonization (9) Ureteral calculi Status: Acute Assessment & Plan: No hydronephrosis. Dr. Tinsley consulted, appreciate recommendations. 02/10 - likely chronic (10) Bilateral nephrolithiasis Status: Acute (11) Cholelithiases Status: Acute Assessment & Plan: No clear evidence of cholecystitis or bile duct blockage, monitor labs. Qualifiers: Qualified Codes: K80.20 - Calculus of gallbladder without cholecystitis without obstruction 02/10 - monitor, no acute issues at present (12) Quadriplegia, post-traumatic Status: Chronic Assessment & Plan: Turn and reposition frequently, heel protectors in place, make sure call button is useable without arms 2 - no new ulcers (13) Sacral decubitus ulcer Status: Chronic Assessment & Plan: Sees wound care outpatient, consulted. Wet to dry dressings ordered. 2 - continue current regimen (14) Hypernatremia Status: Acute Assessment & Plan: Suspect inadequate free water intake given his poor intake recently, improved status today, expect improvement with improved oral intake 02/10 - our biggest issue today as sodium is up to 153, K at 2.5; will switch to D51/2NS +40KCl, recheck BMP at 3pm (after 5h of new fluids); will also replace KCl PO with 20meq q4h x 4. 02/11 - Na down to 148, K 3.5 (15) Hypomagnesemia Status: Acute Assessment & Plan: Replace and recheck 02/10 - improved (16) Language barrier Status: Chronic Assessment & Plan: Difficult to determine his wishes for aggressive treatment given delirium and language barrier. Nursing will try to contact daughter first and proceed from there. 02/07 clinical status improved, will need to continue discussion with patient and family for future 02/10 - agree. family must be made aware of the repetitive hospitalizations and discuss code status with Colby and family as well as quality of life. He is certainly a very upbeat and appreciative patient, and it would appear that he does not mind these aggressive measures. however, we have not yet been able to have more in-depth discussions with Colby as to his wishes. (17) DVT prophylaxis Status: Acute Assessment & Plan: SCDs, no enoxaparin due to severe thrombocytopenia 02/10 - no changes as yet. Disposition: On medical floor. Discharge planning for return to [facility] tomorrow. (1) Septic shock Status: Resolved (2) Metabolic acidosis Status: Resolved (3) Delirium Status: Acute (4) Colitis, enteritis, and gastroenteritis of presumed infectiousorigin Status: Acute (5) Thrombocytopenia Status: Acute (6) Adrenal insufficiency Status: Resolved (7) NEUROGENIC BLADDER WITH RETENTION Status: Chronic (8) UTI (urinary tract infection) Status: Acute Qualifiers: Qualified Codes: N30.01 - Acute cystitis with hematuria (9) Ureteral calculi Status: Acute (10) Bilateral nephrolithiasis Status: Acute (11) Cholelithiases Status: Acute Qualifiers: Qualified Codes: K80.20 - Calculus of gallbladder without cholecystitis without obstruction (12) Quadriplegia, post-traumatic Status: Chronic (13) Sacral decubitus ulcer Status: Chronic (14) Hypernatremia Status: Acute (15) Hypomagnesemia Status: Acute (16) Language barrier Status: Chronic (17) DVT prophylaxis Status: Acute Clinical Quality Measures DVT/VTE Risk/Contraindication: Risk Factor Score Per Nursin RFS Level Per Nursing on Admit: 1=Low/No VTE PPX Stroke: Symptoms onset unknown: Yes SIOMARA PRICE DO Feb 11, 2018 18:41
[2018-02-12 00:21] VITALS: BP 116/76
[2018-02-12] MEDS: VANCOMYCIN 750 MG/NS 250 ML IVPB IV SCH ×4 (02:10→14:14)
[2018-02-12] MEDS: D5 1/2 NS W/KCL 40 MEQ/L 1,000 ML IV SCH ×2 (04:13→14:14)
[2018-02-12 05:09] LABS: HEMATOCRIT 26 % (40-54); HEMOGLOBIN 8.1 G/DL (13.3-17.7); MEAN CORPUSCULAR HEMOGLOBIN 35 PG (25-34); MEAN CORPUSCULAR HGB CONC 32 G/DL (32-36); MEAN CORPUSCULAR VOLUME 111 FL (80-99); RED BLOOD COUNT 2.31 10^6/uL (4.35-5.85); RED CELL DISTRIBUTION WIDTH 19.4 % (10.0-14.5); WHITE BLOOD COUNT 6.9 10^3/uL (4.3-11.0)
[2018-02-12 05:16] LABS: PLATELET COUNT 33 10^3/uL (130-400)
[2018-02-12 05:45] LABS: ALANINE AMINOTRANSFERASE 17 U/L (0-55); ALKALINE PHOSPHATASE 93 U/L (40-136); BILIRUBIN,TOTAL 0.5 MG/DL (0.1-1.0); BUN/CREATININE RATIO 6; CALCIUM 7.6 MG/DL (8.5-10.1); CARBON DIOXIDE 22 MMOL/L (21-32); CHLORIDE 121 MMOL/L (98-107); CREATININE SERUM 0.71 MG/DL (0.60-1.30); GFR ESTIMATED > 60; GLUCOSE 139 MG/DL (70-105); POTASSIUM 4.5 MMOL/L (3.6-5.0); SODIUM 147 MMOL/L (135-145); TOTAL PROTEIN 4.8 GM/DL (6.4-8.2)
[2018-02-12] MEDS: BACLOFEN 10 MG (LIORESAL) TAB PO SCH ×5 (05:59→17:25)
[2018-02-12] MEDS: PANTOPRAZOLE 40 MG (PROTONIX) TAB PO SCH (05:59)
[2018-02-12] MEDS: inSUlin ASPART (NovoLOG) 1 UNIT/0.01 ML (CHARGE PER UNIT) SC SCH ×3 (05:59→17:01)
[2018-02-12] MEDS: FERROUS SULF 325 MG (IRON) TAB PO SCH ×3 (05:59→17:25)
[2018-02-12] MEDS: RT-ALBUTEROL SULF 2.5 MG/3 ML PRE-MIX VIAL INH SCH ×2 (07:28→15:02)
[2018-02-12 08:00] VITALS: BP 131/72
[2018-02-12] MEDS ORDERED: CITA40TA11 PO (09:03)
--- NOTE | 2018-02-12 09:08 | Discharge Instructions ---
Discharge [facility] Discharge Medications New, Converted or Re-Newed RX: Call to Patients Pharmacy New Medications: Citalopram Hydrobromide (Citalopram HBr) 40 Mg Tablet 40 MG PO DAILY, #30 TAB 1 Refill Continued Medications: Acetaminophen (Acetaminophen) 325 Mg Tablet 650 MG PO Q4H PRN for PAIN-MILD, TAB TAKES 2 (325 MG) TABLETS / NOT TO EXCEED 6 DOSES IN 24 HOURS Amino Acids/Protein Hydrolys (Pro-Stat Sugar Free Liquid) 887 Ml Liquid 30 ML PO BID, EA Ascorbate Calcium (Vitamin C) 500 Mg Tablet 500 MG PO TID, TAB Baclofen (Baclofen) 20 Mg Tablet 20 MG PO Q6H, TAB Baclofen (Baclofen) 10 Mg Tablet 10 MG PO 0600,1800, TAB GIVE ALONG WITH 20MG TABLET TO MAKE 30MG DOSE AT 0600 AND 1800 Calcium Carbonate/Vitamin D3 (Calcium 600 + Vit D 400 Tablet) 1 Each Tablet 1 TAB PO BID, TAB Calcium Polycarbophil (Fiber Lax) 625 Mg Tablet 625 MG PO BID, TAB Cholecalciferol (Vitamin D3) (Vitamin D3) 1,000 Unit Capsule 2000 UNIT PO DAILY, CAP TAKES 2 (1000 UNIT) CAPSULES Cranberry Fruit (Cranberry) 400 Mg Tablet 400 MG PO BID, TAB Dantrolene Sodium (Dantrolene Sodium) 100 Mg Capsule 100 MG PO TID, CAP Dextran 70/Hypromellose (Artificial Tears Eye Drops) 15 Ml Drops 2 DROPS OU Q4H PRN for ITCHING/REDNESS, DROPS Ferrous Sulfate (Ferrous Sulfate) 325 Mg Tablet.dr 325 MG PO TID, TAB Fludrocortisone Acetate (Fludrocortisone Acetate) 0.1 Mg Tab 0.2 MG PO DAILY, TAB TAKES 2 (0.1 MG) TABLETS Gabapentin (Gabapentin) 600 Mg Tablet 600 MG PO TID, TAB Hydrocodone Bit/Acetaminophen (Hydrocodone/Acetaminophen 5/325mg Tablet) 1 Tab Tab 1 TAB PO Q4H PRN for PAIN-MODERATE, TAB Hydrocortisone (Anti-Itch) 28 Gm Cream..g. TP Q1H PRN for ITCHING, TUBE APPLIES TO ITCHY LESION ON TOP OF HEAD Mag Hydrox/Aluminum Hyd/Simeth (Maalox Advanced Suspension) 355 Ml Oral.susp 30 ML PO Q4H PRN for INDIGESTION, ML Magnesium Hydroxide (Milk of Magnesia) 400 Mg/5 Ml Oral.susp 30 ML PO Q8H PRN for CONSTIPATION-7TH LINE, ML Menthol (Biofreeze) 118 Ml Gel..ml. TP UD PRN for NECK MUSCLE PAIN, TUBE Multivitamin with Minerals (Multivitamins with Minerals) 1 Each Tablet 1 TAB PO DAILY, TAB Polyethylene Glycol 3350 (Miralax) 119 Gm Powder 17 GM PO DAILY, EA Potassium Chloride (Potassium Chloride) 20 Meq Tablet.er 20 MEQ PO DAILY, TAB Tizanidine HCl (Tizanidine HCl) 6 Mg Capsule 6 MG PO Q6H PRN for MUSCLE SPASMS, CAP Whey Protein Isolate (Beneprotein) 1 Each Powd.pack 1 PACKET PO BID, EACH Discontinued Medications: Escitalopram Oxalate (Escitalopram Oxalate) 20 Mg Tablet 20 MG PO DAILY, TAB Meloxicam (Mobic) 7.5 Mg Tablet 7.5 MG PO DAILY, TAB Patient Instructions Goal/Follow Up Appt: Nadine wilson f/u at [facility] on Saturday02/18/18 Patient Instructions: Citalapram increased to 40mg daily Activity & Diet Discharge Diet: No Restrictions Activity as Tolerated: Yes SIOMARA PRICE DO Feb 12, 2018 09:08
[2018-02-12] MEDS: POLYETHYLENE GLYCOL 17 GM (MIRALAX) PACK PO SCH (11:17)
[2018-02-12] MEDS: GABAPENTIN 600 MG (NEURONTIN) TAB PO SCH ×2 (11:17→13:33)
[2018-02-12] MEDS: VITAMIN D3 1,000 UNITS (CHOLECALCIFEROL) TABLET PO SCH (11:17)
[2018-02-12] MEDS: MAGNESIUM OXIDE (MAG-OX)400 MG TAB PO SCH ×2 (11:17→17:25)
[2018-02-12] MEDS: FLUDROCORTISONE 0.1 MG (FLORINEF) TAB PO SCH (11:18)
[2018-02-12] MEDS: CAL. POLYCARBOPHIL 625 MG (FIBERCON) TAB PO SCH (11:19)
[2018-02-12] MEDS: DANTROLENE 25 MG PO SCH ×2 (11:28→13:32)
[2018-02-12] MEDS: ASCORBIC ACID (VIT C) 500 MG TABLET PO SCH ×2 (12:52→17:25)
[2018-02-12 16:00] VITALS: BP 114/63
[2018-02-12] MEDS: CALCIUM CARB + VIT D 600 MG (CALCARB + D) TAB PO SCH (17:25)
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
== END 2018-02-12 18:40 | DRG 871 ==
LOC: EDUNIT# 02:01 → ER 02:04 → ICU 04:45 → 4TH 02-07 11:25
PROVIDERS: ADMIT Family Medicine; ATTEND Family Medicine
DX: A41.9 Sepsis, unspecified organism (principal); T83.510A Infection and inflammatory reaction due to cystostomy catheter, initial encounter; N39.0 Urinary tract infection, site not specified; K52.9 Noninfective gastroenteritis and colitis, unspecified; G82.50 Quadriplegia, unspecified; R18.8 Other ascites; N20.2 Calculus of kidney with calculus of ureter; E87.2 Acidosis; E27.40 Unspecified adrenocortical insufficiency; E87.1 Hypo-osmolality and hyponatremia; L89.159 Pressure ulcer of sacral region, unspecified stage; N31.9 Neuromuscular dysfunction of bladder, unspecified; R33.9 Retention of urine, unspecified; E83.42 Hypomagnesemia; I10 Essential (primary) hypertension; K21.9 Gastro-esophageal reflux disease without esophagitis; K59.09 Other constipation; F41.9 Anxiety disorder, unspecified; F32.9 Major depressive disorder, single episode, unspecified; D69.6 Thrombocytopenia, unspecified; I95.89 Other hypotension; G90.4 Autonomic dysreflexia; R41.0 Disorientation, unspecified; K80.20 Calculus of gallbladder without cholecystitis without obstruction; R60.0 Localized edema; Z93.3 Colostomy status; Z93.50 Unspecified cystostomy status; Z87.891 Personal history of nicotine dependence
CPT/HCPCS: 36415; 70450; 71045; 74018; 74176; 76937; 80048; 80053; 80202; 81000; 82805; 82962; 83605; 83735; 83880; 84100; 84484; 85025; 85027; 85379; 85384; 85610; 85730; 86141; 86850; 86900; 86901; 87040; 87077; 87081; 87088; 87186; 93005; 94640; 94760; 96361; 96365; 96375; 96376

== ENCOUNTER 2018-02-14 09:16 | Inpatient (IN) | payer OTHER, MEDICAID ==
[~2018-02-14] VITALS: Ht 167.6 cm; Wt 92.5 kg
[~2018-02-14 09:16] MED LIST changes: +CITA40TA11 PO; +ESCI20TA45 PO; -LIDO30JE10; +LIDO30JE3
[2018-02-14] MEDS ORDERED: NS IV 1000 ML 1,000 ML ONE (09:38)
[2018-02-14] MEDS ORDERED: NS IV 500 ML 500 ML IV ONE (09:39)
[2018-02-14] MEDS ORDERED: NOREPINEPHRINE 4 MG/4 ML (LEVOPHED) AMP IV ONE (09:45)
[2018-02-14] MEDS ORDERED: NS (IVPB) 250 ML ONE (09:46)
[2018-02-14 09:57] LABS: ABG BASE EXCESS -6.1 MMOL/L (-2.5-2.5); ABG OXYGEN SATURATION 98 % (94-100); ABG PCO2 44 MMHG (35-45); ABG PO2 84 MMHG (79-93); ABG TCO2 21.5 MMOL/L (21.0-31.0)
[2018-02-14 09:59] LABS: ABG PH 7.27 (7.37-7.43); ALLENS TEST YES-POS; INSPIRED O2 ROOM AIR; PATIENT TEMP 95.8; VENTILATOR NO
[2018-02-14 09:59] LABS: BASOPHILS % (AUTO) 0 % (0-10); EOSINOPHILS # (AUTO) 0.3 10^3/uL (0.0-0.3); EOSINOPHILS % (AUTO) 4 % (0-10); HEMATOCRIT 28 % (40-54); HEMOGLOBIN 8.8 G/DL (13.3-17.7); LYMPHOCYTES % (AUTO) 15 % (12-44); MEAN CORPUSCULAR HEMOGLOBIN 35 PG (25-34); MEAN CORPUSCULAR HGB CONC 31 G/DL (32-36); MEAN CORPUSCULAR VOLUME 113 FL (80-99); MONOCYTES # (AUTO) 0.4 X 10^3 (0.0-1.0); MONOCYTES % (AUTO) 7 % (0-12); NEUTROPHILS # (AUTO) 4.8 X 10^3 (1.8-7.8); NEUTROPHILS % (AUTO) 74 % (42-75); RED CELL DISTRIBUTION WIDTH 19.3 % (10.0-14.5); WHITE BLOOD COUNT 6.6 10^3/uL (4.3-11.0)
[2018-02-14] MEDS ORDERED: NOREPINEPHRINE 4 MG in NS (IVPB) 250 ML IV SCH (10:00)
[2018-02-14 10:03] LABS: PLATELET COUNT 34 10^3/uL (130-400)
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
[2018-02-14 10:08] LABS: INR 1.4 (0.8-1.4); PROTHROMBIN TIME PATIENT 16.8 SEC (12.2-14.7)
[2018-02-14 10:15] LABS: ALANINE AMINOTRANSFERASE 16 U/L (0-55); ALBUMIN 2.2 GM/DL (3.2-4.5); ALKALINE PHOSPHATASE 110 U/L (40-136); BILIRUBIN,TOTAL 0.4 MG/DL (0.1-1.0); BUN/CREATININE RATIO 5; CALCIUM 8.4 MG/DL (8.5-10.1); CARBON DIOXIDE 25 MMOL/L (21-32); CHLORIDE 121 MMOL/L (98-107); GFR ESTIMATED 34; GLUCOSE 78 MG/DL (70-105); SODIUM 148 MMOL/L (135-145); TOTAL PROTEIN 4.8 GM/DL (6.4-8.2)
--- NOTE | 2018-02-14 10:31 | Diagnostic Imaging Report ---
PATIENT HISTORY: Sepsis, altered mental status, CHF, hypertensive, bradycardic. TECHNIQUE: Single frontal view of the chest. COMPARISON: 02/07/2018. FINDINGS: Lung volumes are mildly low, with elevation of the right hemidiaphragm. There is mild cardiomegaly with central vascular congestion. The tip of the right Port-A-Cath projects over the low SVC. Defibrillator pads are noted. No pneumothorax or pleural effusion is seen. IMPRESSION: 1. Mild cardiomegaly with central vascular congestion. Dictated by: Dictated on workstation # [id number]
--- NOTE | 2018-02-14 11:39 | Diagnostic Imaging Report ---
PROCEDURE: CT abdomen and pelvis without contrast. TECHNIQUE: Multiple contiguous axial images were obtained through the abdomen and pelvis without the use of intravenous contrast. INDICATION: Hypotension, bradycardia, rigid abdomen, decreased hearing, altered mental status, hypoventilation, edema, quadriplegia. COMPARISON: 02/06/2018 FINDINGS: There are small bilateral pleural effusions, right greater than left, with associated atelectasis. The heart is mildly large, but stable in size. The intraventricular septum is visible, consistent with anemia. No pericardial effusion is seen. The liver demonstrates no focal lesions. There is motion artifact on this examination, likely from respiration. The spleen appears normal. The pancreas appears normal with no focal masses. The adrenal glands are unremarkable. There is a right renal calculus measuring up to 11 mm in greatest dimension which appears to be at the ureteropelvic junction, although no significant hydronephrosis is seen. A similar finding is seen in the left kidney, with a calculus measuring up to 9 mm in greatest dimension, with no hydronephrosis seen. There is cholelithiasis present. There is a small to moderate amount of ascites throughout the abdomen, with diffuse mesenteric edema. There is wall thickening of the colon, particularly the ascending colon and transverse colon. The colostomy is unremarkable, with mild fatty herniation at the stoma. No bowel obstruction is seen. There also appears to be wall thickening of multiple loops of small bowel. No free air is seen. The urinary bladder is decompressed, with a markedly thickened wall. A small amount of air is seen in the bladder. The suprapubic catheter is in place, with a small defect at the skin site. Degenerative changes are seen in the spine. No loculated fluid collections are seen. There are bilateral L5 pars defects. There is a moderate-sized fat-containing left inguinal hernia. IMPRESSION: 1. Small to moderate amount of ascites, with diffuse mesenteric edema, increased since 02/06/2018. Small bilateral pleural effusions. 2. Wall thickening of the proximal colon as well as small bowel. This is nonspecific, may be due to an enterocolitis. No bowel obstruction is seen. 3. Suprapubic catheter with small skin defect at the entrance site. Thickening of the urinary bladder wall is likely chronic. 4. Renal calculi appear to be at the ureteropelvic junction in the kidneys bilaterally, however no hydronephrosis is seen. There is cholelithiasis. 5. Small bilateral pleural effusions, with associated atelectasis. Dictated by: Dictated on workstation # [id number]
[2018-02-14 13:30] VITALS: BP 105/81
[2018-02-14] MEDS ORDERED: ACETAMINOPHEN 650 MG SUPP (TYLENOL) PR PRN (14:00)
[2018-02-14] MEDS ORDERED: ARTIFICIAL TEARS OINT (LACRI-LUBE) 3.5 GM TUBE OU PRN (14:00)
[2018-02-14] MEDS ORDERED: BISACODYL 10 MG SUPP (DULCOLAX) PR PRN (14:00)
[2018-02-14] MEDS ORDERED: ATROPINE 1% OPHTHALMIC SOLN 2 ML SL PRN (14:00)
[2018-02-14] MEDS ORDERED: ONDANSETRON 4 MG/2 ML (SDV) Z0FRAN IVP PRN (14:00)
[2018-02-14] MEDS ORDERED: ARTIFICAL TEARS 0.4 ML UNIT DOSE (REFRESH PLUS) OU PRN (14:00)
[2018-02-14] MEDS: morphine INJ 4 MG/ML 1 ML (VIAL/SYRINGE) IV PRN (17:47)
[2018-02-14] MEDS: LORazepam INJ 2 MG/ML (ATIVAN) VIAL IVP PRN (18:43)
[2018-02-15] MEDS: morphine INJ 4 MG/ML 1 ML (VIAL/SYRINGE) IV PRN ×2 (00:50→05:57)
[2018-02-15] MEDS: LORazepam INJ 2 MG/ML (ATIVAN) VIAL IVP PRN ×2 (01:31→04:06)
[2018-02-15] MEDS: GLYCOPYRROLATE 0.2 MG/ML (ROBINUL) 2 ML VIAL IV PRN ×5 (02:17→20:42)
--- NOTE | 2018-02-15 09:59 | History & Physicial (CHS) ---
HPI History of Present Illness: Interim H&P - pt admitted 02/06/18 for UTI w/ sepsis. See H&P for 02/06/18. Pt brought to yesterday from [facility] due to decreased respiratory rate and decreased level of consciousness. I was in contact with nursing from [facility] on the evening 02/13/18, pt indicated to nursing he was ready to go, he told staff that he loved them, he then became less responsive with decreased respiratory rate. He oxygen sats were maintained so patient continued to be monitored. I spoke with his step-daughter who is his DPOA on the evening of 02/13/18 and discussed his condition. She had not seen him for over a month and did not want to change his DNR status until she could see him. Yesterday am he had a decrease and was transported to the ER from [facility]. Pt was hypotensive, hypothermic, decreased LOC and decreased respirations. Lab indicated multi- organ failure, CT showed anasarca. Dr. Zaidi and I met with the family in the ER and discussed patients current condition and co-morbid conditions. He and I both agree that aggressive care would be futile for the patient at this time and would increase his suffering. Family was in agreement and wished to proceed with comfort care measures. Patient admitted for comfort care. Pt is unresponsive w/ agonal breathing at this time. Date seen by provider: Feb 15, 2018 Time Seen by Provider: 09:25 Attending Physician Siomara Price David F MD Consult Date of Admission Feb 14, 2018 at 12:50 Home Medications Home Medications Reviewed patient Home Medication Reconciliation performed by pharmacy medication reconciliations highway traffic control technician and/or nursing. Patients Allergies have been reviewed. Allergies Coded Allergies: No Known Drug Allergies (Unverified , 11/11/16) OIE-Fnclae-Rssupf Hx Patient Social History Alcohol Use: Past History Recreational Drug Use: No Smoking Status: Former Smoker Type Used: Cigarettes Recent Foreign Travel: No Contact w/other who traveled: No Recent Hopitalizations: No Recent Infectious Disease Expo: No Physical Abuse Screen: No Sexual Abuse: No Immunizations Up To Date Tetanus Booster (TDap): Unknown Date of Pneumonia Vaccine: Jan 15, 2018 Date of Influenza Vaccine: Aug 11, 2017 Past Medical History PMHx: Quadriplegia Unstable blood pressure Chronic indwelling Catheter Chronic coccygeal ulcer SurgHx: Suprapubic catheter Port placement Family Medical History Significant Family History: No Pertinent Family Hx Family History: Patient reports no known family medical history. Review of Systems ([facility]) Constitutional: no symptoms reported Physical Exam-([facility]) Physical Exam Vital Signs VS - Last 72 Hours, by Label 02/14/18 02/14/18 02/14/18 02/14/18 09:18 10:27 13:20 13:30 Temp 94.9 95.8 95.9 Pulse 52 54 60 Resp 15 6 12 B/P (MAP) 86/51 (63) 107/59 105/81 Pulse Ox 100 100 100 O2 Delivery Room Air Room Air 02/14/18 02/15/18 21:00 08:00 Pulse Ox 100 O2 Delivery Room Air Room Air Capillary Refill : Greater Than 3 Seconds General Appearance: other (ill appearing) Respiratory: decreased breath sounds, rhonchi Gastrointestinal: other (rigid) Extremities: swelling Neurologic/Psychiatric: other (unresponsive) Assessment/Plan Assessment/Plan Admission Status: Inpatient Order (span 2 midnights) Reason for Inpatient Admission: Comfort Care Assessment & Plan 1. Multi-organ failure - Admitted for comfort care. - pt continues to decline, with only agonal breathing at this time. Clinical Quality Measures End of Life/Advance Care Plan: Advance Care discuss with: family member (s) End of Life Care: Comfort Measures Plan: developed treatment plan Time spent on discussion(mins): 90 DVT/VTE Risk/Contraindication: Risk Factor Score Per Nursin RFS Level Per Nursing on Admit: 4+=Very High Contraindications-Pharm: Patient refusal of tx Contraindications-Mechi: Patient refusal of tx Other: comfort care only SIOMARA PRICE DO Feb 15, 2018 09:59
[2018-02-16] MEDS: GLYCOPYRROLATE 0.2 MG/ML (ROBINUL) 2 ML VIAL IV PRN ×3 (01:07→20:51)
[2018-02-16] MEDS ORDERED: SCOPOLAMINE 1.5 MG (TRANSDERM-SCOP) PATCH TOP SCH (07:45)
--- NOTE | 2018-02-16 09:53 | Progress Note (SOAP) ---
Subjective Subjective/Events-last exam Continues w/ agonal breathing; increased respiratory secretions. Unresponsive. Review of Systems Date Seen by Provider: Feb 16, 2018 Time Seen by Provider: 06:25 Focused Exam Lactate Level 02/14/18 09:40: Lactic Acid Level 1.82 Objective Exam Last Set of Vital Signs Vital Signs Date Time Temp Pulse Resp B/P (MAP) Pulse Ox O2 Delivery O2 Flow Rate FiO2 02/16/18 08:00 Room Air 02/14/18 21:00 100 02/14/18 13:30 95.9 60 12 105/81 Capillary Refill : Greater Than 3 Seconds I&O Intake and Output 02/16/18 00:00 Intake Total 0 ml Output Total 50 ml Balance -50 ml Intake Oral 0 ml Output Urine Total 10 ml Gastric Drainage Total 40 ml Results/Procedures Lab Microbiology 02/14/18 Blood Culture - Preliminary, Resulted No growth Assessment/Plan Assessment/Plan Assessment & Plan 1. Multi-organ failure - Admitted for comfort care. - pt continues to decline, with only agonal breathing at this time. 02/16 - add scopolamine patch for respiratory secretions Clinical Quality Measures DVT/VTE Risk/Contraindication: Risk Factor Score Per Nursin RFS Level Per Nursing on Admit: 4+=Very High Contraindications-Pharm: Patient refusal of tx Contraindications-Mechi: Patient refusal of tx Other: comfort care only SIOMARA PRICE DO Feb 16, 2018 09:53
[2018-02-17] MEDS: GLYCOPYRROLATE 0.2 MG/ML (ROBINUL) 2 ML VIAL IV PRN ×5 (00:51→22:12)
[2018-02-17] MEDS: morphine INJ 4 MG/ML 1 ML (VIAL/SYRINGE) IV PRN ×5 (02:41→22:12)
[2018-02-17] MEDS: SALIVA STIMULANT MOUTH SPRAY (BIOTENE) 1.5 OZ MM PRN ×2 (02:42→05:16)
--- NOTE | 2018-02-17 13:38 | Progress Note (SOAP) ---
Subjective Subjective/Events-last exam Patient agonal breathing with pauses + gurgling. No grimace. Looks comfortable. Review of Systems Date Seen by Provider: Feb 17, 2018 Time Seen by Provider: 09:45 Objective Exam Last Set of Vital Signs Vital Signs Date Time Temp Pulse Resp B/P (MAP) Pulse Ox O2 Delivery O2 Flow Rate FiO2 02/17/18 08:00 Room Air 02/14/18 21:00 100 02/14/18 13:30 95.9 60 12 105/81 Capillary Refill : Less Than 3 SecondsGreater Than 3 Seconds I&O Intake and Output 02/17/18 00:00 Intake Total 0 ml Output Total 0 ml Balance 0 ml Intake Oral 0 ml Output Urine Total 0 ml General: Other (Unresponsive, periodic breathing) Extremities: Other (Fingers with mottling) Results/Procedures Lab Microbiology 02/14/18 Blood Culture - Preliminary, Resulted No growth Assessment/Plan Assessment/Plan Assessment & Plan 1. Multi-organ failure - Admitted for comfort care. - pt continues to decline, with only agonal breathing at this time. 02/16 - add scopolamine patch for respiratory secretions 02/17- Patient comfortable, reviewed meds with nurse, patient is declining, in active dying process Clinical Quality Measures DVT/VTE Risk/Contraindication: Risk Factor Score Per Nursin RFS Level Per Nursing on Admit: 4+=Very High Contraindications-Pharm: Patient refusal of tx Contraindications-Mechi: Patient refusal of tx Other: comfort care only LAURIE SAVAGE MD Feb 17, 2018 13:38
[2018-02-18] MEDS: SALIVA STIMULANT MOUTH SPRAY (BIOTENE) 1.5 OZ MM PRN ×2 (02:45→06:53)
[2018-02-18] MEDS: morphine INJ 4 MG/ML 1 ML (VIAL/SYRINGE) IV PRN ×5 (02:45→13:40)
[2018-02-18] MEDS: GLYCOPYRROLATE 0.2 MG/ML (ROBINUL) 2 ML VIAL IV PRN ×2 (02:45→06:53)
[2018-02-18] MEDS: LORazepam INJ 2 MG/ML (ATIVAN) VIAL IVP PRN ×3 (02:54→13:40)
--- NOTE | 2018-02-18 12:16 | Progress Note (SOAP) ---
Subjective Subjective/Events-last exam Patient resting comfortable w/o grimace. Unresponsive. Review of Systems Date Seen by Provider: Feb 18, 2018 Time Seen by Provider: 10:20 Objective Exam Last Set of Vital Signs Vital Signs Date Time Temp Pulse Resp B/P (MAP) Pulse Ox O2 Delivery O2 Flow Rate FiO2 02/18/18 12:03 95.9 02/18/18 08:00 Room Air 02/14/18 21:00 100 02/14/18 13:30 60 12 105/81 Capillary Refill : Less Than 3 SecondsGreater Than 3 Seconds I&O Intake and Output 02/18/18 00:00 Intake Total 0 ml Output Total 0 ml Balance 0 ml Intake Oral 0 ml Output Urine Total 0 ml General: Other (Unresponsive) Lungs: Other (breathing with pauses) Extremities: Other (Mottling on hands present) Results/Procedures Lab Microbiology 02/14/18 Blood Culture - Preliminary, Resulted No growth Assessment/Plan Assessment/Plan Assessment & Plan 1. Multi-organ failure - Admitted for comfort care. - pt continues to decline, with only agonal breathing at this time. 02/16 - add scopolamine patch for respiratory secretions 02/17- Patient comfortable, reviewed meds with nurse, patient is declining, in active dying process 02/18- Patient is comfortable, having alot of secretion, using patch and atropine Clinical Quality Measures DVT/VTE Risk/Contraindication: Risk Factor Score Per Nursin RFS Level Per Nursing on Admit: 4+=Very High Contraindications-Pharm: Patient refusal of tx Contraindications-Mechi: Patient refusal of tx Other: comfort care only LAURIE SAVAGE MD Feb 18, 2018 12:16 pm
--- NOTE | 2018-02-18 20:46 | Discharge Summary ---
Diagnosis/Chief Complaint Date of Admission Feb 14, 2018 at 12:50 Date of Discharge Feb 18, 2018 at 17:07 Admission Diagnosis Admission Diagnosis Multisystem organ failure Comfort Care Discharge Diagnosis See Above Chief Complaint/HPI Chief Complaint/HPI Interim H&P - pt admitted 02/06/18 for UTI w/ sepsis. See H&P for 02/06/18. Pt brought to yesterday from [facility] due to decreased respiratory rate and decreased level of consciousness. I was in contact with nursing from [facility] on the evening 02/13/18, pt indicated to nursing he was ready to go, he told staff that he loved them, he then became less responsive with decreased respiratory rate. He oxygen sats were maintained so patient continued to be monitored. I spoke with his step-daughter who is his DPOA on the evening of 02/13/18 and discussed his condition. She had not seen him for over a month and did not want to change his DNR status until she could see him. Yesterday am he had a decrease and was transported to the ER from [facility]. Pt was hypotensive, hypothermic, decreased LOC and decreased respirations. Lab indicated multi- organ failure, CT showed anasarca. Dr. Zaidi and I met with the family in the ER and discussed patients current condition and co-morbid conditions. He and I both agree that aggressive care would be futile for the patient at this time and would increase his suffering. Family was in agreement and wished to proceed with comfort care measures. Patient admitted for comfort care. Pt is unresponsive w/ agonal breathing at this time. Discharge Summary-Simple/Stand Consultations Discharge Physical Examination Allergies: Coded Allergies: No Known Drug Allergies (Unverified , 11/11/16) Vitals & I&Os Vital Sign - Last 12Hours Date Time Temp Pulse Resp B/P (MAP) Pulse Ox O2 Delivery O2 Flow Rate FiO2 02/18/18 12:03 95.9 02/18/18 08:00 Room Air 02/14/18 21:00 100 02/14/18 13:30 60 12 105/81 Intake and Output 02/18/18 00:00 Intake Total 0 ml Output Total 0 ml Balance 0 ml General Appearance: Other (Patient ) Hospital Course See final discharge diagnosis. Discussion & Recommendations 58 yo M with quadriplegia who presented with Sepsis and multisystem organ failure. Family was contacted and patient was placed on comfort care. Patient passed comfortably today @ 1500. Discharge Condition at discharge Instructions to patient/family Please see electronic discharge instructions given to patient. Discharge Medications Reviewed and agree with Discharge Medication list on patient's Discharge Instruction sheet Clinical Quality Measures DVT/VTE Risk/Contraindication: Risk Factor Score Per Nursin RFS Level Per Nursing on Admit: 4+=Very High Contraindications-Pharm: Patient refusal of tx Contraindications-Mechi: Patient refusal of tx Other: comfort care only Comfort Measures/ Type of Care: Comfort Measures Date of : Feb 18, 2018 Time of : 15:00 Patient passed comfortably @ 1500, notified by nurse at 1505 Copy Copies To 1: Nadine YUEN HOLLY R MD Feb 18, 2018 20:46
[2018-02-19] MEDS ORDERED: SCOPOLAMINE PATCH REMOVAL TP SCH (07:44)
--- NOTE | 2018-02-19 11:32 | Physician Query-General Query ---
Physician Query-General Query to Physician: 1) Please specify the cause of the Sepsis 2) Diagnosis given was: Multi Organ Failure - Please specify which organs are in failure thank you PHYSICIAN RESPONSE: Based on the clinical findings in the record, please respond to the query above on this document as an addendum. Possible, probable, or questionable diagnosis can be coded for INPATIENTS ONLY. Physician Response: Physician Response Acute Heart Failure Acute kidney failure Acute Respiratory failure with hypoxia If you have questions please contact: Meter Attendant: So Calderon Ext: [phone] Thank you for your time and cooperation. Clinical Agriculture Technician/Meter Attendant This is a permanent part of the medical record CADY CALDERON Feb 19, 2018 11:32 LAURIE SAVAGE MD Feb 22, 2018 20:33
== END 2018-02-18 17:07 | disposition expired | DRG 871 ==
LOC: EDUNIT# 09:16 → ER 09:18 → 4TH 12:50
PROVIDERS: ADMIT Family Medicine; ATTEND Family Medicine
DX: A41.9 Sepsis, unspecified organism (principal); R65.20 Severe sepsis without septic shock; N39.0 Urinary tract infection, site not specified; J96.01 Acute respiratory failure with hypoxia; N17.9 Acute kidney failure, unspecified; I11.0 Hypertensive heart disease with heart failure; I50.9 Heart failure, unspecified; Z66 Do not resuscitate; Z51.5 Encounter for palliative care; G82.50 Quadriplegia, unspecified; R60.1 Generalized edema; L89.159 Pressure ulcer of sacral region, unspecified stage; I95.89 Other hypotension; Z93.3 Colostomy status; Z93.50 Unspecified cystostomy status
CPT/HCPCS: 36415; 36600; 71045; 74176; 80053; 82805; 83605; 83880; 84484; 85025; 85610; 85730; 87040; 93005; 96361; 96365; 96366; 99291; 99292